=== PATIENT | female | born 1935 | race Caucasian/White ===

== ENCOUNTER → 2016-11-29 | Outpatient (CLI) | payer OTHER ==
[~2016-11-29] MED LIST: AMB5 PO; AMLO2.5T PO; ASPEC325 PO; BTMOPS5 OPB; HYDR-5688 PO; MELO7.5T6 PO; MRLP17X PO; RALO60TA30 PO; TYL325X PO; VALS160T58 PO; VTMD1000 PO; [UNRECOGNIZED DRUG - CODE] PO
[2016-11-29 14:25] LABS: ALKALINE PHOSPHATASE 79 U/L (45-117); ALT/SGPT 28 U/L (12-78); AST/SGOT 20 U/L (15-37); BLOOD UREA NITROGEN 15 mg/dl (7-18); BUN/CREATININE RATIO 19.9 (10-20); CALCIUM 8.6 mg/dl (8.5-10.1); CARBON DIOXIDE 32 mmol/L (21-32); CHLORIDE 96 mmol/L (98-107); CREATININE 0.74 mg/dl (0.60-1.20); GLUCOSE 116 mg/dl (70-99); HDL CHOLESTEROL 61 mg/dl; POTASSIUM 3.7 mmol/L (3.5-5.1); SODIUM 134 mmol/L (136-145)
[2016-11-29 14:36] LABS: CHOLESTEROL 174 mg/dl (0-200); CHOLESTEROL/HDL RATIO 2.9; LDL CHOLESTEROL CALCULATED 91 mg/dl; TRIGLYCERIDES 109 mg/dl (0-150); VERY LOW DENSITY LIPOPROT CALC 22 mg/dl
[2016-11-29 15:08] LABS: URINE APPEARANCE CLOUDY (CLEAR); URINE BILIRUBIN NEG (NEG); URINE COLOR YELLOW; URINE NITRITE NEG (NEG); URINE PH 6.5 (4.5-7.5); URINE SPECIFIC GRAVITY 1.017 (1.000-1.030); UROBILINOGEN NEG (NEG)
[2016-11-29 15:14] LABS: MANUAL MICROSCOPIC REQUIRED? YES; REVIEW REQ? NO
[2016-11-29 15:47] LABS: URINE WBC >30 /hpf (0-5)
[2016-11-29 15:48] LABS: URINE BACTERIA 3+ (NEG); URINE RBC 0-4 /hpf (0-4)
== END | disposition home or self-care (01) ==
LOC: C.LABBC 10:40
PROVIDERS: ATTEND Internal Medicine
DX: Z00.00 Encounter for general adult medical examination without abnormal findings (principal); R39.9 Unspecified symptoms and signs involving the genitourinary system; R73.03 Prediabetes; E78.5 Hyperlipidemia, unspecified; E03.9 Hypothyroidism, unspecified

== ENCOUNTER → 2016-12-19 | Outpatient (CLI) | payer OTHER ==
[2016-12-19 11:50] LABS: ALT/SGPT 24 U/L (12-78); AST/SGOT 20 U/L (15-37); BLOOD UREA NITROGEN 20 mg/dl (7-18); BUN/CREATININE RATIO 25.8 (10-20); CARBON DIOXIDE 28 mmol/L (21-32); CHLORIDE 98 mmol/L (98-107); CREATININE 0.76 mg/dl (0.60-1.20); GLUCOSE 94 mg/dl (70-99); SODIUM 136 mmol/L (136-145)
== END | disposition home or self-care (01) ==
LOC: C.LABBC 09:06
PROVIDERS: ATTEND Internal Medicine
DX: E03.9 Hypothyroidism, unspecified (principal); E78.5 Hyperlipidemia, unspecified; R73.03 Prediabetes

== ENCOUNTER → 2016-12-26 | Outpatient (CLI) | payer OTHER ==
[2016-12-26 13:43] LABS: URINE APPEARANCE CLEAR (CLEAR); URINE BILIRUBIN NEG (NEG); URINE COLOR YELLOW; URINE EPITHELIAL CELL AUTO >30 /lpf (0-5); URINE NITRITE NEG (NEG); URINE PH 6.5 (4.5-7.5); URINE SPECIFIC GRAVITY 1.012 (1.000-1.030); UROBILINOGEN NEG (NEG)
[2016-12-26 13:51] LABS: MANUAL MICROSCOPIC REQUIRED? NO; REVIEW REQ? NO
== END | disposition home or self-care (01) ==
LOC: C.LABBC 11:12
PROVIDERS: ATTEND Internal Medicine
DX: R39.9 Unspecified symptoms and signs involving the genitourinary system (principal)

== ENCOUNTER → 2017-03-07 | Outpatient (CLI) | payer OTHER ==
[~2017-03-07] MED LIST changes: +RALO60TA12 PO; -RALO60TA30 PO
[2017-03-07 13:49] LABS: BLOOD UREA NITROGEN 14 mg/dl (7-18); BUN/CREATININE RATIO 21.8 (10-20); CALCIUM 8.8 mg/dl (8.5-10.1); CARBON DIOXIDE 31 mmol/L (21-32); CHLORIDE 100 mmol/L (98-107); CREATININE 0.65 mg/dl (0.60-1.20); GLUCOSE 88 mg/dl (70-99); POTASSIUM 3.6 mmol/L (3.5-5.1); SODIUM 135 mmol/L (136-145)
== END | disposition home or self-care (01) ==
LOC: C.LABBC 09:19
PROVIDERS: ATTEND Internal Medicine
DX: E87.1 Hypo-osmolality and hyponatremia (principal)

== ENCOUNTER → 2017-03-27 | Outpatient (CLI) | payer OTHER ==
[2017-03-27 14:12] LABS: CALCIUM URINE < 5.0 mg/dl
[2017-03-27 14:13] LABS: URINE COLLECTION TIME 24 HOURS
== END | disposition home or self-care (01) ==
LOC: C.LABBC 09:42
PROVIDERS: ATTEND Internal Medicine Rheumatology
DX: M81.0 Age-related osteoporosis without current pathological fracture (principal); E55.9 Vitamin D deficiency, unspecified

== ENCOUNTER → 2017-06-16 | Outpatient (CLI) | payer OTHER ==
[2017-06-16 13:56] LABS: ALT/SGPT 24 U/L (12-78); AST/SGOT 23 U/L (15-37); BLOOD UREA NITROGEN 17 mg/dl (7-18); BUN/CREATININE RATIO 24.9 (10-20); CALCIUM 8.6 mg/dl (8.5-10.1); CARBON DIOXIDE 32 mmol/L (21-32); CHLORIDE 96 mmol/L (98-107); CHOLESTEROL 193 mg/dl (0-200); CREATININE 0.69 mg/dl (0.60-1.20); GLUCOSE 91 mg/dl (70-99); POTASSIUM 3.9 mmol/L (3.5-5.1); SODIUM 133 mmol/L (136-145)
[2017-06-16 14:07] LABS: ALKALINE PHOSPHATASE 78 U/L (45-117); CHOLESTEROL/HDL RATIO 3.1; HDL CHOLESTEROL 63 mg/dl; LDL CHOLESTEROL CALCULATED 105 mg/dl; TRIGLYCERIDES 127 mg/dl (0-150); VERY LOW DENSITY LIPOPROT CALC 25 mg/dl
[2017-06-16 14:23] LABS: ESTIMATED AVERAGE GLUCOSE 126 mg/dl; HA1C FLAG Normal (Normal)
== END | disposition home or self-care (01) ==
LOC: C.LABBC 09:42
PROVIDERS: ATTEND Internal Medicine
DX: M81.0 Age-related osteoporosis without current pathological fracture (principal); E87.1 Hypo-osmolality and hyponatremia; E78.5 Hyperlipidemia, unspecified; R73.03 Prediabetes; G47.00 Insomnia, unspecified

== ENCOUNTER → 2017-09-15 | Outpatient (CLI) | payer OTHER ==
[2017-09-15 15:20] LABS: GLUCOSE 99 mg/dl (70-99)
[2017-09-15 15:20] LABS: BLOOD UREA NITROGEN 17 mg/dl (7-18); BUN/CREATININE RATIO 24.6 (10-20); CALCIUM 9.3 mg/dl (8.5-10.1); CARBON DIOXIDE 33 mmol/L (21-32); CHLORIDE 85 mmol/L (98-107); CREATININE 0.68 mg/dl (0.60-1.20); EstGFR CKD-E AfrAm 94.4; EstGFR CKD-E NON AfrAm 81.5; POTASSIUM 3.9 mmol/L (3.5-5.1); SODIUM 123 mmol/L (136-145)
== END | disposition home or self-care (01) ==
LOC: C.LABBC 10:35
DX: E87.1 Hypo-osmolality and hyponatremia (principal)

== ENCOUNTER → 2017-09-18 | Outpatient (CLI) | payer OTHER ==
[~2017-09-18] MED LIST changes: -ASPEC325 PO; +ASPI81TA28 PO; -BTMOPS5 OPB; +DVN/160 PO; -HYDR-5688 PO; +HYDR12.56 PO; -MRLP17X PO; -RALO60TA12 PO; +TMPXEOPS OPB; -TYL325X PO; -VALS160T58 PO
[2017-09-18 18:15] LABS: BLOOD UREA NITROGEN 15 mg/dl (7-18); CALCIUM 8.9 mg/dl (8.5-10.1); CARBON DIOXIDE 29 mmol/L (21-32); CREATININE 0.53 mg/dl (0.60-1.20); GLUCOSE 78 mg/dl (70-99); POTASSIUM 3.9 mmol/L (3.5-5.1); SODIUM 130 mmol/L (136-145)
== END | disposition home or self-care (01) ==
LOC: C.LAB1850 17:01
PROVIDERS: ATTEND Internal Medicine
DX: E87.1 Hypo-osmolality and hyponatremia (principal)

== ENCOUNTER → 2017-09-25 | Outpatient (CLI) | payer OTHER ==
[2017-09-25 16:53] LABS: BLOOD UREA NITROGEN 18 mg/dl (7-18); CALCIUM 8.8 mg/dl (8.5-10.1); CARBON DIOXIDE 28 mmol/L (21-32); CREATININE 0.62 mg/dl (0.60-1.20); GLUCOSE 101 mg/dl (70-99); POTASSIUM 4.1 mmol/L (3.5-5.1); SODIUM 133 mmol/L (136-145)
== END | disposition home or self-care (01) ==
LOC: C.LABBC 13:29
PROVIDERS: ATTEND Internal Medicine
DX: E87.1 Hypo-osmolality and hyponatremia (principal)

== ENCOUNTER → 2017-10-09 | Outpatient (CLI) | payer OTHER ==
[2017-10-09 14:01] LABS: BLOOD UREA NITROGEN 13 mg/dl (7-18); CALCIUM 8.8 mg/dl (8.5-10.1); CARBON DIOXIDE 30 mmol/L (21-32); CREATININE 0.61 mg/dl (0.60-1.20); GLUCOSE 85 mg/dl (70-99); SODIUM 135 mmol/L (136-145)
== END | disposition home or self-care (01) ==
LOC: C.LABBC 11:57
PROVIDERS: ATTEND Internal Medicine
DX: E87.1 Hypo-osmolality and hyponatremia (principal)

== ENCOUNTER → 2017-11-16 | Outpatient (CLI) | payer OTHER | END | disposition home or self-care (01) | LOC: C.LABBC 15:20 | PROVIDERS: ATTEND Internal Medicine | DX: R39.9 Unspecified symptoms and signs involving the genitourinary system (principal) ==

== ENCOUNTER → 2017-12-19 | Outpatient (CLI) | payer OTHER ==
[2017-12-19 14:07] LABS: BLOOD UREA NITROGEN 17 mg/dl (7-18); CALCIUM 8.7 mg/dl (8.5-10.1); CARBON DIOXIDE 30 mmol/L (21-32); CREATININE 0.68 mg/dl (0.60-1.20); GLUCOSE 93 mg/dl (70-99); POTASSIUM 3.8 mmol/L (3.5-5.1); SODIUM 135 mmol/L (136-145)
[2017-12-19 14:18] LABS: CHOLESTEROL 182 mg/dl (0-200); LDL CHOLESTEROL CALCULATED 101 mg/dl
== END | disposition home or self-care (01) ==
LOC: C.LABBC 10:30
PROVIDERS: ATTEND Internal Medicine
DX: R73.03 Prediabetes (principal); E78.5 Hyperlipidemia, unspecified; E03.9 Hypothyroidism, unspecified

== ENCOUNTER → 2018-04-20 | Outpatient (CLI) | payer OTHER ==
[~2018-04-20] MED LIST changes: +CALC12502 PO
[2018-04-20 13:42] LABS: HEMATOCRIT 37.8 % (37-47); HEMOGLOBIN 12.3 g/dL (12.0-16.0); MEAN CELL VOLUME 88.5 fL (80-100); MEAN CORPUSCULAR HEMOGLOBIN 28.8 pg (25-34); MEAN CORPUSCULAR HGB CONC 32.5 g/dl (32-36); MEAN PLATELET VOLUME 11.3 fL (7.4-10.4); PLATELET COUNT 320 K/uL (130-400); RED CELL DISTRIBUTION WIDTH CV 14.3 % (11.5-14.5); RED CELL DISTRIBUTION WIDTH SD 46.7 fL (36.4-46.3); WHITE BLOOD COUNT 9.28 K/uL (4.8-10.8)
[2018-04-20 14:10] LABS: HEMOGLOBIN A1C 5.8 % (4.5-5.6)
[2018-04-20 14:34] LABS: ALBUMIN 3.4 gm/dl (3.4-5.0); ALKALINE PHOSPHATASE 77 U/L (45-117); ALT/SGPT 25 U/L (12-78); AST/SGOT 21 U/L (15-37); BLOOD UREA NITROGEN 14 mg/dl (7-18); CALCIUM 8.5 mg/dl (8.5-10.1); CARBON DIOXIDE 26 mmol/L (21-32); CREATININE 0.66 mg/dl (0.60-1.20); GLUCOSE 86 mg/dl (70-99); POTASSIUM 4.3 mmol/L (3.5-5.1); SODIUM 133 mmol/L (136-145)
== END | disposition home or self-care (01) ==
LOC: C.LABBC 10:37
PROVIDERS: ATTEND Internal Medicine
DX: E87.1 Hypo-osmolality and hyponatremia (principal); R73.03 Prediabetes; E03.9 Hypothyroidism, unspecified; R60.9 Edema, unspecified; E55.9 Vitamin D deficiency, unspecified

== ENCOUNTER 2018-04-24 13:29 | Emergency (ER) | payer OTHER ==
[~2018-04-24] VITALS: Ht 149.9 cm; Wt 58.4 kg
[~2018-04-24 13:29] MED LIST changes: -CALC12502 PO
[2018-04-24 13:31] VITALS: Ht 149.9 cm; Wt 58.4 kg
[2018-04-24] MEDS ORDERED: CALC12502 PO (13:49)
--- NOTE | 2018-04-24 14:02 | EMERGENCY ROOM VISIT NOTE ---
History Report prepared by Celi: Roseanna Cabral Under the Supervision of: Dr. Logan Andrade D.O. First contact with patient: 13:49 Chief Complaint: NEURO SYMPTOMS Stated Complaint: NUMBNESS OF LEFT ARM, CHEST PAIN Nursing Triage Summary: pt reports feeling numbness in bilat arms started 1 hour ago. has since gone away. pt having headache last night. no leg drifts no drifts in arms denies any problems with speech. smile equal History of Present Illness The patient is a 83 year old female who presents to the Emergency Room with complaints of left arm numbness. This included her entire left arm. She reports no numbness in her right arm. This started around 12:00 while she was sitting in a chair watching TV. Numbness lasted for about a minute. She denies any weakness. She notes she is completely able to move her arm without difficulty. She had no trouble talking. She has never had this before. She has no headache, chest pain, shortness of breath, blurry vision, nausea vomiting diarrhea. She denies any urinary frequency, or urgency. She notes she had full control of her arm. No slurred speech. Source of History: patient Onset: 1200 today Position: arm (left) Quality: numbness Timing: other (lasted about 1 minute) Associated Symptoms: No headache, No chest pain, No SOB, No nausea, No vomiting, No diarrhea, No urinary symptoms, No weakness Note: Negative blurry vision or slurred speech Review of Systems See HPI for pertinent positives & negatives. A total of 10 systems reviewed and were otherwise negative. Past Medical & Surgical Medical Problems: (1) Fibrosclerosis Of Breast (2) Hyperlipidemia Nec/Nos (3) Hypertension Nos Family History No pertinent family history Social History Smoking Status: Never Smoker Drug Use: none Marital Status: Occupation Status: retired Current/Historical Medications Scheduled Amlodipine (Norvasc), 2.5 MG PO DAILY Aspirin (Aspirin Ec), 81 MG PO DAILY Calcium Carbonate (Os-Rodger 500), 500 MG PO DAILY Cholecalciferol (Vitamin D3), 1,000 INTER.UNIT PO QAM Fluvastatin Sodium (Lescol Xl), 1 TAB PO DAILY Meloxicam (Mobic), 7.5 MG PO BID Timolol Maleate (Timolol Gfs 0.5% (Generic For Timoptic-Xe)), 1 DROP OPB QAM Valsartan (Diovan), 160 MG PO DAILY Zolpidem Tartrate (Zolpidem Tartrate), 2.5 MG PO HS Allergies Coded Allergies: No Known Allergies (Unverified , 04/24/18) Physical Exam Vital Signs Date Time Temp Pulse Resp B/P (MAP) Pulse Ox O2 Delivery O2 Flow Rate FiO2 04/24/18 17:40 36.4 75 22 173/75 95 04/24/18 17:05 75 22 173/75 95 Room Air 04/24/18 14:27 75 04/24/18 13:31 36.4 74 18 176/77 100 Room Air Physical Exam GENERAL: Sitting up in bed, alert, well appearing, well nourished, no distress, non-toxic EYE EXAM: normal conjunctiva. PERRL and EOM's intact. OROPHARYNX: no exudate, no erythema, lips, buccal mucosa, and tongue normal and mucous membranes are moist NECK: supple, no nuchal rigidity, no adenopathy, non-tender LUNGS: Clear to auscultation. Normal chest wall mechanics HEART: no murmurs, S1 normal and S2 normal ABDOMEN: abdomen soft, non-tender, normo-active bowel sounds, no masses, no rebound or guarding. BACK: Back is symmetrical on inspection and there is no deformity, no midline tenderness, no CVA tenderness. SKIN: no rashes and no bruising UPPER EXTREMITIES: upper extremities are grossly normal. LOWER EXTREMITIES: No pitting edema. NEURO EXAM: Normal sensorium, cranial nerves II-XII intact, normal speech, no weakness of arms, no weakness of legs. No drift. Finger to nose intact. Gross sensation intact. Medical Decision & Procedures ER Provider Diagnostic Interpretation: Radiology results as stated below per my review and the radiologist's interpretation: HEAD WITHOUT CONTRAST (CT) CT DOSE: 537.48 mGy.cm HISTORY: Mental status change l arm numbness TECHNIQUE: Multiaxial CT images of the head were performed without the use of intravenous contrast. A dose lowering technique was utilized adhering to the principles of ALARA. Comparison: None. Findings: The paranasal sinuses and mastoid air cells are clear. Age-related atrophy and chronic small vessel change. Mild ventricular prominence. No acute intracranial hemorrhage. Impression: Atrophy and age-related change. No acute process. The above report was generated using voice recognition software. It may contain grammatical, syntax or spelling errors. Electronically signed by: Juan M Seth M.D. 04/24/2018 3:31 PM CHEST ONE VIEW PORTABLE CLINICAL HISTORY: Chest pain. COMPARISON STUDY: Chest radiograph September 12, 2017. FINDINGS: Incidental note is made of elevation of both humeral heads which suggests chronic rotator cuff tears. A moderate sized hiatal hernia is noted. There is no pneumothorax or pleural effusion. There is no consolidation to suggest pneumonia. Prominent vascularity is normal. Cardiomediastinal silhouette is stable. Appearance of the chest is unchanged. IMPRESSION: No acute cardiopulmonary findings. No change in appearance of the chest. Electronically signed by: Abdoulaye Rosenthal M.D. 04/24/2018 2:31 PM CAROTID ARTERY ULTRASOUND CLINICAL HISTORY: Left arm paresthesias. COMPARISON STUDY: None. TECHNIQUE: Real-time, grayscale, and color Doppler sonography of the carotid and vertebral arteries was performed. Images were viewed in the transverse and longitudinal planes. FINDINGS: There is mild atherosclerotic plaque. Velocity measurements are listed below. COMMON CAROTID PEAK SYSTOLIC VELOCITY (CM/S): RIGHT 147 LEFT 109 ICA PEAK SYSTOLIC VELOCITY (CM/S): RIGHT 85 LEFT 74 Systolic ratios between the internal to common carotid arteries are normal. Antegrade flow is seen in the vertebral arteries. The external carotid arteries are patent. Blood pressure in the right arm measured 161/70. Blood pressure in the left arm measured 140/69. IMPRESSION: No evidence for a hemodynamically significant stenosis. Electronically signed by: Abdoulyae Rosenthal M.D. 04/24/2018 5:13 PM Laboratory Results 04/24/18 14:13 Red Blood Count 4.08, Mean Corpuscular Volume 88.0, Mean Corpuscular Hemoglobin 29.2, Mean Corpuscular Hemoglobin Concent 33.1, Mean Platelet Volume 10.8, Neutrophils (%) (Auto) 68.3, Lymphocytes (%) (Auto) 21.8, Monocytes (%) (Auto) 8.7, Eosinophils (%) (Auto) 0.7, Basophils (%) (Auto) 0.1, Neutrophils # (Auto) 6.65, Lymphocytes # (Auto) 2.12, Monocytes # (Auto) 0.85, Eosinophils # (Auto) 0.07, Basophils # (Auto) 0.01 04/24/18 14:13 Test 04/24/18 14:13 04/24/18 16:26 04/24/18 16:51 White Blood Count 9.74 K/uL (4.8-10.8) Red Blood Count 4.08 M/uL (4.2-5.4) Hemoglobin 11.9 g/dL (12.0-16.0) Hematocrit 35.9 % (37-47) Mean Corpuscular Volume 88.0 fL (80-100) Mean Corpuscular Hemoglobin 29.2 pg (25-34) Mean Corpuscular Hemoglobin Concent 33.1 g/dl (32-36) Platelet Count 286 K/uL (130-400) Mean Platelet Volume 10.8 fL (7.4-10.4) Neutrophils (%) (Auto) 68.3 % Lymphocytes (%) (Auto) 21.8 % Monocytes (%) (Auto) 8.7 % Eosinophils (%) (Auto) 0.7 % Basophils (%) (Auto) 0.1 % Neutrophils # (Auto) 6.65 K/uL (1.4-6.5) Lymphocytes # (Auto) 2.12 K/uL (1.2-3.4) Monocytes # (Auto) 0.85 K/uL (0.11-0.59) Eosinophils # (Auto) 0.07 K/uL (0-0.5) Basophils # (Auto) 0.01 K/uL (0-0.2) RDW Standard Deviation 44.5 fL (36.4-46.3) RDW Coefficient of Variation 13.8 % (11.5-14.5) Immature Granulocyte % (Auto) 0.4 % Immature Granulocyte # (Auto) 0.04 K/uL (0.00-0.02) Anion Gap 9.0 mmol/L (3-11) Est Creatinine Clear Calc Drug Dose 47.4 ml/min Estimated GFR () 92.9 Estimated GFR (Non- 80.1 BUN/Creatinine Ratio 21.4 (10-20) Calcium Level 8.4 mg/dl (8.5-10.1) Total Creatine Kinase 61 U/L (26-192) Creatine Kinase MB 1.2 ng/ml (0.5-3.6) Creatine Kinase MB Ratio 2.0 (0-3.0) Troponin I < 0.015 ng/ml (0-0.045) Urine Color YELLOW Urine Appearance CLEAR (CLEAR) Urine pH 7.5 (4.5-7.5) Urine Specific [place] 1.007 (1.000-1.030) Urine Protein NEG (NEG) Urine Glucose (UA) NEG (NEG) Urine Ketones NEG (NEG) Urine Occult Blood NEG (NEG) Urine Nitrite NEG (NEG) Urine Bilirubin NEG (NEG) Urine Urobilinogen NEG (NEG) Urine Leukocyte Esterase SMALL (NEG) Urine WBC (Auto) 1-5 /hpf (0-5) Urine RBC (Auto) 0-4 /hpf (0-4) Urine Hyaline Casts (Auto) 0 /lpf (0-5) Urine Epithelial Cells (Auto) 5-10 /lpf (0-5) Urine Bacteria (Auto) NEG (NEG) Laboratory results per my review. ECG Per My Interpretation Indication: other (neuro symptoms) Rate (beats per minute): 72 Rhythm: sinus rhythm Findings: left axis deviation, other (no PVCs) Comparison ECG Date: 09/10/17 Change: no significant change ED Course ED COURSE: Vital signs were reviewed and showed hypertensive The patients medical record was reviewed The above diagnostic studies were performed and reviewed. ED treatments and interventions as stated above. 1351: The patient was evaluated in room B11. A complete history and physical examination was performed. 1525: I checked on the patient at this time. She is feeling well. 1613: I reviewed the patient's case with Dr. Kurt Tay, [facility]. He recommends ta carotid ultrasound. If negative, she can follow up with her PCP. 1726: Upon reevaluation, the patient is feeling better. I discussed my findings with the patient and she understands and agrees with the treatment plan. Based on the patients age, coexisting illnesses, exam and lab findings the decision to treat as an outpatient was made. The patient remained stable while under my care. The patient appeared well at the time of discharge. Medical Decision Differential Diagnosis includes but is not limited to ischemic Stroke, hemorrhagic stroke, bells palsy, mass, neoplasm, migraine headache, seizure, subarachnoid hemorrhage, TIA, and transient global amnesia. Patient is an 83-year-old female who presents the ER for left arm numbness. It included her entire left arm. She had a minimal headache last night. She had no weakness. No other complaints. No chest pain or shortness of breath. EKG was unremarkable. Labs were obtained. CBC along with BMP shows a mild anemia. Troponins were negative 2. UA was negative. EKG was reviewed by product design engineer at bedside as family friend. CT head was obtained and was unremarkable. Chest x-ray was unremarkable along with carotid ultrasound. Carotid ultrasound was obtained after discussion with neurology. Dr. Tay recommended carotid ultrasound and if negative she can follow-up as an outpatient for possible TIA. Patient will continue 81 mg aspirin daily. Patient was discharged neurologically intact follow-up with PCP and neurology as an outpatient. Discussed with Pt concerning signs and symptoms to watch out for. Pt was instructed to follow up with their PCP and discussed with the patient their option to return to the ED at anytime for persistent or worsening symptoms. The appropriate anticipatory guidance and out-patient management, including indications for return to the emergency department, were explained at length to the patient and understood. Medication Reconcilliation Current Medication List: was personally reviewed by me Blood Pressure Screening Patient's blood pressure: Elevated blood pressure Blood pressure disposition: Referred to PCP Consults Time Called: 1611 Consulting Physician: Dr. Kurt Tay, [facility] Returned Call: 1613 I reviewed the patient's case with Dr. Kurt Tay, [facility]. He recommends ta carotid ultrasound. If negative, she can follow up with her PCP. Impression Primary Impression: Arm paresthesia, left Scribe Attestation The scribe's documentation has been prepared under my direction and personally reviewed by me in its entirety. I confirm that the note above accurately reflects all work, treatment, procedures, and medical decision making performed by me. Departure Information Dispostion Home / Self-Care Referrals Dav Perez M.D. (PCP) Forms HOME CARE DOCUMENTATION FORM, IMPORTANT VISIT INFORMATION, WORK / SCHOOL INSTRUCTIONS Patient Instructions [facility] Additional Instructions Please follow up with your primary care doctor with in the next 24 hours. Any worsening of your symptoms, please return to the ED immediately. This includes any fevers greater than 100.4, worsening pain, chest pain, shortness breath, persistent nausea, vomiting, unable to eat or drink, or any other concerning signs or symptoms from your standpoint. Please continue to take your aspirin 81 mg daily. Please make sure you follow-up with your PCP within the next 3 days. Please follow-up with neurology within the next 2 weeks.
[2018-04-24 14:30] LABS: BASO % 0.1 %; BASO ABS # 0.01 K/uL (0-0.2); EOS % 0.7 %; EOS ABS # 0.07 K/uL (0-0.5); HEMATOCRIT 35.9 % (37-47); HEMOGLOBIN 11.9 g/dL (12.0-16.0); IG# 0.04 K/uL (0.00-0.02); LYMPH % 21.8 %; LYMPH ABS # 2.12 K/uL (1.2-3.4); MEAN CORPUSCULAR HEMOGLOBIN 29.2 pg (25-34); MEAN CORPUSCULAR HGB CONC 33.1 g/dl (32-36); MEAN PLATELET VOLUME 10.8 fL (7.4-10.4); MONO % 8.7 %; MONO ABS # 0.85 K/uL (0.11-0.59); NEUT % 68.3 %; NEUT ABS # 6.65 K/uL (1.4-6.5); PLATELET COUNT 286 K/uL (130-400); RED CELL DISTRIBUTION WIDTH CV 13.8 % (11.5-14.5); RED CELL DISTRIBUTION WIDTH SD 44.5 fL (36.4-46.3); WHITE BLOOD COUNT 9.74 K/uL (4.8-10.8)
--- NOTE | 2018-04-24 14:32 | DIAGNOSTIC IMAGING REPORT ---
CHEST ONE VIEW PORTABLE CLINICAL HISTORY: Chest pain. COMPARISON STUDY: Chest radiograph September 12, 2017. FINDINGS: Incidental note is made of elevation of both humeral heads which suggests chronic rotator cuff tears. A moderate sized hiatal hernia is noted. There is no pneumothorax or pleural effusion. There is no consolidation to suggest pneumonia. Prominent vascularity is normal. Cardiomediastinal silhouette is stable. Appearance of the chest is unchanged. IMPRESSION: No acute cardiopulmonary findings. No change in appearance of the chest. Electronically signed by: Abdoulaye Rosenthal M.D. 04/24/2018 2:31 PM Dictated Date/Time: 04/24/2018 2:30 PM
[2018-04-24 14:49] LABS: BLOOD UREA NITROGEN 15 mg/dl (7-18); CALCIUM 8.4 mg/dl (8.5-10.1); CARBON DIOXIDE 26 mmol/L (21-32); CKMB 1.2 ng/ml (0.5-3.6); GLUCOSE 109 mg/dl (70-99); POTASSIUM 3.9 mmol/L (3.5-5.1); SODIUM 135 mmol/L (136-145)
--- NOTE | 2018-04-24 15:33 | DIAGNOSTIC IMAGING REPORT ---
HEAD WITHOUT CONTRAST (CT) CT DOSE: 537.48 mGy.cm HISTORY: Mental status change l arm numbness TECHNIQUE: Multiaxial CT images of the head were performed without the use of intravenous contrast. A dose lowering technique was utilized adhering to the principles of ALARA. Comparison: None. Findings: The paranasal sinuses and mastoid air cells are clear. Age-related atrophy and chronic small vessel change. Mild ventricular prominence. No acute intracranial hemorrhage. Impression: Atrophy and age-related change. No acute process. The above report was generated using voice recognition software. It may contain grammatical, syntax or spelling errors. Electronically signed by: Juan M Seth M.D. 04/24/2018 3:31 PM Dictated Date/Time: 04/24/2018 3:30 PM
--- NOTE | 2018-04-24 17:15 | DIAGNOSTIC IMAGING REPORT ---
CAROTID ARTERY ULTRASOUND CLINICAL HISTORY: Left arm paresthesias. COMPARISON STUDY: None. TECHNIQUE: Real-time, grayscale, and color Doppler sonography of the carotid and vertebral arteries was performed. Images were viewed in the transverse and longitudinal planes. FINDINGS: There is mild atherosclerotic plaque. Velocity measurements are listed below. COMMON CAROTID PEAK SYSTOLIC VELOCITY (CM/S): RIGHT 147 LEFT 109 ICA PEAK SYSTOLIC VELOCITY (CM/S): RIGHT 85 LEFT 74 Systolic ratios between the internal to common carotid arteries are normal. Antegrade flow is seen in the vertebral arteries. The external carotid arteries are patent. Blood pressure in the right arm measured 161/70. Blood pressure in the left arm measured 140/69. IMPRESSION: No evidence for a hemodynamically significant stenosis. Electronically signed by: Abdoulaye Rosenthal M.D. 04/24/2018 5:13 PM Dictated Date/Time: 04/24/2018 5:11 PM
[2018-04-24 17:40] VITALS: BP 173/75; PULSE 75; TEMP 36.4; O2SAT 95
== END 2018-04-24 17:42 | disposition home or self-care (01) ==
LOC: C.EDB 13:30
DX: R20.2 Paresthesia of skin (principal); I10 Essential (primary) hypertension; E78.5 Hyperlipidemia, unspecified; Z79.82 Long term (current) use of aspirin

== ENCOUNTER 2019-03-29 16:24 | Inpatient (IN) ==
[2019-03-29] MEDS ORDERED: SODIUM CHLORIDE 0.9% 1000ML 500 ML IV ONE (16:55)
--- NOTE | 2019-03-29 17:07 | Emergency Department Note ---
Entered by Elvira Paez acting as a scribe for Vijay Wilder DO History of Present Illness General Chief complaint: Urinary Symptoms Stated complaint: ILLNESS, BURNING WITH URINATION-IN [place] RECENTLY Time Seen by Provider: 03/29/19 16:34 Source: patient History of Present Illness Provider complaint: Urinary symptoms Onset (ago): day(s) 4 Location: head (headache ), abdomen (nausea and vomiting ) and genitals (urinary symptoms ) Pain Consistency: + constant Maximum Pain Intensity: 8 Quality: + constant Associated symptoms: + fever/chills (chills ), + headaches, + loss of appetite, + nausea/vomiting and + other (Positive: urinary symptoms, dysuria, cold sweats, improving cough and congestion. Negative: diarrhea, constipation, abdominal pa in); no shortness of breath The patient is an 84 year old female who presents to the ED with complaints of constant urinary symptoms that started 4 days ago. The patient reports she had a recent UTI about 4 weeks ago. She notes she was treated in [place] and was prescribed antibiotics. The patient states she was treated for 10 days and was completely better for 4 weeks until her current episode. She notes her main concern is dysuria. The patient states she has had decreased appetite for 4 days. She notes she has intermittent chills with cold sweats. The patient reports she has intermittent 8/10 headache and nausea for 4 days. She notes she had one episode of vomiting this morning. The patient states there was no blood or bile in the vomit. She reports she has improving cough and congestion. The patient states she has history of pre-diabetes, hypertension, and hyperlipidemia. The patient denies diarrhea, constipation, shortness of breath, abdominal pain, tobacco use, or alcohol use. Home Medications Home Medications Medication Instructions Recorded Confirmed Type amlodipine [Norvasc] 2.5 mg PO BID 03/29/19 03/29/19 History aspirin [Aspir-81] 81 mg PO DAILY 03/29/19 03/29/19 History calcium carbonate-vitamin D3 1 tab PO DAILY 03/29/19 03/29/19 History [Os-Rodger 500 + D3] cholecalciferol (vitamin D3) 1,000 unit PO DAILY 03/29/19 03/29/19 History [Vitamin D3] levothyroxine [Synthroid] 25 mcg PO DAILY 03/29/19 03/29/19 History meloxicam [Mobic] 7.5 mg PO BID PRN 03/29/19 03/29/19 History pravastatin 80 mg PO DAILY 03/29/19 03/29/19 History timolol maleate [Timoptic] 1 drp OPHTHALMIC (EYE) DAILY 03/29/19 03/29/19 History valsartan [Diovan] 160 mg PO DAILY 03/29/19 03/29/19 History zolpidem [Ambien] 2.5 - 5 mg PO HS PRN 03/29/19 03/29/19 History Allergies Allergy/AdvReac Type Severity Reaction Status Date / Time No Known Allergies Allergy Verified 03/29/19 17:41 Past Med/Surg History Medical History Vitamin D deficiency Trochanteric bursitis of left hip Pre-diabetes Osteoarthritis Hypertension Hyperlipidemia Fibrocystic breast disease Glaucoma Diverticulosis Osteoporosis Vomiting (Acute) Dehydration (Acute) Hyponatremia (Acute) Hypokalemia (Acute) Nausea (Acute) Family History Other Family history non-contributory Social History Feels Safe at Home: Yes Smoking Status: Never smoker Review of Systems See HPI for pertinent positives & negatives. and A total of 10 systems reviewed and were otherwise negative Physical Exam Vital Signs Vital Signs - 24 hr 03/29/19 16:28 03/29/19 16:53 Temperature 36.5 C Temperature Source Oral Sepsis Recent Fever Within 48 Hours No Sepsis Action Taken by Nursing No Action Required Pulse Rate 92 H Respiratory Rate 18 Respiratory Effort / Characteristics Non-Labored Respiratory Depth Normal Blood Pressure 160/74 H Blood Pressure Mean 102 Blood Pressure Position Sitting Pulse Oximetry 97 Oxygen Delivery Method Room Air Room Air CONSTITUTIONAL/VITAL SIGNS: Reviewed / noted above. GENERAL: Non-toxic in appearance. INTEGUMENTARY: Warm, dry, and [place]. HEAD: Normocephalic. EYES: without scleral icterus or trauma. ENT/OROPHARYNX: clear and moist. LYMPHADENOPATHY/NECK: Is supple without lymphadenopathy or meningismus. RESPIRATORY: Lungs clear and equal. CARDIOVASCULAR: Regular rate and rhythm. GI/ABDOMEN: Soft and nontender. No organomegaly or pulsatile mass. No rebound or guarding. Normal bowel sounds. EXTREMITIES: Warm and well perfused. BACK: No CVA tenderness. NEUROLOGICAL: Intact without focal deficits. PSYCHIATRIC: normal affect. MUSCULOSKELETAL: Normally developed with good muscle tone. Course 1637: The resident evaluated the patient. 1703: The patient was evaluated in room A11B. A complete history and physical exam was performed. 1805: Upon reevaluation, the patient is resting comfortably. I discussed laboratory and radiographic results with the patient. The patient verbalized agreement of the treatment plan. The patient will be evaluated for further management and care. 180: I discussed the patient's case with Dr. Jurado, [facility] Hospitalist. He will evalute the patient for further management. Administered Medications Discontinued Medications Sodium Chloride (Nss 1000ml) 500 mls @ 999 mls/hr IV .Q31M ONE Stop: 03/29/19 17:25 Last Infusion: 03/29/19 17:52 Dose: 0 mls/hr Documented by: [id number] Admin: 03/29/19 17:21 Dose: 999 mls/hr Documented by: [id number] Medical Decision Making Differential Diagnosis Differential diagnosis: Etiologies such as viral syndrome, otitis, pharyngitis, pneumonia, influenza, meningitis, urinary tract infection, septic arthritis, soft tissue infectious process, intra-abdominal process, sepsis, bacteremia, as well as others were entertained. Medical Records Attestation: I reviewed the patient's medical records. Laboratory Data Attestation: I reviewed the patient's lab results. Result diagrams: 03/29/19 17:09 Lab Results 03/29/19 03/29/19 Range/Units 17:09 17:09 Sodium 118 L* (136-145) mmol/L Potassium 2.8 L (3.5-5.1) mmol/L Chloride 81 L (98-107) mmol/L Carbon Dioxide 28 (21-32) mmol/L Anion Gap 9.0 (3-11) BUN 13 (7-18) mg/dl Creatinine 0.63 (0.6-1.2) mg/dl Est Cr Clr Drug Dosing 51.5 ml/min Est GFR ( Amer) 95.5 Est GFR (Non-Af Amer) 82.4 BUN/Creatinine Ratio 20.5 H (10-20) Glucose 121 H (70-99) mg/dl Calcium 8.6 (8.5-10.1) mg/dl Urine Color Yellow Urine Appearance Cloudy A (Clear) Urine pH 7.0 (4.5-7.5) Ur Specific [place] 1.016 (1.000-1.030) Urine Protein 1+ H (Negative) Urine Glucose (UA) Negative (Negative) Urine Ketones Negative (Negative) Urine Blood 2+ H (Negative) Urine Nitrite Negative (Negative) Urine Bilirubin Negative (Negative) Urine Urobilinogen Negative (Negative) Ur Leukocyte Esterase 3+ H (Negative) Urine WBC (Auto) >30 H (0-5) /hpf Urine RBC (Auto) 10-30 H (0-4) /hpf U Hyaline Cast (Auto) 0 (0-5) /lpf U Epithel Cells (Auto) 10-20 H (0-5) /lpf Urine Bacteria (Auto) 4+ H (Negative) Blood Pressure Blood Pressure Findings: Elevated blood pressure Blood Pressure Disposition: Referred to patients primary care provider MDM Narrative This is a 84-year-old female who presents to the ED with a chief complaint of urinary symptoms. The patient states that she has had decreased appetite, intermittent chills, dysuria, nausea, headache for about the past 4 days. She states that her symptoms are reminiscent of the UTI she had 4 weeks ago. She was treated with antibiotics and improved. The patient states that she had one episode of vomiting yesterday. Her initial vital signs revealed hypertension. She is afebrile. She is in no distress. Her exam did not reveal any significant abnormalities. She does feel like she might be dehydrated. The patient's urine appears to show evidence of infection. Her sodium was 118 and chloride was 81, potassium was 2.8. Glucose was normal. The patient was given IV Rocephin as well as oral potassium. She will be seen by the hospitalist for further evaluation and care. I did review her previous sodium and december of this year and her sodium was 135. Family reports previous issues with hyponatremia as well. Impression & Plan Hypokalemia, Hyponatremia, Acute UTI, Weak Discharge Plan Visit Data Chief Complaint: Urinary Symptoms Stated Complaint: ILLNESS, BURNING WITH URINATION-IN [place] RECENTLY ED Provider: Vijay Wilder ED Midlevel Provider: Jose Monroe Discharge Problem: Hypokalemia, Hyponatremia, Acute UTI, Weak Patient Disposition: Being Evaluated by Hospitalist Forms Stand Alone Forms: My [facility] Prescriptions Prescriptions: No Action amlodipine [Norvasc] 2.5 mg tablet 2.5 mg PO BID RF: 0 levothyroxine [Synthroid] 25 mcg tablet 25 mcg PO DAILY RF: 0 meloxicam [Mobic] 7.5 mg tablet 7.5 mg PO BID PRN (Reason: Pain) RF: 0 pravastatin 80 mg tablet 80 mg PO DAILY RF: 0 zolpidem [Ambien] 5 mg tablet 2.5 - 5 mg PO HS PRN (Reason: imsomnia) RF: 0 timolol maleate [Timoptic] 0.5 % drops 1 drp ophthalmic (eye) DAILY RF: 0 valsartan [Diovan] 160 mg tablet 160 mg PO DAILY RF: 0 aspirin [Aspir-81] 81 mg Tablet,Delayed Release (Dr/Ec) 81 mg PO DAILY RF: 0 cholecalciferol (vitamin D3) [Vitamin D3] 1,000 unit Capsule 1,000 unit PO DAILY RF: 0 calcium carbonate-vitamin D3 [Os-Rodger 500 + D3] 500 mg(1,250mg) -200 unit Tablet 1 tab PO DAILY RF: 0 Referrals Referrals: Pro,Dav Chavira MD [Primary Care Provider] - The scribe's documentation has been prepared under my direction and personally reviewed by me in its entirety. I confirm that the note above accurately reflects all work, treatment, procedures, and medical decision making performed by me.
[2019-03-29 17:37] LABS: Appearance Urine Cloudy (Clear); Bacteria Urine Automated 4+ (Negative); Bilirubin Urine Negative (Negative); Blood Urine 2+ (Negative); Cast Urine Automated 0 /lpf (0-5); Color Urine Yellow; Glucose Urine UA Negative (Negative); Ketones Urine Negative (Negative); Leukocyte Esterase Urine 3+ (Negative); Nitrite Urine Negative (Negative); Protein Urine 1+ (Negative); Specific Gravity Urine 1.016 (1.000-1.030); Urobilinogen Urine Negative (Negative); WBC Urine Automated >30 /hpf (0-5)
[2019-03-29 17:49] LABS: BUN Creatinine Ratio 20.5 (10-20); Calcium 8.6 mg/dl (8.5-10.1); Creatinine Clr Calc Pharmacy 51.5 ml/min; Est GFR (African American) 95.5; Est GFR (Non-African American) 82.4; Potassium 2.8 mmol/L (3.5-5.1)
[2019-03-29] MEDS ORDERED: POTASSIUM CHLORIDE 10 MEQ TABCR PO STA (18:03)
[2019-03-29] MEDS ORDERED: cefTRIAXone SODIUM 1,000 MG/50 ML BAG IV STA (18:11)
--- NOTE | 2019-03-29 18:28 | Emergency Department Note ---
ED Visit Note I contributed to the care of this patient under the supervision of . Resident Activity Tracking Resident Involvement: Resident Care Provided Care Provided: Adult ED
[2019-03-29 18:53] LABS: Eosinophils # (auto) 0.01 K/uL (0-0.5); Eosinophils % (auto) 0.1 %; Hematocrit (blood only) 37.1 % (37-47); Hemoglobin 13.4 g/dL (12.0-16.0); Immature Granulocytes # (auto) 0.02 K/uL (0.00-0.02); Immature Granulocytes % (auto) 0.2 %; Lymphocytes # (auto) 1.69 K/uL (1.2-3.4); Mean Corpuscular Hgb Conc 36.1 g/dL (32-36); Mean Corpuscular Volume 81.5 fL (80-100); Mean Platelet Volume 10.9 fL (7.4-10.4); Monocytes # (auto) 1.38 K/uL (0.11-0.59); Monocytes % (auto) 13.9 %; Neutrophils # (auto) 6.85 K/uL (1.4-6.5); Neutrophils % (auto) 68.8 %; Platelet Count 301 K/uL (130-400); RDW Coefficient of Variation 12.2 % (11.5-14.5); RDW Standard Deviation 35.9 fL (36.4-46.3); Red Blood Count 4.55 M/uL (4.2-5.4); White Blood Count 9.95 K/uL (4.8-10.8)
[2019-03-29 19:00] LABS: Phosphorus 2.3 mg/dl (2.5-4.9)
--- NOTE | 2019-03-29 19:13 | History & Physical Report ---
Date of Service March 29, 2019 Assessment & Plan (1) Hyponatremia: Patient history of hyponatremia and now has profound hyponatremia and she also has this history of drinking excessive water. We will check a urine sodium random urine sodium and serum osmolality fluid restriction to 1500 and we will give her some sodium chloride with 40 mg of potassium pending magnesium (2) Hyperlipidemia: Patient takes Pravachol this will be held at this time (3) Hypertension: Diovan and amlodipine will be continued for blood pressure control she is slightly hypertensive here in the ER and hydralazine and clonidine to be added as needed for blood pressure control (4) Hypokalemia: Patient's potassium is low this to be augmented by saline containing potassium. magnesium is pending we will augment this if needed (5) Nausea: Patient's nausea is unclear she has no abdominal pain or abnormal labs suggestive of liver disease she does have abnormal urinalysis and may be consistent with UTI she is given ceftriaxone and urine culture is pending History of Present Illness Only taking Diovan for blood pressure, Synthroid for thyroid, Norvasc Primary Care Provider: Dav Perez MD Patient has a history of illness associated hyponatremia. She just returned from [facility]. She developed some nausea. She is a persistent abnormal urinalysis. She is is also a voluntary drinker of significant amounts of water. Subsequently she presents with a profound hyponatremia and an abnormal urinalysis. The patient typically is in fairly good health Allergies Allergy/AdvReac Type Severity Reaction Status Date / Time No Known Allergies Allergy Verified 03/29/19 17:41 Home Medications Home Medications Medication Instructions Recorded Confirmed Type amlodipine [Norvasc] 2.5 mg PO BID 03/29/19 03/29/19 History aspirin [Aspir-81] 81 mg PO DAILY 03/29/19 03/29/19 History calcium carbonate-vitamin D3 1 tab PO DAILY 03/29/19 03/29/19 History [Os-Rodger 500 + D3] cholecalciferol (vitamin D3) 1,000 unit PO DAILY 03/29/19 03/29/19 History [Vitamin D3] levothyroxine [Synthroid] 25 mcg PO DAILY 03/29/19 03/29/19 History meloxicam [Mobic] 7.5 mg PO BID PRN 03/29/19 03/29/19 History pravastatin 80 mg PO DAILY 03/29/19 03/29/19 History timolol maleate [Timoptic] 1 drp OPHTHALMIC (EYE) DAILY 03/29/19 03/29/19 History valsartan [Diovan] 160 mg PO DAILY 03/29/19 03/29/19 History zolpidem [Ambien] 2.5 - 5 mg PO HS PRN 03/29/19 03/29/19 History Past Med/Surg History Family History Other Family history non-contributory Social History Preferred Language: [place]ian Communication Ability: Effective Environmental Sampler Required: No Beliefs That Will Affect Care: None Current Living Situation: Alone Other Information That Helps Us Care for You: No Feels Safe at Home: Yes Safety Concerns: Feels Safe At This Time Smoking Status: Never smoker Do You Dip or Chew Tobacco: No ; Second Hand Exposure: No ; Hx Alcohol Use: No Hx Substance Use: No Review of Systems Review of Systems: ROS: well nourished well developed. No double vision blurry vision No problems with speech or swallowing No palpitations, chest pain or pressure No Wheezing or breathing issues No abdominal pain he does have some persistent nausea vomiting tolerating water at home No burning urine complains of urine frequency No focal joint pain or muscle pain No skin rashes or oral lesions No unusual bruising or bleeding No focused back pain or numbness or loss of strength No changes in memory or confusion Physical Exam Physical Exam: The patient appeared well nourished and normally developed. Vital signs as documented. Head exam is unremarkable. normocephalic, atraumatic Neck is without jugular venous distension, thyromegaly, or lymphademopathy Lungs are clear to auscultation and percussion. Cardiac exam reveals Rhythm is regular. First and second heart sounds normal. Abdominal exam reveals normal bowel sounds, no masses, no organomegaly Extremities are nonedematous and both pedal pulses are present Neurologic exam is A&Ox3, no focal deficits, strength is equal bilateral Psychologically seems neither anxious or depressed Skin is warm Dry without bruises or lesions Results & Data Vital Signs (Past 12 Hours) Vital Signs Temp Pulse Pulse Resp BP BP Pulse Ox 03/29/19 18:44 91 H 20 194/91 H 97 03/29/19 16:28 36.5 C 92 H 18 160/74 H 97 PG Care Time/CCT Total # of Minutes Spent Total Time Spent with Patient: Total time spent is greater than 50% in coordination of care (as documented) at patient's floor/unit and/or counseling patient:
[2019-03-29] MEDS ORDERED: ONDANSETRON INJ 2 MG/ML 2 ML VIAL ONE (20:00)
[2019-03-29] MEDS ORDERED: HydrALAZINE HCL 20 MG/ML VIAL IV PRN (20:57)
[2019-03-29] MEDS ORDERED: cloNIDine HCl 0.1 MG TAB PO PRN (20:57)
[2019-03-29] MEDS ORDERED: ONDANSETRON INJ 2 MG/ML 2 ML VIAL IV PRN (20:57)
[2019-03-29] MEDS ORDERED: ACETAMINOPHEN 325 MG TAB PO PRN (20:57)
[2019-03-29] MEDS: POTASSIUM CHLORIDE 40 MEQ in SODIUM CHLORIDE 0.9% 1000ML 1,000 ML IV SCH (21:37)
[2019-03-29] MEDS: AMLODIPINE BESYLATE 5 MG TAB PO SCH (21:37)
[2019-03-29 22:19] LABS: Prothrombin Time 10.1 Seconds (9.0-12.0)
[2019-03-29] MEDS ORDERED: ZOLPIDEM TARTRATE 5 MG TAB PO ONE (23:30)
[2019-03-30] MEDS: LEVOTHYROXINE SODIUM 25 MCG TABLET PO SCH (06:38)
[2019-03-30 07:32] LABS: Calcium 7.9 mg/dl (8.5-10.1); Creatinine Clr Calc Pharmacy 72.3 ml/min; Est GFR (African American) 106.6
[2019-03-30 08:19] LABS: Potassium 3.9 mmol/L (3.5-5.1)
[2019-03-30] MEDS: ASPIRIN 81 MG ECTAB PO SCH (08:28)
[2019-03-30] MEDS: AMLODIPINE BESYLATE 5 MG TAB PO SCH ×2 (08:28→20:06)
[2019-03-30] MEDS: VALSARTAN 80 MG TAB PO SCH (08:28)
[2019-03-30] MEDS: TIMOLOL MALEATE 0.25% OP SOLN 5 ML BTL OP SCH (08:29)
[2019-03-30] MEDS: HEPARIN SOD 5,000 UNIT/0.5 ML VIAL SQ SCH ×3 (08:29→20:06)
[2019-03-30] MEDS: POTASSIUM CHLORIDE 40 MEQ in SODIUM CHLORIDE 0.9% 1000ML 1,000 ML IV SCH (09:28)
--- NOTE | 2019-03-30 15:44 | Hospitalist Progress Note ---
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 and should be fluid restricted she also admits to not getting a lot of salt in diet continue fluid restriction at 1500cc and continue NSS in fluids, liberalize salt in diet repeat BMP in the morning (2) Acute UTI: continue Rocephin afebrile, WBC normal urine culture growing GNR (3) Hyperlipidemia: resume Pravachol on discharge (4) Hypertension: Diovan and amlodipine will be continued for blood pressure control (5) Hypokalemia: K improved to 3.9 will continue with 40mEq in fluids for today repeat BMP in the morning (6) Nausea: Patient's nausea is unclear she has no abdominal pain or abnormal labs suggestive of liver disease resolved today, ate well at breakfast plan: repeat labs in the AM, try to d/c to home as patient is anxious to go home Subjective patient feeling better today, her daughter says that her color is much better she says that [place], she had a UTI while traveling, got some antibiotics but perhaps not enough urine culture growing gram negative bacteria no fever and WBC is normal Na up to 124 this morning the patient was definitely drinking too much free water according to daughter, not eating enough salt patient hopeful to go home tomorrow she says that she ate better this morning than the past few days Review of Systems Review of Systems: All systems reviewed & are unremarkable except as noted in HPI & below Constitutional: no fever, no chills, no sweats, no fatigue and no weakness Respiratory: no cough and no dyspnea Cardiovascular: no chest pain and no edema Gastrointestinal: no abdominal pain, no nausea, no vomiting, no constipation and no diarrhea/loose stools Physical Exam Constitutional: WD/WN, vitals as above Eyes: PERRL, conjunctivae normal, anicteric sclerae ENMT: external ear and nose normal, oropharynx normal Neck: trachea midline, no thyromegaly Respiratory: normal respiratory effort, lungs clear to auscultation Cardiovascular: RRR, no murmur, no edema Gastrointestinal (Abdomen): normal bowel sounds, soft, nontender, no hepatosplenomegaly Musculoskeletal: no cyanosis or clubbing, extremities motor strength 5/5 Skin: no rashes, warm and dry Neurologic: patellar DTR's 2+ bilat, sensation intact and PERRL, EOMI, accommodation nl, no face palsy, no dysarthria Psychiatric: A+Ox3, euthymic affect Lymphatic: no cervical or axillary lymphadenopathy Results & Data Vital Signs (Past 12 Hours) Vital Signs Temp Pulse Pulse Pulse Resp BP BP 03/30/19 14:50 37.1 C 78 18 166/71 H 03/30/19 11:53 78 03/30/19 11:18 37.2 C 75 20 147/89 H 03/30/19 07:47 36.7 C 87 20 176/65 H Pulse Ox 03/30/19 14:50 97 03/30/19 11:53 03/30/19 11:18 96 03/30/19 07:47 97 Laboratory Results Laboratory Results - last 24 hr 03/29/19 03/29/19 03/29/19 17:09 17:09 17:09 WBC 9.95 RBC 4.55 Hgb 13.4 Hct 37.1 MCV 81.5 MCH 29.5 MCHC 36.1 H RDW Std Deviation 35.9 L RDW Coeff of Felicity 12.2 Plt Count 301 MPV 10.9 H Immature Gran % (Auto) 0.2 Neut % (Auto) 68.8 Lymph % (Auto) 17.0 [place] % (Auto) 13.9 Eos % (Auto) 0.1 Baso % (Auto) 0.0 Immature Gran # (Auto) 0.02 Neut # (Auto) 6.85 H Lymph # (Auto) 1.69 [place] # (Auto) 1.38 H Eos # (Auto) 0.01 Baso # (Auto) 0.00 PT INR Sodium 118 L* Potassium 2.8 L Chloride 81 L Carbon Dioxide 28 Anion Gap 9.0 BUN 13 Creatinine 0.63 Est Cr Clr Drug Dosing 51.5 Est GFR ( Amer) 95.5 Est GFR (Non-Af Amer) 82.4 BUN/Creatinine Ratio 20.5 H Glucose 121 H Osmolality Calcium 8.6 Phosphorus 2.3 L Magnesium 2.0 Urine Color Yellow Urine Appearance Cloudy A Urine pH 7.0 Ur Specific [place] 1.016 Urine Protein 1+ H Urine Glucose (UA) Negative Urine Ketones Negative Urine Blood 2+ H Urine Nitrite Negative Urine Bilirubin Negative Urine Urobilinogen Negative Ur Leukocyte Esterase 3+ H Urine WBC (Auto) >30 H Urine RBC (Auto) 10-30 H U Hyaline Cast (Auto) 0 U Epithel Cells (Auto) 10-20 H Urine Bacteria (Auto) 4+ H Ur Random Sodium 03/29/19 03/29/19 03/29/19 20:22 21:31 21:51 WBC RBC Hgb Hct MCV MCH MCHC RDW Std Deviation RDW Coeff of Felicity Plt Count MPV Immature Gran % (Auto) Neut % (Auto) Lymph % (Auto) [place] % (Auto) Eos % (Auto) Baso % (Auto) Immature Gran # (Auto) Neut # (Auto) Lymph # (Auto) [place] # (Auto) Eos # (Auto) Baso # (Auto) PT 10.1 INR 1.0 Sodium Potassium Chloride Carbon Dioxide Anion Gap BUN Creatinine Est Cr Clr Drug Dosing Est GFR ( Amer) Est GFR (Non-Af Amer) BUN/Creatinine Ratio Glucose Osmolality 246 L Calcium Phosphorus Magnesium Urine Color Urine Appearance Urine pH Ur Specific [place] Urine Protein Urine Glucose (UA) Urine Ketones Urine Blood Urine Nitrite Urine Bilirubin Urine Urobilinogen Ur Leukocyte Esterase Urine WBC (Auto) Urine RBC (Auto) U Hyaline Cast (Auto) U Epithel Cells (Auto) Urine Bacteria (Auto) Ur Random Sodium 95 03/30/19 06:27 WBC RBC Hgb Hct MCV MCH MCHC RDW Std Deviation RDW Coeff of Felicity Plt Count MPV Immature Gran % (Auto) Neut % (Auto) Lymph % (Auto) [place] % (Auto) Eos % (Auto) Baso % (Auto) Immature Gran # (Auto) Neut # (Auto) Lymph # (Auto) [place] # (Auto) Eos # (Auto) Baso # (Auto) PT INR Sodium 124 L D Potassium 3.9 D Chloride 89 L Carbon Dioxide 27 Anion Gap 8.0 BUN 9 Creatinine 0.45 L Est Cr Clr Drug Dosing 72.3 Est GFR ( Amer) 106.6 Est GFR (Non-Af Amer) 92.0 BUN/Creatinine Ratio 20.0 Glucose 82 Osmolality Calcium 7.9 L Phosphorus Magnesium 2.0 Urine Color Urine Appearance Urine pH Ur Specific [place] Urine Protein Urine Glucose (UA) Urine Ketones Urine Blood Urine Nitrite Urine Bilirubin Urine Urobilinogen Ur Leukocyte Esterase Urine WBC (Auto) Urine RBC (Auto) U Hyaline Cast (Auto) U Epithel Cells (Auto) Urine Bacteria (Auto) Ur Random Sodium Medications Administered Current Inpatient Medications Acetaminophen (Tylenol) 650 mg PO Q4H PRN PRN Reason: Pain or Fever Stop: 04/28/19 20:56 Amlodipine Besylate (Norvasc) 2.5 mg PO BID [facility] Stop: 04/28/19 20:59 Last Admin: 03/30/19 08:28 Dose: 2.5 mg Documented by: Aspirin (Ecotrin Ectab) 81 mg PO DAILY [facility] Stop: 04/29/19 08:59 Last Admin: 03/30/19 08:28 Dose: 81 mg Documented by: Clonidine HCl (Catapres) 0.1 mg PO Q8 PRN PRN Reason: Blood Pressure - High Stop: 04/28/19 20:56 Heparin Sodium (Porcine) (Heparin Sodium (Porcine)) 5,000 units SQ Q12 [facility] Stop: 04/29/19 08:59 Last Admin: 03/30/19 08:32 Dose: Not Given Documented by: Hydralazine HCl (Hydralazine Hcl) 10 mg IV Q8 PRN PRN Reason: Blood Pressure - High Stop: 04/28/19 20:56 Last Admin: 03/29/19 21:38 Dose: 10 mg Documented by: Ceftriaxone Sodium 1,000 mg/ (Dextrose) 50 mls @ 100 mls/hr IV Q24H [facility]; Protocol Stop: 04/04/19 17:59 Potassium Chloride 40 meq/ (Sodium Chloride) 1,020 mls @ 80 mls/hr IV .[id number] [facility] Stop: 04/28/19 21:14 Last Admin: 03/30/19 09:28 Dose: 80 mls/hr Documented by: Levothyroxine Sodium (Synthroid) 25 mcg PO DAILYBB [facility] Stop: 04/29/19 06:29 Last Admin: 03/30/19 06:38 Dose: 25 mcg Documented by: Ondansetron HCl (Zofran) 4 mg IV Q6H PRN PRN Reason: Nausea Stop: 04/28/19 20:56 Timolol Maleate (Timoptic 0.25% Oph) 1 drops OP DAILY [facility] Stop: 04/29/19 08:59 Last Admin: 03/30/19 08:29 Dose: 1 drops Documented by: Valsartan (Diovan) 160 mg PO DAILY [facility] Stop: 04/29/19 08:59 Last Admin: 03/30/19 08:28 Dose: 160 mg Documented by: PG Care Time/CCT Total # of Minutes Spent Total Time Spent with Patient: Total time spent is greater than 50% in coordination of care (as documented) at patient's floor/unit and/or counseling patient:
[2019-03-30] MEDS ORDERED: ZOLPIDEM TARTRATE 5 MG TAB PO PRN (16:00)
[2019-03-30] MEDS: SODIUM CHLORIDE 0.9% 1000ML 1,000 ML IV SCH (16:08)
[2019-03-30] MEDS ORDERED: cefTRIAXone SODIUM 1,000 MG in DEXTROSE 5% 50 ML IV SCH (18:00)
[2019-03-31] MEDS: SODIUM CHLORIDE 0.9% 1000ML 1,000 ML IV SCH (03:41)
[2019-03-31 05:51] LABS: Hematocrit (blood only) 34.2 % (37-47); Hemoglobin 11.7 g/dL (12.0-16.0); Mean Corpuscular Hgb Conc 34.2 g/dL (32-36); Mean Corpuscular Volume 83.4 fL (80-100); Mean Platelet Volume 10.2 fL (7.4-10.4); Platelet Count 250 K/uL (130-400); RDW Coefficient of Variation 12.9 % (11.5-14.5); RDW Standard Deviation 39.2 fL (36.4-46.3); White Blood Count 8.07 K/uL (4.8-10.8)
[2019-03-31] MEDS: LEVOTHYROXINE SODIUM 25 MCG TABLET PO SCH (06:26)
[2019-03-31 06:30] LABS: BUN Creatinine Ratio 28.1 (10-20); Calcium 7.6 mg/dl (8.5-10.1); Creatinine Clr Calc Pharmacy 65.1 ml/min; Est GFR (Non-African American) 88.9; Potassium 3.6 mmol/L (3.5-5.1)
[2019-03-31] MEDS: HEPARIN SOD 5,000 UNIT/0.5 ML VIAL SQ SCH (08:15)
[2019-03-31] MEDS: AMLODIPINE BESYLATE 5 MG TAB PO SCH (08:16)
[2019-03-31] MEDS: ASPIRIN 81 MG ECTAB PO SCH (08:16)
[2019-03-31] MEDS: VALSARTAN 80 MG TAB PO SCH (08:16)
[2019-03-31] MEDS: TIMOLOL MALEATE 0.25% OP SOLN 5 ML BTL OP SCH (08:16)
--- NOTE | 2019-03-31 11:43 | Discharge Summary ---
Date of Service March 31, 2019 Admission HPI Per Admitting Provider Patient has a history of illness associated hyponatremia. She just returned from [facility]. She developed some nausea. She is a persistent abnormal urinalysis. She is is also a voluntary drinker of significant amounts of water. Subsequently she presents with a profound hyponatremia and an abnormal urinalysis. The patient typically is in fairly good health Principal Diagnosis Hyponatremia Discharge Exam Constitutional WD/WN, vitals as above Eyes PERRL, conjunctivae normal, anicteric sclerae ENMT external ear and nose normal, oropharynx normal Neck trachea midline, no thyromegaly Respiratory normal respiratory effort, lungs clear to auscultation Cardiovascular RRR, no murmur, no edema Gastrointestinal (Abdomen) normal bowel sounds, soft, nontender, no hepatosplenomegaly Musculoskeletal no cyanosis or clubbing, extremities motor strength 5/5 Skin no rashes, warm and dry Neurologic patellar DTR's 2+ bilat, sensation intact and PERRL, EOMI, accommodation nl, no face palsy, no dysarthria Psychiatric A+Ox3, euthymic affect Lymphatic no cervical or axillary lymphadenopathy Discharge Data Allergies Allergy/AdvReac Type Severity Reaction Status Date / Time No Known Allergies Allergy Verified 03/29/19 17:41 Consultations 03/29/19 18:15 ED Decision to Admit Stat Hospital Course (1) Hyponatremia: Na improved from 118 to 124 on 03/30 Na improved to 130 on 03/31, day of discharge serum osm low at 264 given story of drinking too much water, 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 Perez this week, repeat a BMP to check sodium level could consider salt tablets if she is unable to maintain a normal sodium intake (2) Acute UTI: continue Rocephin afebrile, WBC normal urine culture growing GNR, final organism and sensitivity still pending will d/c home on Keflex 500mg BID x 10 more days will call patient if the antibiotics need to be changed (3) Hyperlipidemia: resume Pravachol on discharge (4) Hypertension: Diovan and amlodipine will be continued for blood pressure control (5) Hypokalemia: K improved to 3.9 will continue with 40mEq in fluids for today repeat BMP in the morning (6) Nausea: Patient's nausea is unclear she has no abdominal pain or abnormal labs suggestive of liver disease resolved today, ate well at breakfast plan: repeat labs in the AM, try to d/c to home as patient is anxious to go home Total Time Total Time Spent Total Time Spent (In Minutes): 32 minutes Total Time Includes: Examination of the Patient, Discharge Planning, Medication Reconciliation and Other (communication with family) Discharge Plan Discharge Items Patient Disposition: Home - Self-Care Reason For Visit: HYPONATREMIA Discharge Diagnosis: Hyponatremia UTI Condition: Good Discharge Goals: Improve disease control and Improve function Activity: Resume your previous activity Non-emergency contact: Primary Care Provider Call non-emergency contact if: you have any medication questions, your symptoms worsen and you have a fever Follow-up/Referrals: Dav Perez MD [Primary Care Provider] - Diet: Regular Fluids: 1500ml (6 cups) Addtl Provider Instructions: Medications: - CEPHALEXIN: take 500mg twice a day for 10 more days, this is to treat UTI Hyponatremia improved to 130 from 118 you NEED to follow a fluid restriction of 1500mL (1.5 liters) a day, avoid drinking excessive free water increase salt intake, no restrictions on salt follow up with Dr. Perez next week, recommend checking BMP at that time for sodium level UTI culture growing gram negative rods responding well to Rocephin, will transition to cephalexin for 10 more days final organism and sensitivity still pending, will call you if the antibiotic needs to be changed FOLLOW UP - call Dr. Perez's office tomorrow to get appt this week Prescriptions: New cephalexin 500 mg capsule 500 mg PO Q12H 10 Days Qty: 20 RF: 0 Continued amlodipine [Norvasc] 2.5 mg tablet 2.5 mg PO BID RF: 0 levothyroxine [Synthroid] 25 mcg tablet 25 mcg PO DAILY RF: 0 meloxicam [Mobic] 7.5 mg tablet 7.5 mg PO BID PRN (Reason: Pain) RF: 0 pravastatin 80 mg tablet 80 mg PO DAILY RF: 0 zolpidem [Ambien] 5 mg tablet 2.5 - 5 mg PO HS PRN (Reason: imsomnia) RF: 0 timolol maleate [Timoptic] 0.5 % drops 1 drp ophthalmic (eye) DAILY RF: 0 valsartan [Diovan] 160 mg tablet 160 mg PO DAILY RF: 0 aspirin [Aspir-81] 81 mg Tablet,Delayed Release (Dr/Ec) 81 mg PO DAILY RF: 0 cholecalciferol (vitamin D3) [Vitamin D3] 1,000 unit Capsule 1,000 unit PO DAILY RF: 0 calcium carbonate-vitamin D3 [Os-Rodger 500 + D3] 500 mg(1,250mg) -200 unit Tablet 1 tab PO DAILY RF: 0 Stand-Alone Forms: [facility] Discharge Orders: Discharge Order (Routine); Ordered 03/31/19 Ordered By: Kenneth Brennan Admission Data Admit Date/Time: 03/29/19 19:03 Attending Provider: Kenneth Brennan Admit Provider: Mika Jurado Primary Care Provider: Dav Perez Other Providers: Mika Jurado Service: Telemetry Medical Other Interventions: Discharge Summary Assessment (RN) Last Done: 03/31/19 10:27
== END 2019-03-31 13:27 | disposition home or self-care (01) | DRG 644 ==
LOC: ED 16:24 → 2N 19:03 → SUATTDRO 19:03 → 2N 20:36

== ENCOUNTER 2021-03-12 07:48 | Observation (INO) ==
--- NOTE | 2021-01-15 15:20 | PAT Medication Instructions ---
Medication Instructions Date of Service January 15, 2021 Home Medications Medication Instructions Recorded zoledronic acid 5 mg/100 mL in 5 mg IV ONCE #100 ml 07/30/19 mannitol 5 %-water intravenous piggybck pravastatin 80 mg tablet 80 mg PO DAILY #90 tab 04/21/20 meloxicam 7.5 mg tablet 7.5 mg PO BID PRN #180 tab 07/28/20 oxybutynin chloride 5 mg tablet 5 mg PO DAILY #30 tab 08/11/20 amlodipine 2.5 mg tablet 2.5 mg PO BID #180 tab 09/17/20 levothyroxine 25 mcg tablet 25 mcg PO DAILY #90 tab 10/22/20 zolpidem 5 mg tablet 2.5 - 5 mg PO HS PRN #30 tab 11/25/20 valsartan 160 mg tablet 160 mg PO DAILY #90 tab 12/02/20 aspirin [Aspir-81] 81 mg PO QAM calcium carbonate-vitamin D3 [Os-Rodger 500 + D3] 1 tab PO DAILY cholecalciferol (vitamin D3) [Vitamin D3] 1,000 unit PO DAILY timolol maleate [Timoptic] 1 drp OPHTHALMIC (EYE) QAM zoledronic acid 5 mg/100 mL in mannitol 5 %-water intravenous piggybck 5 mg IV ONCE pravastatin 80 mg tablet 80 mg PO DAILY meloxicam 7.5 mg tablet 7.5 mg PO BID PRN oxybutynin chloride 5 mg tablet 5 mg PO DAILY amlodipine 2.5 mg tablet 2.5 mg PO BID levothyroxine 25 mcg tablet 25 mcg PO DAILY zolpidem 5 mg tablet 2.5 - 5 mg PO HS PRN valsartan 160 mg tablet 160 mg PO DAILY Continue as directed zoledronic acid 5 mg/100 mL in mannitol 5 %-water intravenous piggybck 5 mg IV ONCE ASK your surgeon for instructions meloxicam 7.5 mg tablet 7.5 mg PO BID PRN DO NOT take the morning of surgery calcium carbonate-vitamin D3 [Os-Ordger 500 + D3] 1 tab PO DAILY cholecalciferol (vitamin D3) [Vitamin D3] 1,000 unit PO DAILY oxybutynin chloride 5 mg tablet 5 mg PO DAILY valsartan 160 mg tablet 160 mg PO DAILY Take morning of surgery With a small sip of water, OTHERWISE NOTHING TO EAT OR DRINK AFTER MIDNIGHT: aspirin [Aspir-81] 81 mg PO QAM (unless otherwise instructed by your surgeon) timolol maleate [Timoptic] 1 drp OPHTHALMIC (EYE) QAM* pravastatin 80 mg tablet 80 mg PO DAILY amlodipine 2.5 mg tablet 2.5 mg PO BID levothyroxine 25 mcg tablet 25 mcg PO DAILY *Bring your eye drops with you to the hospital* Take evening before surgery amlodipine 2.5 mg tablet 2.5 mg PO BID zolpidem 5 mg tablet 2.5 - 5 mg PO HS PRN (if needed) Other Notes If you have any questions please call us at [phone] or [phone] or [phone] or [phone]
--- NOTE | 2021-01-18 13:54 | Anesthesiology Consultation ---
Date of Service January 18, 2021 Assessment & Plan (1) Encounter for pre-operative examination: - COVID screening: Per assessment on 01/15: Travel screen negative, no known COVID-19 positive contacts or current COVID-19 related symptoms. Patient fully vaccinated. Surgeon arranging preop COVID testing (scheduled 03/10; [facility]). Awaiting results. - PCP office visit (12/03/20): Reviewed 10/2020 ER visit (bronchitis/negative covid). HTN/hypothyroidism/HLD/prediabetes stable. Hx iron deficiency (under surveillance). "shoulder and defers surgery an right sided limited rom would need reverse shoulder replacment [sic].. left shoulder deformity.. she has had significant range of motion limitations" Previous bronchitis symptoms now resolved s/p zpack/prednisone per f/u with patient at [facility] 01/18/21. Chart Review Chart Review: Acceptable Risk for Surgery (pending evaluation AM DOS) and Patient seen in Pre Admission Testing Teaching & Discussion Pre-Anesthesia Teaching/Discussion Notes: Instructed NPO after midnight before surgery,except medications with 15 cc of water. Medication instructions prov ided according to the [facility] guidelines. History Surgery Operation Date: 03/12/21 08:35 Proposed Procedures p Right Reverse Total Shoulder Arthroplasty - Kurt Alarcon, Height/Weight Height: 4 ft 11 in Weight: 60 kg Allergies Allergy/AdvReac Type Severity Reaction Status Date / Time atorvastatin [From Lipitor] Allergy Mild Rash Verified 01/15/21 09:04 Medications Home Medications Medication Instructions Recorded Confirmed Last Taken aspirin [Aspir-81] 81 mg PO QAM 03/29/19 01/15/21 08/08/19 calcium carbonate-vitamin D3 1 tab PO DAILY 03/29/19 01/15/21 Unknown [Os-Rodger 500 + D3] cholecalciferol (vitamin D3) 1,000 unit PO DAILY 03/29/19 01/15/21 Unknown [Vitamin D3] timolol maleate [Timoptic] 1 drp OPHTHALMIC (EYE) QAM 03/29/19 01/15/21 Unknown zoledronic acid 5 mg/100 mL in 5 mg IV ONCE #100 ml 07/30/19 01/15/21 Unknown mannitol 5 %-water intravenous piggybck pravastatin 80 mg tablet 80 mg PO DAILY #90 tab 04/21/20 01/15/21 Unknown meloxicam 7.5 mg tablet 7.5 mg PO BID PRN #180 tab 07/28/20 01/15/21 Unknown oxybutynin chloride 5 mg tablet 5 mg PO DAILY #30 tab 08/11/20 01/15/21 Unknown amlodipine 2.5 mg tablet 2.5 mg PO BID #180 tab 09/17/20 01/15/21 Unknown levothyroxine 25 mcg tablet 25 mcg PO DAILY #90 tab 10/22/20 01/15/21 Unknown zolpidem 5 mg tablet 2.5 - 5 mg PO HS PRN #30 tab 11/25/20 01/15/21 Unknown valsartan 160 mg tablet 160 mg PO DAILY #90 tab 12/02/20 01/15/21 Unknown Past Medical History Medical History Arthritis Glaucoma Borderline History of diverticulosis Hyperlipidemia Hypertension Hypothyroidism Insomnia Osteoporosis Pre-diabetes Exercise / Class Metabolic Activity III < 4 Walking/Shop/Light housework Past Family History Family History Father Coronary heart disease Myocardial infarction Family history of diabetes mellitus Sister Breast cancer Other Family history non-contributory No family history of adverse response to anesthesia Denies family history of Ovarian cancer Prostate cancer Colorectal cancer Past Surgical History Surgical History History of appendectomy History of cataract surgery R/L History of colonoscopy History of tonsillectomy [place] teeth removed Past Anesthesia History No Hx of Anesthesia Complications and No Family Hx of Anesthesia Complications History of PONV No Hx of PONV and Hx of Motion Sickness (+ boats) Social History Smoking Status: Never smoker Do You Dip or Chew Tobacco: No Hx Alcohol Use: Yes alcohol intake frequency: holidays/special occasions only Hx Substance Use: No substance use type: does not use Review of Systems Patient denies chest pain, shortness of breath, fever, chills, cough, wheezing, palpitations. Physical Exam Vital Signs VITALS BP 148/55 P 80 TEMP SP02 98%RA RESP 18 PHYSICAL Full cervical extension range of motion. Full TMJ range of motion. TMD 3.5 finger breaths Mallampati Score 3 Dentition: lower partial Lungs: clear throughout to auscultation Cardiac: regular rate and rhythm, no murmurs noted Spine: normal Carotid arteries: negative bruit Extremities: no edema Testing Laboratory Results 01/18/21 14:19 01/18/21 14:19 PT 9.8 Seconds (9.0-12.0) 01/18/21 14:19 INR 1.0 (0.9-1.1) 01/18/21 14:19 APTT 23.7 Seconds (21.0-31.0) 01/18/21 14:19 Blood Type B Negative 01/18/21 14:19 Antibody Screen NEGATIVE 01/18/21 14:19 Electrocardiogram Date: 11/12/20 NSR at 67bpm. LAD. No significant change compared to 04/24/18 per shirt ironer review. Chest X-Ray Date: 11/12/20 FINDINGS: No focal lung consolidations to suggest pneumonia. No evidence for pulmonary edema. No pneumothorax. No pleural effusions. The heart remains mildly enlarged. There is a moderate hiatus hernia, unchanged. Advanced degenerative changes again noted within the shoulders. IMPRESSION: No significant change compared to the prior study. No acute process. Stress Test Date: 05/28/18 Type: DSE LVEF 60 to 64%. Stress EKG/echo response with no evidence of ischemia. Mild MR. Grade 1 diastolic dysfunction. Mild aortic valve sclerosis. 108% MPHR.
[2021-01-18 15:02] LABS: Eosinophils # (auto) 0.03 K/uL (0-0.5); Eosinophils % (auto) 0.3 %; Hematocrit (blood only) 34.8 % (37-47); Hemoglobin 11.5 g/dL (12.0-16.0); Immature Granulocytes # (auto) 0.02 K/uL (0.00-0.02); Immature Granulocytes % (auto) 0.2 %; Lymphocytes # (auto) 2.14 K/uL (1.2-3.4); Lymphocytes % (auto) 21.9 %; Mean Corpuscular Hemoglobin 29.4 pg (25-34); Mean Platelet Volume 10.3 fL (7.4-10.4); Monocytes # (auto) 0.93 K/uL (0.11-0.59); Monocytes % (auto) 9.5 %; Neutrophils # (auto) 6.64 K/uL (1.4-6.5); Neutrophils % (auto) 68.1 %; Platelet Count 380 K/uL (130-400); RDW Coefficient of Variation 13.4 % (11.5-14.5); RDW Standard Deviation 44.2 fL (36.4-46.3); Red Blood Count 3.91 M/uL (4.2-5.4); White Blood Count 9.76 K/uL (4.8-10.8)
[2021-01-18 15:14] LABS: Partial Thromboplastin Ratio 0.9; Partial Thromboplastin Time 23.7 Seconds (21.0-31.0); Prothrombin Time 9.8 Seconds (9.0-12.0)
[2021-01-18 15:18] LABS: BUN Creatinine Ratio 30.8 (10-20); Calcium 8.9 mg/dl (8.5-10.1); Creatinine Clr Calc Pharmacy 56.9 ml/min; Est GFR (Non-African American) 84.5 ml/min; Potassium 4.1 mmol/L (3.5-5.1)
--- NOTE | 2021-03-11 15:32 | History & Physical Report ---
Date of Service March 11, 2021 Assessment & Plan (1) Rotator cuff arthropathy of right shoulder: We will proceed with a right reverse shoulder replacement. Postoperatively she will be placed in a sling and kept overnight in the hospital for postoperative medical management. She plans to go to [facility] upon discharge. History of Present Illness Chief Complaint: Rotator cuff arthropathy of the right shoulder. Primary Care Provider: Dav Perez MD Angeles is a pleasant 85-year-old female who is been dealing with chronic worsening cuff arthropathy of the right shoulder. I am giving her serial injections for many years but the injections are no longer helping. Her shoulder hurts her all the time. X-rays show advanced cuff arthropathy of the right shoulder. After failing conservative treatment, she has elected proceed with a right reverse shoulder replacement.. Allergies Allergy/AdvReac Type Severity Reaction Status Date / Time atorvastatin [From Lipitor] Allergy Mild Rash Verified 01/15/21 09:04 Home Medications Medication Instructions Recorded Confirmed Type aspirin 81 mg tablet,delayed 81 mg PO QAM 03/29/19 01/15/21 History release (Aspir-) calcium carbonate 500 mg (1,250 1 tab PO DAILY 03/29/19 01/15/21 History mg)-vitamin D3 200 unit tablet (Os-Rodger 500 + D3) cholecalciferol (vitamin D3) 25 1,000 unit PO DAILY 03/29/19 01/15/21 History mcg (1,000 unit) capsule (Vitamin D3) timolol maleate 0.5 % eye drops 1 drp OPHTHALMIC (EYE) QAM 03/29/19 01/15/21 History (Timoptic) zoledronic acid 5 mg/100 mL in 5 mg IV ONCE #100 ml 07/30/19 01/15/21 Rx mannitol 5 %-water intravenous piggybck (Reclast) oxybutynin chloride 5 mg tablet 5 mg PO DAILY #30 tab 08/11/20 01/15/21 Rx amlodipine 2.5 mg tablet (Norvasc) 2.5 mg PO BID #180 tab 09/17/20 01/15/21 Rx levothyroxine 25 mcg tablet 25 mcg PO DAILY #90 tab 10/22/20 01/15/21 Rx (Synthroid) valsartan 160 mg tablet (Diovan) 160 mg PO DAILY #90 tab 12/02/20 01/15/21 Rx pravastatin 80 mg tablet 80 mg PO DAILY #90 tab 01/21/21 Rx meloxicam 7.5 mg tablet (Mobic) 7.5 mg PO BID PRN #180 tab 02/03/21 Rx zolpidem 5 mg tablet (Ambien) 2.5 - 5 mg PO HS PRN #30 tab 02/25/21 Rx Past Med/Surg History Medical History Arthritis Glaucoma Borderline History of diverticulosis Hyperlipidemia Hypertension Hypothyroidism Insomnia Osteoporosis Pre-diabetes Surgical History History of appendectomy History of cataract surgery R/L History of colonoscopy History of tonsillectomy [place] teeth removed Family History Father Coronary heart disease Myocardial infarction Family history of diabetes mellitus Sister Breast cancer Other Family history non-contributory No family history of adverse response to anesthesia Denies family history of Ovarian cancer Prostate cancer Colorectal cancer Social History Smoking Status: Never smoker Second Hand Exposure: Yes (IN THE PAST); Hx Alcohol Use: Yes Hx Substance Use: No Preferred Language: Kuwaiti Communication Ability: Effective Visual Impairment: No Limitations Hearing Ability: Normal Restaurant Host/Hostess Required: No Beliefs That Will Affect Care: None marital status: / Current Living Situation: Alone current occupational status: retired Feels Safe at Home: Yes Childhood Exposure to Second-Hand Smoke: Yes Dental Care, Regularly: Yes Physical Activity Frequency: 1-2 Times per Week Seatbelt Use: always Sunscreen Use: Yes Assistive Devices: Walker Review of Systems All systems reviewed & are unremarkable except as noted in HPI & below. Physical Exam On physical examination of the right shoulder, she has about 40 degrees of forward elevation 40 degrees of abduction. Passively I can get her little bit further but she has a lot of pain. She has some swelling in the right shoulder.. Constitutional WD/WN, vitals as above Eyes PERRL, conjunctivae normal, anicteric sclerae ENMT external ear and nose normal, oropharynx normal Neck trachea midline, no thyromegaly Respiratory normal respiratory effort Cardiovascular RRR, no murmur, no edema Gastrointestinal (Abdomen) normal bowel sounds, soft, nontender, no hepatosplenomegaly Psychiatric A+Ox3, euthymic affect Results & Data Results & Data Laboratory Results . Diagnostic Findings X-rays of the right shoulder do show severe cuff arthropathy with superior migration of the humeral head on the glenoid and erosion of the superior glenoid.. PG Care Time/CCT Total # of Minutes Spent Total Time Spent with Patient: Total time spent is greater than 50% in coordination of care (as documented) at patient's floor/unit and/or counseling patient: Coding Level of Care Code None Diagnoses Rotator cuff arthropathy of right shoulder M12.811
[~2021-03-12 07:48] MED LIST changes: +ACETAMINOPHEN 500 MG TAB PO SCH; -AMB5 PO; -AMLO2.5T PO; -ASPI81TA28 PO; +BUPIVACAINE 0.5 % 5 MG/1 ML PF 10ML VIAL ONE; -DVN/160 PO; +FAMOTIDINE 20 MG TAB PO SCH; +GABAPENTIN 300 MG CAP PO SCH; -HYDR12.56 PO; +LR 15ML/HR IV SCH; +LR 60ML/HR IV SCH; -MELO7.5T6 PO; +ROPIVACAINE 0.5% HCL/PF 150 MG, BUPIVACAINE 0.75% MPF 20 ML, EPINEPHrine 30MG/30ML (OR ... INSTIL SCH; -TMPXEOPS OPB; +TRANEXAMIC ACID 1,000 MG **IV Intra-op IV SCH; +TRANEXAMIC ACID 1,000 MG **IV Pre-op IV SCH; -VTMD1000 PO; -[UNRECOGNIZED DRUG - CODE] PO; +ceFAZolin 1000MG 1,000 MG/7.5 ML SYR IV SCH; +dexAMETHasone 4 MG TAB PO SCH
--- NOTE | 2021-03-12 10:40 | History & Physical Bridge Note ---
Date of Service March 12, 2021 History & Physical Bridge Note I have examined the patient, reviewed the History & Physical and in the interval since the performance of the History & Physical I have noted the following changes of clinical significance: no changes noted
[2021-03-12] MEDS ORDERED: MIDAZOLAM HCL 1 MG/ML 2ML VIAL ONE (11:05)
[2021-03-12] MEDS ORDERED: ORTHO JOINT ANESTHETIC ONE (11:05)
[2021-03-12] MEDS ORDERED: fentaNYL citrate 100 MCG/2 ML VIAL ONE (11:05)
[2021-03-12] MEDS ORDERED: ATROPINE SULFATE 0.1 MG/ML 10ML SYR IV PRN (11:51)
[2021-03-12] MEDS ORDERED: fentaNYL citrate 100 MCG/2 ML VIAL IV PRN (11:51)
[2021-03-12] MEDS ORDERED: ONDANSETRON INJ 2 MG/ML 2 ML VIAL IV PRN ×2 (11:51→15:10)
[2021-03-12] MEDS ORDERED: PHENYLEPHRINE 100MCG/ML 5ML SYR ONE (12:37)
[2021-03-12] MEDS ORDERED: ONDANSETRON INJ 2 MG/ML 2 ML VIAL ONE (12:37)
[2021-03-12] MEDS ORDERED: PROPOFOL IV EMULSION 10 MG/ML 20 ML VIAL IV ONE (12:37)
[2021-03-12] MEDS ORDERED: ePHEDrine sulfate 50 MG/ML AMP ONE (12:37)
--- NOTE | 2021-03-12 13:39 | Operative Report ---
PG Post Operative Report Pre & Post Diagnosis Operation Date: 03/12/21 10:20 Pre-Op Diagnosis: Severe cuff arthropathy of the right shoulder with tendinopathy long head of biceps tendon Post-Op Diagnosis: Severe cuff arthropathy of the right shoulder with tendinopathy of the long head of the biceps tendon I identified the patient and participated in the time-out.: Yes Procedure Operation Date: 03/12/21 10:20 Actual Procedures p Right Reverse Total Shoulder Arthroplasty, Uncemented(Right) with open biceps tenodesis as a distinct and separate procedure (modifier 59)- Kurt Alarcon DO Surgeon Kurt Alarcon DO Talent Acquisition Lead Kurt Rosas PAC Estimated Blood Loss 200 Findings Consistent with Post-Op Diagnosis Specimens Right humeral head Complications none Disposition Disposition: Recovery Room Indications Angeles is a pleasant 85-year-old female has been doing with chronic worsening cuff arthropathy of the right shoulder. After years of conservative treatment, she elected proceed with a right reverse shoulder arthroplasty. Description of Procedure A CPT code modifier 59: The long head of the biceps tendon was enlarged and inflamed consistent with tendinopathy. A tenodesis was opted. This was a separate and distinct portion of the procedure. For these reasons, a CPT code modifier 59 will be added to this case. Implants used: I used a Biomet Comprehensive reverse total shoulder arthroplasty system with a size 5 press fit micro humeral stem, a standard humeral tray and a +3 retentive humeral bearing, a 25 mm large augment baseplate 3 peripheral locking screws, and a size 36 mm eccentric glenosphere. Angeles arrived at [facility] for the above procedure. She was seen in the preoperative holding area and the operative extremity was identified and signed. She was given a preoperative antibiotic, TXA, and an interscalene nerve block. She was taken back to the operating room, laid on table in supine position, and put under general anesthesia. She was then put into the beachchair position. The shoulder was then prepped and draped in sterile fashion. A timeout was done and the patient and the operative extremity was properly identified. A deltopectoral approach was used. Dissection was taken down through the fascia and the deltoid was retracted laterally and the conjoined tendon was retracted medially. The anterior shoulder was exposed. The biceps groove was opened up and the biceps tendon was examined extensively. The biceps tendon demonstrated enlargement and inflammatory changes consistent with longstanding inflammation in the context of osteoarthritis and cuff arthropathy. The long head of the biceps tendon was then tenodesed to the upper border of the pectoralis major. This was a separate and distinct portion of the procedure. The subscapularis was then directly released off the lesser tuberosity with a peel technique. The inferior capsule was released and the humeral head was dislocated. A canal finding reamer was sent down the center of the humeral canal. Sequential reaming up to a size 7 reamer was done. Off that reamer, a proximal humeral resection guide was placed. The proximal humerus was resected at 135 of inclination and 25 of retroversion. Osteophytes were then removed and the glenoid was exposed. Time was spent doing a complete capsular and labral release. A Zim[employer]Onova Signature One guide was then attached onto the anterior rim of the glenoid. A 3.2 mm Steinmann pin was then placed in the reverse total shoulder arthroplasty hole. The glenoid baseplate was then reamed. The final size 25 mm large augment baseplate was then impacted in the place. There was significant medialization of the glenoid by the time I could get the large augment to sit. There was no bone stock for a central screw. There was no bone stock for a posterior inferior screw. The remaining 3 peripheral screws I was able to get a locking screw in. The stability of the baseplate was checked multiple times and seemed to be stable. A 36 mm eccentric glenosphere was then impacted into place. Surrounding soft tissues were then injected with 100 cc an orthopedic pain control cocktail. The proximal humerus was then exposed. Sequential broaching of the humerus up to a size 5 broach was done. Off that broach a standard offset +3 retentive humeral tray was trialed. The shoulder was then reduced, brought through a full range of motion, and felt to be stable. The shoulder was then dislocated and the broach was removed. The final size 5 micro press-fit humeral stem was then impacted into place. A standard humeral bearing was then snapped onto a +3 retentive humeral tray. The humeral tray was then impacted onto the humeral stem. The shoulder was once again reduced, brought through a full range of motion, and felt to be stable. The subscapularis was unrepairable. A dilute betadyne lavage was then done for 3 minutes. The joint was then irrigated with normal saline solution. Hemostasis was obtained. The interval was closed with 2-0 Vicryl suture. The skin was then closed with 2-0 Vicryl and tung. A Silverlon dressing was placed and the arm was rested in a regular arm sling. She was then extubated and transferred to a hospital bed. She taken to the postanesthesia care unit in stable condition. She tolerated the procedure well. Kurt Rosas PA-C, was present for the entire procedure. He was critical for patient positioning, prepping, draping, retraction exposure, wound closure and application of sterile dressing. I attest to the content of the Intraoperative Record and any orders documented therein. Any exceptions are noted below.
--- NOTE | 2021-03-12 14:39 | Anesthesiology Progress Note ---
Date of Service March 12, 2021 Anesthesia Post Procedure Vital Signs Vital Signs: Temp Pulse Pulse Resp BP Pulse Ox 03/12/21 14:31 88 19 156/84 H 94 03/12/21 14:20 88 19 150/79 H 95 03/12/21 14:10 91 H 18 155/85 H 95 03/12/21 14:00 36.0 C L 74 19 156/61 H 100 03/12/21 11:00 86 18 190/66 H 96 03/12/21 08:49 36.9 C 92 H 18 186/77 H 98 Transfer of Care Handoff Completed per policy Notes Mental Status: alert / awake / arousable Patient Amnestic to Procedure: Yes Nausea / Vomiting: adequately controlled Pain: adequately controlled Airway Patency, RR, SpO2: stable & adequate BP & HR: stable & adequate Hydration State: stable & adequate Anesthetic Complications: no major complications apparent
--- NOTE | 2021-03-12 14:52 | XRay Report ---
XR shoulder RT min 2V routine CLINICAL HISTORY: S/P TSA COMPARISON: Right shoulder radiographs January 12, 2021. CT of the right shoulder January 18, 2021. FINDINGS: Alignment of the reverse total right shoulder arthroplasty is anatomic. There is no peripr osthetic fracture or unexpected radiopaque foreign body. Skin tung are present. 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 Expected postoperative findings are present. IMPRESSION: Expected postoperative findings following reverse total right shoulder arthroplasty. ACT 112: Negative or not required by law. Electronically signed by: Abdoulaye Rosenthal M.D. 03/12/2021 2:51 PM
[2021-03-12] MEDS ORDERED: ZOLEDRONIC ACID 5 MG/100 ML VIAL IV SCH (15:10)
[2021-03-12] MEDS ORDERED: MAGNESIUM HYDROXIDE SUSP 30 ML UDC PO PRN (15:10)
[2021-03-12] MEDS ORDERED: METOCLOPRAMIDE HCL INJ 5 MG/ML 2 ML VIAL IV PRN (15:10)
[2021-03-12] MEDS ORDERED: bisacodyL 10 MG SUPP PR PRN (15:10)
[2021-03-12] MEDS ORDERED: NALOXONE HCL 0.4 MG/1 ML VIAL/CARP IV PRN (15:10)
[2021-03-12] MEDS ORDERED: SODIUM CHLORIDE 0.9% 1000ML 1,000 ML IV SCH (15:10)
[2021-03-12] MEDS ORDERED: oxyCODONE HCL IR 5 MG TAB (IMMEDIATE RELEASE) PO PRN (15:10)
[2021-03-12] MEDS ORDERED: HYDROmorphone INJ 0.5 MG/0.5 ML SYR IV PRN (15:10)
[2021-03-12] MEDS: KETOROLAC TROMETHAMINE 15 MG/ML VIAL IV SCH ×2 (15:47→21:42)
[2021-03-12] MEDS: ACETAMINOPHEN 500 MG TAB PO SCH ×2 (15:50→22:02)
[2021-03-12] MEDS: DOCUSATE SODIUM 100 MG CAP PO SCH (21:35)
[2021-03-12] MEDS: OXYBUTYNIN CHLORIDE 5 MG TAB PO SCH (21:39)
[2021-03-12] MEDS: ceFAZolin 2000MG 2,000 MG/15 ML SYR IV SCH (21:40)
[2021-03-12] MEDS: SENNA 8.6 MG TAB PO SCH (21:41)
[2021-03-12] MEDS: amLODIPine BESYLATE 5 MG TAB PO SCH (21:42)
[2021-03-12] MEDS: ZOLPIDEM TARTRATE 5 MG TAB PO PRN (22:03)
[2021-03-13] MEDS: KETOROLAC TROMETHAMINE 15 MG/ML VIAL IV SCH ×4 (04:46→21:47)
[2021-03-13] MEDS: ceFAZolin 2000MG 2,000 MG/15 ML SYR IV SCH (04:46)
[2021-03-13] MEDS: LEVOTHYROXINE SODIUM 25 MCG TABLET PO SCH (06:13)
[2021-03-13] MEDS: ACETAMINOPHEN 500 MG TAB PO SCH ×3 (06:13→21:47)
--- NOTE | 2021-03-13 07:46 | Orthopedic Progress Note ---
Date of Service March 13, 2021 Assessment & Plan (1) Status post reverse arthroplasty of right shoulder: Overall she is doing about as well as expected. She is not in too much pain in the right arm. She is wearing her sling as instructed. She will be seen by therapy today for ambulation and range of motion exercises. She can be discharged to [facility] later today. She will follow-up with orthopedics in 2 weeks. Argentina Reynoso was seen and examined at bedside this morning. Overall she doing very well. She denies any pain in the right shoulder. She is very happy and thankful with her results thus far. She was able to get some sleep last night. She has no complaints.. Review of Systems All systems reviewed & are unremarkable except as noted in HPI & below. Physical Exam On physical examination of the right shoulder, the dressing is clean and dry. She is wearing her sling as instructed. Her radial, median, and ulnar nerves are checked intact at her wrist. Her axillary nerve was not checked yet.. Results & Data Results & Data Laboratory Results . Diagnostic Findings Postoperative x-rays of the right shoulder appear as expected. It was a very compromised shoulder preoperatively. There was significant bony destruction preoperatively. I was able to place the glenoid at the best bone stock I could get. The thinning of the acromium is not new.. PG Care Time/CCT Total # of Minutes Spent Total Time Spent with Patient: Total time spent is greater than 50% in coordination of care (as documented) at patient's floor/unit and/or counseling patient: Coding Level of Care Code 89576 Post Operative Follow-Up Diagnoses Status post reverse arthroplasty of right shoulder Z96.611
[2021-03-13] MEDS: amLODIPine BESYLATE 5 MG TAB PO SCH ×2 (08:08→20:28)
[2021-03-13] MEDS: VALSARTAN 80 MG TAB PO SCH (08:09)
[2021-03-13] MEDS: MULTIVITAMIN TAB PO SCH (08:10)
[2021-03-13] MEDS: PRAVASTATIN SOD 40 MG TAB PO SCH (08:10)
[2021-03-13] MEDS: DOCUSATE SODIUM 100 MG CAP PO SCH ×2 (08:10→20:28)
[2021-03-13] MEDS: TIMOLOL MALEATE 0.25% OP SOLN 5 ML BTL OP SCH (08:11)
[2021-03-13] MEDS: ASPIRIN 81 MG ECTAB PO SCH (08:11)
[2021-03-13] MEDS: OXYBUTYNIN CHLORIDE 5 MG TAB PO SCH (20:36)
[2021-03-13] MEDS: SENNA 8.6 MG TAB PO SCH (20:37)
[2021-03-13] MEDS: ZOLPIDEM TARTRATE 5 MG TAB PO PRN (22:07)
[2021-03-14] MEDS: KETOROLAC TROMETHAMINE 15 MG/ML VIAL IV SCH ×2 (03:49→09:15)
[2021-03-14] MEDS: LEVOTHYROXINE SODIUM 25 MCG TABLET PO SCH (05:39)
[2021-03-14] MEDS: ACETAMINOPHEN 500 MG TAB PO SCH ×3 (05:39→22:08)
--- NOTE | 2021-03-14 06:48 | Orthopedic Progress Note ---
Date of Service March 14, 2021 Assessment & Plan (1) Status post reverse arthroplasty of right shoulder: Overall she is doing well. She denies any much pain in the right shoulder. She will be seen by physical therapy again today for ambulation and range of motion exercises. She can be discharged to rehab today if a bed becomes available. She can follow-up with orthopedics in 2 weeks. Argentina Reynoso was seen and examined at bedside this morning. Overall she is doing fairly well. She is not having any pain in the right shoulder. She is awaiting placement to a rehab facility at this point. She has no complaints.. Review of Systems All systems reviewed & are unremarkable except as noted in HPI & below. Physical Exam On physical examination the right shoulder, the dressing is clean and dry. Her radial, median, and ulnar nerves are checked intact at her wrist. She is wearing a sling as instructed.. Results & Data Results & Data Laboratory Results . Diagnostic Findings . PG Care Time/CCT Total # of Minutes Spent Total Time Spent with Patient: Total time spent is greater than 50% in coordination of care (as documented) at patient's floor/unit and/or counseling patient: Coding Level of Care Code 50350 Post Operative Follow-Up Diagnoses Status post reverse arthroplasty of right shoulder Z96.611
[2021-03-14] MEDS: VALSARTAN 80 MG TAB PO SCH (08:11)
[2021-03-14] MEDS: amLODIPine BESYLATE 5 MG TAB PO SCH ×2 (08:12→20:23)
[2021-03-14] MEDS: DOCUSATE SODIUM 100 MG CAP PO SCH ×2 (08:12→21:11)
[2021-03-14] MEDS: PRAVASTATIN SOD 40 MG TAB PO SCH (08:12)
[2021-03-14] MEDS: MULTIVITAMIN TAB PO SCH (08:12)
[2021-03-14] MEDS: ASPIRIN 81 MG ECTAB PO SCH (08:12)
[2021-03-14] MEDS: TIMOLOL MALEATE 0.25% OP SOLN 5 ML BTL OP SCH (08:13)
[2021-03-14] MEDS: SENNA 8.6 MG TAB PO SCH (21:12)
[2021-03-14] MEDS: OXYBUTYNIN CHLORIDE 5 MG TAB PO SCH (21:12)
[2021-03-14] MEDS: ZOLPIDEM TARTRATE 5 MG TAB PO PRN (22:07)
[2021-03-15] MEDS: ACETAMINOPHEN 500 MG TAB PO SCH (05:53)
[2021-03-15] MEDS: LEVOTHYROXINE SODIUM 25 MCG TABLET PO SCH (05:53)
[2021-03-15] MEDS: PRAVASTATIN SOD 40 MG TAB PO SCH (08:24)
[2021-03-15] MEDS: ASPIRIN 81 MG ECTAB PO SCH (08:24)
[2021-03-15] MEDS: amLODIPine BESYLATE 5 MG TAB PO SCH (08:24)
[2021-03-15] MEDS: MULTIVITAMIN TAB PO SCH (08:25)
[2021-03-15] MEDS: TIMOLOL MALEATE 0.25% OP SOLN 5 ML BTL OP SCH (08:25)
[2021-03-15] MEDS: VALSARTAN 80 MG TAB PO SCH (08:25)
[2021-03-15] MEDS: DOCUSATE SODIUM 100 MG CAP PO SCH (08:26)
--- NOTE | 2021-03-15 09:05 | Orthopedic Progress Note ---
Date of Service March 15, 2021 Assessment & Plan (1) Status post reverse arthroplasty of right shoulder: Overall she is doing very well. She is not having any pain in the right shoulder. She can be seen by physical therapy for ambulation and gentle range of motion exercises. She can be discharged to rehab later today. She will follow-up with orthopedics in 2 weeks. Argentina Reynoso was seen and examined at bedside this morning. Overall she is doing well. She denies any pain in the right shoulder. She is happy to go to rehab today. She has no complaints.. Review of Systems All systems reviewed & are unremarkable except as noted in HPI & below. Physical Exam On physical examination of the right shoulder, the dressing is clean and dry. She is neurovascularly intact. She is wearing her sling as instructed.. Results & Data Results & Data Laboratory Results . Diagnostic Findings . PG Care Time/CCT Total # of Minutes Spent Total Time Spent with Patient: Total time spent is greater than 50% in coordination of care (as documented) at patient's floor/unit and/or counseling patient: Coding Level of Care Code 97179 Post Operative Follow-Up Diagnoses Status post reverse arthroplasty of right shoulder Z96.611
--- NOTE | 2021-03-15 09:07 | Discharge Summary ---
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 I am giving her serial injections for many years but the injections are no longer helping. Her shoulder hurts her all the time. X-rays show advanced cuff arthropathy of the right shoulder. After failing conservative treatment, she has elected proceed with a right reverse shoulder replacement.. Admission Exam (Per Admitting) On physical examination of the right shoulder, she has about 40 degrees of forward elevation 40 degrees of abduction. Passively I can get her little bit further but she has a lot of pain. She has some swelling in the right shoulder.. Principal Diagnosis Same as "Discharge Diagnosis" noted below under Discharge Instructions. Discharge Exam On physical examination of the right shoulder, the dressing is clean and dry. She is neurovascularly intact. She is wearing her sling as instructed.. Discharge Data Procedures Performed Operation Date: 03/12/21 10:20 Actual Procedures p Right Reverse Total Shoulder Arthroplasty, Uncemented(Right) - Kurt Alarcon DO Ordered Studies 03/12/21 05:00 US - OR guided needle placemen Routine Hospital Course (1) Status post reverse arthroplasty of right shoulder: On March 12, 2021 Angeles arrived at [facility] and underwent a right reverse shoulder replacement without complication. She had a general anesthetic and a right interscalene nerve block. Postoperatively she was placed in a sling and transferred to the general orthopedic floors. Her hospital course was uneventful. On postop day #1 her vital signs were stable and her julia n was well controlled. She was able to participate well with physical therapy. [facility]. On postop day #2 she continued to do fairly well. There were no beds available at rehab. She continue to work with physical therapy and keep her pain under control. On postop day #3 she continued to do well. She was seen once again by physical therapy and then discharged to rehab. She will follow-up with orthopedics in 2 weeks. PG Care Time/CCT Total # of Minutes Spent Total Time Spent with Patient: Total time spent is greater than 50% in coordination of care (as documented) at patient's floor/unit and/or counseling patient: Discharge Plan Discharge Items Patient Disposition: Transfer Inpatient Rehab Fac Reason For Visit: Degenerative Joint Disease Right Shoulder Discharge Diagnosis: Status post right reverse shoulder replacement Activity: As commented below Non-emergency contact: Surgeon Call non-emergency contact if: your wound has increased redness and your wound has increased drainage Follow-up/Referrals: Dav Perez MD [Primary Care Provider] - Diet: Regular Addtl Attending Provider Instructions: Activity and Therapy Recommendations: * If you are using [facility] then therapy will be provided at your home until they feel you have accomplished all of your goals. * If you are using [facility] then Physical Therapy will be provided until they feel you are ready to start Outpatient Physical Therapy. * If you are not using home therapy then Outpatient Physical Therapy should start about 3-5 days from your day of surgery. Therapy will last about 8-12 weeks * Wear your sling for 6 weeks, unless otherwise instructed. You may remove your sling to shower and to dress, but otherwise, you should be in your sling at all times, including while sleeping * The shoulder replacement is very stable and you can use your hand while in the sling * You were shown a series of exercises in the hospital. Do these exercises daily including the exercises you were shown in physical therapy. Medications: * Narcotic You will likely be sent home from the hospital with a prescription for the narcotic pain medication that worked best throughout your stay. * Other medications may be prescribed for specific circumstances. If you have any questions, please call the office at . * Resume previous home medications unless otherwise instructed Dressing Care: Leave the Silverlon dressing in place for 7 days. After 7 days you may remove the dressing. If the incision is not draining then you may leave the tung open to air. If there is a little bit of drainage or if the tung are getting stuck on your clothing then cover the incision with a dry dressing. The tung will be removed at your 2 week follow-up appointment. Showering: You may shower with the Silverlon dressing in place. Do not let the shower spray hit the dressing directly. Pat the Silverlon dressing dry. If the dressing becomes wet underneath, then simply remove the dressing. Keep the incision dry until you are 7 days out from the day of surgery. After 7 days you may remove the Silverlon dressing and shower with the tung exposed. Let soapy water run over the tung and pat them dry. Do not scrub or soak the incision. Things To Watch For: * Drainage from the incision site that occurs more than one week after your surgery. * Increased redness at the incision site. * Fever above 102 degrees Fahrenheit. * Unusual chest pain or shortness of breath. * Call [facility] at with any of the above problems Follow-Up Visit: Follow-up with Dr. Alarcon's PA (Kurt Rosas) 2-3 weeks after your day of surgery. He will remove your tung and answer any questions. If you have any additional questions or concerns, Dr Alarcon is usually in the office at the same time and will be available An appointment was probably scheduled when you signed-up for surgery in the office. If you have any questions call More detailed instructions as well as Frequently Asked Questions were provided in a folder by our office when you signed-up for surgery. Please review these instructions when you get home. If you have any further questions or concerns, please feel free to call the office at [phone] Pending Studies at Discharge: No Stand-Alone Forms: [facility] Skilled Items Patient informed of condition?: Yes DNR: No Discharge Level of Care: Acute rehab Communicable Disease: No Discharge Prognosis: Improving Lines: None Urinary Catheter: No Medications and DC Order Prescriptions: New tramadol 50 mg tablet 50 mg PO Q6H PRN (Reason: pain) Qty: 30 RF: 0 Continued oxybutynin chloride 5 mg tablet 5 mg PO DAILY Qty: 30 RF: 11 amlodipine [Norvasc] 2.5 mg tablet 2.5 mg PO BID Qty: 180 RF: 3 levothyroxine [Synthroid] 25 mcg tablet 25 mcg PO DAILY Qty: 90 RF: 3 valsartan [Diovan] 160 mg tablet 160 mg PO DAILY Qty: 90 RF: 3 pravastatin 80 mg tablet 80 mg PO DAILY Qty: 90 RF: 3 meloxicam [Mobic] 7.5 mg tablet 7.5 mg PO BID PRN (Reason: Pain) Qty: 180 RF: 1 zolpidem [Ambien] 5 mg tablet 2.5 - 5 mg PO HS PRN (Reason: imsomnia) Qty: 30 RF: 0 zoledronic [id number]-[id number] [Reclast] 5 mg/100 mL piggyback 5 mg IV ONCE Qty: 100 RF: 0 timolol maleate [Timoptic] 0.5 % drops 1 drp ophthalmic (eye) QAM RF: 0 aspirin [Aspir-81] 81 mg Tablet,Delayed Release (Dr/Ec) 81 mg PO QAM RF: 0 cholecalciferol (vitamin D3) [Vitamin D3] 1,000 unit Capsule 1,000 unit PO DAILY RF: 0 calcium carbonate-vitamin D3 [Os-Rodger 500 + D3] 500 mg(1,250mg) -200 unit Tablet 1 tab PO DAILY RF: 0 Discharge Orders: Discharge Order (Routine); Ordered 03/13/21 Ordered By: Kurt Alarcon Admission Data Admit Date/Time: 03/12/21 13:57 Attending Provider: Kurt Alarcon Admit Provider: Kurt Alarcon Primary Care Provider: Dav Perez Other Providers: [facility]
== END 2021-03-15 13:36 ==
LOC: ASU 07:48 → INTOOBSV 13:57 → 3E 13:57

== ENCOUNTER 2022-12-25 16:30 | Inpatient (IN) ==
[2022-12-25] MEDS ORDERED: MoRPHine SULFATE 4 MG/ML 1 ML CARP\\VIAL IV STA ×2 (16:35→20:16)
[2022-12-25] MEDS ORDERED: ONDANSETRON INJ 2 MG/ML 2 ML VIAL IV STA (16:35)
[2022-12-25] MEDS ORDERED: SODIUM CHLORIDE 0.9% 500 ML IV STA (16:35)
--- NOTE | 2022-12-25 16:42 | Emergency Department Note ---
Impression & Plan Closed hip fracture ADMIT ED Provider Note HPI: The patient is an 87-year-old female who presents the emergency department with a chief complaint of right hip pain. Patient states she fell in her kitchen today onto her right hip. She lives at the [facility] and was able to hit the emergency button for staff to come and assist her. She arrives alert, states she did hit the back of her head but she did not lose consciousness. She states she is not on any blood thinners. On arrival here to the ED the patient has neuro vascular function intact distally in the bilateral lower extremities/feet, she has limited range of motion of the right hip secondary to pain. ROS: - Per HPI *Outpatient medications and allergy history reviewed. *Pertinent external medical records reviewed. PE: General: Alert HEENT: Normocephalic, trachea midline Eyes: Extraocular eye movement is intact, no scleral erythema Pulmonary: Clear to auscultation bilaterally, no wheezing Cardio: Regular rate and rhythm GI: Abdomen is soft to palpation : No suprapubic tenderness MSK: Right lower extremity slightly everted and shortened in comparison to the left, limited range of motion of the right hip secondary to pain, there is a palpable dorsalis pedis pulse in the bilateral lower extremities Skin: No evidence of rash Neuro: Alert, no focal deficits Psychiatric: Cooperative ekg monitor tech: (As interpreted by myself): - An order was placed for continuous cardiac monitoring - Patient was noted to be in sinus rhythm with a rate of 90 EKG: (As interpreted by myself): Rate: 80 Rhythm: Normal sinus rhythm Intervals: Within normal limits ST changes: No ST elevation Time: 1649 Interventions provided in ED: -IV morphine, IV Zofran, IV fluid bolus Differential Diagnosis: Intracranial injury, intracranial bleed to include subdural hematoma, epidural hematoma, skull fracture, hip fracture, hip dislocation, amongst other potential pathologies. Medical Decision Making: The patient is a very pleasant 87-year-old female who presents the emergency department in hemodynamically stable condition, alert and oriented x3, presents with right hip pain after a fall today in her kitchen. IV was established and lab work obtained, patient was given IV morphine and IV Zofran for her symptoms. CT imaging of the head was obtained as the patient stated that she did hit the back of her head, this does not show any evidence of intracranial injury. X-ray imaging of the pelvis shows right-sided comminuted and displaced intertrochanteric fracture. Lab work shows slight leukocytosis which I suspect is reactive, hemoglobin is 10.9, platelet count is within normal limits. CMP shows mild hyponatremia which patient has had previously, she was given IV fluids in the ED. I discussed all of the above findings with the patient and her family that is now at the bedside. They request consultation with [facility] as the patient has previously seen that group for other issues. Case was therefore discussed with the on-call orthopedic surgeon for [facility], Dr. Thomason, he is in agreement for consultation. Case was then discussed with the on-call admitting hospitalist service, Dr. Monroe, and the patient was placed for admission in stable condition for further management. Consultants: -Orthopedic surgery, Dr. Thomason -Hospitalist service, Dr. Monroe Disposition discussion held by myself with: Patient and Family at bedside Diagnosis: 1. Right-sided hip fracture, acute, closed 2. Closed head injury 3. Mechanical fall 4. Hyponatremia, chronic Disposition: Admission Juan M Castorena DO Emergency Medicine Past Med/Surg History Medical History Arthritis Glaucoma Borderline History of diverticulosis Hyperlipidemia Hypertension Hypothyroidism Insomnia Osteoporosis Pre-diabetes Surgical History History of appendectomy History of cataract surgery R/L History of colonoscopy History of tonsillectomy [place] teeth removed Family History Father Coronary heart disease Myocardial infarction Family history of diabetes mellitus Sister Breast cancer Other Family history non-contributory No family history of adverse response to anesthesia Denies family history of Ovarian cancer Prostate cancer Colorectal cancer Social History Smoking Status: Never smoker Second Hand Exposure: Yes (IN THE PAST); Do You Dip or Chew Tobacco: No; Hx Alcohol Use: Yes Hx Substance Use: No Preferred Language: [place] Communication Ability: Effective Communication Ability Comment: ALSO SPEAKS KAZAKH Visual Impairment: No Limitations Hearing Ability: Normal Dental Instrument Maker Required: No Beliefs That Will Affect Care: None marital status: / Current Living Situation: Alone current occupational status: retired Feels Safe at Home: Yes Childhood Exposure to Second-Hand Smoke: Yes Dental Care, Regularly: Yes Physical Activity Frequency: 1-2 Times per Week Seatbelt Use: always Sunscreen Use: Yes Assistive Devices: None Allergies Allergies Allergy/AdvReac Type Severity Reaction Status Date / Time atorvastatin [From Lipitor] Allergy Mild Rash Verified 12/25/22 19:07 Home Meds Home Medications Medication Instructions Recorded Confirmed calcium carbonate 500 mg-vitamin 1 tab PO DAILY 03/29/19 12/25/22 D3 5 mcg (200 unit) tablet (Os-Rodger 500 + D3) cholecalciferol (vitamin D3) 25 1,000 unit PO DAILY 03/29/19 12/25/22 mcg (1,000 unit) capsule (Vitamin D3) timolol maleate 0.5 % eye drops 1 drp ophthalmic (eye) QAM 03/29/19 12/25/22 (Timoptic) multivitamin (Daily Multi-Vitamin 1 tab PO DAILY 07/08/22 12/25/22 tablet) amlodipine 2.5 mg tablet 5 mg PO QAM 12/23/22 12/25/22 amlodipine 2.5 mg tablet 2.5 mg PO QPM 12/25/22 12/25/22 aspirin 81 mg tablet,delayed 81 mg PO QPM 12/25/22 12/25/22 release meloxicam 7.5 mg tablet 7.5 mg PO QPM 12/25/22 12/25/22 pravastatin 80 mg tablet 80 mg PO QPM 12/25/22 12/25/22 zolpidem 5 mg tablet (Ambien) 2.5 mg PO HS 12/25/22 12/25/22 Previous Rx's Medication Instructions Recorded levothyroxine 25 mcg tablet 25 mcg PO DAILY #90 tabs 03/23/22 (Synthroid) valsartan 160 mg tablet (Diovan) 160 mg PO DAILY #90 tabs 03/23/22 amoxicillin 500 mg tablet 2,000 mg PO ONCE PRN prophylaxis 06/16/22 #4 tabs Results & Data (ED) Vital Signs Vital Signs - 24 hr 12/25/22 16:36 12/25/22 16:36 12/25/22 16:55 Temperature 36.9 C 36.9 C Temperature Source Oral Oral Pulse Rate 83 Pulse Rate [Apical] 83 Pulse Rhythm [Apical] Regular Pulse Strength Normal Respiratory Rate 18 18 Respiratory Effort / Characteristics Non-Labored Spontaneous Non-Labored Spontaneous Respiratory Depth Normal Normal Respiratory Pattern Regular Regular Blood Pressure 187/94 H Blood Pressure [Right Arm] 187/94 H Blood Pressure Mean 125 Blood Pressure Mean [Right Arm] 125 Blood Pressure Position Lying Blood Pressure Position [Right Arm] Lying Pulse Oximetry 98 98 98 Oxygen Delivery Method Room Air Room Air Room Air Sepsis Recent Fever Within 48 Hours No Sepsis New/Unexplained Change in Mental Status No Sepsis Action Taken by Nursing No Action Required 12/25/22 16:42 12/25/22 18:50 Temperature Temperature Source Pulse Rate 82 Pulse Rate [Apical] 89 Pulse Rhythm [Apical] Regular Pulse Strength Respiratory Rate 18 Respiratory Effort / Characteristics Non-Labored Spontaneous Respiratory Depth Normal Respiratory Pattern Regular Blood Pressure Blood Pressure [Right Arm] 170/69 H Blood Pressure Mean Blood Pressure Mean [Right Arm] 102 Blood Pressure Position Blood Pressure Position [Right Arm] Lying Pulse Oximetry 94 Oxygen Delivery Method Room Air Sepsis Recent Fever Within 48 Hours Sepsis New/Unexplained Change in Mental Status Sepsis Action Taken by Nursing Laboratory Data 12/25/22 16:46 12/25/22 16:46 Lab Results 12/25/22 12/25/22 12/25/22 Range/Units 16:46 16:46 16:46 WBC 11.65 H (4.8-10.8) K/ul RBC 3.68 L (4.20-5.40) M/uL Hgb 10.9 L (12.0-16.0) g/dl Hct 32.7 L (37.0-47.0) % MCV 88.9 (80.0-100.0) fL MCH 29.6 (25.0-34.0) pg MCHC 33.3 (32.0-36.0) g/dL RDW Std Deviation 43.8 (36.4-46.3) fL RDW Coeff of Felicity 13.4 (11.5-14.5) % Plt Count 296 (130-400) K/uL MPV 9.7 (9.4-12.4) fL Immature Gran % (Auto) 0.6 % Neut % (Auto) 71.9 % Lymph % (Auto) 15.9 % [place] % (Auto) 11.2 % Eos % (Auto) 0.3 % Baso % (Auto) 0.1 % Neut # (Auto) 8.38 H (1.40-6.50) K/uL Lymph # (Auto) 1.85 (1.2-3.4) K/uL [place] # (Auto) 1.31 H (0.11-0.59) K/uL Eos # (Auto) 0.03 (0-0.50) K/uL Baso # (Auto) 0.01 (0-0.2) K/uL Immature Gran # (Auto) 0.07 (0.01-0.20) K/uL PT 10.1 (9.0-12.0) Seconds INR 0.9 (0.9-1.1) Sodium 129 L (136-145) mmol/L Potassium 4.5 (3.5-5.1) mmol/L Chloride 95 L (98-107) mmol/L Carbon Dioxide 28 (21-32) mmol/L Anion Gap 6 (3-11) BUN 29 H (6-23) mg/dl Creatinine 0.67 (0.6-1.2) mg/dl Est Cr Clr Drug Dosing 47.4 ml/min Est GFR ( Amer) 91.6 ml/min Est GFR (Non-Af Amer) 79.0 ml/min BUN/Creatinine Ratio 43.3 H (10-20) Glucose 122 H (70-99(Fasting)) mg/dl Calcium 8.8 (8.6-10.3) mg/dl Total Bilirubin 0.3 (0.2-1.0) mg/dl AST 23 (13-39) U/L ALT 22 (7-52) U/L Alkaline Phosphatase 72 (34-104) U/L Total Protein 6.3 (6.0-8.3) gm/dl Albumin 3.9 (3.4-5.0) gm/dl Globulin 2.4 L (2.5-4.0) gm/dl Albumin/Globulin Ratio 1.6 (0.9-2) Urine Color Urine Appearance (Clear) Urine pH (4.5-7.5) Ur Specific [place] (1.000-1.030) Urine Protein (Negative) Urine Glucose (UA) (Negative) Urine Ketones (Negative) Urine Blood (Negative) Urine Nitrite (Negative) Urine Bilirubin (Negative) Urine Urobilinogen (Negative) Ur Leukocyte Esterase (Negative) Urine WBC (Auto) (0-5) /hpf Urine RBC (Auto) (0-4) /hpf U Hyaline Cast (Auto) (0-5) /lpf U Epithel Cells (Auto) (0-5) /lpf Urine Bacteria (Auto) (Negative) SARS-CoV-2, RNA, NAAT (NEGATIVE) 12/25/22 12/25/22 Range/Units 16:46 16:58 WBC (4.8-10.8) K/ul RBC (4.20-5.40) M/uL Hgb (12.0-16.0) g/dl Hct (37.0-47.0) % MCV (80.0-100.0) fL MCH (25.0-34.0) pg MCHC (32.0-36.0) g/dL RDW Std Deviation (36.4-46.3) fL RDW Coeff of Felicity (11.5-14.5) % Plt Count (130-400) K/uL MPV (9.4-12.4) fL Immature Gran % (Auto) % Neut % (Auto) % Lymph % (Auto) % [place] % (Auto) % Eos % (Auto) % Baso % (Auto) % Neut # (Auto) (1.40-6.50) K/uL Lymph # (Auto) (1.2-3.4) K/uL [place] # (Auto) (0.11-0.59) K/uL Eos # (Auto) (0-0.50) K/uL Baso # (Auto) (0-0.2) K/uL Immature Gran # (Auto) (0.01-0.20) K/uL PT (9.0-12.0) Seconds INR (0.9-1.1) Sodium (136-145) mmol/L Potassium (3.5-5.1) mmol/L Chloride (98-107) mmol/L Carbon Dioxide (21-32) mmol/L Anion Gap (3-11) BUN (6-23) mg/dl Creatinine (0.6-1.2) mg/dl Est Cr Clr Drug Dosing ml/min Est GFR ( Amer) ml/min Est GFR (Non-Af Amer) ml/min BUN/Creatinine Ratio (10-20) Glucose (70-99(Fasting)) mg/dl Calcium (8.6-10.3) mg/dl Total Bilirubin (0.2-1.0) mg/dl AST (13-39) U/L ALT (7-52) U/L Alkaline Phosphatase (34-104) U/L Total Protein (6.0-8.3) gm/dl Albumin (3.4-5.0) gm/dl Globulin (2.5-4.0) gm/dl Albumin/Globulin Ratio (0.9-2) Urine Color Yellow Urine Appearance Clear (Clear) Urine pH 5.5 (4.5-7.5) Ur Specific [place] 1.022 (1.000-1.030) Urine Protein Trace H (Negative) Urine Glucose (UA) Negative (Negative) Urine Ketones Trace H (Negative) Urine Blood Negative (Negative) Urine Nitrite Negative (Negative) Urine Bilirubin Negative (Negative) Urine Urobilinogen Negative (Negative) Ur Leukocyte Esterase Negative (Negative) Urine WBC (Auto) 1-5 (0-5) /hpf Urine RBC (Auto) 0-4 (0-4) /hpf U Hyaline Cast (Auto) 0 (0-5) /lpf U Epithel Cells (Auto) 5-10 H (0-5) /lpf Urine Bacteria (Auto) Negative (Negative) SARS-CoV-2, RNA, NAAT NEGATIVE (NEGATIVE) Administered Medications Discontinued Medications Sodium Chloride (Nss) 500 mls @ 999 mls/hr IV .Q31M STA Stop: 12/25/22 17:05 Last Infusion: 12/25/22 18:10 Dose: 0 mls/hr Documented By: Admin: 12/25/22 17:05 Dose: 999 mls/hr Documented By: COLETTE Morphine Sulfate (Morphine Sulfate 4 Mg/Ml 1 Ml Carp\\Vial) 4 mg IV NOW STA Stop: 12/25/22 16:36 Last Admin: 12/25/22 17:03 Dose: 4 mg Documented By: COLETTE Ondansetron HCl (Ondansetron Inj 2 Mg/Ml 2 Ml Vial) 4 mg IV NOW STA Stop: 12/25/22 16:36 Last Admin: 12/25/22 17:04 Dose: 4 mg Documented By: COLETTE Imaging Data Radiologist's Impression: Chest X-Ray 12/25/22 00:00 XR chest 1V not portable HISTORY: Right hip fracture. Preop. COMPARISON: Chest 11/12/2020. FINDINGS: No pneumothorax. No pleural effusions. The cardiac silhouette remains mildly enlarged. There is a moderate to large hiatus hernia again noted. Stable calcified granuloma within the left lung base and a calcified left hilar lymph node. Levoscoliosis of the lumbar spine. There is a right shoulder prosthesis. Advanced degenerative changes again noted within the left shoulder. IMPRESSION: No significant change compared to the prior study. No acute process. ACT 112: Negative or not required by law. Electronically signed by: Jairo Pack M.D. 12/25/2022 6:[address] 12/25/22 16:[address] DOSE: 884.08 mGy.cm HISTORY: Fall TECHNIQUE: Multiaxial CT images of the head were performed without the use of intravenous contrast. Automated exposure control was utilized for this study. A dose lowering technique was utilized adhering to the principles of ALARA. Comparison: Head CT 08/09/2019. Findings: The paranasal sinuses and mastoid air cells are clear. The calvarium and skull base are intact. There is no mass, hematoma, midline shift, acute infarct. White matter hypodensity is nonspecific but suggestive of microvascular ischemic change. The ventricles and sulci demonstrate moderate age-related involutional changes. Old nasal bone fractures are again noted. Impression: No acute intracranial abnormality. ACT 112: Negative or not required by law. Electronically signed by: Jairo Pack M.D. 12/25/2022 5:45 PM Hip/Pelvis X-Ray 12/25/22 16:39 XR hip JEYSON 2v w pelvis CLINICAL HISTORY: R hip pain COMPARISON STUDY: None. FINDINGS: There is a comminuted and displaced intertrochanteric fracture involving the proximal right femur. No dislocation. There is an old nonunited fracture at the greater trochanter of the left femur. No acute fracture or dislocation within the pelvis or left hip. IMPRESSION: Acute comminuted and displaced right femoral intertrochanteric fracture. ACT 112: Negative or not required by law. Electronically signed by: Jairo Pack M.D. 12/25/2022 6:41 PM Discharge Plan Visit Data Chief Complaint: Hip Pain Stated Complaint: FALL, HIP PAIN ED Provider: Juan M Castorena Discharge Problem: Closed hip fracture Forms Stand Alone Forms: [facility] Pres[facility] Prescriptions: No Action valsartan [Diovan] 160 mg tablet 160 mg PO DAILY Qty: 90 3RF Patient Comments: DAILY AT 1200 levothyroxine [Synthroid] 25 mcg tablet 25 mcg PO DAILY Qty: 90 3RF Patient Comments: QAM amoxicillin 500 mg tablet 2,000 mg PO ONCE PRN (Reason: prophylaxis) Qty: 4 2RF Rx Instructions: ONE HOUR PRIOR TO DENTAL PROCEDURE multivitamin [Daily Multi-Vitamin] Tablet 1 tab PO DAILY amlodipine 2.5 mg tablet 5 mg PO QAM Rx Instructions: take 2 tablets in am and 1 tablet in pm. timolol maleate [Timoptic] 0.5 % drops 1 drp ophthalmic (eye) QAM cholecalciferol (vitamin D3) [Vitamin D3] 1,000 unit Capsule 1,000 unit PO DAILY Patient Comments: AFTERNOON calcium carbonate-vitamin D3 [Os-Rodger 500 + D3] 500 mg(1,250mg) -200 unit Tablet 1 tab PO DAILY Patient Comments: AFTERNOON amlodipine 2.5 mg tablet 2.5 mg PO QPM aspirin [Aspir-Low] 81 mg Tablet,Delayed Release (Dr/Ec) 81 mg PO QPM meloxicam 7.5 mg tablet 7.5 mg PO QPM Patient Comments: PT STATES "TAKES ALMOST EVERYDAY" pravastatin 80 mg tablet 80 mg PO QPM Patient Comments: QPM zolpidem [Ambien] 5 mg tablet 2.5 mg PO HS Referrals Referrals: Pro,Dav Chavira MD [Primary Care Provider] - Closed hip fracture Qualifiers: Encounter type: initial encounter Laterality: right Qualified Code(s): S72.001A - Fracture of unspecified part of neck of right femur, initial encounter for closed fracture
[2022-12-25 17:04] LABS: Basophils # (auto) 0.01 K/uL (0-0.2); Basophils % (auto) 0.1 %; Eosinophils # (auto) 0.03 K/uL (0-0.50); Eosinophils % (auto) 0.3 %; Hematocrit (blood only) 32.7 % (37.0-47.0); Hemoglobin 10.9 g/dl (12.0-16.0); Immature Granulocytes # (auto) 0.07 K/uL (0.01-0.20); Immature Granulocytes % (auto) 0.6 %; Lymphocytes # (auto) 1.85 K/uL (1.2-3.4); Lymphocytes % (auto) 15.9 %; Mean Corpuscular Hemoglobin 29.6 pg (25.0-34.0); Mean Corpuscular Hgb Conc 33.3 g/dL (32.0-36.0); Mean Corpuscular Volume 88.9 fL (80.0-100.0); Mean Platelet Volume 9.7 fL (9.4-12.4); Monocytes # (auto) 1.31 K/uL (0.11-0.59); Monocytes % (auto) 11.2 %; Neutrophils # (auto) 8.38 K/uL (1.40-6.50); Neutrophils % (auto) 71.9 %; Platelet Count 296 K/uL (130-400); RDW Coefficient of Variation 13.4 % (11.5-14.5); RDW Standard Deviation 43.8 fL (36.4-46.3); Red Blood Count 3.68 M/uL (4.20-5.40); White Blood Count 11.65 K/ul (4.8-10.8)
[2022-12-25 17:06] LABS: Appearance Urine Clear (Clear); Bacteria Urine Automated Negative (Negative); Bilirubin Urine Negative (Negative); Blood Urine Negative (Negative); Cast Urine Automated 0 /lpf (0-5); Color Urine Yellow; Glucose Urine UA Negative (Negative); Ketones Urine Trace (Negative); Leukocyte Esterase Urine Negative (Negative); Nitrite Urine Negative (Negative); Protein Urine Trace (Negative); RBC Urine Automated 0-4 /hpf (0-4); Specific Gravity Urine 1.022 (1.000-1.030); Urobilinogen Urine Negative (Negative); pH Urine 5.5 (4.5-7.5)
[2022-12-25 17:21] LABS: Albumin Globulin Ratio 1.6 (0.9-2); Albumin Level 3.9 gm/dl (3.4-5.0); BUN Creatinine Ratio 43.3 (10-20); Bilirubin,Total 0.3 mg/dl (0.2-1.0); Calcium 8.8 mg/dl (8.6-10.3); Creatinine Clr Calc Pharmacy 47.4 ml/min; Est GFR (African American) 91.6 ml/min; Globulin 2.4 gm/dl (2.5-4.0); Potassium 4.5 mmol/L (3.5-5.1); Total Protein 6.3 gm/dl (6.0-8.3)
[2022-12-25 17:35] LABS: INR 0.9 (0.9-1.1); Prothrombin Time 10.1 Seconds (9.0-12.0)
--- NOTE | 2022-12-25 17:47 | CT Scan Report ---
HEAD CT NONCONTRAST CT DOSE: 884.08 mGy.cm HISTORY: Fall TECHNIQUE: Multiaxial CT images of the head were performed without the use of intravenous contrast. A utomated exposure control was utilized for this study. A dose lowering technique was utilized adheri ng to the principles of ALARA. Comparison: Head CT 08/09/2019. Findings: The paranasal sinuses and mastoid air cells are clear. The calvarium and skull base are int act. There is no mass, hematoma, midline shift, acute infarct. White matter hypodensity is nonspecifi c but suggestive of microvascular ischemic change. The ventricles and sulci demonstrate moderate age- related involutional changes. Old nasal bone fractures are again noted. Impression: No acute intracranial abnormality. ACT 112: Negative or not required by law. Electronically signed by: Jairo Pack M.D. 12/25/2022 5:45 PM
--- NOTE | 2022-12-25 18:40 | History & Physical Report ---
Date of Service December 25, 2022 Assessment & Plan (1) Fracture, intertrochanteric, right femur: Plan: 87-year-old female who was without her walker walking in slippers in the kitchen when she had a fall due to slipping without lightheadedness/dizziness/BP/presyncope/chest pain/chest pressure that contributed to her fall who fell to her right hip with immediate pain and inability to bear weight. Found to have a right intertrochanteric hip fracture for which orthopedics has been consulted Right intertrochanteric hip fracture - Slipped while walking with slippers without walker .No syncope/presyncope. EKG nsr, no acute ischemic changes or arrythmia appreciated. Orthopedics consulted N.p.o, IV FM Michael placed Tylenol continued first-line, breakthrough hydromorphone for pain control RCRI 0 points, class I risk, no modifiable risk factors. CThead with no acute findings. Neck range of motion is full, no neck tenderness on palpation Hypertension Continue amlodipine, recently changed to 5 mg a.m., 2.5 mg p.m. Valsartan temporarily held pending anesthesia for hip replacement Hypothyroidism Continue Synthroid TSH pending Hyperlipidemia Continue pravastatin 80 mg daily Anxiety Zolpidem 2.5 mg p.o. nightly continued With recent exacerbation as patient's brother was ill which causes increased stress. Patient has been prescribed BuSpar but is not taking this currently DVT prophylaxis: Heparin subcu pending surgical intervention, hold dose prior to surgery. Postop DVT prophylaxis per operative team Diet: N.p.o. pending surgical evaluation. If surgery not anticipated until tomorrow morning may have clears until midnight Disposition: Medical/surgical. No history of heart disease/arrhythmia contributing to fall CODE STATUS: DNR/DNI (2) Hyponatremia: (3) Hyperlipidemia: (4) Hypertension: (5) Hypothyroidism: History of Present Illness Primary Care Provider: Dav Perez MD Angeles Reynoso is an 87-year-old female with a past medical history of hypertension, anxiety, insomnia, hypothyroidism, hyperlipidemia who was walking in her kitchen when she slipped and fell with immediate pain in her right hip. She was found to have a right intertrochanteric hip fracture. Orthopedics is consulted for operative intervention, we are consulted for admission and management of comorbidities. Normally walks with a walker and shuffles OK. But when she doesn't have her walker cannot catch her balance. Was shuffling with slippers on in the kitchen and slipped and fell. No syncope/presyncope. DId hit her head, no headache. No lightheaded/dizziness that led to her fall. Daughter thinks she shuffles and hits her slippers on the corners and causes her to fall. No weakness, but balance overall is poor. Denies stroke, focal weakness, focal sensory change. Normally does well with a walker, but did not have it at time of her fall and does not always use within the apartment. No lightheadedness, dizziness, chest pain, chest pressure, syncope or presyncope which contributed to her fall. Takes aspirin, no blood thinners. Took amlodipine this morning Having pain in her right hip, 'tolerable not too bad maybe 6/10' in her hip but much worse with any movement. Could not bear weight after falling. No numbness/tingliing. Hx L greater trochanter fxr last thankgiving, no surgery at that time and healed with conservative medical managment. No heart problems, just HTN No kidney problems No diabetes Preop creatinine normal, 0.67. No street of insulin treatment No history of heart failure, TIA, cerebrovascular disease, or ischemic heart disease Medical History: Reviewed Medications: Reviewed. Did take medications this morning Surgical History: Reviewed Family history: Reviewed Allergies: Reviewed Social History: No tobacco, no etoh use. Code Status: DNR/DNI Allergies Allergy/AdvReac Type Severity Reaction Status Date / Time atorvastatin [From Lipitor] Allergy Mild Rash Verified 12/23/22 13:29 Home Medications Medication Instructions Recorded Confirmed Type aspirin 81 mg tablet,delayed 81 mg PO QA 03/29/19 12/23/22 History release (Aspir-) calcium carbonate 500 mg-vitamin 1 tab PO DAILY 03/29/19 12/23/22 History D3 5 mcg (200 unit) tablet (Os-Rodger 500 + D3) cholecalciferol (vitamin D3) 25 1,000 unit PO DAILY 03/29/19 12/23/22 History mcg (1,000 unit) capsule (Vitamin D3) timolol maleate 0.5 % eye drops 1 drp ophthalmic (eye) QA 03/29/19 12/23/22 History (Timoptic) levothyroxine 25 mcg tablet 25 mcg PO DAILY #90 tabs 03/23/22 12/23/22 Rx (Synthroid) pravastatin 80 mg tablet 80 mg PO DAILY #90 tabs 03/23/22 12/23/22 Rx valsartan 160 mg tablet (Diovan) 160 mg PO DAILY #90 tabs 03/23/22 12/23/22 Rx amoxicillin 500 mg tablet 2,000 mg PO ONCE PRN prophylaxis 06/16/22 12/23/22 Rx #4 tabs multivitamin (Daily Multi-Vitamin 1 tab PO DAILY 07/08/22 12/23/22 History tablet) meloxicam 7.5 mg tablet 7.5 mg PO BID PRN Pain #180 tabs 08/18/22 12/23/22 Rx amoxicillin 500 mg tablet 2,000 mg PO ONCE #4 tabs 10/28/22 12/23/22 Rx amlodipine 2.5 mg tablet See Rx Instructions PO BID 12/23/22 12/23/22 History zolpidem 5 mg tablet (Ambien) 2.5 - 5 mg PO HS PRN imsomnia #30 12/23/22 12/23/22 Rx tabs Past Med/Surg History Medical History Arthritis Glaucoma Borderline History of diverticulosis Hyperlipidemia Hypertension Hypothyroidism Insomnia Osteoporosis Pre-diabetes Surgical History History of appendectomy History of cataract surgery R/L History of colonoscopy History of tonsillectomy [place] teeth removed Family History Father Coronary heart disease Myocardial infarction Family history of diabetes mellitus Sister Breast cancer Other Family history non-contributory No family history of adverse response to anesthesia Denies family history of Ovarian cancer Prostate cancer Colorectal cancer Social History Smoking Status: Never smoker Second Hand Exposure: Yes (IN THE PAST); Do You Dip or Chew Tobacco: No; Hx Alcohol Use: Yes Hx Substance Use: No Preferred Language: Macedonian Communication Ability: Effective Communication Ability Comment: ALSO SPEAKS THAI Visual Impairment: No Limitations Hearing Ability: Normal Scale Tester Required: No Beliefs That Will Affect Care: None marital status: / Current Living Situation: Alone current occupational status: retired Feels Safe at Home: Yes Childhood Exposure to Second-Hand Smoke: Yes Dental Care, Regularly: Yes Physical Activity Frequency: 1-2 Times per Week Seatbelt Use: always Sunscreen Use: Yes Assistive Devices: None Review of Systems Review of Systems: All systems reviewed & are unremarkable except as noted in HPI & below Physical Exam Physical Exam: General: A&Ox3. NAD. Cooperative. HEENT: Atraumatic, normocephalic. Patient/hearing grossly intact. Pupils equal and reactive to light Pulm: CTAB A&P. -wheezes, -rales, -rhonchi. Symmetrical chest rise. No increased work of breathing. No respiratory distress. Cardiac: RRR, -mrg. Radial pulses intact and symmetrical. Abdominal: Nontender, nondistended, soft. BS present. Extremities: Right lateral hip with small contusion. Right lateral and anterior hip is tender to palpation. Right lower extremity is externally rotated and shortened. PT pulse intact bilaterally. Ankle dorsiflexion/plantarflexion 5/5 bilaterally. Sensation of soft touch is intact in hands and feet bilaterally without asymmetry. Results & Data Results & Data Vital Signs (Past 12 Hours) Vital Signs Temp Pulse Pulse Resp BP BP Pulse Ox 12/25/22 16:42 82 12/25/22 16:55 98 12/25/22 16:36 36.9 C 83 18 187/94 H 98 12/25/22 16:36 36.9 C 83 18 187/94 H 98 O2 Del Method 12/25/22 16:42 12/25/22 16:55 Room Air 12/25/22 16:36 Room Air 12/25/22 16:36 Room Air PG Care Time/CCT Total # of Minutes Spent Total Time Spent with Patient: Total time spent is greater than 50% in coordination of care (as documented) at patient's floor/unit and/or counseling patient: Coding Level of Care Code 89341 INT INP/OBS CARE 2/MIN Diagnoses Fracture, intertrochanteric, right femur S72.141A Hyponatremia E87.1 Hyperlipidemia E78.5 Hypertension I10 Hypothyroidism E03.9
--- NOTE | 2022-12-25 18:43 | XRay Report ---
XR hip JEYSON 2v w pelvis CLINICAL HISTORY: R hip pain COMPARISON STUDY: None. FINDINGS: There is a comminuted and displaced intertrochanteric fracture involving the proximal right femur. No dislocation. There is an old nonunited fracture at the greater trochanter of the left femu r. No acute fracture or dislocation within the pelvis or left hip. IMPRESSION: Acute comminuted and displaced right femoral intertrochanteric fracture. ACT 112: Negative or not required by law. Electronically signed by: Jairo Pack M.D. 12/25/2022 6:41 PM
--- NOTE | 2022-12-25 18:44 | XRay Report ---
XR chest 1V not portable HISTORY: Right hip fracture. Preop. COMPARISON: Chest 11/12/2020. FINDINGS: No pneumothorax. No pleural effusions. The cardiac silhouette remains mildly enlarged. Ther e is a moderate to large hiatus hernia again noted. Stable calcified granuloma within the left lung b ase and a calcified left hilar lymph node. Levoscoliosis of the lumbar spine. There is a right should er prosthesis. Advanced degenerative changes again noted within the left shoulder. IMPRESSION: No significant change compared to the prior study. No acute process. ACT 112: Negative or not required by law. Electronically signed by: Jairo Pack M.D. 12/25/2022 6:43 PM
[2022-12-25] MEDS ORDERED: HYDROmorphone INJ 0.5 MG/0.5 ML SYR IV PRN (20:25)
[2022-12-25] MEDS ORDERED: bisacodyL 10 MG SUPP PR PRN (20:25)
[2022-12-25] MEDS ORDERED: NALOXONE HCL 0.4 MG/1 ML VIAL/CARP IV PRN (20:25)
[2022-12-25] MEDS ORDERED: MAGNESIUM HYDROXIDE SUSP 30 ML UDC PO PRN (20:25)
[2022-12-25] MEDS: LACTATED RINGER'S 1,000 ML IV SCH (21:00)
[2022-12-25] MEDS: DOCUSATE SODIUM/SENNA 50/8.6MG TAB PO SCH (22:57)
[2022-12-25] MEDS: HYDROmorphone INJ 0.5 MG/0.5 ML SYR IV PRN (23:01)
[2022-12-25] MEDS: amLODIPine BESYLATE 5 MG TAB PO SCH (23:04)
[2022-12-25] MEDS ORDERED: ZOLPIDEM TARTRATE 5 MG TAB PO PRN (23:39)
[2022-12-26] MEDS: LACTATED RINGER'S 1,000 ML IV SCH (06:23)
[2022-12-26] MEDS: HYDROmorphone INJ 0.5 MG/0.5 ML SYR IV PRN (06:29)
[2022-12-26 07:07] LABS: BUN Creatinine Ratio 39.1 (10-20); Calcium 7.5 mg/dl (8.6-10.3); Creatinine Clr Calc Pharmacy 67.7 ml/min; Est GFR (African American) 103.7 ml/min; Est GFR (Non-African American) 89.4 ml/min; Potassium 4.1 mmol/L (3.5-5.1)
[2022-12-26 07:09] LABS: Hematocrit (blood only) 22.8 % (37.0-47.0); Hemoglobin 7.7 g/dl (12.0-16.0); Mean Corpuscular Hemoglobin 30.1 pg (25.0-34.0); Mean Corpuscular Hgb Conc 33.8 g/dL (32.0-36.0); Mean Corpuscular Volume 89.1 fL (80.0-100.0); Mean Platelet Volume 9.9 fL (9.4-12.4); Platelet Count 201 K/uL (130-400); RDW Coefficient of Variation 13.5 % (11.5-14.5); RDW Standard Deviation 44.6 fL (36.4-46.3); Red Blood Count 2.56 M/uL (4.20-5.40); White Blood Count 11.46 K/ul (4.8-10.8)
[2022-12-26 07:14] LABS: Basophils # (auto) 0.01 K/uL (0-0.2); Basophils % (auto) 0.1 %; Immature Granulocytes # (auto) 0.05 K/uL (0.01-0.20); Immature Granulocytes % (auto) 0.4 %; Lymphocytes # (auto) 1.14 K/uL (1.2-3.4); Lymphocytes % (auto) 9.9 %; Monocytes # (auto) 0.98 K/uL (0.11-0.59); Monocytes % (auto) 8.6 %; Neutrophils # (auto) 9.28 K/uL (1.40-6.50); RBC Morphology Unremarkable
--- NOTE | 2022-12-26 07:54 | Hospitalist Progress Note ---
Date of Service December 26, 2022 Assessment & Plan (1) Fracture, intertrochanteric, right femur: Plan: PT is a 87 yo female who presented to the hospital after a mechanical fall. She denied lightheadedness/dizziness/presyncope/chest pain or pressure contributing to her fall. She fell on her right hip with immediate pain and inability to bear weight. Right intertrochanteric hip fracture found on imaging for which orthopedics has been consulted. Right intertrochanteric hip fracture - s/p fall, appearing mechanical in nature; EKG showed NSR, no acute ischemic changes or arrhythmia noted - CT head neg - continue pain control with tylenol and hydromorphone PRN - Orthopedics consulted; plan for surgical intervention this afternoon Anemia - in the setting of right hip fracture - Hgb upon admission 10.9, dropped to 7.7 this AM - repeat Hgb pending, blood consent signed- may need transfusion if continues to drop - most likely multifactorial in the setting of IVF and bleeding into hip fracture area Hyponatremia - 129 upon admission; appears acute on chronic, as pt tends to be 134-135 during most recent blood work - most likely in the setting of poor PO intake; expect improvement after resuming diet after surgery - will continue to monitor Hypertension - Continue amlodipine 5 mg AM, 2.5 mg PM - hold valsartan pending anesthesia for hip replacement Hypothyroidism - continue synthroid 25 mcg daily Hyperlipidemia - continue pravastatin 80 mg daily Anxiety - zolpidem 2.5 mg p.o. nightly continued - recent exacerbation as patient's brother was ill which caused increased stress - pt has been prescribed buspirone but is not taking this Fluids, electrolytes: LR at 100 mL/hr while NPO pending surgery this afternoon Diet: NPO DVT ppx: heparin pending surgical intervention, DVT ppx post surg per ortho Consults: ortho Dispo: med/surg Code status: DNR/DNI (2) Hypertension: (3) Hyperlipidemia: (4) Anxiety: (5) Hyponatremia: (6) Hypothyroidism: (7) Osteoporosis: (8) Anemia: Admission and Anticipated Discharge Date Admission Date: December 25, 2022 Supervising Physician Co-Signing Physician Notes Resident Physician Supervision Note: I independently interviewed and examined the patient and verified the spring history and physical, reviewed labs and image studies and agree with resident findings and care plan. Subjective No acute events overnight. Pt is groggy this AM in the setting of recent pain medications. She states it is hard to keep her eyes open. She endorses a headache that has been present since last night in addition to obvious right leg/hip pain. Pt requiring 2 L of O2- no home oxygen requirement. Denies SOB, chest pain, and abdominal pain. Review of Systems Review of Systems: As per HPI Physical Exam Physical Exam: Constitutional: well appearing, no acute distress, groggy/hard to wake HEENT: normocephalic, no conjunctival injection CV: RRR, no murmur, no LE edema, peripheral pulses 2+ Respiratory: CTA bilaterally. No rhonchi, wheezes, or crackles. No increased work of breathing MSK: mild right hip bruising with pain upon palpation Skin: warm, dry, no rashes Neuro: alert and oriented although falls asleep between questions Psych: mood and affect congruent Results & Data Results & Data Vital Signs (Past 12 Hours) Vital Signs Temp Pulse Resp BP Pulse Ox O2 Del Method 12/25/22 20:25 36.8 C 89 20 171/69 H 94 Room Air Resident Activity Tracking Resident Involvement: Resident Care Provided Care Provided: Adult Hospital Medicine
[2022-12-26] MEDS ORDERED: PRAVASTATIN SOD 40 MG TAB PO SCH ×2 (09:00→21:00)
[2022-12-26] MEDS: amLODIPine BESYLATE 5 MG TAB PO SCH ×2 (09:08→20:22)
[2022-12-26] MEDS: TIMOLOL MALEATE 0.5% OP SOLN 5 ML BTL OP SCH (09:08)
[2022-12-26] MEDS: LEVOTHYROXINE SODIUM 25 MCG TABLET PO SCH (09:08)
[2022-12-26] MEDS: ACETAMINOPHEN 325 MG TAB PO PRN ×2 (09:12→22:11)
[2022-12-26 10:56] LABS: Hematocrit (blood only) 23.7 % (37.0-47.0)
--- NOTE | 2022-12-26 13:52 | Orthopedic Consultation ---
Date of Service December 26, 2022 Assessment & Plan (1) Fracture, intertrochanteric, right femur: We discussed diagnosis and treatment options at bedside. I recommended intramedullary nail fixation of the right hip. She like to proceed. She understands the risk, benefits, alternatives procedure elected to proceed. Questions were answered. Time was spent scribing the procedure and post expectations. She is currently NPO. We will proceed with fixation of her right hip this afternoon. History of Present Illness Reason for Consultation: Right intertrochanteric hip fracture. Requesting Physician: . Attending Physician: Shantal Castañeda MD Angeles is a pleasant 87-year-old female who ambulates normally with a walker. She lives at the [facility] at [facility]. She was ambulating yesterday when she slipped and fell. She had severe right hip pain. She came to the emergency room where radiographs demonstrated an intertrochanteric right hip fracture. She was admitted to the hospitalist service. Orthopedics was consulted to evaluate and treat.. Allergies Allergy/AdvReac Type Severity Reaction Status Date / Time atorvastatin [From Lipitor] Allergy Mild Rash Verified 12/25/22 19:07 Home Medications Medication Instructions Recorded Confirmed Type calcium carbonate 500 mg-vitamin 1 tab PO DAILY 03/29/19 12/25/22 History D3 5 mcg (200 unit) tablet (Os-Rodger 500 + D3) cholecalciferol (vitamin D3) 25 1,000 unit PO DAILY 03/29/19 12/25/22 History mcg (1,000 unit) capsule (Vitamin D3) timolol maleate 0.5 % eye drops 1 drp ophthalmic (eye) QAM 03/29/19 12/25/22 History (Timoptic) levothyroxine 25 mcg tablet 25 mcg PO DAILY #90 tabs 03/23/22 12/25/22 Rx (Synthroid) valsartan 160 mg tablet (Diovan) 160 mg PO DAILY #90 tabs 03/23/22 12/25/22 Rx amoxicillin 500 mg tablet 2,000 mg PO ONCE PRN prophylaxis 06/16/22 12/25/22 Rx #4 tabs multivitamin (Daily Multi-Vitamin 1 tab PO DAILY 07/08/22 12/25/22 History tablet) amlodipine 2.5 mg tablet 5 mg PO QAM 12/23/22 12/25/22 History amlodipine 2.5 mg tablet 2.5 mg PO QPM 12/25/22 12/25/22 History aspirin 81 mg tablet,delayed 81 mg PO QPM 12/25/22 12/25/22 History release meloxicam 7.5 mg tablet 7.5 mg PO QPM 12/25/22 12/25/22 History pravastatin 80 mg tablet 80 mg PO QPM 12/25/22 12/25/22 History zolpidem 5 mg tablet (Ambien) 2.5 mg PO HS 12/25/22 12/25/22 History Past Med/Surg History Medical History Arthritis Glaucoma Borderline History of diverticulosis Hyperlipidemia Hypertension Hypothyroidism Insomnia Osteoporosis Pre-diabetes Surgical History History of appendectomy History of cataract surgery R/L History of colonoscopy History of tonsillectomy [place] teeth removed Family History Father Coronary heart disease Myocardial infarction Family history of diabetes mellitus Sister Breast cancer Other Family history non-contributory No family history of adverse response to anesthesia Denies family history of Ovarian cancer Prostate cancer Colorectal cancer Social History Smoking Status: Never smoker Second Hand Exposure: No; Do You Dip or Chew Tobacco: No; Tobacco Cessation Education Requested by Patient: No Hx Alcohol Use: No Hx Substance Use: No Preferred Language: Tunisian Communication Ability: Effective Communication Ability Comment: ALSO SPEAKS [place]SI[place] Visual Impairment: No Limitations Hearing Ability: Normal Pasting Machine Operator Required: No Beliefs That Will Affect Care: None marital status: / Current Living Situation: Alone current occupational status: retired Other Information That Helps Us Care for You: No Feels Safe at Home: Yes Safety Concerns: Feels Safe At This Time Childhood Exposure to Second-Hand Smoke: Yes Dental Care, Regularly: Yes Physical Activity Frequency: 1-2 Times per Week Seatbelt Use: always Sunscreen Use: Yes Assistive Devices: Walker Review of Systems All systems reviewed & are unremarkable except as noted in HPI & below. Physical Exam On physical examination the right hip, is shortened and actually rotated. She has pain with logroll of her right hip. There are no abrasions, lesions, or lacerations of her skin.. Constitutional WD/WN, vitals as above Eyes PERRL, conjunctivae normal, anicteric sclerae ENMT external ear and nose normal, oropharynx normal Neck trachea midline, no thyromegaly Respiratory normal respiratory effort, lungs clear to auscultation Cardiovascular RRR, no murmur, no edema Gastrointestinal (Abdomen) normal bowel sounds, soft, nontender, no hepatosplenomegaly Skin no rashes, warm and dry Psychiatric A+Ox3, euthymic affect Results & Data Results & Data Laboratory Results . Diagnostic Findings X-rays of the right hip show a displaced right intertrochanteric hip fracture.. PG Care Time/CCT Total # of Minutes Spent Total Time Spent with Patient: Total time spent is greater than 50% in coordination of care (as documented) at patient's floor/unit and/or counseling patient: Coding Level of Care Code 86457 IN/OBS CONSULT LVL 4,60M (57 - DECISION FOR SURGERY) Diagnoses Fracture, intertrochanteric, right femur S72.141A
[2022-12-26] MEDS ORDERED: ceFAZolin 2,000 MG/15 ML IV PUSH IV ONE (13:58)
[2022-12-26] MEDS ORDERED: ceFAZolin 2000MG 2,000 MG/15 ML SYR IV ONE (14:00)
[2022-12-26] MEDS ORDERED: BUPIVACAINE 0.5 % 5 MG/1 ML PF 10ML VIAL ONE (14:30)
--- NOTE | 2022-12-26 14:46 | Anesthesiology Consultation ---
Date of Service December 26, 2022 Assessment & Plan Chart Review Chart Review: Acceptable Risk for Surgery and Patient NOT seen in Pre Admission Testing Consults Requested none ASA ASA2 Proposed Anesthesia Anesthesia Type: MAC Spinal Risk / Benefits Reviewed With: PT / POA / Parent / Guardian, Accepts Plan and Informed Consent Obtained History Surgery Operation Date: 12/26/22 09:40 Proposed Procedures p Right Troch Nail - Kurt Alarcon, Height/Weight Height: 4 ft 11 in Weight: 59.6 kg Allergies Allergy/AdvReac Type Severity Reaction Status Date / Time atorvastatin [From Lipitor] Allergy Mild Rash Verified 12/25/22 19:07 Medications Home Medications Medication Instructions Recorded Confirmed Last Taken calcium carbonate 500 mg-vitamin 1 tab PO DAILY 03/29/19 12/25/22 03/10/21 08:00 D3 5 mcg (200 unit) tablet (Os-Rodger 500 + D3) cholecalciferol (vitamin D3) 25 1,000 unit PO DAILY 03/29/19 12/25/22 03/10/21 08:00 mcg (1,000 unit) capsule (Vitamin D3) timolol maleate 0.5 % eye drops 1 drp ophthalmic (eye) QAM 03/29/19 12/25/22 03/12/21 07:00 (Timoptic) levothyroxine 25 mcg tablet 25 mcg PO DAILY #90 tabs 03/23/22 12/25/22 Unknown (Synthroid) valsartan 160 mg tablet (Diovan) 160 mg PO DAILY #90 tabs 03/23/22 12/25/22 12/25/22 09:00 amoxicillin 500 mg tablet 2,000 mg PO ONCE PRN prophylaxis 06/16/22 12/25/22 Unknown #4 tabs multivitamin (Daily Multi-Vitamin 1 tab PO DAILY 07/08/22 12/25/22 Unknown tablet) amlodipine 2.5 mg tablet 5 mg PO QAM 12/23/22 12/25/22 12/25/22 09:00 amlodipine 2.5 mg tablet 2.5 mg PO QPM 12/25/22 12/25/22 Unknown aspirin 81 mg tablet,delayed 81 mg PO QPM 12/25/22 12/25/22 Unknown release meloxicam 7.5 mg tablet 7.5 mg PO QPM 12/25/22 12/25/22 Unknown pravastatin 80 mg tablet 80 mg PO QPM 12/25/22 12/25/22 Unknown zolpidem 5 mg tablet (Ambien) 2.5 mg PO HS 12/25/22 12/25/22 Unknown Active Medications Generic Name Dose Route Start Last Admin Trade Name Freq PRN Reason Stop Dose Admin Acetaminophen 650 mg 12/25/22 20:25 12/26/22 09:12 Acetaminophen 325 Mg Tab PO 01/24/23 20:24 650 mg Q6H PRN Administration Pain & Pre PT Amlodipine Besylate 2.5 mg 12/25/22 21:00 12/25/22 23:04 Amlodipine Besylate 5 Mg Tab PO 01/24/23 20:59 2.5 mg QPM GRABIEL Administration Amlodipine Besylate 5 mg 12/26/22 09:00 12/26/22 09:08 Amlodipine Besylate 5 Mg Tab PO 01/25/23 08:59 5 mg QAM GRABIEL Administration Hydromorphone HCl 0.5 mg 12/25/22 20:25 12/26/22 06:29 Hydromorphone Inj 0.5 Mg/0.5 Ml Syr IV 01/08/23 20:24 0.5 mg Q3H PRN Administration Pain (6,7,8,9,10) Lactated Ringer's 1,000 mls @ 100 mls/hr 12/25/22 20:25 12/26/22 06:23 Lr IV 12/26/22 16:24 100 mls/hr .Q10H GRABIEL Administration Levothyroxine Sodium 25 mcg 12/26/22 09:00 12/26/22 09:08 Levothyroxine Sodium 25 Mcg Tablet PO 01/25/23 08:59 25 mcg DAILY GRABIEL Administration Pravastatin Sodium 80 mg 12/26/22 09:00 12/26/22 09:08 Pravastatin Sod 40 Mg Tab PO 01/25/23 08:59 80 mg DAILY GRABIEL Administration Senna/Docusate Sodium 2 tab 12/25/22 21:00 12/25/22 22:57 Docusate Sodium/Senna 50/8.6mg Tab PO 01/24/23 20:59 Not Given HS GRABIEL Timolol Maleate 1 drops 12/26/22 09:00 12/26/22 09:08 Timolol Maleate 0.5% Op Soln 5 Ml Btl OP 01/25/23 08:59 1 drops QAM GRABIEL Administration Zolpidem Tartrate 2.5 mg 12/25/22 23:39 12/26/22 00:12 Zolpidem Tartrate 5 Mg Tab PO 01/24/23 23:38 2.5 mg HS PRN Administration Sleep NPO Date Last Intake of Fluids: 12/26/22 Time Last Intake of Fluids: 08:00 Last Intake of Fluids Comment: sip with meds Date Last Intake of Solids: 12/25/22 Time Last Intake of Solids: 12:00 Past Medical History Medical History Arthritis Glaucoma Borderline History of diverticulosis Hyperlipidemia Hypertension Hypothyroidism Insomnia Osteoporosis Pre-diabetes Exercise / Class Metabolic Activity II 4-5 Yardwork/Stairs/Walk up hill Past Family History Family History Father Coronary heart disease Myocardial infarction Family history of diabetes mellitus Sister Breast cancer Other Family history non-contributory No family history of adverse response to anesthesia Denies family history of Ovarian cancer Prostate cancer Colorectal cancer Past Surgical History Surgical History History of appendectomy History of cataract surgery R/L History of colonoscopy History of tonsillectomy [place] teeth removed Past Anesthesia History No Hx of Anesthesia Complications and No Family Hx of Anesthesia Complications History of PONV No Hx of PONV and No Hx of Motion Sickness Social History Smoking Status: Never smoker Do You Dip or Chew Tobacco: No Hx Alcohol Use: No alcohol intake frequency: holidays/special occasions only Hx Substance Use: No substance use type: does not use Physical Exam Vital Signs Last Vital Signs Temp 37 C 12/26/22 13:38 Pulse 96 H 12/26/22 13:38 Resp 20 12/26/22 13:38 BP 164/80 H 12/26/22 13:38 Pulse Ox 97 12/26/22 13:38 O2 Del Method Nasal Cannula 12/26/22 13:38 O2 Flow Rate 2 12/26/22 13:38 ENMT Mouth: no dentition abnormality Thyromental Distance: > or= 3.5 Finger Breadths Mallampati Class: II Neck normal visual inspection Respiratory normal respiratory effort Auscultation: lungs clear to auscultation bilaterally Cardiovascular Rate/Rhythm: regular rate and regular rhythm Psychiatric Orientation: alert Testing Laboratory Results 12/26/22 10:44 12/26/22 06:17 PT 10.1 Seconds (9.0-12.0) 12/25/22 16:46 INR 0.9 (0.9-1.1) 12/25/22 16:46 Urine Color Yellow 12/25/22 16:46 Urine Appearance Clear (Clear) 12/25/22 16:46 Urine pH 5.5 (4.5-7.5) 12/25/22 16:46 Ur Specific [place] 1.022 (1.000-1.030) 12/25/22 16:46 Urine Protein Trace (Negative) H 12/25/22 16:46 Urine Glucose (UA) Negative (Negative) 12/25/22 16:46 Urine Ketones Trace (Negative) H 12/25/22 16:46 Urine Nitrite Negative (Negative) 12/25/22 16:46 Ur Leukocyte Esterase Negative (Negative) 12/25/22 16:46 Urine WBC (Auto) 1-5 /hpf (0-5) 12/25/22 16:46 Urine RBC (Auto) 0-4 /hpf (0-4) 12/25/22 16:46 U Hyaline Cast (Auto) 0 /lpf (0-5) 12/25/22 16:46 U Epithel Cells (Auto) 5-10 /lpf (0-5) H 12/25/22 16:46 Urine Bacteria (Auto) Negative (Negative) 12/25/22 16:46 Blood Type B Negative 12/25/22 20:56 Antibody Screen NEGATIVE 12/25/22 20:56
[2022-12-26] MEDS ORDERED: BUPIVACAINE/EPINEPHRINE 0.25% 1:200,000 30 ML VIAL ONE (14:50)
[2022-12-26] MEDS ORDERED: ePHEDrine sulfate 50 MG/ML AMP IV PRN (14:56)
[2022-12-26] MEDS ORDERED: ATROPINE SULFATE 0.1 MG/ML 10ML SYR IV PRN (14:56)
[2022-12-26] MEDS ORDERED: ONDANSETRON INJ 2 MG/ML 2 ML VIAL IV PRN (14:56)
[2022-12-26] MEDS ORDERED: LIDOCAINE 2% MPF LOCAL 5 ML VIAL ONE (15:03)
[2022-12-26] MEDS ORDERED: PROPOFOL IV EMULSION 10 MG/ML 20 ML VIAL IV ONE ×3 (15:03→16:41)
[2022-12-26] MEDS ORDERED: fentaNYL citrate PF 100 MCG/2 ML VIAL ONE (15:03)
[2022-12-26] MEDS ORDERED: ONDANSETRON INJ 2 MG/ML 2 ML VIAL ONE (15:11)
[2022-12-26] MEDS ORDERED: PHENYLEPHRINE 100MCG/ML 5ML SYR ONE (16:02)
[2022-12-26] MEDS: fentaNYL citrate PF 100 MCG/2 ML VIAL IV PRN ×4 (17:04→17:19)
--- NOTE | 2022-12-26 17:17 | Operative Report ---
PG Post Operative Report Pre & Post Diagnosis Operation Date: 12/26/22 09:40 Pre-Op Diagnosis: Fracture, intertrochanteric, right femur Post-Op Diagnosis: Fracture, intertrochanteric, right femur I identified the patient and participated in the time-out.: Yes Procedure Operation Date: 12/26/22 09:40 Actual Procedures p Intramedullary nail fixation of right hip(Right) - Kurt Alarcon DO Surgeon Kurt Alarcon DO Bookkeeping Manager Kurt Rosas PA-C Estimated Blood Loss 100 Findings Consistent with Post-Op Diagnosis Specimens None Description of Procedure On December 26, 2022 Angeles arrived at [facility] operating room for the above procedure. She was seen in the preoperative holding area and the operative extremity was identified and signed. She was given a preoperative antibiotic. She was taken back to the operating room and given a spinal anesthetic. She was then put into the fracture table. The right hip was then brought to traction. Fluoroscopy was used to ensure adequate reduction of the hip. The right hip was then prepped and draped in sterile fashion. A timeout was done. The patient and the operative extremity was properly identified. A longitudinal incision was made just over the greater trochanter. Dissection was taken down through the fascia. The greater trochanter was exposed. A guidepin was then placed in the tip of the greater trochanter and advanced down the length of the femoral canal. Appropriate placement of this guidepin was checked on orthogonal fluoroscopic images. A 17 mm opening reamer was then used to open the femoral canal. Sequential reaming up to a size 12.5 reamer was done. A size 11 mm Synthes short TFN nail was then impacted into place. Appropriate placement was checked on fluoroscopy. An outrigger was then placed and a small incision was made over the lateral femur for the helical blade and the locking screw. Dissection was taken down through the fascia. A cannula was inserted for the helical blade to the lateral aspect of the femoral cortex. A guidepin was placed into the center center position of the femoral head. The helical blade measured to be 95 mm. The lateral cortex was drilled and the helical blade was drilled. The final helical blade was then impacted into place. Compression was used to reduce the fracture. A distal locking screw was not necessary. Final fluoroscopic images showed near anatomic alignment of the hip fracture. The wounds were then irrigated. The fascia was closed with #1 Vicryl. The deep tissue was closed with 2-0 Vicryl. The skin was closed with 3-0 Vicryl and tung. She was then placed in a soft dressing. She was then transferred to a hospital bed and taken to the postanesthesia care unit in stable condition. She tolerated the procedure well. Kurt Rosas PA-C, was present for the entire procedure. He was critical for patient positioning, prepping, draping, retraction exposure, wound closure and application of sterile dressing. I attest to the content of the Intraoperative Record and any orders documented therein. Any exceptions are noted below.
[2022-12-26] MEDS ORDERED: HYDROmorphone INJ 1 MG/ML SYRINGE ONE (17:23)
[2022-12-26] MEDS: HYDROmorphone INJ 1 MG/ML SYRINGE IV PRN ×4 (17:24→17:43)
--- NOTE | 2022-12-26 17:33 | Fluoroscopy Report ---
FL hip RT 2-3V CLINICAL HISTORY: RT TROCH NAILacute fracture of the right hip COMPARISON STUDY: Radiographs 12/25/2022 FLUOROSCOPY TIME: 92.3 seconds FLUOROSCOPY IMAGES: 2 EXPOSURE DOSE: 18.11 mGy Air Kerma FINDINGS: Status post placement of an intertrochanteric nail medullary mile fixating the proximal righ t femoral fracture demonstrates improved alignment. Expected postoperative soft tissue swelling the d eep tissue air. No dislocation. IMPRESSION: Fluoroscopic assistance as above. ACT 112: Negative or not required by law. Electronically signed by: Rodolfo Solis M.D. 12/26/2022 5:32 PM
--- NOTE | 2022-12-26 17:49 | Anesthesiology Progress Note ---
Date of Service December 26, 2022 Anesthesia Post Procedure Vital Signs Vital Signs: Temp Pulse Pulse Resp BP BP Pulse Ox 12/26/22 17:45 79 12 142/51 H 94 12/26/22 17:35 84 14 161/73 H 95 12/26/22 17:25 79 12 170/55 H 95 12/26/22 17:15 82 12 170/63 H 97 12/26/22 17:05 80 18 155/60 H 97 12/26/22 16:57 36.8 C 80 16 146/94 H 97 12/26/22 13:38 37 C 96 H 20 164/80 H 97 12/26/22 10:10 12/26/22 09:49 37.2 C 92 H 18 135/66 95 12/26/22 07:53 36.7 C 96 H 16 113/65 91 12/25/22 20:25 36.8 C 89 20 171/69 H 94 12/25/22 18:50 89 18 170/69 H 94 O2 Del Method O2 Flow Rate 12/26/22 17:45 Nasal Cannula 3 12/26/22 17:35 Nasal Cannula 3 12/26/22 17:25 Nasal Cannula 3 12/26/22 17:15 Oxymask 5 12/26/22 17:05 Oxymask 9 12/26/22 16:57 Oxymask 9 12/26/22 13:38 Nasal Cannula 2 12/26/22 10:10 Nasal Cannula 3 12/26/22 09:49 Nasal Cannula 3 12/26/22 07:53 Nasal Cannula 3 12/25/22 20:25 Room Air 12/25/22 18:50 Room Air Pain Intensity Right Hip: Pain Intensity: 7 Transfer of Care Handoff Completed per policy Notes Mental Status: alert / awake / arousable Patient Amnestic to Procedure: Yes Nausea / Vomiting: adequately controlled Pain: adequately controlled Airway Patency, RR, SpO2: stable & adequate BP & HR: stable & adequate Hydration State: stable & adequate Anesthetic Complications: no major complications apparent and Pt Satisfied with anesthetic care
[2022-12-26] MEDS: DOCUSATE SODIUM/SENNA 50/8.6MG TAB PO SCH (20:21)
[2022-12-26] MEDS: HEPARIN SOD 5,000 UNIT/0.5 ML VIAL SQ SCH (20:44)
[2022-12-26] MEDS ORDERED: amLODIPine BESYLATE 5 MG TAB PO SCH (21:00)
[2022-12-26] MEDS ORDERED: ASPIRIN 81 MG ECTAB PO SCH (21:00)
[2022-12-26] MEDS: ceFAZolin 2000MG 2,000 MG/15 ML SYR IV SCH (22:11)
[2022-12-26] MEDS: ZOLPIDEM TARTRATE 5 MG TAB PO SCH (22:11)
[2022-12-27] MEDS: ceFAZolin 2000MG 2,000 MG/15 ML SYR IV SCH (06:14)
[2022-12-27 06:47] LABS: Hematocrit (blood only) 18.9 % (37.0-47.0); Hemoglobin 6.4 g/dl (12.0-16.0); Mean Corpuscular Hemoglobin 29.9 pg (25.0-34.0); Mean Corpuscular Hgb Conc 33.9 g/dL (32.0-36.0); Mean Corpuscular Volume 88.3 fL (80.0-100.0); Mean Platelet Volume 10.4 fL (9.4-12.4); Platelet Count 176 K/uL (130-400); RDW Coefficient of Variation 13.4 % (11.5-14.5); RDW Standard Deviation 43.7 fL (36.4-46.3); Red Blood Count 2.14 M/uL (4.20-5.40); White Blood Count 13.08 K/ul (4.8-10.8)
--- NOTE | 2022-12-27 06:52 | Orthopedic Progress Note ---
Date of Service December 27, 2022 Assessment & Plan (1) Closed hip fracture: Overall she seems to be doing fairly well. She does not seem to have much pain right now. She will be seen by physical therapy today for ambulation and range of motion exercises. She will be on Eliquis 2.5 mg twice a day for 6 weeks for DVT prophylaxis. We will see how she does with therapy. She will likely return to the atrium at the [facility] upon discharge. Full orthopedic discharge instructions were placed in the discharge summary. [place] Reynoso was seen and examined at bedside this morning. Overall she is doing okay. She does not seem to be having much pain in the right hip. She was able to get some sleep last night. She has no new complaints.. Review of Systems All systems reviewed & are unremarkable except as noted in HPI & below. Physical Exam On physical examination of the right hip, the dressing is clean and dry. Her leg is out full extension. She has active dorsiflexion plantarflexion of her right ankle.. Results & Data Results & Data Laboratory Results . Diagnostic Findings . PG Care Time/CCT Total # of Minutes Spent Total Time Spent with Patient: Total time spent is greater than 50% in coordination of care (as documented) at patient's floor/unit and/or counseling patient: Coding Level of Care Code 31096 Post Operative Follow-Up Diagnoses Closed hip fracture S72.001A Encounter type: initial encounter Laterality: right (1) Closed hip fracture Encounter type: initial encounter Laterality: right Qualified Code(s): S72.001A - Fracture of unspecified part of neck of right femur, initial encounter for closed fracture
[2022-12-27] MEDS ORDERED: SODIUM CHLORIDE 0.9% 250 ML IV PRN (06:53)
[2022-12-27 06:58] LABS: Anion Gap 5 (3-11); BUN Creatinine Ratio 33.9 (10-20); Blood Urea Nitrogen 20 mg/dl (6-23); Calcium 7.5 mg/dl (8.6-10.3); Carbon Dioxide 27 mmol/L (21-32); Chloride 97 mmol/L (98-107); Creatinine Clr Calc Pharmacy 52.8 ml/min; Est GFR (African American) 95.5 ml/min; Est GFR (Non-African American) 82.4 ml/min; Glucose 101 mg/dl (70-99(Fasting)); Potassium 4.2 mmol/L (3.5-5.1); Sodium 129 mmol/L (136-145)
--- NOTE | 2022-12-27 07:40 | Hospitalist Progress Note ---
Date of Service December 27, 2022 Assessment & Plan (1) Fracture, intertrochanteric, right femur: Plan: PT is a 87 yo female who presented to the hospital after a mechanical fall. She denied lightheadedness/dizziness/presyncope/chest pain or pressure contributing to her fall. She fell on her right hip with immediate pain and inability to bear weight. Right intertrochanteric hip fracture found on imaging. Right intertrochanteric hip fracture - s/p fall, appearing mechanical in nature; EKG showed NSR, no acute ischemic changes or arrhythmia noted - CT head neg - continue pain control with tylenol and hydromorphone PRN - intramedullary fixation completed 12/26; proceed with PT and recovery Acute blood loss anemia - in the setting of right hip fracture and subsequent sx - Hgb upon admission 10.9, dropped to 7.7 prior to surgery, 6.4 AM after surgery; pt asymptomatic - blood consent signed; transfused 2 units w/ 20 mg lasix - iron studies pending to evaluate for possible chronic iron deficiency component Hyponatremia - 129 upon admission; appears acute on chronic, as pt tends to be 134-135 during most recent blood work - most likely in the setting of poor PO intake; expect improvement after resuming diet after surgery - will continue to monitor Hypertension - Continue amlodipine 5 mg AM, 2.5 mg PM - valsartan on hold. resume on discharge if BP rises. Anxiety - zolpidem 2.5 mg PO nightly continued - recent exacerbation as patient's brother was ill which caused increased stress - pt has been prescribed buspirone but is not taking this Hypothyroidism - continue synthroid 25 mcg daily Hyperlipidemia - continue pravastatin 80 mg daily Diet: regular DVT ppx: heparin today, will start eliquis 2.5 mg BID x6 weeks per ortho Consults: ortho Dispo: med/surg, dispo pending PT evaluation Code status: DNR/DNI (2) Hypertension: (3) Hyperlipidemia: (4) Anxiety: (5) Hyponatremia: (6) Hypothyroidism: (7) Osteoporosis: (8) Anemia: Admission and Anticipated Discharge Date Admission Date: December 25, 2022 Supervising Physician Co-Signing Physician Notes Resident Physician Supervision Note: I independently interviewed and examined the patient and verified the spring history and physical, reviewed labs and image studies and agree with resident findings and care plan. Subjective Pt seen at bedside this AM. She states her surgery went well; she does not have much, if any, pain in her right hip. She denies chest pain, dizziness/lightheadedness, or SOB. She was eating breakfast when I left. Review of Systems Review of Systems: As per HPI Physical Exam Physical Exam: Constitutional: well appearing, no acute distress HEENT: normocephalic, no conjunctival injection CV: RRR, no murmur Respiratory: CTA bilaterally. No rhonchi, wheezes, or crackles. No increased work of breathing MSK: no gross deformities noted Skin: warm, dry, no rashes Neuro: alert, oriented, no FND noted Psych: mood and affect congruent Results & Data Results & Data Vital Signs (Past 12 Hours) Vital Signs Temp Pulse Resp BP Pulse Ox O2 Del Method O2 Flow Rate 12/27/22 06:17 37.3 C 99 H 15 142/73 H 94 Nasal Cannula 2 12/27/22 01:41 37.1 C 80 15 113/61 94 Nasal Cannula 3 12/26/22 21:22 36.6 C 94 H 18 124/65 97 Nasal Cannula 12/26/22 20:20 36.9 C 83 16 121/67 96 Nasal Cannula 3 Resident Activity Tracking Resident Involvement: Resident Care Provided Care Provided: Adult Hospital Medicine
--- NOTE | 2022-12-27 08:04 | XRay Report ---
XR hip RT min 2V CLINICAL HISTORY: Post-Operative implant position COMPARISON STUDY: Right hip 12/25/2022. FINDINGS: Status post internal fixation of a right femoral intertrochanteric fracture with a proximal femoral intramedullary mile and interlocking femoral neck pin. The hardware appears intact. There is improved anatomic alignment. Skin tung are in place. IMPRESSION: Status post internal fixation of a right hip fracture. No evidence for hardware complica tion. ACT 112: Negative or not required by law. Electronically signed by: Jairo Pack M.D. 12/27/2022 7:13 AM
[2022-12-27] MEDS: TIMOLOL MALEATE 0.5% OP SOLN 5 ML BTL OP SCH (08:31)
[2022-12-27] MEDS: CHOLECALCIFEROL 1,000 UNITS 25 MCG TAB PO SCH (08:31)
[2022-12-27] MEDS: amLODIPine BESYLATE 5 MG TAB PO SCH ×2 (08:31→20:04)
[2022-12-27] MEDS: LEVOTHYROXINE SODIUM 25 MCG TABLET PO SCH (08:31)
[2022-12-27] MEDS: CALCIUM 600MG + VIT D 400 IU TAB PO SCH (08:31)
[2022-12-27] MEDS: HEPARIN SOD 5,000 UNIT/0.5 ML VIAL SQ SCH ×2 (08:32→20:05)
[2022-12-27] MEDS: ACETAMINOPHEN 325 MG TAB PO PRN ×3 (08:38→21:44)
[2022-12-27] MEDS ORDERED: APIXABAN 2.5 MG TAB PO SCH (09:00)
[2022-12-27] MEDS ORDERED: FUROSEMIDE INJ 20 MG/2 ML VIAL IV ONE (09:33)
--- NOTE | 2022-12-27 10:40 | Electrocardiogram Report ---
Test Reason : Blood Pressure : / mmHG Vent. Rate : 080 BPM Atrial Rate : 080 BPM P-R Int : 134 ms QRS Dur : 088 ms QT Int : 356 ms P-R-T Axes : 073 -34 034 degrees QTc Int : 410 ms Poor data quality, interpretation may be adversely affected Normal sinus rhythm Left axis deviation Possible Anterior infarct , age undetermined Abnormal ECG When compared with ECG of 12-NOV-2020 13:08, No significant change was found Confirmed by Arvin Blankenship ([id number]) on 12/27/2022 10:40:48 AM Referred By: REFERRED SELF Confirmed By:Arvin Blankenship
[2022-12-27 11:19] LABS: Iron < 10 mcg/dl (35-150); Unsaturated Iron Binding Cap 247 mcg/dl (155-355)
[2022-12-27 11:37] LABS: Ferritin 36.1 ng/ml (8-388)
[2022-12-27 16:30] LABS: Hematocrit (blood only) 31.3 % (37.0-47.0)
[2022-12-27] MEDS: DOCUSATE SODIUM/SENNA 50/8.6MG TAB PO SCH (20:04)
[2022-12-27] MEDS: PRAVASTATIN SOD 40 MG TAB PO SCH (20:04)
[2022-12-27] MEDS: ZOLPIDEM TARTRATE 5 MG TAB PO SCH (21:45)
[2022-12-28] MEDS: ACETAMINOPHEN 325 MG TAB PO PRN ×2 (06:08→21:08)
[2022-12-28 06:50] LABS: Hematocrit (blood only) 27.9 % (37.0-47.0); Hemoglobin 9.8 g/dl (12.0-16.0); Mean Corpuscular Hemoglobin 30.4 pg (25.0-34.0); Mean Corpuscular Hgb Conc 35.1 g/dL (32.0-36.0); Mean Corpuscular Volume 86.6 fL (80.0-100.0); Mean Platelet Volume 10.4 fL (9.4-12.4); Platelet Count 145 K/uL (130-400); RDW Coefficient of Variation 12.8 % (11.5-14.5); RDW Standard Deviation 40.6 fL (36.4-46.3); Red Blood Count 3.22 M/uL (4.20-5.40)
[2022-12-28 07:15] LABS: BUN Creatinine Ratio 36.5 (10-20); Calcium 7.5 mg/dl (8.6-10.3); Creatinine Clr Calc Pharmacy 59.9 ml/min; Est GFR (African American) 99.6 ml/min; Est GFR (Non-African American) 85.9 ml/min; Potassium 3.9 mmol/L (3.5-5.1)
--- NOTE | 2022-12-28 07:39 | Hospitalist Progress Note ---
Date of Service December 28, 2022 Assessment & Plan (1) Fracture, intertrochanteric, right femur: Plan: PT is a 87 yo female who presented to the hospital after a mechanical fall. She denied lightheadedness/dizziness/presyncope/chest pain or pressure contributing to her fall. She fell on her right hip with immediate pain and inability to bear weight. Right intertrochanteric hip fracture found on imaging. Right intertrochanteric hip fracture - s/p fall, appearing mechanical in nature; EKG showed NSR, no acute ischemic changes or arrhythmia noted - CT head neg - intramedullary fixation completed 12/26; proceed with PT while hospitalized an d SNF upon d/c - continue pain control with tylenol PRN Acute blood loss anemia - in the setting of right hip fracture and subsequent sx - Hgb upon admission 10.9, dropped to 6.4 AM after surgery; pt remained asymptomatic; blood consent signed; transfused 2 units w/ 20 mg lasix (12/27) - post transfusion Hgb 11, this AM 9.8; will continue to monitor - iron studies showed low iron, low-normal ferritin, and normal TIBC; most likely chronic iron deficiency anemia- begin daily iron supplementation Hyponatremia - 129 upon admission; appears acute on chronic, as pt tends to be 134-135 during most recent blood work - Na this AM 126; most likely related to lasix dose with blood transfusion yesterday - will continue to monitor Hypertension - continue amlodipine 5 mg AM, 2.5 mg PM - resume valsartan Anxiety - continue zolpidem 2.5 mg PO nightly - recent exacerbation as patient's brother was ill which caused increased stress - pt has been prescribed buspirone but is not taking this Hypothyroidism - continue synthroid 25 mcg daily Hyperlipidemia - continue pravastatin 80 mg daily Diet: regular DVT ppx: eliquis 2.5 mg BID x6 weeks per ortho Consults: ortho Dispo: med/surg, PT recommending SNF upon d/c Code status: DNR/DNI (2) Hypertension: (3) Hyperlipidemia: (4) Anxiety: (5) Hyponatremia: (6) Hypothyroidism: (7) Osteoporosis: (8) Anemia: Admission and Anticipated Discharge Date Admission Date: December 25, 2022 Supervising Physician Co-Signing Physician Notes Resident Physician Supervision Note: I independently interviewed and examined the patient and verified the spring history and physical, reviewed labs and image studies and agree with resident findings and care plan. Subjective Pt seen at bedside. She is feeling nauseous this morning, but still able to eat her breakfast. She states PT did not go well yesterday. She would prefer to switch her pain regimen to tylenol only as the dilaudid makes her feel off. She denies chest pain, SOB, and leg pains. Review of Systems Review of Systems: As per HPI Physical Exam Physical Exam: Constitutional: well appearing, no acute distress HEENT: normocephalic, no conjunctival injection CV: RRR, no murmur, no LE edema Respiratory: CTA bilaterally. No rhonchi, wheezes, or crackles. No increased work of breathing MSK: no gross deformities noted Skin: warm, dry, no rashes Neuro: alert, oriented, no FND noted Psych: mood and affect congruent Results & Data Results & Data Vital Signs (Past 12 Hours) Vital Signs Temp Pulse Resp BP Pulse Ox O2 Del Method 12/28/22 06:11 37.2 C 98 H 17 174/73 H 94 Room Air Resident Activity Tracking Resident Involvement: Resident Care Provided Care Provided: Adult Hospital Medicine
[2022-12-28] MEDS: HYDROmorphone INJ 0.5 MG/0.5 ML SYR IV PRN (07:46)
[2022-12-28] MEDS ORDERED: ONDANSETRON 4 MG OD TAB PO ONE (08:37)
[2022-12-28] MEDS ORDERED: ONDANSETRON INJ 2 MG/ML 2 ML VIAL IV ONE (09:45)
[2022-12-28] MEDS: HEPARIN SOD 5,000 UNIT/0.5 ML VIAL SQ SCH (09:53)
[2022-12-28] MEDS: TIMOLOL MALEATE 0.5% OP SOLN 5 ML BTL OP SCH (10:23)
[2022-12-28] MEDS: CHOLECALCIFEROL 1,000 UNITS 25 MCG TAB PO SCH (10:24)
[2022-12-28] MEDS: CALCIUM 600MG + VIT D 400 IU TAB PO SCH (10:24)
[2022-12-28] MEDS: LEVOTHYROXINE SODIUM 25 MCG TABLET PO SCH (10:24)
[2022-12-28] MEDS: amLODIPine BESYLATE 5 MG TAB PO SCH ×2 (10:25→21:04)
[2022-12-28] MEDS: VALSARTAN 80 MG TAB PO SCH (14:00)
--- NOTE | 2022-12-28 16:21 | Orthopedic Progress Note ---
Date of Service December 28, 2022 Assessment & Plan (1) Fracture, intertrochanteric, right femur: She is doing about as well as expected. She is not having any major medical issues. She still having a lot of pain in the right hip. She is having trouble getting up with physical therapy. We will see how therapy does with her today. She will probably need to return to the atrium at the [facility] before discharge. Full orthopedic discharge instructions were placed in the discharge summary. She will follow-up with orthopedics in 2 weeks. Argentina Reynoso was seen and examined at bedside this morning overall she is doing okay. She was unable to get up yesterday with physical therapy. She has a lot of pain in her hip. She has no other medical complaints.. Review of Systems All systems reviewed & are unremarkable except as noted in HPI & below. Physical Exam On physical examination of the right hip, the dressing is clean and dry. Her leg is out full extension. She has active dorsiflexion plantarflexion of her right ankle.. Results & Data Results & Data Laboratory Results . Diagnostic Findings . PG Care Time/CCT Total # of Minutes Spent Total Time Spent with Patient: Total time spent is greater than 50% in coordination of care (as documented) at patient's floor/unit and/or counseling patient: Coding Level of Care Code 99042 Post Operative Follow-Up Diagnoses Fracture, intertrochanteric, right femur S72.141A
[2022-12-28] MEDS: ZOLPIDEM TARTRATE 5 MG TAB PO SCH (21:04)
[2022-12-28] MEDS: DOCUSATE SODIUM/SENNA 50/8.6MG TAB PO SCH (21:05)
[2022-12-28] MEDS: PRAVASTATIN SOD 40 MG TAB PO SCH (21:05)
[2022-12-28] MEDS: APIXABAN 2.5 MG TAB PO SCH (21:05)
[2022-12-29 07:12] LABS: Hematocrit (blood only) 27.8 % (37.0-47.0); Hemoglobin 9.8 g/dl (12.0-16.0); Mean Corpuscular Hemoglobin 30.5 pg (25.0-34.0); Mean Corpuscular Hgb Conc 35.3 g/dL (32.0-36.0); Mean Corpuscular Volume 86.6 fL (80.0-100.0); Mean Platelet Volume 10.4 fL (9.4-12.4); Platelet Count 172 K/uL (130-400); RDW Coefficient of Variation 12.4 % (11.5-14.5); RDW Standard Deviation 39.1 fL (36.4-46.3); Red Blood Count 3.21 M/uL (4.20-5.40); White Blood Count 8.61 K/ul (4.8-10.8)
[2022-12-29 07:26] LABS: BUN Creatinine Ratio 34.9 (10-20); Calcium 7.5 mg/dl (8.6-10.3); Creatinine Clr Calc Pharmacy 72.4 ml/min; Est GFR (Non-African American) 91.5 ml/min
--- NOTE | 2022-12-29 07:38 | Hospitalist Progress Note ---
Date of Service December 29, 2022 Assessment & Plan (1) Fracture, intertrochanteric, right femur: Plan: PT is a 87 yo female who presented to the hospital after a mechanical fall. She denied lightheadedness/dizziness/presyncope/chest pain or pressure contributing to her fall. She fell on her right hip with immediate pain and inability to bear weight. Right intertrochanteric hip fracture found on imaging. 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 likely chronic iron deficiency anemia- continue daily iron supplementation Hypertension - continue amlodipine 5 mg AM, 2.5 mg PM and valsartan 160 mg daily Anxiety - continue zolpidem 2.5 mg PO nightly - recent exacerbation as patient's brother was ill which caused increased stress - pt has been prescribed buspirone but is not taking this Hypothyroidism - continue synthroid 25 mcg daily Hyperlipidemia - continue pravastatin 80 mg daily Diet: regular DVT ppx: eliquis 2.5 mg BID x6 weeks per ortho Consults: ortho Dispo: med/surg, PT recommending SNF upon d/c Code status: DNR/DNI (2) Hypertension: (3) Hyperlipidemia: (4) Anxiety: (5) Hyponatremia: (6) Hypothyroidism: (7) Osteoporosis: (8) Anemia: Admission and Anticipated Discharge Date Admission Date: December 25, 2022 Supervising Physician Co-Signing Physician Notes Resident Physician Supervision Note: I independently interviewed and examined the patient and verified the spring history and physical, reviewed labs and image studies and agree with resident findings and care plan. Subjective Pt seen at bedside this AM. Much more awake than yesterday. She denies any new symptoms. No chest pain, SOB, or leg pains. Review of Systems Review of Systems: As per HPI Physical Exam Physical Exam: Constitutional: well appearing, no acute distress HEENT: normocephalic, no conjunctival injection CV: RRR, no murmur, no LE edema Respiratory: CTA bilaterally. No rhonchi, wheezes, or crackles. No increased work of breathing MSK: no gross deformities noted Skin: warm, dry, no rashes Neuro: alert, oriented, no FND noted Psych: mood and affect congruent Results & Data Results & Data Vital Signs (Past 12 Hours) Vital Signs Temp Pulse Resp BP Pulse Ox O2 Del Method 12/28/22 21:02 37.4 C 91 H 18 159/81 H 95 Room Air Resident Activity Tracking Resident Involvement: Resident Care Provided Care Provided: Adult Hospital Medicine
[2022-12-29] MEDS: LEVOTHYROXINE SODIUM 25 MCG TABLET PO SCH (08:40)
[2022-12-29] MEDS: APIXABAN 2.5 MG TAB PO SCH ×2 (08:40→20:36)
[2022-12-29] MEDS: amLODIPine BESYLATE 5 MG TAB PO SCH ×2 (08:40→20:35)
[2022-12-29] MEDS: VALSARTAN 80 MG TAB PO SCH (08:41)
[2022-12-29] MEDS: CALCIUM 600MG + VIT D 400 IU TAB PO SCH (08:41)
[2022-12-29] MEDS: FERROUS SULFATE 325 MG TAB PO SCH (08:41)
[2022-12-29] MEDS: CHOLECALCIFEROL 1,000 UNITS 25 MCG TAB PO SCH (08:41)
[2022-12-29] MEDS: TIMOLOL MALEATE 0.5% OP SOLN 5 ML BTL OP SCH (08:42)
[2022-12-29] MEDS: ACETAMINOPHEN 325 MG TAB PO PRN ×2 (08:46→20:40)
[2022-12-29] MEDS ORDERED: TOLVAPTAN 15 MG TABLET PO SCH (10:00)
[2022-12-29] MEDS: DOCUSATE SODIUM/SENNA 50/8.6MG TAB PO SCH (20:36)
[2022-12-29] MEDS: PRAVASTATIN SOD 40 MG TAB PO SCH (20:37)
[2022-12-29] MEDS: ZOLPIDEM TARTRATE 5 MG TAB PO SCH (20:37)
[2022-12-30 06:24] LABS: Hematocrit (blood only) 29.9 % (37.0-47.0); Hemoglobin 10.3 g/dl (12.0-16.0); Mean Corpuscular Hemoglobin 30.4 pg (25.0-34.0); Mean Corpuscular Hgb Conc 34.4 g/dL (32.0-36.0); Mean Corpuscular Volume 88.2 fL (80.0-100.0); Mean Platelet Volume 9.6 fL (9.4-12.4); Platelet Count 232 K/uL (130-400); RDW Coefficient of Variation 12.9 % (11.5-14.5); RDW Standard Deviation 41.5 fL (36.4-46.3); Red Blood Count 3.39 M/uL (4.20-5.40); White Blood Count 8.49 K/ul (4.8-10.8)
[2022-12-30 06:54] LABS: BUN Creatinine Ratio 31.5 (10-20); Calcium 8.3 mg/dl (8.6-10.3); Creatinine Clr Calc Pharmacy 57.7 ml/min; Est GFR (African American) 98.3 ml/min; Est GFR (Non-African American) 84.8 ml/min; Potassium 3.9 mmol/L (3.5-5.1)
[2022-12-30] MEDS: ACETAMINOPHEN 325 MG TAB PO PRN ×2 (07:49→14:24)
[2022-12-30] MEDS: TIMOLOL MALEATE 0.5% OP SOLN 5 ML BTL OP SCH (09:06)
[2022-12-30] MEDS: LEVOTHYROXINE SODIUM 25 MCG TABLET PO SCH (09:07)
[2022-12-30] MEDS: APIXABAN 2.5 MG TAB PO SCH (09:07)
[2022-12-30] MEDS: FERROUS SULFATE 325 MG TAB PO SCH (09:07)
[2022-12-30] MEDS: amLODIPine BESYLATE 5 MG TAB PO SCH (09:08)
[2022-12-30] MEDS: CHOLECALCIFEROL 1,000 UNITS 25 MCG TAB PO SCH (09:08)
[2022-12-30] MEDS: CALCIUM 600MG + VIT D 400 IU TAB PO SCH (09:09)
[2022-12-30] MEDS: VALSARTAN 80 MG TAB PO SCH (09:09)
[2022-12-30] MEDS ORDERED: POLYETHYLENE (MIRALAX) 17 GM PACK PO SCH (09:30)
--- NOTE | 2022-12-30 13:43 | Discharge Summary ---
Date of Service December 30, 2022 Admission HPI Per Admitting Provider Angeles Reynoso is an 87-year-old female with a past medical history of hypertension, anxiety, insomnia, hypothyroidism, hyperlipidemia who was walking in her kitchen when she slipped and fell with immediate pain in her right hip. She was found to have a right intertrochanteric hip fracture. Orthopedics is consulted for operative intervention, we are consulted for admission and management of comorbidities. Normally walks with a walker and shuffles OK. But when she doesn't have her walker cannot catch her balance. Was shuffling with slippers on in the kitchen and slipped and fell. No syncope/presyncope. DId hit her head, no headache. No lightheaded/dizziness that led to her fall. Daughter thinks she shuffles and hits her slippers on the corners and causes her to fall. No weakness, but balance overall is poor. Denies stroke, focal weakness, focal sensory change. Normally does well with a walker, but did not have it at time of her fall and does not always use within the apartment. No lightheadedness, dizziness, chest pain, chest pressure, syncope or presyncope which contributed to her fall. Takes aspirin, no blood thinners. Took amlodipine this morning Having pain in her right hip, 'tolerable not too bad maybe 6/10' in her hip but much worse with any movement. Could not bear weight after falling. No numbness/tingliing. Hx L greater trochanter fxr last thankgiving, no surgery at that time and healed with conservative medical managment. No heart problems, just HTN No kidney problems No diabetes Preop creatinine normal, 0.67. No street of insulin treatment No history of heart failure, TIA, cerebrovascular disease, or ischemic heart disease Medical History: Reviewed Medications: Reviewed. Did take medications this morning Surgical History: Reviewed Family history: Reviewed Allergies: Reviewed Social History: No tobacco, no etoh use. Code Status: DNR/DNI Admission Exam Per Admitting Provider General: A&Ox3. NAD. Cooperative. HEENT: Atraumatic, normocephalic. Patient/hearing grossly intact. Pupils equal and reactive to light Pulm: CTAB A&P. -wheezes, -rales, -rhonchi. Symmetrical chest rise. No increased work of breathing. No respiratory distress. Cardiac: RRR, -mrg. Radial pulses intact and symmetrical. Abdominal: Nontender, nondistended, soft. BS present. Extremities: Right lateral hip with small contusion. Right lateral and anterior hip is tender to palpation. Right lower extremity is externally rotated and shortened. PT pulse intact bilaterally. Ankle dorsiflexion/plantarflexion 5/5 bilaterally. Sensation of soft touch is intact in hands and feet bilaterally without asymmetry. Principal Diagnosis right intertrochanteric hip fracture s/p fixation Discharge Exam Constitutional: well appearing, no acute distress HEENT: normocephalic, no conjunctival injection CV: regular rhythm, no murmur, no LE edema Respiratory: Clear to auscultation bilaterally. No rhonchi, wheezes, or crackles. No increased work of breathing MSK: no gross deformities noted Skin: warm, dry, no rashes Neuro: alert, oriented, no FND noted Discharge Data Allergies Allergy/AdvReac Type Severity Reaction Status Date / Time atorvastatin [From Lipitor] Allergy Mild Rash Verified 12/25/22 19:07 Procedures Performed Operation Date: 12/26/22 09:40 Actual Procedures p Intramedullary nail fixation of right hip(Right) - Kurt Alarcon DO Ordered Studies 12/25/22 16:39 CT head/brain wo con Stat Impression: No acute intracranial abnormality. 12/25 Hip and Pelvis Xray MPRESSION: Acute comminuted and displaced right femoral intertrochanteric fracture. 12/26/22 14:30 FL hip RT 2-3V Routine MPRESSION: Status post internal fixation of a right hip fracture. No evidence for hardware complication. Hospital Course (1) Fracture, intertrochanteric, right femur: PT is a 87 yo female who presented to the hospital after a mechanical fall. She denied lightheadedness/dizziness/presyncope/chest pain or pressure contributing to her fall. She fell on her right hip with immediate pain and inability to bear weight. Right intertrochanteric hip fracture found on imaging. 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 likely chronic iron deficiency anemia- continue daily iron supplementation Hypertension - continue amlodipine 5 mg AM, 2.5 mg PM and valsartan 160 mg daily Anxiety - continue zolpidem 2.5 mg PO nightly - recent exacerbation as patient's brother was ill which caused increased stress - pt has been prescribed buspirone but is not taking this Hypothyroidism - continue synthroid 25 mcg daily Hyperlipidemia - continue pravastatin 80 mg daily Diet: regular DVT ppx: eliquis 2.5 mg BID x6 weeks per ortho (first day 12/29) Consults: ortho Dispo: d/c to SNF Code status: DNR/DNI (2) Hypertension: (3) Hyperlipidemia: (4) Anxiety: (5) Hyponatremia: (6) Hypothyroidism: (7) Osteoporosis: (8) Anemia: Total Time Total Time Spent Total Time Spent (In Minutes): as per attending attestation Discharge Plan Discharge Items Patient Disposition: Transfer Jail Fac Reason For Visit: R INTERTROCH Discharge Diagnosis: right intertrochanteric hip fracture s/p intramedullary fixation Activity: Per Instructions section Non-emergency contact: Primary Care Provider Call non-emergency contact if: you have any medication questions and your symptoms worsen Follow-up/Referrals: Dav Perez MD [Primary Care Provider] - Diet: Regular Addtl Attending Provider Instructions: You were admitted to the hospital for right hip fracture after a fall. This was fixed with surgery. Please refer to the orthopedics discharge instructions for restrictions and advice. Narcotic medications were originally given but these made your stomach upset so you opted to control the pain with Tylenol. A discharge summary will be sent to your primary care physician to ensure continuity of care. Please bring this discharge summary with you to your next office appointment so that your provider can review it at that time. Medications: Your medication list has been reviewed and reconciled upon discharge to ensure accuracy and continuity of care. An updated list of all your medications is included with your hospital discharge paperwork. Please review this list closely and make note of any changes to your medications. - You will need to take Eliquis 2.5 mg twice per day for 6 weeks (first day 12/29). This is to prevent blood clots after your surgery. - You may continue Tylenol as needed for pain control. Follow up appointments: - Make a follow up appointment with your PCP within the next week. It is very important that you follow up with them shortly after discharge from the hospital. - Keep all of your follow up appointments as already scheduled. If you cannot make an appointment, notify your provider. CONTACT YOUR PRIMARY CARE PROVIDER if you experience any of the following: - Difficulty following your treatment plan - Difficulty taking any of your medications CALL 911 OR GO TO THE EMERGENCY DEPARTMENT if you experience any of the following: - Sudden, severe abdominal pain or nausea/vomiting - Severe chest pain or chest pain that radiates to your jaw or arm - Sudden, severe shortness of breath or difficulty breathing Addtl Felled Seam Operator Provider Instructions: ORTHOPEDIC INSTRUCTIONS Hip Fracture Activity and Therapy Recommendations: 1. You were shown a series of exercises in the hospital. Do these exercises three times each day if you are able. 2. Get up and walk several times each day if you are capable. Make sure you have assistance is needed. For the first four weeks, try not to stand or walk for more than one hour at a time. If you do stand or walk for more than one hour, you will not hurt anything, but your leg will likely swell. 3. As you feel comfortable, you may change from the walker or crutches to a cane and then to independent walking if you are able. Please be safe. Medications: 1. Narcotic You will likely be sent from the hospital with the narcotic pain medication that worked best throughout your stay. 2. Eliquis -take Eliquis 2.5 mg twice a day for 6 weeks. 3. Other medications may be given for specific circumstances. If you have any questions, please call the office at [phone]. 4. Resume previous home medications unless otherwise instructed TEDs/Elastic Stockings: The white elastic stockings help limit swelling and prevent blood clots from forming in your legs. The more you wear them, the more they work. Wear them for six weeks. Dressing Care: Alan can be open to air as long as the incisions are not draining. If the incisions are draining or if the alan are getting caught on your clothes then please cover the alan with dry gauze. Change the dressings as necessary to keep the incision as dry as possible Showering: You may shower 5 days from the day of surgery as long as the incisions are not draining. Do not soak the incision. Let soapy water run over the alan and pat them dry. Things To Watch For: 1. Drainage from the incision site that occurs more than one week after your surgery. 2. Increased redness at the incision site. 3. Fever above 102 degrees Fahrenheit. 4. Unusual chest pain or shortness of breath. 5. Call [facility] at with any of the above problems Follow-Up Visit: Follow-up with Dr. Alarcon's PA (Kurt Rosas) 2-3 weeks after your day of erik bianca. He will remove your alan and answer any questions. If you have any additional questions or concerns, Dr Alarcon is usually in the office at the same time and will be available Please call the office to make an appointment for a time that works for you. Pending Studies at Discharge: No Stand-Alone Forms: My [facility] Skilled Items Patient informed of condition?: Yes DNR: Yes Discharge Level of Care: Skilled Communicable Disease: No Discharge Prognosis: Stable Lines: None Urinary Catheter: No Medications and DC Order Prescriptions: New ferrous sulfate 325 mg (65 mg iron) Tablet,Delayed Release (Dr/Ec) 325 mg PO QAM Qty: 30 0RF Eliquis 2.5 mg Tablet 2.5 mg PO BID 42 Days Qty: 84 0RF Continued valsartan [Diovan] 160 mg tablet 160 mg PO DAILY Qty: 90 3RF Patient Comments: DAILY AT 1200 levothyroxine [Synthroid] 25 mcg tablet 25 mcg PO DAILY Qty: 90 3RF Patient Comments: QAM amoxicillin 500 mg tablet 2,000 mg PO ONCE PRN (Reason: prophylaxis) Qty: 4 2RF Rx Instructions: ONE HOUR PRIOR TO DENTAL PROCEDURE multivitamin [Daily Multi-Vitamin] Tablet 1 tab PO DAILY amlodipine 2.5 mg tablet 5 mg PO QAM Rx Instructions: take 2 tablets in am and 1 tablet in pm. timolol maleate [Timoptic] 0.5 % drops 1 drp ophthalmic (eye) QAM cholecalciferol (vitamin D3) [Vitamin D3] 1,000 unit Capsule 1,000 unit PO DAILY Patient Comments: AFTERNOON calcium carbonate-vitamin D3 [Os-Rodger 500 + D3] 500 mg(1,250mg) -200 unit Tablet 1 tab PO DAILY Patient Comments: AFTERNOON amlodipine 2.5 mg tablet 2.5 mg PO QPM aspirin 81 mg Tablet,Delayed Release (Dr/Ec) 81 mg PO QPM meloxicam 7.5 mg tablet 7.5 mg PO QPM Patient Comments: PT STATES "TAKES ALMOST EVERYDAY" pravastatin 80 mg tablet 80 mg PO QPM Patient Comments: QPM zolpidem [Ambien] 5 mg tablet 2.5 mg PO HS Discharge Orders: Discharge Order (Routine); Ordered 12/30/22 Ordered By: Marcella Stephenson/Other Patient Handouts: Hip Fx Surg Dc, Femur Fx ORIF Admission Data Admit Date/Time: 12/25/22 18:58 Attending Provider: Shantal Castañeda Admit Provider: Jose Monroe Primary Care Provider: Dav Perez Other Providers: Jose Monroe Other Interventions: Discharge Summary Assessment (RN) Last Done: 12/30/22 13:17 Supervising Physician Co-Signing Physician Notes Resident Physician Supervision Note: I independently interviewed and examined the patient and verified the spring history and physical, reviewed labs and image studies and agree with resident findings and care plan. Resident Activity Tracking Resident Involvement: Resident Care Provided Care Provided: Adult Hospital Medicine
== END 2022-12-30 14:35 | DRG 481 ==
LOC: ED 16:30 → 3E 18:58 → SUATTDRO 18:58 → 3E 21:32

== ENCOUNTER 2023-01-18 05:27 | Inpatient (IN) ==
[2023-01-18] MEDS ORDERED: ACETAMINOPHEN 500 MG TAB PO STA (05:39)
[2023-01-18 06:15] LABS: Basophils # (auto) 0.02 K/uL (0-0.2); Basophils % (auto) 0.1 %; Eosinophils # (auto) 0.23 K/uL (0-0.50); Eosinophils % (auto) 1.6 %; Hematocrit (blood only) 32.2 % (37.0-47.0); Hemoglobin 10.8 g/dl (12.0-16.0); Immature Granulocytes # (auto) 0.15 K/uL (0.01-0.20); Immature Granulocytes % (auto) 1.1 %; Lymphocytes # (auto) 0.52 K/uL (1.2-3.4); Lymphocytes % (auto) 3.7 %; Mean Corpuscular Hemoglobin 30.3 pg (25.0-34.0); Mean Corpuscular Hgb Conc 33.5 g/dL (32.0-36.0); Mean Corpuscular Volume 90.4 fL (80.0-100.0); Mean Platelet Volume 9.5 fL (9.4-12.4); Monocytes # (auto) 0.75 K/uL (0.11-0.59); Monocytes % (auto) 5.4 %; Neutrophils # (auto) 12.34 K/uL (1.40-6.50); Neutrophils % (auto) 88.1 %; Platelet Count 411 K/uL (130-400); RDW Coefficient of Variation 13.9 % (11.5-14.5); RDW Standard Deviation 46.4 fL (36.4-46.3); Red Blood Count 3.56 M/uL (4.20-5.40); White Blood Count 14.01 K/ul (4.8-10.8)
[2023-01-18 06:25] LABS: Alanine Aminotransferase 28 U/L (7-52); Albumin Globulin Ratio 1.5 (0.9-2); Albumin Level 3.6 gm/dl (3.4-5.0); Alkaline Phosphatase 110 U/L (34-104); Anion Gap 9 (3-11); Aspartate Aminotransferase 33 U/L (13-39); BUN Creatinine Ratio 29.2 (10-20); Bilirubin,Total 0.6 mg/dl (0.2-1.0); Blood Urea Nitrogen 14 mg/dl (6-23); Calcium 8.9 mg/dl (8.6-10.3); Carbon Dioxide 27 mmol/L (21-32); Chloride 91 mmol/L (98-107); Est GFR (African American) 102.2 ml/min; Est GFR (Non-African American) 88.2 ml/min; Globulin 2.4 gm/dl (2.5-4.0); Glucose 99 mg/dl (70-99(Fasting)); Potassium 3.5 mmol/L (3.5-5.1); Sodium 127 mmol/L (136-145)
[2023-01-18 06:43] LABS: Prothrombin Time 10.7 Seconds (9.0-12.0)
[2023-01-18] MEDS ORDERED: SODIUM CHLORIDE 0.9% 500 ML IV ONE (06:43)
[2023-01-18] MEDS ORDERED: cefTRIAXone SODIUM 2,000 MG/70 ML BAG IV STA (06:43)
--- NOTE | 2023-01-18 06:47 | Emergency Department Note ---
Impression & Plan SIRS (systemic inflammatory response syndrome), Vomiting ED Provider Note NAME: MARE OTOOLE AGE: 87 SEX: F : 1935 ARRIVES VIA: Ambulance INFORMANT: Patient ED PROVIDER(S): Logan Andrade DO CHIEF COMPLAINT: abdominal pain and vomiting HPI: Patient is an 87-year-old female who presents to the ER for fever, nausea, vomiting which started yesterday. She notes that on December 26 she fell and had a right hip. Since then she has been doing well. She denies any headache or change in vision. No chest pain or shortness of breath. Admits to some nausea. No focal belly pain. No dysuria, urgency, or frequency but did have urinary symptoms about a week ago. Still currently on antibiotics. Last day is tomorrow. PAST MEDICAL HISTORY:See Below PAST SURGICAL HISTORY:See Below FAMILY HISTORY:See Below SOCIAL HISTORY:See Below HOME MEDICATIONS:See Below ALLERGIES:See Below VITALS:See Below PHYSICAL EXAMINATION: GENERAL: Sitting up in bed, alert, well appearing, well nourished, no distress, non-toxic EYE EXAM: normal conjunctiva. OROPHARYNX: no exudate, no erythema, lips, buccal mucosa, and tongue normal and mucous membranes are moist NECK: supple, no nuchal rigidity, no adenopathy, non-tender LUNGS: Clear to auscultation. Normal chest wall mechanics HEART: no murmurs, S1 normal and S2 normal ABDOMEN: abdomen soft, non-tender, normo-active bowel sounds, no masses, no rebound or guarding. UPPER EXTREMITIES: upper extremities are grossly normal. LOWER EXTREMITIES: Minimal tenderness over the right hip. Incision is clean dry and intact. NEURO EXAM: Normal sensorium, cranial nerves II-XII grossly intact, normal speech, no gross weakness of arms, no gross weakness of legs. No drift. Finger to nose intact. Gross sensation intact. MEDICAL DECISION MAKING: Patient is a 87-year-old female status post right femur fracture with repair on December 26 presents the ER for the above-stated complaint. IV was established blood work was obtained. External records were reviewed. Patient was found to be febrile and tachycardic. She is currently on apixaban 2.5 mg twice daily. Labs show leukocytosis of 14,000. Mild anemia 10.8. INR unremarkable. BMP with a hyponatremia 127. Lactate was normal. No transaminitis. Bilirubin normal. LFTs and troponin was negative. Lipase and Pro-Rodger was normal. Bio fire was normal. Patient was given IV fluids and IV Rocephin. She was updated bedside. Discussed with hospitalist for further evaluation management treatment. UA was clean. Patient was covered with IV antibiotics. She was given IV fluids. She is updated bedside. Discussed with Dr. Mckinnon for further evaluation management treatment. Triage Nursing notes reviewed. Limited review of prior medical records performed Vital Signs: reviewed and remarkable for no significant abnormalities Differential diagnosis: Differential diagnosis includes etiologies such as sepsis, UTI, pneumonia, m etabolic, electrolyte abnormalities, cardiac sources, intracerebral event, toxicologic, neurological, as well as others were entertained. ER treatment provided: See below Diagnostics interpreted by me include EKG and cardiac monitoring as listed below: -Cardiac Monitoring: An order was placed for continuous cardiac monitoring. The monitor shows a rate of 90 with sinus rhythm. -ECG: Sinus tachycardia rate of 109 Left axis No PVCs QTc 433 -Laboratory studies:Interpreted by me as stated above in MDM and shown below. Imaging studies: Xrays: As interpreted by me: Portable AP upright 1 view of the chest shows no focal infiltrate CTs show: CT of the abdomen pelvis showed no acute pathology Consultation(s): As described in MDM Procedures:none Critical Care: None Past Med/Surg History Medical History Arthritis Glaucoma Borderline History of diverticulosis Hyperlipidemia Hypertension Hypothyroidism Insomnia Osteoporosis Pre-diabetes Surgical History History of appendectomy History of cataract surgery R/L History of colonoscopy History of tonsillectomy [place] teeth removed Family History Father Coronary heart disease Myocardial infarction Family history of diabetes mellitus Sister Breast cancer Other Family history non-contributory No family history of adverse response to anesthesia Denies family history of Ovarian cancer Prostate cancer Colorectal cancer Social History Smoking Status: Never smoker Second Hand Exposure: No; Do You Dip or Chew Tobacco: No; Hx Alcohol Use: No Hx Substance Use: No Preferred Language: [place] Communication Ability: Effective Communication Ability Comment: ALSO SPEAKS TRINIDADIAN Visual Impairment: No Limitations Hearing Ability: Normal Watch Manufacturing Supervisor Required: No Beliefs That Will Affect Care: None marital status: / Current Living Situation: Alone current occupational status: retired Feels Safe at Home: Yes Childhood Exposure to Second-Hand Smoke: Yes Dental Care, Regularly: Yes Physical Activity Frequency: 1-2 Times per Week Seatbelt Use: always Sunscreen Use: Yes Assistive Devices: Walker Allergies Allergies Allergy/AdvReac Type Severity Reaction Status Date / Time atorvastatin [From Lipitor] Allergy Mild Rash Verified 12/25/22 19:07 Home Meds Home Medications Medication Instructions Recorded Confirmed timolol maleate 0.5 % eye drops 1 drp OPB QAM 03/29/19 01/18/23 (Timoptic) multivitamin (Daily Multi-Vitamin 1 tab PO DAILY 07/08/22 01/18/23 tablet) amlodipine 2.5 mg tablet 2.5 mg PO DAILY 12/25/22 01/18/23 aspirin 81 mg tablet,delayed 81 mg PO QAM 12/25/22 01/18/23 release meloxicam 7.5 mg tablet 7.5 mg PO QPM 12/25/22 01/18/23 pravastatin 80 mg tablet 80 mg PO QPM 12/25/22 01/18/23 zolpidem 5 mg tablet (Ambien) 2.5 mg PO HS 12/25/22 01/18/23 acetaminophen 500 mg tablet 500 mg PO QID 01/18/23 01/18/23 (Tylenol Extra Strength) calcium carbonate 500 mg calcium 500 mg PO DAILY 01/18/23 01/18/23 (1,250 mg) chewable tablet psyllium 1 packet PO QAM 01/18/23 01/18/23 Previous Rx's Medication Instructions Recorded levothyroxine 25 mcg tablet 25 mcg PO DAILY #90 tabs 03/23/22 (Synthroid) valsartan 160 mg tablet (Diovan) 160 mg PO DAILY #90 tabs 03/23/22 apixaban 2.5 mg tablet (Eliquis) 2.5 mg PO BID 6 weeks #84 tabs 12/30/22 ferrous sulfate 325 mg (65 mg 325 mg PO QAM #30 tabs 12/30/22 iron) tablet,delayed release Results & Data (ED) Vital Signs Vital Signs - 24 hr 01/18/23 05:35 01/18/23 05:35 01/18/23 05:36 Temperature 39 C H Temperature Source Oral Oral Pulse Rate 109 H 112 H Pulse Rate from SpO2 Sensor Respiratory Rate 25 H Respiratory Effort / Characteristics Non-Labored Respiratory Depth Normal Normal Blood Pressure 181/69 H Blood Pressure Mean 106 Pulse Oximetry 91 Oxygen Delivery Method Room Air Room Air Oxygen Flow Rate Sepsis Recent Fever Within 48 Hours Yes Sepsis New/Unexplained Change in Mental Status No Sepsis Action Taken by Nursing Previously Notified 01/18/23 05:36 01/18/23 06:00 01/18/23 06:30 Temperature Temperature Source Pulse Rate 110 H 107 H 88 Pulse Rate from SpO2 Sensor 110 H 107 H 87 Respiratory Rate 23 23 19 Respiratory Effort / Characteristics Respiratory Depth Blood Pressure 177/80 H 126/48 L Blood Pressure Mean 112 74 Pulse Oximetry 93 100 98 Oxygen Delivery Method Nasal Cannula Oxygen Flow Rate 2 Sepsis Recent Fever Within 48 Hours Sepsis New/Unexplained Change in Mental Status Sepsis Action Taken by Nursing 01/18/23 09:58 Temperature Temperature Source Pulse Rate 99 H Pulse Rate from SpO2 Sensor Respiratory Rate Respiratory Effort / Characteristics Respiratory Depth Blood Pressure Blood Pressure Mean Pulse Oximetry Oxygen Delivery Method Oxygen Flow Rate Sepsis Recent Fever Within 48 Hours Sepsis New/Unexplained Change in Mental Status Sepsis Action Taken by Nursing Laboratory Data 01/18/23 05:42 01/18/23 05:42 Lab Results 01/18/23 01/18/23 01/18/23 Range/Units 05:42 05:42 05:42 WBC 14.01 H (4.8-10.8) K/ul RBC 3.56 L (4.20-5.40) M/uL Hgb 10.8 L (12.0-16.0) g/dl Hct 32.2 L (37.0-47.0) % MCV 90.4 (80.0-100.0) fL MCH 30.3 (25.0-34.0) pg MCHC 33.5 (32.0-36.0) g/dL RDW Std Deviation 46.4 H (36.4-46.3) fL RDW Coeff of Felicity 13.9 (11.5-14.5) % Plt Count 411 H (130-400) K/uL MPV 9.5 (9.4-12.4) fL Immature Gran % (Auto) 1.1 % Neut % (Auto) 88.1 % Lymph % (Auto) 3.7 % Rich % (Auto) 5.4 % Eos % (Auto) 1.6 % Baso % (Auto) 0.1 % Neut # (Auto) 12.34 H (1.40-6.50) K/uL Lymph # (Auto) 0.52 L (1.2-3.4) K/uL Rich # (Auto) 0.75 H (0.11-0.59) K/uL Eos # (Auto) 0.23 (0-0.50) K/uL Baso # (Auto) 0.02 (0-0.2) K/uL Immature Gran # (Auto) 0.15 (0.01-0.20) K/uL PT 10.7 (9.0-12.0) Seconds INR 1.0 (0.9-1.1) Sodium 127 L (136-145) mmol/L Potassium 3.5 (3.5-5.1) mmol/L Chloride 91 L (98-107) mmol/L Carbon Dioxide 27 (21-32) mmol/L Anion Gap 9 (3-11) BUN 14 (6-23) mg/dl Creatinine 0.48 L (0.6-1.2) mg/dl Est Cr Clr Drug Dosing Not Reportable Est GFR ( Amer) 102.2 ml/min Est GFR (Non-Af Amer) 88.2 ml/min BUN/Creatinine Ratio 29.2 H (10-20) Glucose 99 (70-99(Fasting)) mg/dl Lactate (0.4-2.0) mmol/L Calcium 8.9 (8.6-10.3) mg/dl Total Bilirubin 0.6 (0.2-1.0) mg/dl AST 33 (13-39) U/L ALT 28 (7-52) U/L Alkaline Phosphatase 110 H (34-104) U/L Troponin I High Sens (0-14) pg/ml Total Protein 6.0 (6.0-8.3) gm/dl Albumin 3.6 (3.4-5.0) gm/dl Globulin 2.4 L (2.5-4.0) gm/dl Albumin/Globulin Ratio 1.5 (0.9-2) Lipase (11-82) U/L Procalcitonin (0-0.5) ng/ml Urine Color Urine Appearance (Clear) Urine pH (4.5-7.5) Ur Specific [place] (1.000-1.030) Urine Protein (Negative) Urine Glucose (UA) (Negative) Urine Ketones (Negative) Urine Blood (Negative) Urine Nitrite (Negative) Urine Bilirubin (Negative) Urine Urobilinogen (Negative) Ur Leukocyte Esterase (Negative) Adenovirus (PCR) (NotDetected) B. pertussis DNA (PCR) (NotDetected) B.parapertussis DNA PCR (NotDetected) C. pneumoniae DNA (PCR) (NotDetected) Coronavirus OC43 (PCR) (NotDetected) Coronavirus HKU1 (PCR) (NotDetected) Coronavirus 229E (PCR) (NotDetected) SARS-CoV-2 (PCR) (NotDetected) Coronavirus NL63 (PCR) (NotDetected) Human Metapneumovir PCR (NotDetected) Influenza Type A (PCR) (NotDetected) Influenza Type B (PCR) (NotDetected) M. pneumoniae (PCR) (NotDetected) Parainfluenza 1 (PCR) (NotDetected) Parainfluenza 2 (PCR) (NotDetected) Parainfluenza 3 (PCR) (NotDetected) Parainfluenza 4 (PCR) (NotDetected) RSV (PCR) (NotDetected) Entero/Rhino (PCR) (NotDetected) 01/18/23 01/18/23 01/18/23 Range/Units 05:50 05:50 07:07 WBC (4.8-10.8) K/ul RBC (4.20-5.40) M/uL Hgb (12.0-16.0) g/dl Hct (37.0-47.0) % MCV (80.0-100.0) fL MCH (25.0-34.0) pg MCHC (32.0-36.0) g/dL RDW Std Deviation (36.4-46.3) fL RDW Coeff of Felicity (11.5-14.5) % Plt Count (130-400) K/uL MPV (9.4-12.4) fL Immature Gran % (Auto) % Neut % (Auto) % Lymph % (Auto) % Rich % (Auto) % Eos % (Auto) % Baso % (Auto) % Neut # (Auto) (1.40-6.50) K/uL Lymph # (Auto) (1.2-3.4) K/uL Rich # (Auto) (0.11-0.59) K/uL Eos # (Auto) (0-0.50) K/uL Baso # (Auto) (0-0.2) K/uL Immature Gran # (Auto) (0.01-0.20) K/uL PT (9.0-12.0) Seconds INR (0.9-1.1) Sodium (136-145) mmol/L Potassium (3.5-5.1) mmol/L Chloride (98-107) mmol/L Carbon Dioxide (21-32) mmol/L Anion Gap (3-11) BUN (6-23) mg/dl Creatinine (0.6-1.2) mg/dl Est Cr Clr Drug Dosing Est GFR ( Amer) ml/min Est GFR (Non-Af Amer) ml/min BUN/Creatinine Ratio (10-20) Glucose (70-99(Fasting)) mg/dl Lactate 1.0 (0.4-2.0) mmol/L Calcium (8.6-10.3) mg/dl Total Bilirubin (0.2-1.0) mg/dl AST (13-39) U/L ALT (7-52) U/L Alkaline Phosphatase (34-104) U/L Troponin I High Sens 12.2 (0-14) pg/ml Total Protein (6.0-8.3) gm/dl Albumin (3.4-5.0) gm/dl Globulin (2.5-4.0) gm/dl Albumin/Globulin Ratio (0.9-2) Lipase 52 (11-82) U/L Procalcitonin (0-0.5) ng/ml Urine Color Urine Appearance (Clear) Urine pH (4.5-7.5) Ur Specific [place] (1.000-1.030) Urine Protein (Negative) Urine Glucose (UA) (Negative) Urine Ketones (Negative) Urine Blood (Negative) Urine Nitrite (Negative) Urine Bilirubin (Negative) Urine Urobilinogen (Negative) Ur Leukocyte Esterase (Negative) Adenovirus (PCR) Not Detected (NotDetected) B. pertussis DNA (PCR) Not Detected (NotDetected) B.parapertussis DNA PCR Not Detected (NotDetected) C. pneumoniae DNA (PCR) Not Detected (NotDetected) Coronavirus OC43 (PCR) Not Detected (NotDetected) Coronavirus HKU1 (PCR) Not Detected (NotDetected) Coronavirus 229E (PCR) Not Detected (NotDetected) SARS-CoV-2 (PCR) Not Detected (NotDetected) Coronavirus NL63 (PCR) Not Detected (NotDetected) Human Metapneumovir PCR Not Detected (NotDetected) Influenza Type A (PCR) Not Detected (NotDetected) Influenza Type B (PCR) Not Detected (NotDetected) M. pneumoniae (PCR) Not Detected (NotDetected) Parainfluenza 1 (PCR) Not Detected (NotDetected) Parainfluenza 2 (PCR) Not Detected (NotDetected) Parainfluenza 3 (PCR) Not Detected (NotDetected) Parainfluenza 4 (PCR) Not Detected (NotDetected) RSV (PCR) Not Detected (NotDetected) Entero/Rhino (PCR) Not Detected (NotDetected) 01/18/23 01/18/23 Range/Units 07:10 10:47 WBC (4.8-10.8) K/ul RBC (4.20-5.40) M/uL Hgb (12.0-16.0) g/dl Hct (37.0-47.0) % MCV (80.0-100.0) fL MCH (25.0-34.0) pg MCHC (32.0-36.0) g/dL RDW Std Deviation (36.4-46.3) fL RDW Coeff of Felicity (11.5-14.5) % Plt Count (130-400) K/uL MPV (9.4-12.4) fL Immature Gran % (Auto) % Neut % (Auto) % Lymph % (Auto) % Rich % (Auto) % Eos % (Auto) % Baso % (Auto) % Neut # (Auto) (1.40-6.50) K/uL Lymph # (Auto) (1.2-3.4) K/uL Rich # (Auto) (0.11-0.59) K/uL Eos # (Auto) (0-0.50) K/uL Baso # (Auto) (0-0.2) K/uL Immature Gran # (Auto) (0.01-0.20) K/uL PT (9.0-12.0) Seconds INR (0.9-1.1) Sodium (136-145) mmol/L Potassium (3.5-5.1) mmol/L Chloride (98-107) mmol/L Carbon Dioxide (21-32) mmol/L Anion Gap (3-11) BUN (6-23) mg/dl Creatinine (0.6-1.2) mg/dl Est Cr Clr Drug Dosing Est GFR ( Amer) ml/min Est GFR (Non-Af Amer) ml/min BUN/Creatinine Ratio (10-20) Glucose (70-99(Fasting)) mg/dl Lactate (0.4-2.0) mmol/L Calcium (8.6-10.3) mg/dl Total Bilirubin (0.2-1.0) mg/dl AST (13-39) U/L ALT (7-52) U/L Alkaline Phosphatase (34-104) U/L Troponin I High Sens (0-14) pg/ml Total Protein (6.0-8.3) gm/dl Albumin (3.4-5.0) gm/dl Globulin (2.5-4.0) gm/dl Albumin/Globulin Ratio (0.9-2) Lipase (11-82) U/L Procalcitonin 0.49 (0-0.5) ng/ml Urine Color Yellow Urine Appearance Clear (Clear) Urine pH 7.0 (4.5-7.5) Ur Specific [place] 1.016 (1.000-1.030) Urine Protein Negative (Negative) Urine Glucose (UA) Negative (Negative) Urine Ketones Negative (Negative) Urine Blood Negative (Negative) Urine Nitrite Negative (Negative) Urine Bilirubin Negative (Negative) Urine Urobilinogen Negative (Negative) Ur Leukocyte Esterase Negative (Negative) Adenovirus (PCR) (NotDetected) B. pertussis DNA (PCR) (NotDetected) B.parapertussis DNA PCR (NotDetected) C. pneumoniae DNA (PCR) (NotDetected) Coronavirus OC43 (PCR) (NotDetected) Coronavirus HKU1 (PCR) (NotDetected) Coronavirus 229E (PCR) (NotDetected) SARS-CoV-2 (PCR) (NotDetected) Coronavirus NL63 (PCR) (NotDetected) Human Metapneumovir PCR (NotDetected) Influenza Type A (PCR) (NotDetected) Influenza Type B (PCR) (NotDetected) M. pneumoniae (PCR) (NotDetected) Parainfluenza 1 (PCR) (NotDetected) Parainfluenza 2 (PCR) (NotDetected) Parainfluenza 3 (PCR) (NotDetected) Parainfluenza 4 (PCR) (NotDetected) RSV (PCR) (NotDetected) Entero/Rhino (PCR) (NotDetected) Administered Medications Discontinued Medications Acetaminophen (Acetaminophen 500 Mg Tab) 1,000 mg PO ONE STA Stop: 01/18/23 05:40 Last Admin: 01/18/23 05:44 Dose: 1,000 mg Documented By: FANTASMA Sodium Chloride (Nss) 500 mls @ 999 mls/hr IV .Q31M ONE Stop: 01/18/23 07:13 Last Infusion: 01/18/23 08:43 Dose: 0 mls/hr Documented By: Admin: 01/18/23 08:12 Dose: 999 mls/hr Documented By: CHRISTINE Ceftriaxone Sodium (Rocephin) 2,000 mg in 70 mls @ 140 mls/hr IV NOW STA Stop: 01/18/23 07:12 Last Infusion: 01/18/23 08:43 Dose: 0 mls/hr Documented By: Admin: 01/18/23 08:13 Dose: 140 mls/hr Documented By: CHRISTINE Ioversol (Optiray 320 500ml) 94 ml IV ONCE ONE Stop: 01/18/23 07:51 Last Admin: 01/18/23 07:50 Dose: 94 ml Documented By: SHAWNA Imaging Data Radiologist's Impression: Chest X-Ray 01/18/23 05:39 XR chest 1V portable HISTORY: Fever COMPARISON: Chest 12/25/2022. FINDINGS: No pneumothorax. No pleural effusions. The cardiac silhouette remains enlarged. There is a large hiatus hernia, unchanged. No new focal lung consolidations to suggest a pneumonia. No evidence for pulmonary edema. Slightly rotated study. Right shoulder prosthesis again noted. Advanced degenerative changes within the left shoulder. S-shaped scoliosis of the thoracolumbar spine. IMPRESSION: No significant change compared to the prior study. No acute process. ACT 112: Negative or not required by law. Electronically signed by: Jairo Pack M.D. 01/18/2023 7:16 AM Abdomen/Pelvis CT 01/18/23 06:[address] WITH IV CONTRAST CT DOSE: 911.99 mGy.cm HISTORY: Generalized abdominal pain. Fever. TECHNIQUE: Multiaxial CT images of the abdomen and pelvis were performed following the use of intravenous contrast. A dose lowering technique was utilized adhering to the principles of ALARA. COMPARISON STUDY: None. FINDINGS: There are few subcentimeter indeterminate pulmonary nodules seen within the lung bases with the largest in the left lower lobe on image 20 measuring 4 mm. Trace bilateral pleural effusions. A few bibasilar linear densities consistent with subsegmental atelectasis. No pneumoperitoneum. No pneumatosis. Recent internal fixation of a proximal right femoral fracture with an intramedullary mile and interlocking femoral neck pin. Mild edema within the right hip without a loculated fluid collection to suggest an abscess or hematoma. There is an old nonunited fracture within the left greater trochanter. Scoliosis and severe degenerative disc disease within the thoracolumbar spine. Mild anterior wedging at T12 is likely chronic. There is a large hiatus hernia containing the majority of the stomach. The liver, gallbladder, pancreas, spleen, and adrenal glands are unremarkable. A 7 mm hypodense lesion within the left kidney favors a cyst. Otherwise, the kidneys enhance normally. No hydronephrosis. The main portal vein is patent. Calcified plaque within the normal caliber abdominal aorta. No retroperitoneal or pelvic lymphadenopathy. No pelvic free fluid. Normal bladder. Focal thickening within the endometrium measuring up to 12 mm. The ovaries are unremarkable. Colonic diverticulosis. No evidence for acute diverticulitis. No bowel wall thickening or obstruction. IMPRESSION: 1. No bowel wall thickening or obstruction. 2. Colonic diverticulosis. No evidence for acute diverticulitis. 3. Normal bladder. 4. Focal thickening of the endometrium measuring 12 mm. This is considered to be pathologic in a postmenopausal female. Follow-up nonemergent gynecologic consultation can be performed for further evaluation. 5. A few subcentimeter indeterminate pulmonary nodules measuring up to 4 mm. 6. Trace bilateral pleural effusions. 7. Large hiatus hernia. 8. Status post recent internal fixation of a proximal right femoral fracture. ACT 112: Negative or not required by law. Electronically signed by: Jairo Pack M.D. 01/18/2023 8:12 AM Discharge Plan Visit Data Chief Complaint: Fever Stated Complaint: Nausea ED Provider: Logan Andrade Discharge Problem: SIRS (systemic inflammatory response syndrome), Vomiting Forms Stand Alone Forms: [employer] Prescriptions Prescriptions: No Action valsartan [Diovan] 160 mg tablet 160 mg PO DAILY Qty: 90 3RF Patient Comments: DAILY AT 1200 levothyroxine [Synthroid] 25 mcg tablet 25 mcg PO DAILY Qty: 90 3RF Patient Comments: QAM multivitamin [Daily Multi-Vitamin] Tablet 1 tab PO DAILY timolol maleate [Timoptic] 0.5 % drops 1 drp OPB QAM amlodipine 2.5 mg tablet 2.5 mg PO DAILY aspirin 81 mg Tablet,Delayed Release (Dr/Ec) 81 mg PO QAM meloxicam 7.5 mg tablet 7.5 mg PO QPM Patient Comments: PT STATES "TAKES ALMOST EVERYDAY" pravastatin 80 mg tablet 80 mg PO QPM Patient Comments: QPM zolpidem [Ambien] 5 mg tablet 2.5 mg PO HS ferrous sulfate 325 mg (65 mg iron) Tablet,Delayed Release (Dr/Ec) 325 mg PO QAM Qty: 30 0RF Eliquis 2.5 mg Tablet 2.5 mg PO BID 42 Days Qty: 84 0RF Metamucil Packet 1 packet PO QAM Rx Instructions: mix into at least 8 oz of water or juice before administering acetaminophen [Tylenol Extra Strength] 500 mg Tablet 500 mg PO QID calcium carbonate 500 mg calcium (1,250 mg) Tablet,Chewable 500 mg PO DAILY Referrals Referrals: Pro,Dav Chavira MD [Primary Care Provider] -
[2023-01-18 06:56] LABS: Adenovirus PCR Not Detected (NotDetected); Bordetella parapertussis PCR Not Detected (NotDetected); Bordetella pertussis PCR Not Detected (NotDetected); Chlamydia pneumoniae PCR Not Detected (NotDetected); Coronavirus 229E PCR Not Detected (NotDetected); Coronavirus CoV-2 (COVID19)PCR Not Detected (NotDetected); Coronavirus HKU1 PCR Not Detected (NotDetected); Coronavirus NL63 PCR Not Detected (NotDetected); Coronavirus OC43PCR Not Detected (NotDetected); Human Metapneumovirus PCR Not Detected (NotDetected); Influenza A PCR Not Detected (NotDetected); Influenza B PCR Not Detected (NotDetected); Mycoplasma pneumoniae PCR Not Detected (NotDetected); Parainfluenza Virus 1 PCR Not Detected (NotDetected); Parainfluenza Virus 2 PCR Not Detected (NotDetected); Parainfluenza Virus 3 PCR Not Detected (NotDetected); Parainfluenza Virus 4 PCR Not Detected (NotDetected); Respiratory Syncytial VirusPCR Not Detected (NotDetected); Rhinovirus/Enterovirus PCR Not Detected (NotDetected)
--- NOTE | 2023-01-18 07:17 | XRay Report ---
XR chest 1V portable HISTORY: Fever COMPARISON: Chest 12/25/2022. FINDINGS: No pneumothorax. No pleural effusions. The cardiac silhouette remains enlarged. There is a large hiatus hernia, unchanged. No new focal lung consolidations to suggest a pneumonia. No evidence for pulmonary edema. Slightly rotated study. Right shoulder prosthesis again noted. Advanced degenera tive changes within the left shoulder. S-shaped scoliosis of the thoracolumbar spine. IMPRESSION: No significant change compared to the prior study. No acute process. ACT 112: Negative or not required by law. Electronically signed by: Jairo Pack M.D. 01/18/2023 7:16 AM
[2023-01-18 07:47] LABS: Troponin I High Sensitivity 12.2 pg/ml (0-14)
[2023-01-18] MEDS ORDERED: OPTIRAY 320 500ml IV ONE (07:50)
--- NOTE | 2023-01-18 08:15 | CT Scan Report ---
ABDOMEN AND PELVIS CT WITH IV CONTRAST CT DOSE: 911.99 mGy.cm HISTORY: Generalized abdominal pain. Fever. TECHNIQUE: Multiaxial CT images of the abdomen and pelvis were performed following the use of intrave nous contrast. A dose lowering technique was utilized adhering to the principles of ALARA. COMPARISON STUDY: None. FINDINGS: There are few subcentimeter indeterminate pulmonary nodules seen within the lung bases with the largest in the left lower lobe on image 20 measuring 4 mm. Trace bilateral pleural effusions. A few bibasilar linear densities consistent with subsegmental atelectasis. No pneumoperitoneum. No pneu matosis. Recent internal fixation of a proximal right femoral fracture with an intramedullary mile and interlocking femoral neck pin. Mild edema within the right hip without a loculated fluid collection to suggest an abscess or hematoma. There is an old nonunited fracture within the left greater trochan ter. Scoliosis and severe degenerative disc disease within the thoracolumbar spine. Mild anterior wed ging at T12 is likely chronic. There is a large hiatus hernia containing the majority of the stomach. The liver, gallbladder, pancreas, spleen, and adrenal glands are unremarkable. A 7 mm hypodense lesi on within the left kidney favors a cyst. Otherwise, the kidneys enhance normally. No hydronephrosis. The main portal vein is patent. Calcified plaque within the normal caliber abdominal aorta. No retrop eritoneal or pelvic lymphadenopathy. No pelvic free fluid. Normal bladder. Focal thickening within th e endometrium measuring up to 12 mm. The ovaries are unremarkable. Colonic diverticulosis. No evidenc e for acute diverticulitis. No bowel wall thickening or obstruction. IMPRESSION: 1. No bowel wall thickening or obstruction. 2. Colonic diverticulosis. No evidence for acute diverticulitis. 3. Normal bladder. 4. Focal thickening of the endometrium measuring 12 mm. This is considered to be pathologic in a post menopausal female. Follow-up nonemergent gynecologic consultation can be performed for further evalua tion. 5. A few subcentimeter indeterminate pulmonary nodules measuring up to 4 mm. 6. Trace bilateral pleural effusions. 7. Large hiatus hernia. 8. Status post recent internal fixation of a proximal right femoral fracture. ACT 112: Negative or not required by law. Electronically signed by: Jairo Pack M.D. 01/18/2023 8:12 AM
--- NOTE | 2023-01-18 09:56 | History & Physical Report ---
Date of Service January 18, 2023 Assessment & Plan (1) Fever: Plan: 87 year old female who presented with fever and nausea x 2 days and one episode of vomiting with recent hip fracture and recent UTI who was on outpatient macrobid. Patient was treated with 2gm Ceftriaxone in the ER Will continue the IV Ceftriaxone for now to treat possible UTI and/or cellulitis Await urine culture Continue to monitor RLE (patient has no calf pain and is on Eliquis 2.5 BID and ASA 81mg daily) (2) UTI (urinary tract infection): Plan: See above (3) Hypertension: Plan: chronic and stable (4) Hyperlipidemia: Plan: chronic and stable continue pravastatin (5) Hypothyroidism: Plan: chronic and stable continue levothyroxine (6) Hyponatremia: Plan: Will hold the valsartan Repeat labs in the AM continue the [id number] in AM and 2.5 mg in PM History of Present Illness Chief Complaint: fever and nausea with vomiting Primary Care Provider: Dav Perez MD Angeles Peterson is a 87 year old female with a past medical history of HTN, Hyperlipidemia, hypothyroidism, osteoporosis and recent right hip fracture (12/26/22) who presented to the ER today with complaints of fever, nausea and vomiting x 1 this AM. Patient's and daughter are at bedside and help provide some of the history. Patient also recently had a UTI and was treated x 2 different occasions with macrobid. The first treatment was 12/30/22 for 3 days and then a week or so later was rechecked at the [facility] where she was residing for rehab from the hip fracture and was again treated with macrobid BID. Her last day of this treatment would have been tomorrow. she states her urine sxs have all resolved but yesterday she was not feeling well and had a low grade fever of 100 and also was nauseated. Early this AM her fever increased to 102 and she had one episode of nonbloody, nonbilious emesis. She denies any abdominal pain, chest pain, congestion, cough, SOB or dyspnea. She denies any skin lesions or rashes. Patient denies any diarrhea. She was at Dr Alarcon's office yesterday and had her tung removed from her right lateral hip. She denies any hip pain or any rednes or discharge from th surgical site. She denies any ill contacts. In the ER she was found to have a temp of 39 degrees C, elevated WBC 14,000, mild hyponatremia, lipase, troponin, procalcitonin, LFTs, CXR all normal. CTAP with diverticuli, focal thickening of endometrium to 12mm (will need nonemergent gyne consult follow up) trace pleural effusions, large H/H and changes from her recent internal fixation of right femoral fracture. The Urine culture from 12/26 was pansensitive. Allergies Allergy/AdvReac Type Severity Reaction Status Date / Time atorvastatin [From Lipitor] Allergy Mild Rash Verified 12/25/22 19:07 Home Medications Medication Instructions Recorded Confirmed Type timolol maleate 0.5 % eye drops 1 drp OPB QAM 03/29/19 01/18/23 History (Timoptic) levothyroxine 25 mcg tablet 25 mcg PO DAILY #90 tabs 03/23/22 01/18/23 Rx (Synthroid) valsartan 160 mg tablet (Diovan) 160 mg PO DAILY #90 tabs 03/23/22 01/18/23 Rx multivitamin (Daily Multi-Vitamin 1 tab PO DAILY 07/08/22 01/18/23 History tablet) amlodipine 2.5 mg tablet 2.5 mg PO DAILY 12/25/22 01/18/23 History aspirin 81 mg tablet,delayed 81 mg PO QAM 12/25/22 01/18/23 History release pravastatin 80 mg tablet 80 mg PO QPM 12/25/22 01/18/23 History acetaminophen 500 mg tablet 500 mg PO QID 01/18/23 01/18/23 History (Tylenol Extra Strength) calcium carbonate 500 mg calcium 500 mg PO DAILY 01/18/23 01/18/23 History (1,250 mg) chewable tablet apixaban 2.5 mg tablet (Eliquis) 2.5 mg PO BID 16 days #84 tabs 01/22/23 01/18/23 Rx diclofenac sodium 1 % topical gel 4 g EXT QID PRN RIGHT shoulder 01/22/23 Rx (Voltaren Arthritis Pain) pain #1 tube ondansetron 4 mg disintegrating 4 mg PO Q6H PRN nausea, 01/22/23 Rx tablet regurgitation or emesis #10 tabs pantoprazole 40 mg tablet,delayed 40 mg PO QAM #30 tabs 01/22/23 Rx release polyethylene glycol 3350 17 17 g PO DAILY #510 grams 01/22/23 Rx gram/dose oral powder (Miralax) sennosides 8.6 mg tablet (Senokot) 17.2 mg PO DAILY #30 tabs 01/22/23 Rx sodium chloride 1,000 mg soluble 1,000 mg PO DAILY #7 tabs 01/22/23 Rx tablet zolpidem 5 mg tablet (Ambien) 2.5 mg PO HS #10 tabs 01/22/23 Rx Past Med/Surg History Medical History Arthritis Glaucoma Borderline History of diverticulosis Hyperlipidemia Hypertension Hypothyroidism Insomnia Osteoporosis Pre-diabetes Surgical History History of appendectomy History of cataract surgery R/L History of colonoscopy History of tonsillectomy [place] teeth removed Family History Father Coronary heart disease Myocardial infarction Family history of diabetes mellitus Sister Breast cancer Other Family history non-contributory No family history of adverse response to anesthesia Denies family history of Ovarian cancer Prostate cancer Colorectal cancer Social History Smoking Status: Never smoker Second Hand Exposure: No; Do You Dip or Chew Tobacco: No; Hx Alcohol Use: No Hx Substance Use: No Preferred Language: Armenian Communication Ability: Effective Communication Ability Comment: ALSO SPEAKS [place] Visual Impairment: No Limitations Hearing Ability: Normal Tin Recovery Worker Required: No Beliefs That Will Affect Care: None marital status: / Current Living Situation: Personal Care Facility current occupational status: retired Feels Safe at Home: Yes Childhood Exposure to Second-Hand Smoke: Yes Dental Care, Regularly: Yes Physical Activity Frequency: 1-2 Times per Week Seatbelt Use: always Sunscreen Use: Yes Assistive Devices: Walker Review of Systems Constitutional: + fever, + chills, + fatigue and + anorexia Ear, Nose, Mouth, Throat: no ear pain, no nasal congestion, no post nasal drip and no nasal obstruction Respiratory: no cough, no chest congestion, no dyspnea and no hemoptysis Cardiovascular: + edema; no chest pain, no dyspnea, no orthopnea and no calf pain Gastrointestinal: + nausea and + vomiting; no abdominal pain, no early satiety, no coffee ground emesis, no hematemesis and no diarrhea/loose stools Genitourinary: no urinary frequency, no urinary hesitancy, no urinary urgency, no urinary incontinence, no nocturia and no flank pain Integumentary: no rash, no lesions and no new lesions Endocrine: no polydipsia, no polyphagia and no polyuria Physical Exam Constitutional: +febrile, appears well hydrated and in NAD Neck: trachea midline, no thyromegaly Respiratory: normal respiratory effort, lungs clear to auscultation Cardiovascular: Rate/Rhythm: regular rate, regular rhythm and + tachycardic Heart Sounds: normal S1 and normal S2; no murmur Extremities: normal capillary refill and + edema; no calf tenderness Left lower leg with +1 pitting edema, right lower leg with +2 pitting edema and mild erythema and warmth to lower leg No calf tenderness and negative homans Gastrointestinal (Abdomen): normal bowel sounds, soft, nontender, no hepatosplenomegaly Skin: right lateral hip nontender, surgical site healing, no discharge, warmth, redness. Area is clean and dry Psychiatric: A+Ox3, euthymic affect Results & Data Results & Data Vital Signs (Past 12 Hours) Vital Signs Temp Pulse Resp BP Pulse Ox O2 Del Method O2 Flow Rate 01/18/23 06:30 88 19 126/48 L 98 Nasal Cannula 2 01/18/23 06:00 107 H 23 177/80 H 100 01/18/23 05:36 110 H 23 93 01/18/23 05:36 112 H 01/18/23 05:35 Room Air 01/18/23 05:35 39 C H 109 H 25 H 181/69 H 91 Room Air Laboratory Results Abnormal lab results 01/18/23 01/18/23 Range/Units 05:42 05:42 WBC 14.01 H (4.8-10.8) K/ul RBC 3.56 L (4.20-5.40) M/uL Hgb 10.8 L (12.0-16.0) g/dl Hct 32.2 L (37.0-47.0) % RDW Std Deviation 46.4 H (36.4-46.3) fL Plt Count 411 H (130-400) K/uL Neut # (Auto) 12.34 H (1.40-6.50) K/uL Lymph # (Auto) 0.52 L (1.2-3.4) K/uL [place] # (Auto) 0.75 H (0.11-0.59) K/uL Sodium 127 L (136-145) mmol/L Chloride 91 L (98-107) mmol/L Creatinine 0.48 L (0.6-1.2) mg/dl BUN/Creatinine Ratio 29.2 H (10-20) Alkaline Phosphatase 110 H (34-104) U/L Globulin 2.4 L (2.5-4.0) gm/dl Diagnostic Findings Chest X-Ray 01/18/23 05:39 XR chest 1V portable HISTORY: Fever COMPARISON: Chest 12/25/2022. FINDINGS: No pneumothorax. No pleural effusions. The cardiac silhouette remains enlarged. There is a large hiatus hernia, unchanged. No new focal lung consolidations to suggest a pneumonia. No evidence for pulmonary edema. Slightly rotated study. Right shoulder prosthesis again noted. Advanced degenerative changes within the left shoulder. S-shaped scoliosis of the thoracolumbar spine. IMPRESSION: No significant change compared to the prior study. No acute process. ACT 112: Negative or not required by law. Electronically signed by: Jairo Pack M.D. 01/18/2023 7:16 AM Abdomen/Pelvis CT 01/18/23 06:[address] WITH IV CONTRAST CT DOSE: 911.99 mGy.cm HISTORY: Generalized abdominal pain. Fever. TECHNIQUE: Multiaxial CT images of the abdomen and pelvis were performed following the use of intravenous contrast. A dose lowering technique was utilized adhering to the principles of ALARA. COMPARISON STUDY: None. FINDINGS: There are few subcentimeter indeterminate pulmonary nodules seen within the lung bases with the largest in the left lower lobe on image 20 measuring 4 mm. Trace bilateral pleural effusions. A few bibasilar linear densities consistent with subsegmental atelectasis. No pneumoperitoneum. No pneumatosis. Recent internal fixation of a proximal right femoral fracture with an intramedullary mile and interlocking femoral neck pin. Mild edema within the right hip without a loculated fluid collection to suggest an abscess or hematoma. There is an old nonunited fracture within the left greater trochanter. Scoliosis and severe degenerative disc disease within the thoracolumbar spine. Mild anterior wedging at T12 is likely chronic. There is a large hiatus hernia containing the majority of the stomach. The liver, gallbladder, pancreas, spleen, and adrenal glands are unremarkable. A 7 mm hypodense lesion within the left kidney favors a cyst. Otherwise, the kidneys enhance normally. No hydronephrosis. The main portal vein is patent. Calcified plaque within the normal caliber abdominal aorta. No retroperitoneal or pelvic lymphadenopathy. No pelvic free fluid. Normal bladder. Focal thickening within the endometrium measuring up to 12 mm. The ovaries are unremarkable. Colonic diverticulosis. No evidence for acute diverticulitis. No bowel wall thickening or obstruction. IMPRESSION: 1. No bowel wall thickening or obstruction. 2. Colonic diverticulosis. No evidence for acute diverticulitis. 3. Normal bladder. 4. Focal thickening of the endometrium measuring 12 mm. This is considered to be pathologic in a postmenopausal female. Follow-up nonemergent gynecologic consultation can be performed for further evaluation. 5. A few subcentimeter indeterminate pulmonary nodules measuring up to 4 mm. 6. Trace bilateral pleural effusions. 7. Large hiatus hernia. 8. Status post recent internal fixation of a proximal right femoral fracture. ACT 112: Negative or not required by law. Electronically signed by: Jairo Pack M.D. 01/18/2023 8:12 AM Supervising Physician Co-Signing Physician Notes Attending Attestation and Admit Note - Pt seen/examined, chart reviewed, care plan d/w KYREE Isidro. I agree with the spring components of her admission documentation. 87yo female with recent R hip Fx s/p ORIF on 12/26/[address] Alarcon. She was hospitalized from 12/25 to 12/30 for the hip fracture and discharged to the [facility] at [facility]. She was treated with 2 courses of macrobid for UTI while rehabbing at the [facility]. Last dose was 01/17. Presents today with fever, nausea and emesis in the absence of any URI symptoms, lower respiratory tract symptoms, or diarrhea. She reports she has poor appetite. RLE has been edematous since her operation. PMH/PSH/allergies/meds/sochx/famhx - reviewed VSS, Tm 39 C gen - looks tired and sick but nontoxic, awake, alert, oriented mouth - MM dry neck - no JVD heart - RRR, s1s2, no murmur lungs - CTA b/l abd - soft NT ND BS+ musculo - right thigh edematous with bruising - mainly medial aspect of thigh; R hip ORIF incisions clean/dry/healed right lateral hip; edema extends down the RLE to the foot skin - bruising R medial thigh as noted above; petechiae on b/l shins, worse on right; slight hyperpigmentation of R king but no overt cellulitis ext - pulses 2+ b/l labs reviewed u/a wnl CT a/p and cxr reviewed Resp [employer] negative blood cx's dispatched A/P: 1. SIRS - etiology uncertain - drug reaction given fever, petechial rash on shins, feeling poorly, etc? viral process? early cellulitis RLE (king) ? other? Reasonable to continue rocephin while awaiting blood cultures. 2. R hip fracture s/p ORIF 12/26/22 - cont Eliquis BID for DVT proph. Incisions clean and without infection. PT/OT while here. 3. hyponatremia - Na 127 - looks volume contracted, provide isotonic fluids and re-eval with BMP in am. Check urine Na and urine osm. 4. vomiting - 2nd to #1 - but exact cause not certain. Await cultures, etc. 5. recent UTI - u/a clean, no signs of ongoing infection. 6. anemia - consider IV Iron while here. CBC am. 7. abnormal uterus on CT - outpatient f/u with retail sales merchandiser development, if desired by patient and/or her family. Other plans per Ms Isidro's documentation. Elijah Mckinnon MD PG Care Time/CCT Total # of Minutes Spent Total Time Spent with Patient: Total time spent is greater than 50% in coordination of care (as documented) at patient's floor/unit and/or counseling patient: Coding Level of Care Code 14958 INT INP/OBS CARE 2/55MIN Diagnoses Fever R50.9 UTI (urinary tract infection) N39.0 Hypertension I10 Hyperlipidemia E78.5 Hypothyroidism E03.9 Hyponatremia E87.1
[2023-01-18 11:04] LABS: Appearance Urine Clear (Clear); Bilirubin Urine Negative (Negative); Blood Urine Negative (Negative); Color Urine Yellow; Glucose Urine UA Negative (Negative); Ketones Urine Negative (Negative); Leukocyte Esterase Urine Negative (Negative); Nitrite Urine Negative (Negative); Protein Urine Negative (Negative); Specific Gravity Urine 1.016 (1.000-1.030); Urobilinogen Urine Negative (Negative)
--- NOTE | 2023-01-18 11:10 | Electrocardiogram Report ---
Test Reason : Blood Pressure : / mmHG Vent. Rate : 109 BPM Atrial Rate : 109 BPM P-R Int : 138 ms QRS Dur : 086 ms QT Int : 322 ms P-R-T Axes : 070 -29 060 degrees QTc Int : 433 ms Sinus tachycardia Possible Left atrial enlargement Minimal voltage criteria for LVH, may be normal variant Septal infarct (cited on or before 25-DEC-2022) Abnormal ECG When compared with ECG of 25-DEC-2022 16:49, Questionable change in initial forces of Septal leads Confirmed by Dav Goff ([id number]) on 01/18/2023 11:09:42 AM Referred By: Confirmed By:Dav Goff
[2023-01-18] MEDS: ACETAMINOPHEN 325 MG TAB PO PRN (17:37)
[2023-01-18] MEDS ORDERED: SODIUM CHLORIDE 0.9% 1000ML 1,000 ML IV SCH (20:00)
[2023-01-18] MEDS: APIXABAN 2.5 MG TAB PO SCH (20:37)
[2023-01-18] MEDS: ZOLPIDEM TARTRATE 5 MG TAB PO SCH (20:37)
[2023-01-18] MEDS: amLODIPine BESYLATE 5 MG TAB PO SCH (20:38)
[2023-01-18] MEDS: PRAVASTATIN SOD 40 MG TAB PO SCH (20:38)
[2023-01-18] MEDS: ASPIRIN 81 MG ECTAB PO SCH (20:38)
[2023-01-19] MEDS: LEVOTHYROXINE SODIUM 25 MCG TABLET PO SCH (05:49)
[2023-01-19 07:23] LABS: Basophils # (auto) 0.01 K/uL (0-0.2); Basophils % (auto) 0.1 %; Eosinophils # (auto) 0.33 K/uL (0-0.50); Eosinophils % (auto) 4.4 %; Hemoglobin 9.9 g/dl (12.0-16.0); Immature Granulocytes # (auto) 0.04 K/uL (0.01-0.20); Immature Granulocytes % (auto) 0.5 %; Lymphocytes % (auto) 22.7 %; Mean Corpuscular Hemoglobin 29.9 pg (25.0-34.0); Mean Corpuscular Volume 90.6 fL (80.0-100.0); Mean Platelet Volume 9.3 fL (9.4-12.4); Monocytes # (auto) 1.09 K/uL (0.11-0.59); Monocytes % (auto) 14.6 %; Neutrophils # (auto) 4.31 K/uL (1.40-6.50); Neutrophils % (auto) 57.7 %; Platelet Count 339 K/uL (130-400); RDW Coefficient of Variation 14.2 % (11.5-14.5); RDW Standard Deviation 47.4 fL (36.4-46.3); Red Blood Count 3.31 M/uL (4.20-5.40); White Blood Count 7.48 K/ul (4.8-10.8)
--- NOTE | 2023-01-19 07:37 | Ultrasound Report ---
US venous doppler LE RT CLINICAL HISTORY: R hip ORIF; severe edema; eval new DVT TECHNIQUE: Right lower extremity real-time compression venous ultrasound with Color Doppler imaging. Utilizing real-time ultrasonic imaging multiple real time high-resolution ultrasonic images with comp ression and noncompression maneuvers of the deep venous system in addition to color doppler imaging w ere performed from the common femoral vein through the proximal calf veins. COMPARISON: None available at the time of this dictation. FINDINGS/IMPRESSION: Currently there is normal compressibility of the deep venous system from the common femoral vein thro ugh the proximal calf veins. No superficial venous thrombosis is identified. ACT 112: Negative or not required by law. Electronically signed by: Kenneth Camacho M.D. 01/19/2023 7:36 AM
[2023-01-19 07:43] LABS: BUN Creatinine Ratio 28.3 (10-20); Calcium 8.1 mg/dl (8.6-10.3); Est GFR (African American) 98.9 ml/min; Est GFR (Non-African American) 85.4 ml/min; Magnesium 1.8 mg/dl (1.7-2.4); Potassium 3.4 mmol/L (3.5-5.1)
[2023-01-19] MEDS ORDERED: cefTRIAXone SODIUM 2,000 MG in DEXTROSE 5% 50 ML IV SCH (08:30)
[2023-01-19] MEDS: TIMOLOL MALEATE 0.5% OP SOLN 5 ML BTL OP SCH (08:50)
[2023-01-19] MEDS: APIXABAN 2.5 MG TAB PO SCH ×2 (08:50→19:38)
[2023-01-19] MEDS ORDERED: amLODIPine BESYLATE 5 MG TAB PO SCH (09:00)
[2023-01-19] MEDS ORDERED: POTASSIUM CHLORIDE CRTAB 20 MEQ TABCR PO STA (09:06)
[2023-01-19] MEDS: SODIUM CHLORIDE 1 GM TABLET PO SCH (11:15)
--- NOTE | 2023-01-19 18:31 | Hospitalist Progress Note ---
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 other? 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 has NOT been outside in over a month due to prior hospital stay and rehab stay thus tick-borne infection highly unlikely platelets wnl leukocytoclastic vasculitis rxn to prior abx ?? other? re-eval tomorrow (9) Iron deficiency anemia: Plan: ferritin was 36 early December 2022 had blood loss during #7 requiring PRBCs will give venofer IV x 1 tomorrow Plan DVT proph - eliquis 2.5mg BID updated pt's daughter extensively by phone this evening back to [facility] tomorrow if well?? Admission and Anticipated Discharge Date Admission Date: January 18, 2023 Subjective "I feel so much better today" eating very well no N/V/D no abd pain no cough no dyspnea no chest pain no headache no myalgias no dysuria energy is better wants to discharge Review of Systems Review of Systems: gen - no fevers or chills cv - no orthopnea pulm - no cough or wheeze abd - no further vomiting - no dysuria musculo - right hip pain stable Physical Exam Physical Exam: gen - looks well, NAD, nontoxic, pleasant mouth - MMM neck - no JVD heart - RRR, s1 s2 lungs - CTA b/l abd - soft NT ND BS+ ext - right leg from thigh to ankle 2+ edema, left leg trace edema; pulses 2+ b/l skin - incisions lateral hip clean, well-healed, no erythema; extensive medial thigh bruising which appears old; petechial lesions on b/l shins worse on right king, nonblanchable; no generalized rash any other location psych - a/o x 3 Results & Data Results & Data Vital Signs (Past 12 Hours) Vital Signs Temp Pulse Resp BP Pulse Ox O2 Del Method 01/19/23 16:34 36.7 C 75 18 168/75 H 96 Room Air 01/19/23 07:30 36.8 C 86 16 150/71 H 96 Room Air Laboratory Results Laboratory Results - last 48 hr 01/18/23 01/18/23 01/18/23 10:47 10:47 10:47 WBC RBC Hgb Hct MCV MCH MCHC RDW Std Deviation RDW Coeff of Felicity Plt Count MPV Immature Gran % (Auto) Neut % (Auto) Lymph % (Auto) [place] % (Auto) Eos % (Auto) Baso % (Auto) Neut # (Auto) Lymph # (Auto) [place] # (Auto) Eos # (Auto) Baso # (Auto) Immature Gran # (Auto) Sodium Potassium Chloride Carbon Dioxide Anion Gap BUN Creatinine Est Cr Clr Drug Dosing Est GFR ( Amer) Est GFR (Non-Af Amer) BUN/Creatinine Ratio Glucose Osmolality Calcium Magnesium C-Reactive Protein Vitamin B12 Folate Urine Color Yellow Urine Appearance Clear Urine pH 7.0 Ur Specific [employer] 1.016 Urine Protein Negative Urine Glucose (UA) Negative Urine Ketones Negative Urine Blood Negative Urine Nitrite Negative Urine Bilirubin Negative Urine Urobilinogen Negative Ur Leukocyte Esterase Negative Urine Osmolality 168 L Ur Random Sodium 34 01/19/23 01/19/23 06:56 06:56 WBC 7.48 RBC 3.31 L Hgb 9.9 L Hct 30.0 L MCV 90.6 MCH 29.9 MCHC 33.0 RDW Std Deviation 47.4 H RDW Coeff of Felicity 14.2 Plt Count 339 MPV 9.3 L Immature Gran % (Auto) 0.5 Neut % (Auto) 57.7 Lymph % (Auto) 22.7 [place] % (Auto) 14.6 Eos % (Auto) 4.4 Baso % (Auto) 0.1 Neut # (Auto) 4.31 Lymph # (Auto) 1.70 [place] # (Auto) 1.09 H Eos # (Auto) 0.33 Baso # (Auto) 0.01 Immature Gran # (Auto) 0.04 Sodium 128 L Potassium 3.4 L Chloride 95 L Carbon Dioxide 27 Anion Gap 6 BUN 15 Creatinine 0.53 L Est Cr Clr Drug Dosing 58.0 Est GFR ( Amer) 98.9 Est GFR (Non-Af Amer) 85.4 BUN/Creatinine Ratio 28.3 H Glucose 83 Osmolality Calcium 8.1 L Magnesium 1.8 C-Reactive Protein Vitamin B12 Folate Urine Color Urine Appearance Urine pH Ur Specific [employer] Urine Protein Urine Glucose (UA) Urine Ketones Urine Blood Urine Nitrite Urine Bilirubin Urine Urobilinogen Ur Leukocyte Esterase Urine Osmolality Ur Random Sodium Diagnostic Findings blood cx's neg to date PG Care Time/CCT Total # of Minutes Spent Total Time Spent with Patient: Total time spent is greater than 50% in coordination of care (as documented) at patient's floor/unit and/or counseling patient: Coding Level of Care Code 24071 SUB INP/OBS CARE 3/50MIN Diagnoses SIRS (systemic inflammatory response syndrome) R65.10 UTI (urinary tract infection) N39.0 Hypertension I10 Hyperlipidemia E78.5 Hypothyroidism E03.9 Hyponatremia E87.1 Status post-operative repair of closed fracture of right hip Z98.890; Z87.81 Rash R21 Iron deficiency anemia D50.9
[2023-01-19] MEDS: ASPIRIN 81 MG ECTAB PO SCH (19:38)
[2023-01-19] MEDS: PRAVASTATIN SOD 40 MG TAB PO SCH (19:38)
[2023-01-19] MEDS: amLODIPine BESYLATE 5 MG TAB PO SCH (19:38)
[2023-01-19] MEDS: ZOLPIDEM TARTRATE 5 MG TAB PO SCH (21:01)
[2023-01-20] MEDS: LEVOTHYROXINE SODIUM 25 MCG TABLET PO SCH (06:02)
[2023-01-20 07:35] LABS: Hematocrit (blood only) 30.4 % (37.0-47.0); Hemoglobin 10.1 g/dl (12.0-16.0); Mean Corpuscular Hgb Conc 33.2 g/dL (32.0-36.0); Mean Corpuscular Volume 90.2 fL (80.0-100.0); Mean Platelet Volume 9.8 fL (9.4-12.4); Platelet Count 360 K/uL (130-400); RDW Coefficient of Variation 13.8 % (11.5-14.5); RDW Standard Deviation 46.2 fL (36.4-46.3); Red Blood Count 3.37 M/uL (4.20-5.40); White Blood Count 7.94 K/ul (4.8-10.8)
[2023-01-20 07:57] LABS: BUN Creatinine Ratio 32.7 (10-20); C Reactive Protein 5.1 mg/dl (0-0.5); Calcium 8.5 mg/dl (8.6-10.3); Creatinine Clr Calc Pharmacy 62.7 ml/min; Est GFR (African American) 101.5 ml/min; Est GFR (Non-African American) 87.6 ml/min; Potassium 3.9 mmol/L (3.5-5.1)
[2023-01-20] MEDS: SODIUM CHLORIDE 1 GM TABLET PO SCH (09:30)
[2023-01-20] MEDS: APIXABAN 2.5 MG TAB PO SCH ×2 (09:31→20:42)
[2023-01-20] MEDS: TIMOLOL MALEATE 0.5% OP SOLN 5 ML BTL OP SCH (09:34)
[2023-01-20] MEDS ORDERED: IRON SUCROSE 200 MG in 0.9 % SODIUM CHLORIDE 100 ML IV ONE (11:00)
--- NOTE | 2023-01-20 14:06 | XRay Report ---
XR chest 2V PA/lateral CLINICAL HISTORY: cough, recent fever; eval pneumonia TECHNIQUE: 2 views of the chest were obtained. 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 Degenerative changes are seen in the left shoulder and s pine. Cardiomegaly is noted. The aortic arch is calcified. The lungs are clear. No evidence of pleura l effusion or pneumothorax. IMPRESSION: No acute abnormalities and in particular no radiographic evidence of pneumonia. ACT 112: Negative or not required by law. Electronically signed by: Kenneth Camacho M.D. 01/20/2023 2:05 PM
--- NOTE | 2023-01-20 19:39 | Hospitalist Progress Note ---
Date of Service January 20, 2023 Assessment & Plan (1) SIRS (systemic inflammatory response syndrome): Plan: etiology uncertain but SIRS resolved u/a wnl at admission had recent UTI treated with 10+ days of macrobid at 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 other? 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 has NOT been outside in over a month due to prior hospital stay and rehab stay thus tick-borne infection highly unlikely platelets wnl leukocytoclastic vasculitis rxn to prior abx ?? other? appearance of shins similar to yesterday there is no cellulitis of either king just follow for now (9) Iron deficiency anemia: Plan: ferritin was 36 early December 2022 had blood loss during #7 requiring PRBCs will give venofer IV today and repeat such again tomorrow cbc am (10) Cough: Plan: several weeks in duration per her recollection cxr - 2 view - obtained today and was wnl o2 sats high 90s lung exam wnl no dyspnea or MYERS URI? post-nasal drip? other? Plan DVT proph - eliquis 2.5mg BID updated pt's daughter extensively by phone yesterday pm, and then called her again today back to [facility] tomorrow if auth obtained from insurance? Admission and Anticipated Discharge Date Admission Date: January 18, 2023 Subjective feels very good anxious to leave the hospital eating robustly NO headache, URI symptoms, dyspnea, nausea, vomiting, abd pain, diarrhea, dysuria, foul-smelling urine, myalgias Mild cough for a few weeks but not terribly bothersome denies any new complaints Review of Systems Review of Systems: gen - no fevers or chills cv - no chest pain pulm - no sputum Physical Exam Physical Exam: gen - looks well, NAD, nontoxic, pleasant, sitting in chair mouth - MMM neck - no JVD heart - RRR, s1 s2, no murmur lungs - CTA b/l abd - soft NT ND BS+ ext - right leg from thigh to ankle 2+ edema, left leg trace edema; pulses 2+ b/l skin - incisions lateral right hip clean, well-healed, no erythema; extensive medial thigh bruising which appears old; petechial lesions on b/l shins worse on right king, nonblanchable - about the same as yesterday; no generalized rash any other location psych - a/o x 3 Results & Data Results & Data Vital Signs (Past 12 Hours) Vital Signs Temp Pulse Resp BP Pulse Ox O2 Del Method 01/20/23 15:09 36.6 C 75 16 146/71 H 96 Room Air 01/20/23 07:50 36.4 C L 78 16 148/68 H 95 Room Air Laboratory Results Laboratory Results - last 24 hr 01/20/23 01/20/23 01/20/23 06:19 06:19 06:19 WBC 7.94 RBC 3.37 L Hgb 10.1 L Hct 30.4 L MCV 90.2 MCH 30.0 MCHC 33.2 RDW Std Deviation 46.2 RDW Coeff of Felicity 13.8 Plt Count 360 MPV 9.8 Sodium 130 L Potassium 3.9 Chloride 96 L Carbon Dioxide 28 Anion Gap 6 BUN 16 Creatinine 0.49 L Est Cr Clr Drug Dosing 62.7 Est GFR ( Amer) 101.5 Est GFR (Non-Af Amer) 87.6 BUN/Creatinine Ratio 32.7 H Glucose 86 Osmolality 271 L Calcium 8.5 L C-Reactive Protein 5.10 H Vitamin B12 Folate 01/20/23 01/20/23 06:19 06:19 WBC RBC Hgb Hct MCV MCH MCHC RDW Std Deviation RDW Coeff of Felicity Plt Count MPV Sodium Potassium Chloride Carbon Dioxide Anion Gap BUN Creatinine Est Cr Clr Drug Dosing Est GFR ( Amer) Est GFR (Non-Af Amer) BUN/Creatinine Ratio Glucose Osmolality Calcium C-Reactive Protein Vitamin B12 424 Folate > 22.30 Diagnostic Findings blood cx's negative x 2 sets Chest X-Ray 01/20/23 13:14 XR chest 2V PA/lateral CLINICAL HISTORY: cough, recent fever; eval pneumonia TECHNIQUE: 2 views of the chest were obtained. 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 Degenerative changes are seen in the left shoulder and spine. Cardiomegaly is noted. The aortic arch is calcified. The lungs are clear. No evidence of pleural effusion or pneumothorax. IMPRESSION: No acute abnormalities and in particular no radiographic evidence of pneumonia. ACT 112: Negative or not required by law. Electronically signed by: Kenneth Camacho M.D. 01/20/2023 2:05 PM PG Care Time/CCT Total # of Minutes Spent Total Time Spent with Patient: Total time spent is greater than 50% in coordination of care (as documented) at patient's floor/unit and/or counseling patient: Coding Level of Care Code 96795 SUB INP/OBS CARE 2/35MIN Diagnoses SIRS (systemic inflammatory response syndrome) R65.10 UTI (urinary tract infection) N39.0 Hypertension I10 Hyperlipidemia E78.5 Hypothyroidism E03.9 Hyponatremia E87.1 Status post-operative repair of closed fracture of right hip Z98.890; Z87.81 Rash R21 Iron deficiency anemia D50.9 Cough R05.9
[2023-01-20] MEDS: amLODIPine BESYLATE 5 MG TAB PO SCH (20:41)
[2023-01-20] MEDS: ZOLPIDEM TARTRATE 5 MG TAB PO SCH (20:42)
[2023-01-20] MEDS: ASPIRIN 81 MG ECTAB PO SCH (20:42)
[2023-01-20] MEDS: PRAVASTATIN SOD 40 MG TAB PO SCH (20:42)
[2023-01-21] MEDS: LEVOTHYROXINE SODIUM 25 MCG TABLET PO SCH (05:57)
[2023-01-21 06:40] LABS: Basophils # (auto) 0.02 K/uL (0-0.2); Basophils % (auto) 0.2 %; Eosinophils # (auto) 0.23 K/uL (0-0.50); Eosinophils % (auto) 2.8 %; Hematocrit (blood only) 29.7 % (37.0-47.0); Hemoglobin 9.8 g/dl (12.0-16.0); Immature Granulocytes # (auto) 0.04 K/uL (0.01-0.20); Immature Granulocytes % (auto) 0.5 %; Lymphocytes # (auto) 2.57 K/uL (1.2-3.4); Lymphocytes % (auto) 30.8 %; Mean Corpuscular Hemoglobin 29.9 pg (25.0-34.0); Mean Corpuscular Volume 90.5 fL (80.0-100.0); Mean Platelet Volume 9.5 fL (9.4-12.4); Monocytes # (auto) 1.28 K/uL (0.11-0.59); Monocytes % (auto) 15.3 %; Neutrophils # (auto) 4.21 K/uL (1.40-6.50); Neutrophils % (auto) 50.4 %; Platelet Count 339 K/uL (130-400); Red Blood Count 3.28 M/uL (4.20-5.40); White Blood Count 8.35 K/ul (4.8-10.8)
[2023-01-21 07:16] LABS: BUN Creatinine Ratio 40.8 (10-20); Calcium 8.6 mg/dl (8.6-10.3); Creatinine Clr Calc Pharmacy 62.7 ml/min; Est GFR (African American) 101.5 ml/min; Est GFR (Non-African American) 87.6 ml/min; Potassium 3.8 mmol/L (3.5-5.1)
[2023-01-21] MEDS: APIXABAN 2.5 MG TAB PO SCH ×2 (08:35→20:23)
[2023-01-21] MEDS: SODIUM CHLORIDE 1 GM TABLET PO SCH (08:35)
[2023-01-21] MEDS: TIMOLOL MALEATE 0.5% OP SOLN 5 ML BTL OP SCH (08:35)
[2023-01-21] MEDS: ACETAMINOPHEN 325 MG TAB PO PRN ×2 (08:37→21:32)
[2023-01-21] MEDS ORDERED: IRON SUCROSE 200 MG in 0.9 % SODIUM CHLORIDE 100 ML IV ONE (08:45)
[2023-01-21] MEDS ORDERED: FAMOTIDINE 20 MG in SYRINGE 3 ML IV ONE (09:02)
[2023-01-21] MEDS ORDERED: ONDANSETRON INJ 2 MG/ML 2 ML VIAL IV PRN (09:02)
[2023-01-21] MEDS: VALSARTAN 80 MG TAB PO SCH (09:43)
[2023-01-21] MEDS: PANTOprazole 40 MG TAB PO SCH (09:43)
--- NOTE | 2023-01-21 16:46 | Hospitalist Progress Note ---
Date of Service January 21, 2023 Assessment & Plan (1) Hiatal hernia: Plan: patient has a large hiatal hernia on imaging. she has frequent GERD symptoms at home along with use of TUMS and H2 blockers. occasional regurgitation at home. I believe she had an episode of regurgitation this am. Gave IV pepcid x 1. Then follow such with protonix 40mg daily. More frequent, small meals recommended. (2) SIRS (systemic inflammatory response syndrome): Plan: etiology uncertain but SIRS resolved u/a wnl at admission had recent UTI treated with 10+ days of macrobid at [facility] with last dose 01/17/23 BioFire resp panel neg blood cx's neg to date no DVT RLE CT a/p without any source of fever/infection ??minimal amount of RLE cellulitis on the king at time of presentation but this finding was completely gone within 24 hours cellulitis typically would not have resolved in <24 hours making the diagnosis unlikely thus, true etiology uncertain with petechial rash + fever + generalized unwellness - 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 other? 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 has NOT been outside in over a month due to prior hospital stay and rehab stay thus tick-borne infection highly unlikely platelets wnl leukocytoclastic vasculitis rxn to prior abx ?? other? appearance of shins improved today there is no cellulitis of either king (10) Iron deficiency anemia: Plan: ferritin was 36 early December 2022 had blood loss during #7 requiring PRBCs s/p venofer yesterday give another dose today H/H stable today (11) Cough: Plan: several weeks in duration per her recollection cxr - 2 view - wnl o2 sats high 90s lung exam wnl no dyspnea or MYERS URI? post-nasal drip? due to chronic GERD? treat for GERD Plan DVT proph - eliquis 2.5mg BID updated pt's daughter extensively by phone yesterday pm back to [facility] tomorrow on 01/22 Admission and Anticipated Discharge Date Admission Date: January 18, 2023 Subjective patient states she was eating breakfast this am was in the chair eating from her bedside table while eating cereal she suddenly had regurgitation of about 100cc of food/liquid prior to this episode she had no nausea she reports that she takes frequent tums at home, often following her evening meal she often feels very full after eating she occasionally takes pepcid also on occasion she will have regurgitation at home otherwise feels good no dyspnea or significant cough today no abd pain no diarrhea no new infectious symptoms Review of Systems Review of Systems: gen - no fevers or chills; good appetite; she feels well cv - no chest pain pulm - no dyspnea musculo - mild right shoulder pain; mild right hip pain GI - see HPI Physical Exam Physical Exam: gen - looks well, NAD, sitting in chair comfortably mouth - MMM neck - no JVD heart - RRR, s1 s2, no murmur lungs - CTA b/l abd - soft NT ND BS+ ext - right leg from thigh to ankle 2+ edema - unchanged, left leg trace edema; pulses 2+ b/l skin - extensive medial thigh bruising - slowly improving; petechial lesions on b/l shins R>L improved today; no generalized rash any other location psych - a/o x 3 Results & Data Results & Data Vital Signs (Past 12 Hours) Vital Signs Temp Pulse Resp BP Pulse Ox O2 Del Method 01/21/23 14:50 36.6 C 77 16 127/72 95 Room Air 05/27/23 09:30 36.6 C 71 16 147/72 H 98 Room Air 01/21/23 08:00 36.5 C 80 20 163/74 H 98 Room Air Laboratory Results Laboratory Results - last 24 hr 01/21/23 01/21/23 06:16 06:16 WBC 8.35 RBC 3.28 L Hgb 9.8 L Hct 29.7 L MCV 90.5 MCH 29.9 MCHC 33.0 RDW Std Deviation 46.0 RDW Coeff of Felicity 14.0 Plt Count 339 MPV 9.5 Immature Gran % (Auto) 0.5 Neut % (Auto) 50.4 Lymph % (Auto) 30.8 [place] % (Auto) 15.3 Eos % (Auto) 2.8 Baso % (Auto) 0.2 Neut # (Auto) 4.21 Lymph # (Auto) 2.57 [place] # (Auto) 1.28 H Eos # (Auto) 0.23 Baso # (Auto) 0.02 Immature Gran # (Auto) 0.04 Sodium 131 L Potassium 3.8 Chloride 98 Carbon Dioxide 28 Anion Gap 5 BUN 20 Creatinine 0.49 L Est Cr Clr Drug Dosing 62.7 Est GFR ( Amer) 101.5 Est GFR (Non-Af Amer) 87.6 BUN/Creatinine Ratio 40.8 H Glucose 95 Calcium 8.6 PG Care Time/CCT Total # of Minutes Spent Total Time Spent with Patient: Total time spent is greater than 50% in coordination of care (as documented) at patient's floor/unit and/or counseling patient: Coding Level of Care Code 39540 SUB INP/OBS CARE 2/35MIN Diagnoses Hiatal hernia K44.9 SIRS (systemic inflammatory response syndrome) R65.10 UTI (urinary tract infection) N39.0 Hypertension I10 Hyperlipidemia E78.5 Hypothyroidism E03.9 Hyponatremia E87.1 Status post-operative repair of closed fracture of right hip Z98.890; Z87.81 Rash R21 Iron deficiency anemia D50.9 Cough R05.9
[2023-01-21] MEDS: DICLOFENAC SOD 1% GEL 100 GM TUBE EXT SCH ×2 (17:22→20:23)
[2023-01-21] MEDS: amLODIPine BESYLATE 5 MG TAB PO SCH (20:22)
[2023-01-21] MEDS: ASPIRIN 81 MG ECTAB PO SCH (20:23)
[2023-01-21] MEDS: PRAVASTATIN SOD 40 MG TAB PO SCH (20:23)
[2023-01-21] MEDS: ZOLPIDEM TARTRATE 5 MG TAB PO SCH (21:33)
[2023-01-22] MEDS: LEVOTHYROXINE SODIUM 25 MCG TABLET PO SCH (06:15)
[2023-01-22 07:39] LABS: BUN Creatinine Ratio 39.4 (10-20); Creatinine Clr Calc Pharmacy 46.6 ml/min; Est GFR (African American) 92.1 ml/min; Est GFR (Non-African American) 79.4 ml/min
[2023-01-22] MEDS: APIXABAN 2.5 MG TAB PO SCH (08:23)
[2023-01-22] MEDS: SODIUM CHLORIDE 1 GM TABLET PO SCH (08:23)
[2023-01-22] MEDS: DICLOFENAC SOD 1% GEL 100 GM TUBE EXT SCH (08:23)
[2023-01-22] MEDS: PANTOprazole 40 MG TAB PO SCH (08:23)
[2023-01-22] MEDS: TIMOLOL MALEATE 0.5% OP SOLN 5 ML BTL OP SCH (08:23)
[2023-01-22] MEDS: VALSARTAN 80 MG TAB PO SCH (08:23)
[2023-01-22] MEDS: ACETAMINOPHEN 325 MG TAB PO PRN (08:25)
[2023-01-22] MEDS ORDERED: IRON SUCROSE 200 MG in 0.9 % SODIUM CHLORIDE 100 ML IV ONE (09:45)
--- NOTE | 2023-01-22 10:45 | XRay Report ---
XR abdomen min 2V CLINICAL HISTORY: regurgitation; eval ileus, impaction, etc TECHNIQUE: 2 views of the abdomen were obtained. Comparison: None available at the time of this dictation. FINDINGS: Lung bases are unremarkable. Degenerative changes are seen in the visualized skeleton. Right femoral medullary nail is seen. A paucity of bowel gas limits evaluation, however no amanda small bowel dilati on is seen. A moderate amount of stool is noted within the large bowel. IMPRESSION: Moderate stool burden is seen without evidence of fecal impaction. ACT 112: Negative or not required by law. Electronically signed by: Kenneth Camacho M.D. 01/22/2023 10:43 AM
[2023-01-22] MEDS ORDERED: bisacodyL 10 MG SUPP PR STA (10:54)
--- NOTE | 2023-01-22 12:06 | Discharge Summary ---
Date of Service January 22, 2023 Admission HPI Per Admitting Provider Angeles Peterson is a 87 year old female with a past medical history of HTN, Hyperlipidemia, hypothyroidism, osteoporosis and recent right hip fracture (12/26/22) who presented to the ER today with complaints of fever, nausea and vomiting x 1 this AM. Patient's and daughter are at bedside and help provide some of the history. Patient also recently had a UTI and was treated x 2 different occasions with macrobid. The first treatment was 12/30/22 for 3 days and then a week or so later was rechecked at the [facility] where she was residing for rehab from the hip fracture and was again treated with macrobid BID. Her last day of this treatment would have been tomorrow. she states her urine sxs have all resolved but yesterday she was not feeling well and had a low grade fever of 100 and also was nauseated. Early this AM her fever increased to 102 and she had one episode of nonbloody, nonbilious emesis. She denies any abdominal pain, chest pain, congestion, cough, SOB or dyspnea. She denies any skin lesions or rashes. Patient denies any diarrhea. She was at Dr Alarcon's office yesterday and had her tung removed from her right lateral hip. She denies any hip pain or any rednes or discharge from th surgical site. She denies any ill contacts. In the ER she was found to have a temp of 39 degrees C, elevated WBC 14,000, mild hyponatremia, lipase, troponin, procalcitonin, LFTs, CXR all normal. CTAP with diverticuli, focal thickening of endometrium to 12mm (will need nonemergent gyne consult follow up) trace pleural effusions, large H/H and changes from her recent internal fixation of right femoral fracture. The Urine culture from 12/26 was pansensitive. Discharge Exam gen - looks well, NAD, sitting in chair comfortably mouth - MMM neck - no JVD heart - RRR, s1 s2, no murmur lungs - CTA b/l abd - soft NT ND BS+ ext - right leg from thigh to ankle 2+ edema - unchanged, left leg trace edema; pulses 2+ b/l skin - extensive medial thigh bruising - slowly improving; petechial lesions on b/l shins R>L improved today; no generalized rash any other location psych - a/o x 3 Discharge Data Allergies Allergy/AdvReac Type Severity Reaction Status Date / Time atorvastatin [From Lipitor] Allergy Mild Rash Verified 12/25/22 19:07 Consultations 01/18/23 09:15 ED Decision to Admit Stat Ordered Studies 01/18/23 06:43 CT Abd and Pelvis [CT abd pelvis IV con only] Stat 01/18/23 19:58 US venous doppler LE RT Routine Hospital Course (1) Hiatal hernia: patient has a large hiatal hernia on imaging. she has frequent GERD symptoms at home along with use of TUMS and H2 blockers. occasional regurgitation at home. I believe she had an episode of regurgitation this am. Gave IV pepcid x 1. Then follow such with protonix 40mg daily. More frequent, small meals recommended. (2) SIRS (systemic inflammatory response syndrome): etiology uncertain but SIRS resolved u/a wnl at admission had recent UTI treated with 10+ days of macrobid at [facility] with last dose 01/17/23 BioFire resp panel neg blood cx's neg to date no DVT RLE CT a/p without any source of fever/infection ??minimal amount of RLE cellulitis on the king at time of presentation but this finding was completely gone within 24 hours cellulitis typically would not have resolved in <24 hours making the diagnosis unlikely thus, true etiology uncertain with petechial rash + fever + generalized unwellness - 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 other? 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 has NOT been outside in over a month due to prior hospital stay and rehab stay thus tick-borne infection highly unlikely platelets wnl leukocytoclastic vasculitis rxn to prior abx ?? other? appearance of shins improved today there is no cellulitis of either king (10) Iron deficiency anemia: ferritin was 36 early December 2022 had blood loss during #7 requiring PRBCs s/p venofer yesterday give another dose today H/H stable today (11) Cough: several weeks in duration per her recollection cxr - 2 view - wnl o2 sats high 90s lung exam wnl no dyspnea or MYERS URI? post-nasal drip? due to chronic GERD? treat for GERD Plan DVT proph - eliquis 2.5mg BID updated pt's daughter extensively by phone yesterday pm back to [facility] tomorrow on 01/22 Discharge Plan Discharge Items Patient Disposition: Transfer [facility] Reason For Visit: FEVER Discharge Diagnosis: 1. fever / SIRS - resolved; etiology uncertain - 2nd to drug reaction? nonspecific viral process? 2. large hiatal hernia with regurgitation; GI follow-up needed 3. constipation 4. recent right hip fracture s/p ORIF 5. edema of right leg - doppler negative for DVT 6. iron deficiency anemia s/p 3 infusions of IV iron; discharge hemoglobin 9.8 7. hyponatremia - chronic; discharge Na level 135 8. hypertension Activity: Resume your previous activity Non-emergency contact: Primary Care Provider, Specialist and Pilot Call non-emergency contact if: you have any medication questions, your symptoms worsen, your pain is not controlled, your pain is worsening, your pain is unusual for you and you have a fever Follow-up/Referrals: Anoop Buckley DO [Physician] - (first available -- dx: large hiatal hernia ) Dav Perez MD [Primary Care Provider] - (see Dr Perez OR the medical billing manager of the [facility] THIS WEEK) Kurt Alarcon DO [Physician] - (follow-up as scheduled with Dr Alarcon for right hip fracture and s/p repair ) Diet: Heart Healthy Diet Comment: Consume 4-[address] of 3 large meals. Addtl Attending Provider Instructions: Ms Peterson was hospitalized due to concern for an infectious process. She had presented with fever and vomiting and simply feeling unwell. Extensive work-up including CT abd/pelvis, multiple chest x-rays, blood cultures, urinalysis, full respiratory viral panel, doppler of right leg, etc were all normal or negative. She improved within 24 hours of presentation with supportive care only. The cause of the transient fever was uncertain. She had a petechial like rash on both shins at presentation (now fading) and perhaps she had had an unual drug reaction to recent macrobid usage. During her stay she had 3 infusions of IV iron for iron deficiency. She received salt tablets for low sodium levels. Sodium level is now improved at 135. She had 2 episodes of sudden regurgitation of clear stomach contents. No nausea. No abdominal pain. She is tolerating her meals. She has a very LARGE hiatal hernia. I am suspicious that multiple gastric irritating medications (aspirin, meloxicam, etc) in the setting of her hiatal hernia is the culprit in the regurgitation. Recently instituted sodium chloride tablets may have contributed as well. She also has severe constipation on abdominal x-rays. Recommendations - 1. referral to [facility] for the large hiatal hernia and regurgitation episodes. 2. UPRIGHT at 90 degrees for ALL meals. During sleep please elevate the head of the bed to AT LEAST 30 degrees. 3. she should consume small, more frequent meals rather than 3 traditional large meals. Advise 4-5 small meals each day. This may minimize symptoms from her hiatal hernia. 4. do not lay down until at least 1 hour following meals. 5. senokot + miralax for bowel maintenance. 6. NaCL tablet 1gm should NOT be given on empty stomach. Please administer in the middle of a meal. 7. repeat CBC + BMP in 3 days for stability. Results to medical billing manager. 8. may use compression stockings of both legs to help with lower extremity edema. 9. HOLD aspirin at this time. STOP meloxicam. Aspirin can be resumed once the Eliquis 2.5mg BID course has completed (in about 16 days). 10. see medical billing manager of SNF -OR- her [facility] PCP THIS WEEK. 11. pantoprazole 40mg once daily each morning for reflux/regurgitation/hiatal hernia. Pending Studies at Discharge: No Stand-Alone Forms: [facility] Skilled Items Patient informed of condition?: Yes DNR: Yes Discharge Level of Care: Skilled Communicable Disease: No Discharge Prognosis: Stable Lines: None Urinary Catheter: No Medications and DC Order Prescriptions: New pantoprazole 40 mg Tablet,Delayed Release (Dr/Ec) 40 mg PO QAM Qty: 30 5RF Rx Instructions: for reflux and large hiatal hernia sodium chloride 1,000 mg Tablet,Soluble 1,000 mg PO DAILY Qty: 7 0RF Rx Instructions: take with food - NOT on empty stomach. diclofenac sodium [Voltaren Arthritis Pain] 1 % Gel 4 g EXT QID PRN (Reason: RIGHT shoulder pain) Qty: 1 0RF sennosides [Senokot] 8.6 mg tablet 17.2 mg PO DAILY Qty: 30 0RF polyethylene glycol 3350 [Miralax] 17 gram/dose powder 17 g PO DAILY Qty: 510 0RF ondansetron 4 mg tablet,disintegrating 4 mg PO Q6H PRN (Reason: nausea, regurgitation or emesis) Qty: 10 0RF Continued valsartan [Diovan] 160 mg tablet 160 mg PO DAILY Qty: 90 3RF Patient Comments: DAILY AT 1200 levothyroxine [Synthroid] 25 mcg tablet 25 mcg PO DAILY Qty: 90 3RF Patient Comments: QAM multivitamin [Daily Multi-Vitamin] Tablet 1 tab PO DAILY timolol maleate [Timoptic] 0.5 % drops 1 drp OPB QAM amlodipine 2.5 mg tablet 2.5 mg PO DAILY pravastatin 80 mg tablet 80 mg PO QPM Patient Comments: QPM acetaminophen [Tylenol Extra Strength] 500 mg Tablet 500 mg PO QID calcium carbonate 500 mg calcium (1,250 mg) Tablet,Chewable 500 mg PO DAILY zolpidem [Ambien] 5 mg tablet 2.5 mg PO HS Qty: 10 0RF Eliquis 2.5 mg Tablet 2.5 mg PO BID 16 Days Qty: 84 0RF Held aspirin 81 mg Tablet,Delayed Release (Dr/Ec) 81 mg PO QAM Hold Instructions: may resume when Eliquis DVT prophylaxis course has comple tammi. Discontinued meloxicam 7.5 mg tablet 7.5 mg PO QPM Patient Comments: PT STATES "TAKES ALMOST EVERYDAY" ferrous sulfate 325 mg (65 mg iron) Tablet,Delayed Release (Dr/Ec) 325 mg PO QAM Qty: 30 0RF Metamucil Packet 1 packet PO QAM Rx Instructions: mix into at least 8 oz of water or juice before administering Discharge Orders: Discharge Order (Routine); Ordered 01/22/23 Ordered By: Elijah Stephenson/Other Patient Handouts: What Is a Hiatal Hernia? Admission Data Admit Date/Time: 01/18/23 10:53 Attending Provider: Elijah Mckinnon Admit Provider: Elijah Mckinnon Primary Care Provider: Dav Perez Other Providers: Elijah Mckinnon ; [facility] Other Interventions: Discharge Summary Assessment (RN) Last Done: 01/22/23 11:54 Coding Diagnoses Hiatal hernia K44.9 SIRS (systemic inflammatory response syndrome) R65.10 UTI (urinary tract infection) N39.0 Hypertension I10 Hyperlipidemia E78.5 Hypothyroidism E03.9 Hyponatremia E87.1 Status post-operative repair of closed fracture of right hip Z98.890; Z87.81 Rash R21 Iron deficiency anemia D50.9 Cough R05.9
== END 2023-01-22 12:49 | DRG 392 ==
LOC: ED 05:27 → 3N 10:53

== ENCOUNTER 2023-03-28 19:14 | Inpatient (IN) ==
--- NOTE | 2023-03-28 20:38 | Emergency Department Note ---
Impression & Plan Femur fracture, right, Pain in right shoulder ED Provider Note HISTORY OF PRESENT ILLNESS: Patient is an 88-year-old female presenting with right shoulder pain and right hip pain. Patient had a right hip fracture 8 weeks ago and had surgery at that time. She states that she was walking today when she felt a snap in her right hip and had to lower herself to the ground. She states she is been unable to get up and bear weight on the right hip ever since. Denies hitting her head or loss of consciousness. She reports she fell 2 weeks ago onto her buttocks. She has been having chronic right shoulder pain for the last few weeks. Denies any numbness or tingling down her arm or down her leg ROS: as above PHYSICAL EXAM: Constitutional: Patient appears in no acute distress. HENT: Head: Normocephalic and atraumatic. Eyes: EOMI, PERRL Mouth/Throat: Mucous membranes moist. Neck: Trachea midline. Neck supple. Cardiovascular: RRR, No murmurs, rubs or gallops. Intact distal pulses. Pulmonary/Chest: No respiratory distress. Breath sounds clear and equal bilaterally. No wheezes or rales. No chest wall tenderness to palpation. Abdominal: Abdomen soft, no tenderness, rebound or guarding. Musculoskeletal: No edema, tenderness or deformity noted. Skin: Warm and dry. No rash, erythema, pallor or cyanosis Neurological: Alert and keenly responsive. CN II-XII grossly intact MDM: - Vitals signs showed hypertension. - History obtained via patient. Patient presents with right shoulder pain and right hip pain. Patient reports that she was walking into her kitchen when she felt a sudden snap in her right leg and had to lower herself to the ground. She was unable to get up and bear weight on the hip ever since. Denies striking her head or loss of consciousness. She reports she fell 2 weeks ago onto her buttocks. She has been having chronic right shoulder pain for the last few weeks. Denies any numbness or tingling down her arm or down her leg - Chronic conditions affecting care: SIRS; hyponatremia; HTN; HLD; hypothyroidism - Differential diagnoses include, but are not limited to: hip dislocation; periprosthetic femur fracture; mid-shaft femur fracture; shoulder fracture; shoulder dislocation - Order placed for continuous cardiac monitoring. At this time, monitor showed rate of 93 bpm with normal sinus rhythm, per my interpretation. - External medical records reviewed. Operative report from 12/26/2022 reviewed. Patient had intramedullary nail fixation of the right hip performed on 12/26/2022. EMS run sheet reviewed from today. Given 30 mcg IV fentanyl in route to ER. - Xray of right hip and right femur showed mid-shaft femur fracture distal to hardware, per my interpretation. - EKG reviewed by myself showed normal sinus rhythm. Rate 96 bpm. QTc 414. No acute ischemic changes. - Laboratory workup interpreted by myself showed leukocytosis (WBC 11.55); hyponatremia (Na 126); normal troponin - UA negative for infection, but noted to have ketonuria. - Discussed results with orthopedist conche loader and unloader, Dr. Thomason. Recommended admission to hospitalist service with plan for OR tomorrow. - Discussed case with renal social worker and need for admission. - Patient given 1L NS and 4 mg IV morphine in ER. - Hospitalist, Dr. Turpin, consulted for admission - Patient admitted to [facility] Hospitalist service for further evaluation and management. ASSESSMENT AND PLAN: Diagnosis: hyponatremia; mid-shaft femur fracture; right shoulder pain Plan: admit Past Med/Surg History Medical History Anemia Arthritis Cough Glaucoma Hiatal hernia History of diverticulosis Hyperlipidemia Hypertension Hyponatremia Hypothyroidism Hypothyroidism Insomnia Iron deficiency anemia Osteoporosis Pre-diabetes Rash SIRS (systemic inflammatory response syndrome) Surgical History History of appendectomy History of cataract surgery History of colonoscopy History of tonsillectomy Status post-operative repair of closed fracture of right hip [place] teeth removed Family History Father Coronary heart disease Myocardial infarction Family history of diabetes mellitus Sister Breast cancer Other Family history non-contributory No family history of adverse response to anesthesia Denies family history of Ovarian cancer Prostate cancer Colorectal cancer Social History Smoking Status: Never smoker Second Hand Exposure: No; Do You Dip or Chew Tobacco: No; Hx Alcohol Use: No Hx Substance Use: No Preferred Language: Khmer Communication Ability: Effective Communication Ability Comment: ALSO SPEAKS [place] Visual Impairment: No Limitations Hearing Ability: Normal Garment Finisher Required: No Beliefs That Will Affect Care: None marital status: / Current Living Situation: Personal Care Facility current occupational status: retired Feels Safe at Home: Yes Childhood Exposure to Second-Hand Smoke: Yes Dental Care, Regularly: Yes Physical Activity Frequency: 1-2 Times per Week Seatbelt Use: always Sunscreen Use: Yes Assistive Devices: Walker Allergies Allergies Allergy/AdvReac Type Severity Reaction Status Date / Time atorvastatin [From Lipitor] Allergy Mild Rash Verified 03/22/23 14:31 Home Meds Home Medications Medication Instructions Recorded Confirmed timolol maleate 0.5 % eye drops 1 drp OPB QAM 03/29/19 03/28/23 (Timoptic) multivitamin (Daily Multi-Vitamin 1 tab PO DAILY 07/08/22 03/28/23 tablet) amlodipine 2.5 mg tablet 2.5 mg PO DAILY 12/25/22 03/28/23 aspirin 81 mg tablet,delayed 81 mg PO QAM 12/25/22 03/28/23 release pravastatin 80 mg tablet 80 mg PO QPM 12/25/22 03/28/23 acetaminophen 500 mg tablet 500 mg PO QID PRN Pain 01/18/23 03/22/23 (Tylenol Extra Strength) calcium carbonate 500 mg calcium 500 mg PO DAILY 01/18/23 03/28/23 (1,250 mg) chewable tablet Previous Rx's Medication Instructions Recorded levothyroxine 25 mcg tablet 25 mcg PO DAILY #90 tabs 03/23/22 (Synthroid) valsartan 160 mg tablet (Diovan) 160 mg PO DAILY #90 tabs 03/23/22 diclofenac sodium 1 % topical gel 4 g EXT QID PRN RIGHT shoulder 01/22/23 (Voltaren Arthritis Pain) pain #1 tube ondansetron 4 mg disintegrating 4 mg PO Q6H PRN nausea, 01/22/23 tablet regurgitation or emesis #10 tabs pantoprazole 40 mg tablet,delayed 40 mg PO QAM #30 tabs 01/22/23 release zolpidem 5 mg tablet (Ambien) 2.5 mg PO HS #10 tabs 01/22/23 duloxetine 30 mg capsule,delayed 30 mg PO DAILY #30 caps 03/28/23 release Results & Data (ED) Vital Signs Vital Signs - 24 hr 08/01/23 19:33 03/28/23 21:28 Temperature 36.6 C Temperature Source Oral Pulse Rate 99 H Pulse Rate [Apical] 90 Respiratory Rate 21 20 Respiratory Depth Normal Blood Pressure 169/115 H Blood Pressure [Right Arm] 188/83 H Blood Pressure Mean 133 Blood Pressure Mean [Right Arm] 118 Pulse Oximetry 95 95 Oxygen Delivery Method Room Air Sepsis Recent Fever Within 48 Hours No Sepsis New/Unexplained Change in Mental Status No Sepsis Action Taken by Nursing No Action Required Laboratory Data 03/28/23 19:25 03/28/23 19:25 Lab Results 03/28/23 03/28/23 03/28/23 Range/Units 19:25 19:25 21:00 WBC 11.55 H (4.8-10.8) K/ul RBC 3.85 L (4.20-5.40) M/uL Hgb 11.3 L (12.0-16.0) g/dl Hct 34.1 L (37.0-47.0) % MCV 88.6 (80.0-100.0) fL MCH 29.4 (25.0-34.0) pg MCHC 33.1 (32.0-36.0) g/dL RDW Std Deviation 42.6 (36.4-46.3) fL RDW Coeff of Felicity 13.2 (11.5-14.5) % Plt Count 350 (130-400) K/uL MPV 10.8 (9.4-12.4) fL Immature Gran % (Auto) 0.3 % Neut % (Auto) 59.6 % Lymph % (Auto) 27.3 % [place] % (Auto) 11.5 % Eos % (Auto) 1.2 % Baso % (Auto) 0.1 % Neut # (Auto) 6.88 H (1.40-6.50) K/uL Lymph # (Auto) 3.15 (1.2-3.4) K/uL [place] # (Auto) 1.33 H (0.11-0.59) K/uL Eos # (Auto) 0.14 (0-0.50) K/uL Baso # (Auto) 0.01 (0-0.2) K/uL Immature Gran # (Auto) 0.04 (0.01-0.20) K/uL Sodium 126 L (136-145) mmol/L Potassium 4.6 (3.5-5.1) mmol/L Chloride 92 L (98-107) mmol/L Carbon Dioxide 27 (21-32) mmol/L Anion Gap 7 (3-11) BUN 20 (6-23) mg/dl Creatinine 0.61 (0.6-1.2) mg/dl Est Cr Clr Drug Dosing 52.0 ml/min Est GFR ( Amer) 93.8 ml/min Est GFR (Non-Af Amer) 80.9 ml/min BUN/Creatinine Ratio 32.8 H (10-20) Glucose 107 H (70-99(Fasting)) mg/dl Calcium 9.4 (8.6-10.3) mg/dl Total Bilirubin 0.3 (0.2-1.0) mg/dl AST 23 (13-39) U/L ALT 13 (7-52) U/L Alkaline Phosphatase 98 (34-104) U/L Troponin I High Sens 7.5 (0-14) pg/ml Total Protein 7.3 (6.0-8.3) gm/dl Albumin 4.2 (3.4-5.0) gm/dl Globulin 3.1 (2.5-4.0) gm/dl Albumin/Globulin Ratio 1.4 (0.9-2) Urine Color Yellow Urine Appearance Clear (Clear) Urine pH 7.5 (4.5-7.5) Ur Specific [place] 1.012 (1.000-1.030) Urine Protein Negative (Negative) Urine Glucose (UA) Negative (Negative) Urine Ketones Trace H (Negative) Urine Blood Negative (Negative) Urine Nitrite Negative (Negative) Urine Bilirubin Negative (Negative) Urine Urobilinogen Negative (Negative) Ur Leukocyte Esterase Negative (Negative) Administered Medications Sodium Chloride (Nss 1000ml) 1,000 mls @ 999 mls/hr IV .Q1H1M ONE Stop: 03/28/23 23:16 Last Admin: 03/28/23 22:38 Dose: 999 mls/hr Documented By: NRB Discontinued Medications Morphine Sulfate (Morphine Sulfate 4 Mg/Ml 1 Ml Carp\Vial) 4 mg IV NOW STA Stop: 03/28/23 20:41 Last Admin: 03/28/23 20:43 Dose: 4 mg Documented By: NRB Discharge Plan Visit Data Chief Complaint: Fall Stated Complaint: FALL ED Provider: Mimi Garcia Discharge Problem: Femur fracture, right, Pain in right shoulder Forms Stand Alone Forms: [facility] [employer] Prescriptions Prescriptions: No Action valsartan [Diovan] 160 mg tablet 160 mg PO DAILY Qty: 90 3RF Patient Comments: DAILY AT 1200 levothyroxine [Synthroid] 25 mcg tablet 25 mcg PO DAILY Qty: 90 3RF Patient Comments: QAM duloxetine 30 mg capsule,delayed release(DR/EC) 30 mg PO DAILY Qty: 30 3RF multivitamin [Daily Multi-Vitamin] Tablet 1 tab PO DAILY timolol maleate [Timoptic] 0.5 % drops 1 drp OPB QAM amlodipine 2.5 mg tablet 2.5 mg PO DAILY aspirin 81 mg Tablet,Delayed Release (Dr/Ec) 81 mg PO QAM Hold Instructions: may resume when Eliquis DVT prophylaxis course has completed. pravastatin 80 mg tablet 80 mg PO QPM Patient Comments: QPM acetaminophen [Tylenol Extra Strength] 500 mg Tablet 500 mg PO QID PRN (Reason: Pain) calcium carbonate 500 mg calcium (1,250 mg) Tablet,Chewable 500 mg PO DAILY pantoprazole 40 mg Tablet,Delayed Release (Dr/Ec) 40 mg PO QAM Qty: 30 5RF Rx Instructions: for reflux and large hiatal hernia diclofenac sodium [Voltaren Arthritis Pain] 1 % Gel 4 g EXT QID PRN (Reason: RIGHT shoulder pain) Qty: 1 0RF zolpidem [Ambien] 5 mg tablet 2.5 mg PO HS Qty: 10 0RF ondansetron 4 mg tablet,disintegrating 4 mg PO Q6H PRN (Reason: nausea, regurgitation or emesis) Qty: 10 0RF Referrals Referrals: Pro,Dav Chavira MD [Primary Care Provider] -
[2023-03-28] MEDS ORDERED: MoRPHine SULFATE 4 MG/ML 1 ML CARP\\VIAL IV STA (20:40)
[2023-03-28 21:03] LABS: Basophils # (auto) 0.01 K/uL (0-0.2); Basophils % (auto) 0.1 %; Eosinophils # (auto) 0.14 K/uL (0-0.50); Eosinophils % (auto) 1.2 %; Hematocrit (blood only) 34.1 % (37.0-47.0); Hemoglobin 11.3 g/dl (12.0-16.0); Immature Granulocytes # (auto) 0.04 K/uL (0.01-0.20); Immature Granulocytes % (auto) 0.3 %; Lymphocytes # (auto) 3.15 K/uL (1.2-3.4); Lymphocytes % (auto) 27.3 %; Mean Corpuscular Hemoglobin 29.4 pg (25.0-34.0); Mean Corpuscular Hgb Conc 33.1 g/dL (32.0-36.0); Mean Corpuscular Volume 88.6 fL (80.0-100.0); Mean Platelet Volume 10.8 fL (9.4-12.4); Monocytes # (auto) 1.33 K/uL (0.11-0.59); Monocytes % (auto) 11.5 %; Neutrophils # (auto) 6.88 K/uL (1.40-6.50); Neutrophils % (auto) 59.6 %; Platelet Count 350 K/uL (130-400); RDW Coefficient of Variation 13.2 % (11.5-14.5); RDW Standard Deviation 42.6 fL (36.4-46.3); Red Blood Count 3.85 M/uL (4.20-5.40); White Blood Count 11.55 K/ul (4.8-10.8)
[2023-03-28 21:15] LABS: Albumin Globulin Ratio 1.4 (0.9-2); Albumin Level 4.2 gm/dl (3.4-5.0); BUN Creatinine Ratio 32.8 (10-20); Bilirubin,Total 0.3 mg/dl (0.2-1.0); Calcium 9.4 mg/dl (8.6-10.3); Est GFR (African American) 93.8 ml/min; Est GFR (Non-African American) 80.9 ml/min; Globulin 3.1 gm/dl (2.5-4.0); Potassium 4.6 mmol/L (3.5-5.1); Total Protein 7.3 gm/dl (6.0-8.3)
[2023-03-28 21:21] LABS: Troponin I High Sensitivity 7.5 pg/ml (0-14)
[2023-03-28 21:23] LABS: Appearance Urine Clear (Clear); Bilirubin Urine Negative (Negative); Blood Urine Negative (Negative); Color Urine Yellow; Glucose Urine UA Negative (Negative); Ketones Urine Trace (Negative); Leukocyte Esterase Urine Negative (Negative); Nitrite Urine Negative (Negative); Protein Urine Negative (Negative); Specific Gravity Urine 1.012 (1.000-1.030); Urobilinogen Urine Negative (Negative); pH Urine 7.5 (4.5-7.5)
[2023-03-28] MEDS ORDERED: SODIUM CHLORIDE 0.9% 1000ML 1,000 ML IV ONE (22:16)
--- NOTE | 2023-03-28 23:16 | History & Physical Report ---
Date of Service March 28, 2023 Assessment & Plan (1) Femur fracture, right: (2) Fracture, intertrochanteric, right femur: (3) Anxiety: (4) Hyponatremia: (5) Hyperlipidemia: (6) Hypertension: (7) Hypothyroidism: Plan Status post intramedullary nail fixation of right hip on 12/26/2022/new right femoral shaft fracture at the edge of nail- NPO Acetaminophen 1000 mg IV every 6 hours as needed for mild pain or fever Morphine sulfate 4 mg IV every 3 hours as needed for moderate pain Dilaudid 0.5 mg IV every 3 hours as needed for severe pain Hypertension- Hold amlodipine, aspirin and valsartan Hydralazine 10 mg IV every 4 hours as needed for systolic blood pressure greater than 160 GERD- Change pantoprazole from 40 mg daily p.o. to IV Glaucoma- Continue timolol maleate History of Present Illness Chief Complaint: The patient reports that she was walking today her reaching into a cabinet, and heard a snap from her right leg, felt severe pain, and then was able to lower herself to the ground. Primary Care Provider: Dav Perez MD The patient is an 88-year-old female with a past medical history including osteoporosis, prediabetes, lumbar degenerative disc disease, status post right TSA, left rotator cuff tear arthropathy, anxiety, GERD, insomnia and hypothyroidism. The patient had a right intertrochanteric femur fracture on 12/25/2022, and underwent an intramedullary nail fixation of right hip on 12/26/[address] Alarcon. Patient reports that she had been doing well at physical therapy, but has little discomfort after therapy yesterday. She woke up today, was walking, and felt and heard a snap in her right leg, developed severe pain instantaneously, and then lowered herself to the ground. Since that incident, she has not been able to bear weight on her right hip, and is brought to the ED for further assessment. She has also been reporting some chronic pain in her right shoulder for the last few weeks, but did not have injury that she is aware of today. Allergies Allergy/AdvReac Type Severity Reaction Status Date / Time atorvastatin [From Lipitor] Allergy Mild Rash Verified 03/22/23 14:31 Home Medications Medication Instructions Recorded Confirmed Type timolol maleate 0.5 % eye drops 1 drp OPB QAM 03/29/19 03/28/23 History (Timoptic) levothyroxine 25 mcg tablet 25 mcg PO DAILY #90 tabs 03/23/22 03/28/23 Rx (Synthroid) valsartan 160 mg tablet (Diovan) 160 mg PO DAILY #90 tabs 03/23/22 03/28/23 Rx multivitamin (Daily Multi-Vitamin 1 tab PO DAILY 07/08/22 03/28/23 History tablet) amlodipine 2.5 mg tablet 2.5 mg PO DAILY 12/25/22 03/28/23 History aspirin 81 mg tablet,delayed 81 mg PO QAM 12/25/22 03/28/23 History release pravastatin 80 mg tablet 80 mg PO QPM 12/25/22 03/28/23 History acetaminophen 500 mg tablet 500 mg PO QID PRN Pain 01/18/23 03/22/23 History (Tylenol Extra Strength) calcium carbonate 500 mg calcium 500 mg PO DAILY 01/18/23 03/28/23 History (1,250 mg) chewable tablet diclofenac sodium 1 % topical gel 4 g EXT QID PRN RIGHT shoulder 01/22/23 03/28/23 Rx (Voltaren Arthritis Pain) pain #1 tube ondansetron 4 mg disintegrating 4 mg PO Q6H PRN nausea, 01/22/23 03/28/23 Rx tablet regurgitation or emesis #10 tabs pantoprazole 40 mg tablet,delayed 40 mg PO QAM #30 tabs 01/22/23 03/28/23 Rx release zolpidem 5 mg tablet (Ambien) 2.5 mg PO HS #10 tabs 01/22/23 03/28/23 Rx duloxetine 30 mg capsule,delayed 30 mg PO DAILY #30 caps 03/28/23 03/28/23 Rx release Past Med/Surg History Medical History (Updated 03/29/23 @ 03:38 by Cornelius Turpin MD) Anemia Arthritis Cough Glaucoma Borderline Hiatal hernia History of diverticulosis Hyperlipidemia Hypertension Hyponatremia Hypothyroidism Hypothyroidism Insomnia Iron deficiency anemia Osteoporosis Pre-diabetes Rash SIRS (systemic inflammatory response syndrome) Surgical History History of appendectomy History of cataract surgery R/L History of colonoscopy History of tonsillectomy Status post-operative repair of closed fracture of right hip [place] teeth removed Family History Father Coronary heart disease Myocardial infarction Family history of diabetes mellitus Sister Breast cancer Other Family history non-contributory No family history of adverse response to anesthesia Denies family history of Ovarian cancer Prostate cancer Colorectal cancer Social History Smoking Status: Never smoker Second Hand Exposure: No; Do You Dip or Chew Tobacco: No; Tobacco Cessation Education Requested by Patient: No Hx Alcohol Use: No Hx Substance Use: No Preferred Language: Slovenian Communication Ability: Effective Communication Ability Comment: ALSO SPEAKS [place] Visual Impairment: No Limitations Hearing Ability: Normal Accounts Payable Technician Required: No Beliefs That Will Affect Care: None marital status: / Current Living Situation: Alone current occupational status: retired Other Information That Helps Us Care for You: No Feels Safe at Home: Yes Safety Concerns: Feels Safe At This Time Childhood Exposure to Second-Hand Smoke: Yes Dental Care, Regularly: Yes Physical Activity Frequency: 1-2 Times per Week Seatbelt Use: always Sunscreen Use: Yes Assistive Devices: Walker Review of Systems Review of Systems: The patient denies chest pain, palpitations, shortness of breath, dyspnea on exertion, cough, lower extremity swelling, sore throat, fevers, chills, sweats, weight change, fatigue, nausea, vomiting, diarrhea , constipation, abdominal pain, pelvic pain, blood in urine or stool, dysuria, urinary frequency or urgency, lightheadedness, dizziness, headache, memory loss, loss of consciousness, rash, abnormal bruising or bleeding, focal or generalized weakness, numbness or tingling in left arm or leg, generalized arthralgias or myalgias, back or neck pain, or night sweats. The review of systems is otherwise negative other than for that already noted above, and at least 10 systems have been reviewed. Results & Data Results & Data Vital Signs (Past 12 Hours) Vital Signs Temp Pulse Pulse Resp BP BP Pulse Ox 03/28/23 20:57 96 H 03/28/23 21:28 90 20 188/83 H 95 03/28/23 19:33 36.6 C 99 H 21 169/115 H 95 O2 Del Method 03/28/23 20:57 03/28/23 21:28 03/28/23 19:33 Room Air Laboratory Results Home Medications Medication Instructions Recorded Confirmed timolol maleate 0.5 % eye drops 1 drp OPB QAM 03/29/19 03/28/23 (Timoptic) multivitamin (Daily Multi-Vitamin 1 tab PO DAILY 07/08/22 03/28/23 tablet) amlodipine 2.5 mg tablet 2.5 mg PO DAILY 12/25/22 03/28/23 aspirin 81 mg tablet,delayed 81 mg PO QAM 12/25/22 03/28/23 release pravastatin 80 mg tablet 80 mg PO QPM 12/25/22 03/28/23 acetaminophen 500 mg tablet 500 mg PO QID PRN Pain 01/18/23 03/22/23 (Tylenol Extra Strength) calcium carbonate 500 mg calcium 500 mg PO DAILY 01/18/23 03/28/23 (1,250 mg) chewable tablet Previous Rx's Medication Instructions Recorded levothyroxine 25 mcg tablet 25 mcg PO DAILY #90 tabs 03/23/22 (Synthroid) valsartan 160 mg tablet (Diovan) 160 mg PO DAILY #90 tabs 03/23/22 diclofenac sodium 1 % topical gel 4 g EXT QID PRN RIGHT shoulder 01/22/23 (Voltaren Arthritis Pain) pain #1 tube ondansetron 4 mg disintegrating 4 mg PO Q6H PRN nausea, 01/22/23 tablet regurgitation or emesis #10 tabs pantoprazole 40 mg tablet,delayed 40 mg PO QAM #30 tabs 01/22/23 release zolpidem 5 mg tablet (Ambien) 2.5 mg PO HS #10 tabs 01/22/23 duloxetine 30 mg capsule,delayed 30 mg PO DAILY #30 caps 03/28/23 release Laboratory Results WBC 11.55 K/ul (4.8-10.8) H 03/28/23 19:25 RBC 3.85 M/uL (4.20-5.40) L 03/28/23 19:25 Hgb 11.3 g/dl (12.0-16.0) L 03/28/23 19:25 Hct 34.1 % (37.0-47.0) L 03/28/23 19:25 MCV 88.6 fL (80.0-100.0) 03/28/23 19: MCH 29.4 pg (25.0-34.0) 03/28/23 19: MCHC 33.1 g/dL (32.0-36.0) 03/28/23: RDW Std Deviation 42.6 fL (36.4-46.3) 03/28/23: RDW Coeff of Felicity 13.2 % (11.5-14.5) 03/28/23: Plt Count 350 K/uL (130-400) 03/28/23 19: MPV 10.8 fL (9.4-12.4) 03/28/23: Immature Gran % (Auto) 0.3 % 03/28/23: Neut % (Auto) 59.6 % 03/28/23 19: Lymph % (Auto) 27.3 % 03/28/23:25 [place] % (Auto) 11.5 % 03/28/23:25 Eos % (Auto) 1.2 % 03/28/23 19:25 Baso % (Auto) 0.1 % 03/28/23:25 Neut # (Auto) 6.88 K/uL (1.40-6.50) H 03/28/23 19:25 Lymph # (Auto) 3.15 K/uL (1.2-3.4) 03/28/23 19:25 [place] # (Auto) 1.33 K/uL (0.11-0.59) H 03/28/23 19:25 Eos # (Auto) 0.14 K/uL (0-0.50) 03/28/23 19:25 Baso # (Auto) 0.01 K/uL (0-0.2) 03/28/23 19: Immature Gran # (Auto) 0.04 K/uL (0.01-0.20) 03/28/23 19:25 Sodium 126 mmol/L (136-145) L 03/28/23 19:25 Potassium 4.6 mmol/L (3.5-5.1) 03/28/23 19:25 Chloride 92 mmol/L (98-107) L 03/28/23 19:25 Carbon Dioxide 27 mmol/L (21-32) 03/28/23 19:25 Anion Gap 7 (3-11) 03/28/23 19:25 BUN 20 mg/dl (6-23) 03/28/23 19:25 Creatinine 0.61 mg/dl (0.6-1.2) 03/28/23 19:25 Est Cr Clr Drug Dosing 52.0 ml/min 03/28/23 19:25 Est GFR ( Amer) 93.8 ml/min 03/28/23 19:25 Est GFR (Non-Af Amer) 80.9 ml/min 03/28/23 19:25 BUN/Creatinine Ratio 32.8 (10-20) H 03/28/23 19:25 Glucose 107 mg/dl (70-99(Fasting)) H 03/28/23 19:25 Osmolality 274 mOsm/kg (280-300) L 03/28/23 19:25 Calcium 9.4 mg/dl (8.6-10.3) 03/28/23 19:25 Total Bilirubin 0.3 mg/dl (0.2-1.0) 03/28/23 19:25 AST 23 U/L (13-39) 03/28/23 19:25 ALT 13 U/L (7-52) 03/28/23 19:25 Alkaline Phosphatase 98 U/L (34-104) 03/28/23 19:25 Troponin I High Sens 7.5 pg/ml (0-14) 03/28/23 19:25 Total Protein 7.3 gm/dl (6.0-8.3) 03/28/23 19:25 Albumin 4.2 gm/dl (3.4-5.0) 03/28/23 19:25 Globulin 3.1 gm/dl (2.5-4.0) 03/28/23 19:25 Albumin/Globulin Ratio 1.4 (0.9-2) 03/28/23 19:25 Urine Color Yellow 03/28/23 21:00 Urine Appearance Clear (Clear) 03/28/23 21:00 Urine pH 7.5 (4.5-7.5) 03/28/23 21:00 Ur Specific [place] 1.012 (1.000-1.030) 03/28/23 21:00 Urine Protein Negative (Negative) 03/28/23 21:00 Urine Glucose (UA) Negative (Negative) 03/28/23 21:00 Urine Ketones Trace (Negative) H 03/28/23 21:00 Urine Blood Negative (Negative) 03/28/23 21:00 Urine Nitrite Negative (Negative) 03/28/23 21:00 Urine Bilirubin Negative (Negative) 03/28/23 21:00 Urine Urobilinogen Negative (Negative) 03/28/23 21:00 Ur Leukocyte Esterase Negative (Negative) 03/28/23 21:00 Urine Osmolality 400 mOsm/kg (500-800) L 03/28/23 21:00 Code Status & VTE Plan Code Status Full code VTE Prophylaxis Plan VTE Prophylaxis will be ordered: Yes PG Care Time/CCT Total # of Minutes Spent Total Time Spent with Patient: Total time spent is greater than 50% in coordination of care (as documented) at patient's floor/unit and/or counseling patient: Coding Level of Care Code 21477 INT INP/OBS CARE 3/75MIN Diagnoses Femur fracture, right S72.91XA Fracture, intertrochanteric, right femur S72.141A Anxiety F41.9 Hyponatremia E87.1 Hyperlipidemia E78.5 Hypertension I10 Hypothyroidism E03.9
[2023-03-29] MEDS ORDERED: hydrALAZINE HCL 20 MG/ML VIAL IV PRN (00:54)
[2023-03-29] MEDS ORDERED: HYDROmorphone INJ 0.5 MG/0.5 ML SYR IV PRN (00:54)
[2023-03-29] MEDS ORDERED: MoRPHine SULFATE 4 MG/ML 1 ML CARP\\VIAL IV PRN (00:54)
[2023-03-29] MEDS: NSS + 20MEQ KCL 20 MEQ/1,000 ML BAG IV SCH ×2 (01:41→17:38)
[2023-03-29] MEDS: ACETAMINOPHEN 1,000 MG/100 ML VIAL IV PRN ×2 (06:20→23:21)
--- NOTE | 2023-03-29 06:51 | XRay Report ---
XR femur RT 2V routine, XR pelvis 1-2V routine HISTORY: 88 years-old Female right leg pain acute pain of the right thigh COMPARISON: 02/14/2023 TECHNIQUE: AP view of the pelvis with 2 views of the right femur FINDINGS: PELVIS: Unchanged corticated ossification superior to the left femoral neck. Moderate osteoarthritis of the b ilateral hips. RIGHT FEMUR: Intertrochanteric nail with medullary mile of the right femur. Subacute greater and lesser trochanteri c fracture fragments demonstrate unchanged alignment. There is an acute comminuted periprosthetic fra cture involving the proximal femoral diaphysis adjacent to the distal portion of the hardware. There is mild apex lateral angulation with lateral displacement of 8 mm. Moderate soft tissue swelling. Demineralized appearance of the bones with chondrocalcinosis of the knee. Osteoarthritis of the knee also noted. IMPRESSION: 1. Acute comminuted, angulated and displaced periprosthetic fracture of the proximal right femoral di aphysis. 2. Unchanged alignment of the subacute right proximal femoral fracture with ORIF hardware. ACT 112: Negative or not required by law. The above report was generated using voice recognition software. It may contain grammatical, syntax o r spelling errors. Electronically signed by: Rodolfo Solis M.D. 03/29/2023 6:48 AM
--- NOTE | 2023-03-29 07:01 | XRay Report ---
SINGLE VIEW CHEST CLINICAL HISTORY: Preoperative examination. Right femoral fracture. FINDINGS: An AP, portable, supine chest radiograph is compared to study dated 01/20/2023. The cardiome diastinal silhouette is top normal for projection noting atherosclerotic calcification of the thoraci c aorta. Chronic interstitial thickening is similar to previous. There is bibasilar scarring/atelecta sis. No airspace consolidation or large pleural effusion is identified. No pneumothorax is seen. The bony thorax is grossly intact. A right shoulder arthroplasty is in place. Advanced arthritic change i s seen in the left shoulder. Advanced spondylotic change and scoliosis is noted in the spine. IMPRESSION: No acute cardiopulmonary abnormality. ACT 112: Negative or not required by law. Electronically signed by: Gonzalo Sidhu M.D. 03/29/2023 6:59 AM
--- NOTE | 2023-03-29 07:09 | XRay Report ---
RIGHT SHOULDER 3 VIEWS CLINICAL HISTORY: Fall. Right shoulder pain. FINDINGS: 3 views the right shoulder are compared to study dated 03/12/2021. The skeletal structures a re osteopenic. A right shoulder arthroplasty is in near anatomic alignment. Periprosthetic lucency is suggested in the proximal humerus. There is no radiographic evidence of acute fracture or dislocatio n. Bony overgrowth is seen along the acromion. The overlying soft tissues are normal as imaged. The v isualized right lung parenchyma appears clear. IMPRESSION: 1. No acute fracture is identified. 2. A right shoulder arthroplasty is in near anatomic alignment. Periprosthetic lucency of the proxima l humerus is nonspecific and suggests loosening. Orthopedic follow-up is recommended. Electronically signed by: Gonzalo Sidhu M.D. 03/29/2023 7:07 AM
--- NOTE | 2023-03-29 07:31 | Orthopedic Consultation ---
Date of Service March 29, 2023 Assessment & Plan (1) Femur fracture, right: She has been admitted to the hospitalist service. Her sodium was low yesterday. She is npo for now. We will plan on hardware removal and long IM nailing of the right femur today. Procedure was explained including risks, benefits, and a lternatives to surgery. Consent obtained. She wants to proceed with surgery as planned. This will be with Dr. Thomason. History of Present Illness Reason for Consultation: . Requesting Physician: . Attending Physician: Cornelius Turpin MD .88 year old patient approximately 3 months s/p IM nail for a right hip fracture with Dr. Alarcon. She apparently fell about 2 weeks ago and was concerned she injured this hip. However, she wasn't really having pain until yesterday. She says had some thigh pain, was walking to her table and about to sit down, when she felt a snap and immediate pain in the right thigh. She was brought to [facility] ER where xrays show a displaced midshaft femur fracture. She was admitted to the Hospitalist service. Allergies Allergy/AdvReac Type Severity Reaction Status Date / Time atorvastatin [From Lipitor] Allergy Mild Rash Verified 03/22/23 14:31 Home Medications Medication Instructions Recorded Confirmed Type timolol maleate 0.5 % eye drops 1 drp OPB QAM 03/29/19 03/28/23 History (Timoptic) levothyroxine 25 mcg tablet 25 mcg PO DAILY #90 tabs 03/23/22 03/28/23 Rx (Synthroid) valsartan 160 mg tablet (Diovan) 160 mg PO DAILY #90 tabs 03/23/22 03/28/23 Rx multivitamin (Daily Multi-Vitamin 1 tab PO DAILY 07/08/22 03/28/23 History tablet) amlodipine 2.5 mg tablet 2.5 mg PO DAILY 12/25/22 03/28/23 History aspirin 81 mg tablet,delayed 81 mg PO QAM 12/25/22 03/28/23 History release pravastatin 80 mg tablet 80 mg PO QPM 12/25/22 03/28/23 History acetaminophen 500 mg tablet 500 mg PO QID PRN Pain 01/18/23 03/22/23 History (Tylenol Extra Strength) calcium carbonate 500 mg calcium 500 mg PO DAILY 01/18/23 03/28/23 History (1,250 mg) chewable tablet diclofenac sodium 1 % topical gel 4 g EXT QID PRN RIGHT shoulder 01/22/23 03/28/23 Rx (Voltaren Arthritis Pain) pain #1 tube ondansetron 4 mg disintegrating 4 mg PO Q6H PRN nausea, 01/22/23 03/28/23 Rx tablet regurgitation or emesis #10 tabs pantoprazole 40 mg tablet,delayed 40 mg PO QAM #30 tabs 01/22/23 03/28/23 Rx release zolpidem 5 mg tablet (Ambien) 2.5 mg PO HS #10 tabs 01/22/23 03/28/23 Rx duloxetine 30 mg capsule,delayed 30 mg PO DAILY #30 caps 03/28/23 03/28/23 Rx release Past Med/Surg History Medical History (Updated 03/30/23 @ 05:55 by Elijah Mckinnon MD) Anemia Arthritis Cough Glaucoma Borderline Hiatal hernia History of diverticulosis Hyperlipidemia Hypertension Hyponatremia Hypothyroidism Hypothyroidism Insomnia Iron deficiency anemia Osteoporosis Pre-diabetes Rash SIRS (systemic inflammatory response syndrome) Surgical History History of appendectomy History of cataract surgery R/L History of colonoscopy History of tonsillectomy Status post-operative repair of closed fracture of right hip [place] teeth removed Family History Father Coronary heart disease Myocardial infarction Family history of diabetes mellitus Sister Breast cancer Other Family history non-contributory No family history of adverse response to anesthesia Denies family history of Ovarian cancer Prostate cancer Colorectal cancer Social History Smoking Status: Never smoker Second Hand Exposure: No; Do You Dip or Chew Tobacco: No; Tobacco Cessation Education Requested by Patient: No Hx Alcohol Use: No Hx Substance Use: No Preferred Language: [place]ian Communication Ability: Effective Communication Ability Comment: ALSO SPEAKS PORTUGUESE Visual Impairment: No Limitations Hearing Ability: Normal Agricultural Appraiser Required: No Beliefs That Will Affect Care: None marital status: / Current Living Situation: Alone current occupational status: retired Other Information That Helps Us Care for You: No Feels Safe at Home: Yes Safety Concerns: Feels Safe At This Time Childhood Exposure to Second-Hand Smoke: Yes Dental Care, Regularly: Yes Physical Activity Frequency: 1-2 Times per Week Seatbelt Use: always Sunscreen Use: Yes Assistive Devices: Walker Review of Systems All systems reviewed & are unremarkable except as noted in HPI & below. Physical Exam . alert and oriented. NAD Right leg: Well healed scars from previous hip surgery. Thigh mildly tender to palpation. Able to dorsiflex and plantarflex. NVI. Results & Data Results & Data Laboratory Results . Diagnostic Findings . xrays show a midshaft fracture of the right femur at the tip of the IM nail PG Care Time/CCT Total # of Minutes Spent Total Time Spent with Patient: Total time spent is greater than 50% in coordination of care (as documented) at patient's floor/unit and/or counseling patient: Coding Level of Care Code 41907 IN/OBS CONSULT LVL 4,60M Diagnoses Femur fracture, right S72.91XA
[2023-03-29] MEDS: TIMOLOL MALEATE 0.5% OP SOLN 5 ML BTL OPB SCH (08:30)
[2023-03-29 08:39] LABS: Basophils # (auto) 0.01 K/uL (0-0.2); Basophils % (auto) 0.1 %; Eosinophils # (auto) 0.07 K/uL (0-0.50); Eosinophils % (auto) 0.7 %; Hematocrit (blood only) 27.7 % (37.0-47.0); Hemoglobin 9.4 g/dl (12.0-16.0); Immature Granulocytes # (auto) 0.04 K/uL (0.01-0.20); Immature Granulocytes % (auto) 0.4 %; Lymphocytes # (auto) 1.65 K/uL (1.2-3.4); Lymphocytes % (auto) 15.7 %; Mean Corpuscular Hemoglobin 29.1 pg (25.0-34.0); Mean Corpuscular Hgb Conc 33.9 g/dL (32.0-36.0); Mean Corpuscular Volume 85.8 fL (80.0-100.0); Monocytes # (auto) 1.19 K/uL (0.11-0.59); Monocytes % (auto) 11.4 %; Neutrophils # (auto) 7.52 K/uL (1.40-6.50); Neutrophils % (auto) 71.7 %; Platelet Count 270 K/uL (130-400); RDW Standard Deviation 40.7 fL (36.4-46.3); Red Blood Count 3.23 M/uL (4.20-5.40); White Blood Count 10.48 K/ul (4.8-10.8)
[2023-03-29 08:49] LABS: Albumin Globulin Ratio 1.4 (0.9-2); Albumin Level 3.3 gm/dl (3.4-5.0); Bilirubin,Total 0.4 mg/dl (0.2-1.0); Calcium 8.3 mg/dl (8.6-10.3); Creatinine Clr Calc Pharmacy 76.2 ml/min; Est GFR (African American) 107.8 ml/min; Globulin 2.3 gm/dl (2.5-4.0); Magnesium 1.7 mg/dl (1.7-2.4); Potassium 4.1 mmol/L (3.5-5.1); Total Protein 5.6 gm/dl (6.0-8.3)
[2023-03-29] MEDS: PANTOprazole 40 MG in SYRINGE 0 ML IV SCH (11:07)
[2023-03-29] MEDS ORDERED: HYDROCODONE/ACETAMOPHEN 5/325MG TAB PO STA (11:28)
--- NOTE | 2023-03-29 11:37 | History & Physical Bridge Note ---
Date of Service March 29, 2023 History & Physical Bridge Note I have examined the patient, reviewed the History & Physical and in the interval since the performance of the History & Physical I have noted the following changes of clinical significance: no changes noted
--- NOTE | 2023-03-29 12:02 | Anesthesiology Consultation ---
Date of Service March 29, 2023 Assessment & Plan Chart Review Chart Review: entry level java developer initiated History Surgery Operation Date: 03/29/23 09:10 Proposed Procedures p Removal Hardware Right Hip - Salomon Thomason MD s Long Troch Nail - Salomon Thomason MD Height/Weight Height: 4 ft 11 in Weight: 59.4 kg Allergies Allergy/AdvReac Type Severity Reaction Status Date / Time atorvastatin [From Lipitor] Allergy Mild Rash Verified 03/22/23 14:31 Medications Home Medications Medication Instructions Recorded Confirmed Last Taken timolol maleate 0.5 % eye drops 1 drp OPB QAM 03/29/19 03/28/23 03/12/21 07:00 (Timoptic) levothyroxine 25 mcg tablet 25 mcg PO DAILY #90 tabs 03/23/22 03/28/23 Unknown (Synthroid) valsartan 160 mg tablet (Diovan) 160 mg PO DAILY #90 tabs 03/23/22 03/28/23 12/25/22 09:00 multivitamin (Daily Multi-Vitamin 1 tab PO DAILY 07/08/22 03/28/23 Unknown tablet) amlodipine 2.5 mg tablet 2.5 mg PO DAILY 12/25/22 03/28/23 Unknown aspirin 81 mg tablet,delayed 81 mg PO QAM 12/25/22 03/28/23 Unknown release pravastatin 80 mg tablet 80 mg PO QPM 12/25/22 03/28/23 Unknown acetaminophen 500 mg tablet 500 mg PO QID PRN Pain 01/18/23 03/22/23 Unknown (Tylenol Extra Strength) calcium carbonate 500 mg calcium 500 mg PO DAILY 01/18/23 03/28/23 Unknown (1,250 mg) chewable tablet diclofenac sodium 1 % topical gel 4 g EXT QID PRN RIGHT shoulder 01/22/23 03/28/23 Unknown (Voltaren Arthritis Pain) pain #1 tube ondansetron 4 mg disintegrating 4 mg PO Q6H PRN nausea, 01/22/23 03/28/23 Unknown tablet regurgitation or emesis #10 tabs pantoprazole 40 mg tablet,delayed 40 mg PO QAM #30 tabs 01/22/23 03/28/23 Unknown release zolpidem 5 mg tablet (Ambien) 2.5 mg PO HS #10 tabs 01/22/23 03/28/23 Unknown duloxetine 30 mg capsule,delayed 30 mg PO DAILY #30 caps 03/28/23 03/28/23 Unknown release Active Medications Generic Name Dose Route Start Last Admin Trade Name Tammy PRN Reason Stop Dose Admin Potassium Chloride/Sodium Chloride 20 meq in 1,000 mls @ 80 mls/hr 03/29/23 01:00 03/29/23 01:41 Normal Saline W/20 Meq Kcl IV 04/28/23 00:59 80 mls/hr .[id number] GRABIEL Administration Protocol Acetaminophen 1,000 mg in 100 mls @ 400 mls/hr 03/29/23 03:40 03/29/23 06:42 Ofirmev IV 04/01/23 03:39 Infused Q8H PRN Infusion Pain or Fever Pantoprazole Sodium 40 mg/ 10 mls @ 5 mls/min 03/29/23 11:00 03/29/23 11:07 Syringe IV 04/28/23 10:59 5 mls/min DAILY@1100 GRABIEL Administration Morphine Sulfate 4 mg 03/29/23 00:54 03/29/23 01:19 Morphine Sulfate 4 Mg/Ml 1 Ml Carp\Vial IV 04/12/23 00:53 4 mg Q3H PRN Administration Moderate Pain (Scale 4, 5, 6) Timolol Maleate 1 drops 03/29/23 09:00 03/29/23 08:30 Timolol Maleate 0.5% Op Soln 5 Ml Btl OPB 04/28/23 08:59 1 drops QAM GRABIEL Administration NPO Date Last Intake of Fluids: 03/29/23 Time Last Intake of Fluids: 11:30 Last Intake of Fluids Comment: sip with med Date Last Intake of Solids: 03/28/23 Past Medical History Medical History Anemia Arthritis Cough Glaucoma Borderline Hiatal hernia History of diverticulosis Hyperlipidemia Hypertension Hyponatremia Hypothyroidism Hypothyroidism Insomnia Iron deficiency anemia Osteoporosis Pre-diabetes Rash SIRS (systemic inflammatory response syndrome) Past Family History Family History Father Coronary heart disease Myocardial infarction Family history of diabetes mellitus Sister Breast cancer Other Family history non-contributory No family history of adverse response to anesthesia Denies family history of Ovarian cancer Prostate cancer Colorectal cancer Past Surgical History Surgical History History of appendectomy History of cataract surgery R/L History of colonoscopy History of tonsillectomy Status post-operative repair of closed fracture of right hip [place] teeth removed Social History Smoking Status: Never smoker Do You Dip or Chew Tobacco: No Hx Alcohol Use: No alcohol intake frequency: holidays/special occasions only Hx Substance Use: No substance use type: does not use Physical Exam Vital Signs Last Vital Signs Temp 97.7 F 03/29/23 05:37 Pulse 80 03/29/23 08:34 Resp 18 03/29/23 05:37 BP 155/67 H 03/29/23 08:34 Pulse Ox 93 03/29/23 05:37 O2 Del Method Room Air 03/29/23 05:37 Testing Laboratory Results 03/29/23 08:12 03/29/23 08:12 Urine Color Yellow 03/28/23 21:00 Urine Appearance Clear (Clear) 03/28/23 21:00 Urine pH 7.5 (4.5-7.5) 03/28/23 21:00 Ur Specific [place] 1.012 (1.000-1.030) 03/28/23 21:00 Urine Protein Negative (Negative) 03/28/23 21:00 Urine Glucose (UA) Negative (Negative) 03/28/23 21:00 Urine Ketones Trace (Negative) H 03/28/23 21:00 Urine Nitrite Negative (Negative) 03/28/23 21:00 Ur Leukocyte Esterase Negative (Negative) 03/28/23 21:00 Blood Type B Negative 03/29/23 08:12 Antibody Screen NEGATIVE 03/29/23 08:12 Electrocardiogram Date: 03/28/23 Normal sinus rhythm, rate 96 bpm Left axis deviation Minimal voltage criteria for LVH, may be normal variant ( [place] product ) Possible Anterior infarct (cited on or before 25-DEC-2022) Abnormal ECG When compared with ECG of 18-JAN-2023 05:45, No significant change was found Chest X-Ray Date: 03/28/23 Findings: + NAD
[2023-03-29] MEDS ORDERED: PROPOFOL IV EMULSION 10 MG/ML 20 ML VIAL IV ONE (12:03)
[2023-03-29] MEDS ORDERED: fentaNYL citrate PF 100 MCG/2 ML VIAL ONE (12:03)
[2023-03-29] MEDS ORDERED: fentaNYL citrate PF 100 MCG/2 ML VIAL IV PRN (12:53)
[2023-03-29] MEDS ORDERED: ATROPINE SULFATE 0.1 MG/ML 10ML SYR IV PRN (12:53)
[2023-03-29] MEDS ORDERED: ePHEDrine sulfate 50 MG/ML AMP IV PRN (12:53)
[2023-03-29] MEDS ORDERED: ONDANSETRON INJ 2 MG/ML 2 ML VIAL IV PRN (12:53)
[2023-03-29] MEDS ORDERED: BUPIVACAINE 0.5 % 5 MG/1 ML PF 10ML VIAL ONE (12:54)
[2023-03-29] MEDS ORDERED: ceFAZolin 2000MG 2,000 MG/15 ML SYR IV ONE (13:09)
[2023-03-29] MEDS ORDERED: BUPIVACAINE/EPINEPHRINE 0.5% MPF 1:200,000 30 ML VIAL ONE (13:11)
[2023-03-29] MEDS ORDERED: ceFAZolin 2,000 MG/15 ML IV PUSH IV ONE (13:12)
[2023-03-29] MEDS ORDERED: ONDANSETRON INJ 2 MG/ML 2 ML VIAL ONE (13:37)
[2023-03-29] MEDS ORDERED: PHENYLEPHRINE 100MCG/ML 5ML SYR ONE (13:37)
[2023-03-29] MEDS ORDERED: ePHEDrine sulfate 50 MG/ML SYR ONE (14:48)
--- NOTE | 2023-03-29 15:37 | Operative Report ---
PG Post Operative Report Pre & Post Diagnosis Operation Date: 03/29/23 09:10 Preop diagnosis: Right periprosthetic femur fracture at the tip of a short intertrochanteric nail. Postop diagnosis: Right periprosthetic femur fracture at the tip of a short intertrochanteric nail. I identified the patient and participated in the time-out.: Yes Procedure Operation Date: 03/29/23 09:10 #1 right proximal femur hardware removal. 2. Long trochanteric nailing of right periprosthetic femur fracture Surgeon Salomon Thomason MD Clinical Documentation Consultant Tejinder Damon PA-C Estimated Blood Loss 100 Findings Consistent with Post-Op Diagnosis Specimens None Anesthesia Type Spinal MAC Complications none Disposition Accompanied Patient To Recovery: No Indications Patient is an 88-year-old female with multiple medical comorbidities sustained a intertrochanteric femur fracture about 3 months ago. She underwent standard IM nailing. She was doing pretty well recovering reasonably well until yesterday when she cut a step and twisted. She had cute onset of pain and could not ambulate. She was brought to emergency room where x-rays revealed a fracture just at the tip of the implant. Patient was admitted by the medicine service. She is medically optimized indicated for surgical management. Description of Procedure Operative implants consist of: 1. Synthes right 10 mm x 340 mm long trochanteric nail. 2. 80 mm helical blade. 3. 5.01 distal interlocking screws x2. The patient was taken the operating, identified, placed on the operating table supine position but all contractors were appropriately padded. A spinal anesthetic and been implemented holding area. The patient was then placed on the fracture table. The right leg was placed in boot traction left leg was placed in a well-leg thakkar. I applied some longitudinal traction to the femur and then internally rotated foot so the kneecap pointed to the ceiling. X-rays brought in. We able to get adequate radiographs. The right hip was then and leg were then scrubbed with Hibiclens, prepped with ChloraPrep and draped in usual sterile fashion. Attention was first drawn toward hardware removal. An incision was made at the tip of the trochanter using a previous incision. Sharp dissection was carried through subcutaneous tissue down to the gluteal fascia to the gluteal fascia incised longitudinally. I then very carefully localized the proximal tip of the nail. There was some bone around it that I had removed. I then placed a screwdriver in the nail and elevated the setscrew. I then placed the extracting device on the end of this. We then went to removing the helical blade. A lateral incision was made using a previous incision directly down to the IT band. The IT band was incised in the vastus lateralis was retracted anteriorly. I then threaded the extraction device onto the helical blade. I was able to remove that without difficulty. I then placed a guidewire down the central aspect of the nail. We had to manipulate the proximal segment in order to get the guidewire across the fracture site. We were able to use this under fluoroscopic guidance. I then measured for nail length of 340 mm nail was selected. I did to remove the proximal nail at this point. We then overreamed the guidewire up to a 11 and half millimeters where we got decent chatter. I then placed a right 340 mm x 10 mm long trochanteric nail over the guidewire and removed the guidewire. The lateral aiming arm was advanced to the lateral aspect of femur and a helical blade was placed in routine fashion. The proximal setscrew was tightened. Some final x-rays were obtained. Attention drawn distal interlocking. Using the perfect [place] technique of the distal interlocking screws were placed 1 in the dynamic, 1 in the static hole. Once this was complete all wounds were irrigated extensively. I injected locally with a 30 cc of half percent Marcaine with epinephrine. The gluteal fascia and the IT band were closed with #1 Vicryl suture running fashion for the subcutaneous tissues the proximal incisions were closed with #1 Vicryl suture followed by 2-0 Dexon suture in a buried interrupted fashion. The skin incisions were closed with skin tung. Leg was then cleaned and dried a sterile dressing was Xeroform, 4 x 4's, ABD pad, foam tape was applied. The patient then transferred to the recovery room in stable condition. Patient tolerated procedure well and there were no complications. Tejinder Damon, my physician surgeon assistant, was present for the entire procedure. His assistance was required for proper patient positioning, prepping and draping, surgical exposure, retraction, removal of hardware, placement of new hardware, closure of the incision sites and placement of sterile bandage. I attest to the content of the Intraoperative Record and any orders documented therein. Any exceptions are noted below.
--- NOTE | 2023-03-29 16:10 | Fluoroscopy Report ---
FL hip RT 2-3V CLINICAL HISTORY: RT TROCH NAILacute fracture of the right femur COMPARISON STUDY: Radiographs 03/28/2023 FLUOROSCOPY TIME: 178.4 seconds FLUOROSCOPY IMAGES: 6 EXPOSURE DOSE: 24.48 mGy FINDINGS: Intertrochanteric nail with placement of an elongated medullary mile. Unchanged proximal fem oral fracture fragments. Status post reduction of the acute periprosthetic femoral fracture with mini mal persistent displacement. There are 2 distal femoral cannulated screws. No unexpected opaque forei gn bodies. IMPRESSION: Fluoroscopic assistance as above. ACT 112: Negative or not required by law. Electronically signed by: Rodolfo Solis M.D. 03/29/2023 4:08 PM
--- NOTE | 2023-03-29 17:33 | Anesthesiology Progress Note ---
Date of Service March 29, 2023 Anesthesia Post Procedure Vital Signs Vital Signs: Temp Pulse Pulse Pulse Resp BP BP 03/29/23 17:15 36.3 C L 87 15 176/65 H 03/29/23 17:05 80 14 156/65 H 03/29/23 16:55 81 15 159/71 H 03/29/23 16:45 78 20 148/79 H 03/29/23 16:20 68 16 135/68 03/29/23 16:30 77 19 148/64 H 03/29/23 16:10 36.0 C L 69 18 137/62 03/29/23 16:00 68 15 135/77 03/29/23 15:50 66 17 131/63 03/29/23 15:40 68 16 128/53 L 03/29/23 15:33 36.3 C L 95 H 16 132/60 03/29/23 12:32 36.6 C 81 20 03/29/23 08:34 80 03/29/23 05:37 36.5 C 95 H 18 03/29/23 00:58 03/29/23 00:58 03/29/23 01:28 85 18 03/29/23 00:58 36.4 C L 92 H 18 03/28/23 23:49 92 H 18 03/28/23 20:57 96 H 03/28/23 21:28 90 20 03/28/23 19:33 36.6 C 99 H 21 169/115 H BP Pulse Ox O2 Del Method O2 Flow Rate 03/29/23 17:15 95 Room Air 03/29/23 17:05 94 Room Air 03/29/23 16:55 93 Room Air 03/29/23 16:45 95 Room Air 03/29/23 16:20 95 Room Air 03/29/23 16:30 95 Room Air 03/29/23 16:10 95 Room Air 03/29/23 16:00 95 Room Air 03/29/23 15:50 97 Room Air 03/29/23 15:40 95 Room Air 03/29/23 15:33 97 Oxymask 5 03/29/23 12:32 169/122 H 94 Room Air 03/29/23 08:34 155/67 H 03/29/23 05:37 160/72 H 93 Room Air 03/29/23 00:58 Room Air 03/29/23 00:58 Room Air 03/29/23 01:28 135/70 94 Room Air 03/29/23 00:58 180/68 H 93 Room Air 03/28/23 23:49 188/80 H 95 Room Air 03/28/23 20:57 03/28/23 21:28 188/83 H 95 03/28/23 19:33 95 Room Air Pain Intensity Right Hip: Pain Intensity: 6 Transfer of Care Handoff Completed per policy Notes Mental Status: alert / awake / arousable and participated in evaluation Patient Amnestic to Procedure: Yes Nausea / Vomiting: adequately controlled Pain: adequately controlled Airway Patency, RR, SpO2: stable & adequate BP & HR: stable & adequate Hydration State: stable & adequate Anesthetic Complications: no major complications apparent and Pt Satisfied with anesthetic care
[2023-03-29] MEDS ORDERED: HYDROCODONE/ACETAMOPHEN 5/325MG TAB PO PRN (18:16)
[2023-03-29] MEDS ORDERED: ALBUTEROL 0.083% NEBU SOLN 3 ML VIAL NEB STA (19:47)
--- NOTE | 2023-03-29 19:48 | Hospitalist Progress Note ---
Date of Service March 29, 2023 Assessment & Plan (1) Periprosthetic fracture of shaft of femur: Plan: right original ORIF of right hip fracture was 12/26/[address] Alarcon s/p removal of old hardware today by Dr Thomason with placement of longer hardware cont PO/IV pain meds fluids PT, OT asa BID for DVT proph check 25-OH vit D level am appreciate [facility] assistance (2) Hyponatremia: Plan: acute on chronic she looks mildly volume contracted at this time cont isotonic fluids repeat BMP am did require salt tab supplementation during a prior hospital stay Urine Osm and Urine Na noted from today (3) Wheezing: Plan: post-op 2nd to aspiration? pulm edema? other? urgent cxr ordered albuterol neb x 1 now re-eval after cxr returns o2 sats are low-normal in room air at this time she also surprisingly does not have symptoms despite the extensive wheezing (4) Hiatal hernia: Plan: large, as seen on CT a/p in 2022 this puts her at risk of aspiration, reflux, ulcers, etc cont PPI did patient aspirate during her surgery today leading to the extensive wheezing heard this evening?? - uncertain (5) Hypothyroidism: Plan: TSH 06/2022 wnl cont synthroid (6) Hypertension: Plan: BPs labile while here likely 2nd to pain from fracture losartan is on hold hugo-operatively also was taking low-dose amlodipine at home 2.5mg can likely resume 1 or both meds tomorrow recheck renal function am (7) Hyperlipidemia: Plan: statin placed on hold can resume at discharge (8) Pre-diabetes: Plan: a1c has been as high as 6% in the past last reading was 5.6% in late 2021 repeat level am (9) Vitamin D deficiency: Plan: 25-OH vit D level in 2021 was quite robust (>70) repeat level ordered for the am (10) DVT prophylaxis: Plan: asa 81mg BID x 6 weeks (11) Anemia: Plan: in December 2022 post-op from right hip fracture ORIF she required PRBCs her ferritin levels then were low in the 30s c/w Fe def presenting Hb was 11.3 yesterday, falling to the 9's today c/w acute blood loss anemia from her right femur fracture repeat CBC in am may need PRBCs and/or IV Fe while here Admission and Anticipated Discharge Date Admission Date: March 28, 2023 Subjective saw patient post-op from her right femur surgery she was resting flat in bed without distress reported expected right hip/right thigh pain - did not want IV pain meds; accepted norco however denied cough denied dyspnea denied orthopnea she was wearing a right arm sling - she states she came up from the OR with it on? she asked for it to be removed as it was uncomfortable denied chest pain, nausea, emesis Review of Systems Review of Systems: cv - no chest pain/orthopnea pulm - no cough, does not realize she is wheezing GI - no vomiting - harrell in place musculo - denies significant pain in R shoulder or R arm Physical Exam Physical Exam: gen - awake, alert, oriented, pleasant, NAD mouth - MM slightly dry heart - RRR, s1 s2, no murmur lungs - diffuse rhonchi/wheezing, no rales, no increased work of breathing abd - soft NT ND BS+ ext - right thigh dressings intact, pulses feet 2+ b/l; edema of b/l feet <1+ psych - awake/alert/oriented x 3 musculo - right thigh dressings intact, ice pack in place lateral right thigh, right arm in sling Results & Data Results & Data Vital Signs (Past 12 Hours) Vital Signs Temp Pulse Pulse Resp BP BP Pulse Ox 03/29/23 19:28 36.4 C L 91 H 18 146/75 H 94 03/29/23 18:41 94 H 03/29/23 18:33 36.4 C L 98 H 16 138/70 93 03/29/23 18:01 37.1 C 102 H 17 158/74 H 94 03/29/23 17:33 36.4 C L 93 H 18 155/71 H 94 03/29/23 17:15 36.3 C L 87 15 176/65 H 95 03/29/23 17:05 80 14 156/65 H 94 03/29/23 16:55 81 15 159/71 H 93 03/29/23 16:45 78 20 148/79 H 95 03/29/23 16:20 68 16 135/68 95 03/29/23 16:30 77 19 148/64 H 95 03/29/23 16:10 36.0 C L 69 18 137/62 95 03/29/23 16:00 68 15 135/77 95 03/29/23 15:50 66 17 131/63 97 03/29/23 15:40 68 16 128/53 L 95 03/29/23 15:33 36.3 C L 95 H 16 132/60 97 03/29/23 12:32 36.6 C 81 20 169/122 H 94 03/29/23 08:34 80 155/67 H O2 Del Method O2 Flow Rate 03/29/23 19:28 Room Air 03/29/23 18:41 03/29/23 18:33 Room Air 03/29/23 18:01 Room Air 03/29/23 17:33 Room Air 03/29/23 17:15 Room Air 03/29/23 17:05 Room Air 03/29/23 16:55 Room Air 03/29/23 16:45 Room Air 03/29/23 16:20 Room Air 03/29/23 16:30 Room Air 03/29/23 16:10 Room Air 03/29/23 16:00 Room Air 03/29/23 15:50 Room Air 03/29/23 15:40 Room Air 03/29/23 15:33 Oxymask 5 03/29/23 12:32 Room Air 03/29/23 08:34 Laboratory Results Laboratory Results - last 24 hr 03/29/23 03/29/23 03/29/23 08:12 08:12 08:12 WBC 10.48 RBC 3.23 L Hgb 9.4 L Hct 27.7 L MCV 85.8 MCH 29.1 MCHC 33.9 RDW Std Deviation 40.7 RDW Coeff of Felicity 13.0 Plt Count 270 MPV 10.0 Immature Gran % (Auto) 0.4 Neut % (Auto) 71.7 Lymph % (Auto) 15.7 [place] % (Auto) 11.4 Eos % (Auto) 0.7 Baso % (Auto) 0.1 Neut # (Auto) 7.52 H Lymph # (Auto) 1.65 [place] # (Auto) 1.19 H Eos # (Auto) 0.07 Baso # (Auto) 0.01 Immature Gran # (Auto) 0.04 Sodium 127 L Potassium 4.1 Chloride 97 L Carbon Dioxide 27 Anion Gap 3 BUN 12 Creatinine 0.40 L Est Cr Clr Drug Dosing 76.2 Est GFR ( Amer) 107.8 Est GFR (Non-Af Amer) 93.0 BUN/Creatinine Ratio 30.0 H Glucose 102 H Calcium 8.3 L Magnesium 1.7 Total Bilirubin 0.4 AST 16 ALT 10 Alkaline Phosphatase 70 Total Protein 5.6 L D Albumin 3.3 L Globulin 2.3 L Albumin/Globulin Ratio 1.4 Urine Osmolality Ur Random Sodium Blood Type B Negative Antibody Screen NEGATIVE 03/29/23 03/29/23 11:06 11:06 WBC RBC Hgb Hct MCV MCH MCHC RDW Std Deviation RDW Coeff of Felicity Plt Count MPV Immature Gran % (Auto) Neut % (Auto) Lymph % (Auto) [place] % (Auto) Eos % (Auto) Baso % (Auto) Neut # (Auto) Lymph # (Auto) [place] # (Auto) Eos # (Auto) Baso # (Auto) Immature Gran # (Auto) Sodium Potassium Chloride Carbon Dioxide Anion Gap BUN Creatinine Est Cr Clr Drug Dosing Est GFR ( Amer) Est GFR (Non-Af Amer) BUN/Creatinine Ratio Glucose Calcium Magnesium Total Bilirubin AST ALT Alkaline Phosphatase Total Protein Albumin Globulin Albumin/Globulin Ratio Urine Osmolality 269 L Ur Random Sodium 81 Blood Type Antibody Screen PG Care Time/CCT Total # of Minutes Spent Total Time Spent with Patient: Total time spent is greater than 50% in coordination of care (as documented) at patient's floor/unit and/or counseling patient: Coding Level of Care Code 96660 SUB INP/OBS CARE 3/50MIN Diagnoses Periprosthetic fracture of shaft of femur M97.8XXA; Z96.649 Hyponatremia E87.1 Wheezing R06.2 Hiatal hernia K44.9 Hypothyroidism E03.9 Hypertension I10 Hyperlipidemia E78.5 Pre-diabetes R73.03 Vitamin D deficiency E55.9 DVT prophylaxis Z29.9 Anemia D64.9
[2023-03-29] MEDS ORDERED: ALBUTEROL 0.083% NEBU SOLN 3 ML VIAL ONE (19:53)
[2023-03-29] MEDS: ASPIRIN 81 MG ECTAB PO SCH (21:04)
[2023-03-29] MEDS: ceFAZolin 1000MG 1,000 MG/7.5 ML SYR IV SCH (21:04)
[2023-03-30] MEDS: NSS + 20MEQ KCL 20 MEQ/1,000 ML BAG IV SCH (03:39)
[2023-03-30] MEDS: ceFAZolin 1000MG 1,000 MG/7.5 ML SYR IV SCH (05:12)
--- NOTE | 2023-03-30 07:39 | XRay Report ---
XR chest 1V portable CLINICAL HISTORY: b/l wheezing; aspiration? edema? COMPARISON STUDY: Chest radiograph March 28, 2023. 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 Severe left shoulder osteoarthritis. The re is no pneumothorax or pleural effusion. Cardiomegaly is unchanged. There is no evidence for pulmon luke edema. No consolidation is identified to suggest pneumonia. A hiatal hernia is again noted. IMPRESSION: No acute cardiopulmonary findings. No change in appearance of the chest. ACT 112: Negative or not required by law. Electronically signed by: Abdoulaye Rosenthal M.D. 03/30/2023 7:38 AM
[2023-03-30] MEDS: IPRATROPIUM BROMIDE HFA INHALER INH SCH ×4 (07:41→19:23)
[2023-03-30] MEDS: ALBUTEROL HFA 8 GM INHALER INH SCH ×4 (07:41→19:23)
--- NOTE | 2023-03-30 07:43 | Orthopedic Progress Note ---
Date of Service March 30, 2023 Assessment & Plan (1) Periprosthetic fracture of shaft of femur: 88-year-old female postop day 1 from a right hardware removal and repeat IM nailing of periprosthetic femur fracture. As she is doing quite well this morning. Pains improved. 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 Plan: 1. DVT prophylaxis including thigh-high teds SCDs and aspirin twice a day for 6 weeks. 2. PT OT. She can fully weight-bear as tolerated in the right leg. 3. Pain control seems to be doing okay with current pain regimen. 4. Failed shoulder arthroplasty. Treatment is symptomatic at this point. We have a sling if she wants to wear it. Only definitive treatment would be a shoulder resection which as she does not want to look into at this time. She can use her arm as tolerated. 5. Disposition she will likely need a rehab stay. She is orthopedically okay for discharge anytime medically stable. I need to see her back 2 to 3 weeks out from surgery date. Any orthopedic questions can be directly [phone] Subjective . 88-year-old female postop day 1 from a right hip hardware removal and long trochanteric nailing. She is doing much better this morning. Says her leg pain is much improved. No other real complaints. She is got some shoulder pain but that seems to be also a bit better. No chest pain or shortness of breath. Review of Systems All systems reviewed & are unremarkable except as noted in HPI & below. Physical Exam . Physical examination of the right hip and leg reveals a dressing that is clean dry and intact. Leg is well aligned. She can dorsiflex and plantarflex her foot appropriately. She is neurologically intact. Examination of the right shoulder reveals some slight bruising. Some mild swelling. She does seem to have pain with any type of motion. She is neurologically intact. Results & Data Results & Data Laboratory Results . Laboratory results are pending Diagnostic Findings . PG Care Time/CCT Total # of Minutes Spent Total Time Spent with Patient: Total time spent is greater than 50% in coordination of care (as documented) at patient's floor/unit and/or counseling patient: Coding Level of Care Code 68630 Post Operative Follow-Up Diagnoses Periprosthetic fracture of shaft of femur M97.8XXA; Z96.649
[2023-03-30] MEDS: ASPIRIN 81 MG ECTAB PO SCH ×2 (08:16→21:31)
[2023-03-30] MEDS: TIMOLOL MALEATE 0.5% OP SOLN 5 ML BTL OPB SCH (08:16)
[2023-03-30 08:29] LABS: Basophils # (auto) 0.01 K/uL (0-0.2); Basophils % (auto) 0.1 %; Eosinophils # (auto) 0.02 K/uL (0-0.50); Eosinophils % (auto) 0.2 %; Hematocrit (blood only) 26.1 % (37.0-47.0); Hemoglobin 8.6 g/dl (12.0-16.0); Immature Granulocytes # (auto) 0.06 K/uL (0.01-0.20); Immature Granulocytes % (auto) 0.5 %; Lymphocytes # (auto) 1.28 K/uL (1.2-3.4); Lymphocytes % (auto) 9.9 %; Mean Corpuscular Hemoglobin 29.6 pg (25.0-34.0); Mean Corpuscular Volume 89.7 fL (80.0-100.0); Mean Platelet Volume 10.3 fL (9.4-12.4); Monocytes # (auto) 1.51 K/uL (0.11-0.59); Monocytes % (auto) 11.7 %; Neutrophils # (auto) 10.06 K/uL (1.40-6.50); Neutrophils % (auto) 77.6 %; Platelet Count 278 K/uL (130-400); RDW Coefficient of Variation 13.2 % (11.5-14.5); RDW Standard Deviation 43.8 fL (36.4-46.3); Red Blood Count 2.91 M/uL (4.20-5.40); White Blood Count 12.94 K/ul (4.8-10.8)
[2023-03-30] MEDS ORDERED: IPRATROPIUM BROMIDE/ALBUTEROL respimat INH INH SCH (09:00)
[2023-03-30 09:33] LABS: Estimated Average Glucose 111 mg/dl; Hemoglobin A1C 5.5 % (4.5-5.6)
[2023-03-30] MEDS: ACETAMINOPHEN 325 MG TAB PO SCH ×3 (09:33→21:31)
[2023-03-30 10:45] LABS: BUN Creatinine Ratio 21.1 (10-20); Calcium 8.4 mg/dl (8.6-10.3); Creatinine Clr Calc Pharmacy 53.5 ml/min; Est GFR (African American) 95.9 ml/min; Est GFR (Non-African American) 82.8 ml/min; Potassium 4.6 mmol/L (3.5-5.1)
[2023-03-30] MEDS: PANTOprazole 40 MG in SYRINGE 0 ML IV SCH (11:40)
--- NOTE | 2023-03-30 13:45 | Hospitalist Progress Note ---
Date of Service March 30, 2023 Assessment & Plan (1) Periprosthetic fracture of shaft of femur: Plan: right original ORIF of right hip fracture was 12/26/[address] Alarcon POD #1 - s/p removal of old hardware by Dr Thomason with placement of longer hardware stop IVF PT, OT asa BID for DVT proph 25-OH vit D level - 37 appreciate [facility] assistance (2) Hyponatremia: Plan: acute on chronic improved this am - now 129 stop IVF repeat BMP am did require salt tab supplementation during a prior hospital stay as well as tolvaptan & fluid restriction (3) Wheezing: Plan: resolved occurred post-op cxr interpreted as normal suspect she had either aspiration leading to bronchospasm no evidence of pulmonary edema cont combivent cont incentive spirometry (4) Hiatal hernia: Plan: large, as seen on CT a/p in 2022 this puts her at risk of aspiration, reflux, ulcers, etc cont PPI was wheezing post-op a sign of aspiration? regardless her wheezing is resolved and O2 sats are stable (5) Hypothyroidism: Plan: TSH 06/2022 wnl cont synthroid (6) Hypertension: Plan: BPs stable likely can resume amlodipine tomorrow (7) Hyperlipidemia: Plan: statin on hold can resume at discharge (8) Pre-diabetes: Plan: a1c has been as high as 6% in the past last reading was 5.6% in late 2021 repeat level 5.5% resolved (9) Vitamin D deficiency: Plan: 25-OH vit D level in 2021 was quite robust (>70) repeat level 37 (10) DVT prophylaxis: Plan: asa 81mg BID x 6 weeks (11) Anemia: Plan: acute blood loss anemia mild-mod repeat cbc in am Plan updated pt's daughter by phone this evening Admission and Anticipated Discharge Date Admission Date: March 28, 2023 Subjective overall doing ok today having some right hip pain worked with PT/OT - had significant right hip pain with such no dyspnea no cough no wheezing no MYERS eating well no new complaints Review of Systems Review of Systems: cv - no chest pain, no orthopnea GI - no abd pain, nausea or vomiting Physical Exam Physical Exam: gen - awake, alert, pleasant, NAD mouth - MMM today heart - RRR, s1 s2, no murmur lungs - CTA b/l, no rales, no wheezing; no increased work of breathing abd - soft NT ND BS+ ext - right thigh dressings intact, pulses feet 2+ b/l; edema of b/l feet trace- 1+ psych - awake/alert/oriented x 3 Results & Data Results & Data Vital Signs (Past 12 Hours) Vital Signs Temp Pulse Resp BP Pulse Ox O2 Del Method 03/30/23 11:11 85 14 84 L Room Air 03/30/23 11:02 37.0 C 85 17 135/68 95 Room Air 03/30/23 09:50 88 94 Room Air 03/30/23 09:11 Room Air 03/30/23 07:45 101 H 18 90 Room Air 03/30/23 06:57 36.9 C 99 H 17 149/61 H 93 Room Air 03/30/23 03:32 36.9 C 95 H 18 127/70 90 Room Air Laboratory Results Laboratory Results 03/29/23 03/30/23 03/30/23 08:12 07:51 07:51 WBC 12.94 H RBC 2.91 L Hgb 8.6 L Hct 26.1 L MCV 89.7 MCH 29.6 MCHC 33.0 RDW Std Deviation 43.8 RDW Coeff of Felicity 13.2 Plt Count 278 MPV 10.3 Immature Gran % (Auto) 0.5 Neut % (Auto) 77.6 Lymph % (Auto) 9.9 [place] % (Auto) 11.7 Eos % (Auto) 0.2 Baso % (Auto) 0.1 Neut # (Auto) 10.06 H Lymph # (Auto) 1.28 [place] # (Auto) 1.51 H Eos # (Auto) 0.02 Baso # (Auto) 0.01 Immature Gran # (Auto) 0.06 RBC Morphology Sodium Potassium Chloride Carbon Dioxide Anion Gap BUN Creatinine Est Cr Clr Drug Dosing Est GFR ( Amer) Est GFR (Non-Af Amer) BUN/Creatinine Ratio Glucose Estimat Average Glucose Hemoglobin A1c Calcium Iron TIBC Unsaturated IBC Transferrin % Sat Ferritin 25-OH Vitamin D Total 37.6 Blood Type B Negative Antibody Screen NEGATIVE Crossmatch See Detail 03/30/23 03/30/23 07:51 07:51 WBC RBC Hgb Hct MCV MCH MCHC RDW Std Deviation RDW Coeff of Felicity Plt Count MPV Immature Gran % (Auto) Neut % (Auto) Lymph % (Auto) [place] % (Auto) Eos % (Auto) Baso % (Auto) Neut # (Auto) Lymph # (Auto) [place] # (Auto) Eos # (Auto) Baso # (Auto) Immature Gran # (Auto) RBC Morphology Sodium 129 L Potassium 4.6 Chloride 99 Carbon Dioxide 24 Anion Gap 6 BUN 12 Creatinine 0.57 L Est Cr Clr Drug Dosing 53.5 Est GFR ( Amer) 95.9 Est GFR (Non-Af Amer) 82.8 BUN/Creatinine Ratio 21.1 H Glucose 84 Estimat Average Glucose 111 Hemoglobin A1c 5.5 Calcium 8.4 L Iron TIBC Unsaturated IBC Transferrin % Sat Ferritin 25-OH Vitamin D Total Blood Type Antibody Screen Crossmatch PG Care Time/CCT Total # of Minutes Spent Total Time Spent with Patient: Total time spent is greater than 50% in coordination of care (as documented) at patient's floor/unit and/or counseling patient: Coding Level of Care Code 72035 SUB INP/OBS CARE 2/35MIN Diagnoses Periprosthetic fracture of shaft of femur M97.8XXA; Z96.649 Hyponatremia E87.1 Wheezing R06.2 Hiatal hernia K44.9 Hypothyroidism E03.9 Hypertension I10 Hyperlipidemia E78.5 Pre-diabetes R73.03 Vitamin D deficiency E55.9 DVT prophylaxis Z29.9 Anemia D64.9
--- NOTE | 2023-03-30 23:05 | Electrocardiogram Report ---
Test Reason : Blood Pressure : / mmHG Vent. Rate : 096 BPM Atrial Rate : 096 BPM P-R Int : 136 ms QRS Dur : 084 ms QT Int : 328 ms P-R-T Axes : 072 -38 045 degrees QTc Int : 414 ms Normal sinus rhythm Left axis deviation Minimal voltage criteria for LVH, may be normal variant Poor R wave progression, consider anterior SD vs. lead placement vs. LVH Abnormal ECG When compared with ECG of 18-JAN-2023 05:45, No significant change was found Confirmed by Galo Mace ([id number]) on 03/30/2023 11:05:07 PM Referred By: REFERRED SELF Confirmed By:Galo Mace
[2023-03-31 07:11] LABS: Basophils # (auto) 0.01 K/uL (0-0.2); Basophils % (auto) 0.1 %; Eosinophils # (auto) 0.08 K/uL (0-0.50); Eosinophils % (auto) 0.6 %; Hematocrit (blood only) 23.2 % (37.0-47.0); Hemoglobin 7.8 g/dl (12.0-16.0); Immature Granulocytes # (auto) 0.06 K/uL (0.01-0.20); Immature Granulocytes % (auto) 0.5 %; Lymphocytes # (auto) 1.94 K/uL (1.2-3.4); Lymphocytes % (auto) 15.1 %; Mean Corpuscular Hemoglobin 29.9 pg (25.0-34.0); Mean Corpuscular Hgb Conc 33.6 g/dL (32.0-36.0); Mean Corpuscular Volume 88.9 fL (80.0-100.0); Mean Platelet Volume 10.6 fL (9.4-12.4); Monocytes # (auto) 1.99 K/uL (0.11-0.59); Monocytes % (auto) 15.5 %; Neutrophils # (auto) 8.74 K/uL (1.40-6.50); Neutrophils % (auto) 68.2 %; Platelet Count 249 K/uL (130-400); RDW Coefficient of Variation 13.2 % (11.5-14.5); RDW Standard Deviation 43.2 fL (36.4-46.3); Red Blood Count 2.61 M/uL (4.20-5.40); White Blood Count 12.82 K/ul (4.8-10.8)
[2023-03-31] MEDS: IPRATROPIUM BROMIDE HFA INHALER INH SCH ×4 (07:24→19:20)
[2023-03-31] MEDS: ALBUTEROL HFA 8 GM INHALER INH SCH ×4 (07:24→19:20)
[2023-03-31 07:36] LABS: Anion Gap 6 (3-11); BUN Creatinine Ratio 26.4 (10-20); Blood Urea Nitrogen 14 mg/dl (6-23); Carbon Dioxide 23 mmol/L (21-32); Chloride 96 mmol/L (98-107); Creatinine Clr Calc Pharmacy 57.5 ml/min; Est GFR (African American) 98.3 ml/min; Est GFR (Non-African American) 84.8 ml/min; Glucose 87 mg/dl (70-99(Fasting)); Potassium 4.3 mmol/L (3.5-5.1); Sodium 125 mmol/L (136-145)
[2023-03-31 07:39] LABS: Iron < 10 mcg/dl (35-150); Unsaturated Iron Binding Cap 199 mcg/dl (155-355)
[2023-03-31 07:51] LABS: RBC Morphology Unremarkable
[2023-03-31 07:55] LABS: Ferritin 207.7 ng/ml (8-388)
[2023-03-31] MEDS: ASPIRIN 81 MG ECTAB PO SCH ×2 (08:59→20:42)
[2023-03-31] MEDS: ACETAMINOPHEN 325 MG TAB PO SCH ×3 (08:59→20:05)
[2023-03-31] MEDS: TIMOLOL MALEATE 0.5% OP SOLN 5 ML BTL OPB SCH (09:02)
[2023-03-31] MEDS ORDERED: SODIUM CHLORIDE 0.9% 250 ML IV PRN (09:53)
[2023-03-31] MEDS: SODIUM CHLORIDE 1 GM TABLET PO SCH ×2 (10:23→20:05)
[2023-03-31] MEDS: amLODIPine BESYLATE 5 MG TAB PO SCH (10:23)
[2023-03-31] MEDS: PANTOprazole 40 MG TAB PO SCH (10:23)
[2023-03-31] MEDS: POLYETHYLENE (MIRALAX) 17 GM PACK PO SCH ×2 (17:07→23:24)
--- NOTE | 2023-03-31 17:15 | Orthopedic Progress Note ---
Date of Service March 31, 2023 Assessment & Plan (1) Periprosthetic fracture of shaft of femur: 88-year-old female postop day 2 from a IM nail removal and placement of long trochanteric nail/exchange nailing. Orthopedically she is doing well. Pain is controlled. She is neurologically intact. She is anemic but really not symptomatic. She is already receiving a unit of blood. Plan: 1. DVT prophylaxis including thigh-high teds SCDs and aspirin twice a day for 6 weeks. 2. PT OT. She can fully weight-bear on this leg. There is no restrictions from weightbearing standpoint. 3. Pain control doing okay with current pain regimen for anemia. She is already getting some blood. I tried to limit the blood transfusion that this does increase her risk of infection. I would wait till she is symptomatic. 4. Medical management as per the medicine service 5. Disposition she is orthopedically okay for discharge anytime medically stable. I did see her back 2 to 3 weeks out from surgery date. Any orthopedic questions can recommend [phone] Subjective . 88-year-old female now postop day 2 from removal of IM nail and placement of long trochanteric nail for periprosthetic fracture. Patient is a currently doing pretty well. Says her pain is controlled. Denies any chest pain or shortness of breath. Not feeling dizzy or lightheaded. She is currently getting a unit of blood. Review of Systems All systems reviewed & are unremarkable except as noted in HPI & below. Physical Exam . Physical examination was a pleasant middle-age female. Pleasant elderly female. She is lying in bed looks pretty comfortable. She is currently receiving some blood. Examination the right hip reveals all incisions to be well approximated. I will detect any drainage. Leg lengths are equal. She can dorsiflex and plantarflex her foot appropriately. She is neurologically intact. Results & Data Results & Data Laboratory Results . Hemoglobin 7.8. Hematocrit is 23.2. Sodium continues to be low at 125. Creatinine stable Diagnostic Findings . PG Care Time/CCT Total # of Minutes Spent Total Time Spent with Patient: Total time spent is greater than 50% in coordination of care (as documented) at patient's floor/unit and/or counseling patient: Coding Level of Care Code 31549 Post Operative Follow-Up Diagnoses Periprosthetic fracture of shaft of femur M97.8XXA; Z96.649
[2023-03-31] MEDS ORDERED: FUROSEMIDE 20 MG TAB PO ONE (19:26)
--- NOTE | 2023-03-31 20:17 | Hospitalist Progress Note ---
Date of Service March 31, 2023 Assessment & Plan (1) Periprosthetic fracture of shaft of femur: Plan: right original ORIF of right hip fracture was 12/26/[address] Alarcon POD #2 - s/p removal of old hardware by Dr Thomason with placement of longer hardware PT, OT asa BID for DVT proph 25-OH vit D level - 37 acute blood loss anemia - Tx 1 unit PRBCs today for Hb 7.8 cbc am appreciate [facility] assistance (2) Hyponatremia: Plan: acute on chronic had been improving then steadily declined - now 123 increase salt tabs to 1 BID and give lasix 20mg po x 1 serial Na levels if Na levels do not rise then give Tolvaptan (3) Wheezing: Plan: resolved occurred post-op cxr interpreted as normal suspect she had aspiration leading to bronchospasm no evidence of pulmonary edema on cxr o2 sats wnl cont combivent cont incentive spirometry (4) Hiatal hernia: Plan: large, as seen on CT a/p in 2022 this puts her at risk of aspiration, reflux, ulcers, etc cont PPI was wheezing post-op a sign of aspiration? regardless her wheezing is resolved and O2 sats are stable (5) Hypothyroidism: Plan: TSH 06/2022 wnl cont synthroid (6) Hypertension: Plan: BPs stable can resume amlodipine today (7) Hyperlipidemia: Plan: statin on hold can resume at discharge (8) Pre-diabetes: Plan: a1c has been as high as 6% in the past last reading was 5.6% in late 2021 repeat level 5.5% resolved (9) Vitamin D deficiency: Plan: 25-OH vit D level in 2021 was quite robust (>70) repeat level 37 (10) DVT prophylaxis: Plan: asa 81mg BID x 6 weeks (11) Anemia: Plan: acute blood loss anemia hb 7.8 today Tx 1 unit PRBCs followed by lasix cbc am Plan updated pt's daughter by phone yesterday evening Admission and Anticipated Discharge Date Admission Date: March 28, 2023 Subjective no issues overnight right hip pain is controlled at rest but much worse with movement/activity +flatus and stool eating well no breathing difficulty Review of Systems Review of Systems: cv - no cp, no orthopnea pulm - no wheezing GI - no pain or N/V Physical Exam Physical Exam: gen - NAD, looks good mouth - MMM heart - RRR, s1 s2, no murmur lungs - CTA b/l, no rales, no wheezing; no increased work of breathing abd - soft NT ND BS+ ext - right thigh edema from recent right femur fracture; b/l ankle edema about 1+; pulses 2+ b/l feet psych - awake/alert/oriented x 3 skin - tung intact right lateral thigh Results & Data Results & Data Vital Signs (Past 12 Hours) Vital Signs Temp Pulse Pulse Resp BP BP Pulse Ox 03/31/23 15:18 37.1 C 87 20 143/63 H 96 03/31/23 15:04 88 18 93 03/31/23 13:50 37.1 C 82 20 137/70 95 03/31/23 13:20 37 C 80 16 138/65 98 03/31/23 12:20 37 C 84 18 128/68 98 03/31/23 11:50 37.0 C 84 20 148/73 H 96 03/31/23 11:29 03/31/23 11:20 37.1 C 78 20 121/63 94 03/31/23 11:27 79 18 93 03/31/23 11:19 37.1 C 80 16 130/69 98 03/31/23 11:05 37.2 C 80 20 128/67 94 03/31/23 10:47 37.0 C 80 20 133/68 94 O2 Del Method O2 Flow Rate 03/31/23 15:18 Room Air 03/31/23 15:04 Room Air 03/31/23 13:50 03/31/23 13:20 03/31/23 12:20 03/31/23 11:50 03/31/23 11:29 Room Air 03/31/23 11:20 03/31/23 11:27 Room Air 03/31/23 11:19 03/31/23 11:05 0 03/31/23 10:47 0 Laboratory Results Laboratory Results - last 24 hr 03/29/23 03/31/23 03/31/23 08:12 06:20 06:20 WBC 12.82 H RBC 2.61 L Hgb 7.8 L Hct 23.2 L MCV 88.9 MCH 29.9 MCHC 33.6 RDW Std Deviation 43.2 RDW Coeff of Felicity 13.2 Plt Count 249 MPV 10.6 Immature Gran % (Auto) 0.5 Neut % (Auto) 68.2 Lymph % (Auto) 15.1 [place] % (Auto) 15.5 Eos % (Auto) 0.6 Baso % (Auto) 0.1 Neut # (Auto) 8.74 H Lymph # (Auto) 1.94 [place] # (Auto) 1.99 H Eos # (Auto) 0.08 Baso # (Auto) 0.01 Immature Gran # (Auto) 0.06 RBC Morphology Unremarkable Sodium 125 L Potassium 4.3 Chloride 96 L Carbon Dioxide 23 Anion Gap 6 BUN 14 Creatinine 0.53 L Est Cr Clr Drug Dosing 57.5 Est GFR ( Amer) 98.3 Est GFR (Non-Af Amer) 84.8 BUN/Creatinine Ratio 26.4 H Glucose 87 Calcium 8.0 L Iron < 10 L TIBC TNP Unsaturated IBC 199 Transferrin % Sat TNP Ferritin 207.7 Blood Type B Negative Antibody Screen NEGATIVE Crossmatch See Detail 03/31/23 17:42 WBC RBC Hgb Hct MCV MCH MCHC RDW Std Deviation RDW Coeff of Felicity Plt Count MPV Immature Gran % (Auto) Neut % (Auto) Lymph % (Auto) [place] % (Auto) Eos % (Auto) Baso % (Auto) Neut # (Auto) Lymph # (Auto) [place] # (Auto) Eos # (Auto) Baso # (Auto) Immature Gran # (Auto) RBC Morphology Sodium 123 L Potassium Chloride Carbon Dioxide Anion Gap BUN Creatinine Est Cr Clr Drug Dosing Est GFR ( Amer) Est GFR (Non-Af Amer) BUN/Creatinine Ratio Glucose Calcium Iron TIBC Unsaturated IBC Transferrin % Sat Ferritin Blood Type Antibody Screen Crossmatch PG Care Time/CCT Total # of Minutes Spent Total Time Spent with Patient: Total time spent is greater than 50% in coordination of care (as documented) at patient's floor/unit and/or counseling patient: Coding Level of Care Code 39142 SUB INP/OBS CARE 2/35MIN Diagnoses Periprosthetic fracture of shaft of femur M97.8XXA; Z96.649 Hyponatremia E87.1 Wheezing R06.2 Hiatal hernia K44.9 Hypothyroidism E03.9 Hypertension I10 Hyperlipidemia E78.5 Pre-diabetes R73.03 Vitamin D deficiency E55.9 DVT prophylaxis Z29.9 Anemia D64.9
[2023-04-01 07:02] LABS: Basophils # (auto) 0.01 K/uL (0-0.2); Basophils % (auto) 0.1 %; Eosinophils # (auto) 0.08 K/uL (0-0.50); Eosinophils % (auto) 0.7 %; Hematocrit (blood only) 27.2 % (37.0-47.0); Hemoglobin 9.5 g/dl (12.0-16.0); Immature Granulocytes # (auto) 0.06 K/uL (0.01-0.20); Immature Granulocytes % (auto) 0.6 %; Lymphocytes # (auto) 1.56 K/uL (1.2-3.4); Lymphocytes % (auto) 14.4 %; Mean Corpuscular Hemoglobin 30.1 pg (25.0-34.0); Mean Corpuscular Hgb Conc 34.9 g/dL (32.0-36.0); Mean Corpuscular Volume 86.1 fL (80.0-100.0); Mean Platelet Volume 10.4 fL (9.4-12.4); Monocytes # (auto) 1.53 K/uL (0.11-0.59); Monocytes % (auto) 14.1 %; Neutrophils % (auto) 70.1 %; Platelet Count 251 K/uL (130-400); RDW Coefficient of Variation 13.1 % (11.5-14.5); RDW Standard Deviation 41.6 fL (36.4-46.3); Red Blood Count 3.16 M/uL (4.20-5.40); White Blood Count 10.84 K/ul (4.8-10.8)
[2023-04-01] MEDS: POLYETHYLENE (MIRALAX) 17 GM PACK PO SCH ×3 (07:02→17:14)
[2023-04-01] MEDS: IPRATROPIUM BROMIDE HFA INHALER INH SCH ×4 (07:06→19:48)
[2023-04-01] MEDS: ALBUTEROL HFA 8 GM INHALER INH SCH ×4 (07:06→19:48)
[2023-04-01 07:29] LABS: BUN Creatinine Ratio 34.9 (10-20); Calcium 8.4 mg/dl (8.6-10.3); Creatinine Clr Calc Pharmacy 70.9 ml/min; Est GFR (African American) 105.3 ml/min; Est GFR (Non-African American) 90.8 ml/min; Potassium 3.8 mmol/L (3.5-5.1)
[2023-04-01] MEDS ORDERED: POTASSIUM CHLORIDE 10 MEQ TABCR PO STA (07:32)
[2023-04-01] MEDS ORDERED: FUROSEMIDE 20 MG TAB PO ONE (07:32)
[2023-04-01] MEDS: amLODIPine BESYLATE 5 MG TAB PO SCH (07:51)
[2023-04-01] MEDS: SODIUM CHLORIDE 1 GM TABLET PO SCH ×2 (07:51→20:09)
[2023-04-01] MEDS: PANTOprazole 40 MG TAB PO SCH (07:51)
[2023-04-01] MEDS: TIMOLOL MALEATE 0.5% OP SOLN 5 ML BTL OPB SCH (07:52)
[2023-04-01] MEDS: ACETAMINOPHEN 325 MG TAB PO SCH ×3 (07:52→20:10)
[2023-04-01] MEDS: ASPIRIN 81 MG ECTAB PO SCH ×2 (07:53→20:10)
--- NOTE | 2023-04-01 08:15 | Orthopedic Progress Note ---
Date of Service April 01, 2023 Assessment & Plan (1) Periprosthetic fracture of shaft of femur: 88-year-old female postop day 3 from exchange nailing of her right periprosthetic femur fracture doing well orthopedically. Pain is controlled. She looks comfortable. Hemoglobin is improved. Plan: 1. DVT prophylaxis including thigh-high teds, SCDs, and would recommend a baby aspirin twice a day for 6 weeks. 2. PT OT. She can fully weight-bear as tolerated in this right leg.. 3. Pain control doing okay with current pain regimen. 4. Medical management as per the medicine service. 5. Disposition she is orthopedically okay for discharge anytime. Routine wound care to the right hip. She can weight-bear as tolerated. I need to see him back 2 to 3 weeks out from surgery date. Any orthopedic questions can be direct me at [phone] Subjective . 88-year-old female postop day 3 from exchange nailing of a right periprosthetic femur fracture. She looks to be doing well. Pain seems to be controlled. She looks a little bit better more comfortable each day. No complaints. Review of Systems All systems reviewed & are unremarkable except as noted in HPI & below. Physical Exam . Physical examination reveals the patient is lying in bed looks pretty comfortable. Examination of the right hip and leg reveals leg lengths are equal. Just a slight bit of drainage at the incision sites. The thigh is soft and supple. She is neurologically intact. Results & Data Results & Data Laboratory Results . Hemoglobin is 9.5 hematocrit is 27.2. Electrolytes are stable. Diagnostic Findings . PG Care Time/CCT Total # of Minutes Spent Total Time Spent with Patient: Total time spent is greater than 50% in coordination of care (as documented) at patient's floor/unit and/or counseling patient: Coding Level of Care Code 83869 Post Operative Follow-Up Diagnoses Periprosthetic fracture of shaft of femur M97.8XXA; Z96.649
[2023-04-01] MEDS: ONDANSETRON INJ 2 MG/ML 2 ML VIAL IV PRN (08:16)
[2023-04-01] MEDS: DULoxetine HCL 30 MG CAP PO SCH (16:04)
--- NOTE | 2023-04-01 20:27 | Hospitalist Progress Note ---
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 regardless her wheezing is resolved and O2 sats are stable (5) Hypothyroidism: Plan: TSH 06/2022 wnl cont synthroid (6) Hypertension: Plan: BPs stable cont amlodipine holding losartan (7) Hyperlipidemia: Plan: statin on hold can resume at discharge (8) Pre-diabetes: Plan: a1c has been as high as 6% in the past last reading was 5.6% in late 2021 repeat level 5.5% resolved (9) Vitamin D deficiency: Plan: 25-OH vit D level in 2021 was quite robust (>70) repeat level 37 (10) DVT prophylaxis: Plan: asa 81mg BID x 6 weeks (11) Anemia: Plan: acute blood loss anemia s/p 1 unit PRBCs with nice response H/H stable since Plan progressing dispo - [facility] will update family tomorrow Admission and Anticipated Discharge Date Admission Date: March 28, 2023 Subjective saw patient in the afternoon she stated she had 2 episodes of regurgitation - 1 last pm, and another this am she had taken her pills and was eating toast nursing staff stated she regurgitated stomach acid/chyme; there were no pill remnants denies abd pain able to eat lunch without difficulty +BM continues with right hip pain with ambulation did sit in chair today Review of Systems Review of Systems: gen - overall feels ok cv - no chest pain pulm - no cough, no wheeze, no dyspnea, no MYERS GI - see HPI - has julio cesar, we discussed discontinuation of such Physical Exam Physical Exam: gen - awake, alert, pleasant, NAD mouth - MMM today heart - RRR, s1 s2, no murmur lungs - CTA b/l, no rales, no wheezing; no increased work of breathing abd - soft NT ND BS+ ext - tung right lateral thigh c/d/i, pulses feet 2+ b/l; edema of b/l feet trace today only psych - awake/alert/oriented x 3 Results & Data Results & Data Vital Signs (Past 12 Hours) Vital Signs Temp Pulse Resp BP Pulse Ox O2 Del Method 04/01/23 16:54 37.1 C 88 16 153/71 H 98 Room Air 04/01/23 15:30 84 18 98 Room Air 04/01/23 11:58 89 18 96 Room Air 04/01/23 09:01 Room Air Laboratory Results Laboratory Results - last 24 hr 03/31/23 03/31/23 04/01/23 20:50 20:50 00:31 WBC RBC Hgb Hct MCV MCH MCHC RDW Std Deviation RDW Coeff of Felicity Plt Count MPV Immature Gran % (Auto) Neut % (Auto) Lymph % (Auto) Ramsey % (Auto) Eos % (Auto) Baso % (Auto) Neut # (Auto) Lymph # (Auto) Ramsey # (Auto) Eos # (Auto) Baso # (Auto) Immature Gran # (Auto) Sodium 123 L Potassium Chloride Carbon Dioxide Anion Gap BUN Creatinine Est Cr Clr Drug Dosing Est GFR ( Amer) Est GFR (Non-Af Amer) BUN/Creatinine Ratio Glucose Calcium Urine Osmolality 499 L Ur Random Sodium 89 04/01/23 04/01/23 04/01/23 06:10 06:10 06:10 WBC 10.84 H RBC 3.16 L Hgb 9.5 L Hct 27.2 L MCV 86.1 MCH 30.1 MCHC 34.9 RDW Std Deviation 41.6 RDW Coeff of Felicity 13.1 Plt Count 251 MPV 10.4 Immature Gran % (Auto) 0.6 Neut % (Auto) 70.1 Lymph % (Auto) 14.4 Ramsey % (Auto) 14.1 Eos % (Auto) 0.7 Baso % (Auto) 0.1 Neut # (Auto) 7.60 H Lymph # (Auto) 1.56 Ramsey # (Auto) 1.53 H Eos # (Auto) 0.08 Baso # (Auto) 0.01 Immature Gran # (Auto) 0.06 Sodium 125 L 126 L Potassium 3.8 Chloride 93 L Carbon Dioxide 27 Anion Gap 6 BUN 15 Creatinine 0.43 L Est Cr Clr Drug Dosing 70.9 Est GFR ( Amer) 105.3 Est GFR (Non-Af Amer) 90.8 BUN/Creatinine Ratio 34.9 H Glucose 103 H Calcium 8.4 L Urine Osmolality Ur Random Sodium 04/01/23 12:18 WBC RBC Hgb Hct MCV MCH MCHC RDW Std Deviation RDW Coeff of Felicity Plt Count MPV Immature Gran % (Auto) Neut % (Auto) Lymph % (Auto) Ramsey % (Auto) Eos % (Auto) Baso % (Auto) Neut # (Auto) Lymph # (Auto) Ramsey # (Auto) Eos # (Auto) Baso # (Auto) Immature Gran # (Auto) Sodium 125 L Potassium Chloride Carbon Dioxide Anion Gap BUN Creatinine Est Cr Clr Drug Dosing Est GFR ( Amer) Est GFR (Non-Af Amer) BUN/Creatinine Ratio Glucose Calcium Urine Osmolality Ur Random Sodium PG Care Time/CCT Total # of Minutes Spent Total Time Spent with Patient: Total time spent is greater than 50% in coordination of care (as documented) at patient's floor/unit and/or counseling patient: Coding Level of Care Code 71140 SUB INP/OBS CARE 2/35MIN Diagnoses Periprosthetic fracture of shaft of femur M97.8XXA; Z96.649 Hyponatremia E87.1 Wheezing R06.2 Hiatal hernia K44.9 Hypothyroidism E03.9 Hypertension I10 Hyperlipidemia E78.5 Pre-diabetes R73.03 Vitamin D deficiency E55.9 DVT prophylaxis Z29.9 Anemia D64.9
[2023-04-02] MEDS: POLYETHYLENE (MIRALAX) 17 GM PACK PO SCH ×3 (01:05→12:16)
[2023-04-02] MEDS ORDERED: ALBUTEROL HFA 8 GM INHALER INH PRN (04:53)
[2023-04-02] MEDS ORDERED: IPRATROPIUM BROMIDE HFA INHALER INH PRN (04:53)
[2023-04-02 06:05] LABS: BUN Creatinine Ratio 43.9 (10-20); Calcium 8.3 mg/dl (8.6-10.3); Creatinine Clr Calc Pharmacy 74.4 ml/min; Est GFR (African American) 106.9 ml/min; Est GFR (Non-African American) 92.2 ml/min
[2023-04-02] MEDS: DULoxetine HCL 30 MG CAP PO SCH (08:30)
[2023-04-02] MEDS: ACETAMINOPHEN 325 MG TAB PO SCH ×3 (08:30→20:22)
[2023-04-02] MEDS: TIMOLOL MALEATE 0.5% OP SOLN 5 ML BTL OPB SCH (08:31)
[2023-04-02] MEDS: SODIUM CHLORIDE 1 GM TABLET PO SCH ×2 (08:31→20:21)
[2023-04-02] MEDS: PANTOprazole 40 MG TAB PO SCH (08:31)
[2023-04-02] MEDS: ASPIRIN 81 MG ECTAB PO SCH ×2 (08:31→20:22)
[2023-04-02] MEDS: amLODIPine BESYLATE 5 MG TAB PO SCH (08:31)
[2023-04-02] MEDS ORDERED: TOLVAPTAN 15 MG TABLET PO ONE (16:26)
[2023-04-02] MEDS: PSYLLIUM or GUAR GUM FIBER POWDER PACKET PO SCH (17:00)
[2023-04-02] MEDS: SENNA 8.6 MG TAB PO SCH (17:00)
--- NOTE | 2023-04-02 20:21 | Hospitalist Progress Note ---
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 regardless her wheezing is resolved and O2 sats are stable (5) Hypothyroidism: Plan: TSH 06/2022 wnl cont synthroid (6) Hypertension: Plan: BPs stable cont amlodipine resume losartan am (7) Hyperlipidemia: Plan: statin on hold can resume at discharge (8) Pre-diabetes: Plan: a1c has been as high as 6% in the past last reading was 5.6% in late 2021 repeat level 5.5% resolved (9) Vitamin D deficiency: Plan: 25-OH vit D level in 2021 was quite robust (>70) repeat level 37 (10) DVT prophylaxis: Plan: asa 81mg BID x 6 weeks (11) Anemia: Plan: acute blood loss anemia s/p 1 unit PRBCs with nice response H/H stable since then cbc in am fors stability Plan progressing nicely can d/c to [facility] when Na level is 130 or higher consistently updated daughter by phone this evening Admission and Anticipated Discharge Date Admission Date: March 28, 2023 Subjective patient has had no additional episodes of reflux/vomiting very tired today but eating fair had BM this afternoon no abd pain right hip pain is fair no cough or dyspnea in good spirits overall - anxious to get back to the [facility] Review of Systems Review of Systems: cv - no cp, no orthopnea pulm - no cough/wheeze/dyspnea GI - no diarrhea; firm hard stool this am, softer this pm - harrell removed, voiding ok w/o dysuria Physical Exam Physical Exam: gen - awake, alert, pleasant, NAD - looks good mouth - MMM heart - RRR, s1 s2, no murmur lungs - CTA b/l, no rales, no wheezing; no increased work of breathing abd - soft NT ND BS+ ext - tung right lateral thigh c/d/i, pulses feet 2+ b/l; no edema b/l ankles/feet; mild edema of right thigh psych - awake/alert/oriented x 3 Results & Data Results & Data Vital Signs (Past 12 Hours) Vital Signs Temp Pulse Resp BP Pulse Ox O2 Del Method 04/02/23 16:15 36.6 C 81 18 142/80 H 95 Room Air 04/02/23 11:26 Room Air Laboratory Results Laboratory Results - last 24 hr 04/02/23 04/02/23 05:18 15:36 Sodium 127 L 124 L Potassium 4.0 Chloride 94 L Carbon Dioxide 28 Anion Gap 5 BUN 18 Creatinine 0.41 L Est Cr Clr Drug Dosing 74.4 Est GFR ( Amer) 106.9 Est GFR (Non-Af Amer) 92.2 BUN/Creatinine Ratio 43.9 H Glucose 105 H Calcium 8.3 L PG Care Time/CCT Total # of Minutes Spent Total Time Spent with Patient: Total time spent is greater than 50% in coordination of care (as documented) at patient's floor/unit and/or counseling patient: Coding Level of Care Code 86404 SUB INP/OBS CARE 2/35MIN Diagnoses Periprosthetic fracture of shaft of femur M97.8XXA; Z96.649 Hyponatremia E87.1 Wheezing R06.2 Hiatal hernia K44.9 Hypothyroidism E03.9 Hypertension I10 Hyperlipidemia E78.5 Pre-diabetes R73.03 Vitamin D deficiency E55.9 DVT prophylaxis Z29.9 Anemia D64.9
[2023-04-03] MEDS: ACETAMINOPHEN 325 MG TAB PO SCH ×3 (08:36→20:32)
[2023-04-03] MEDS: SODIUM CHLORIDE 1 GM TABLET PO SCH ×2 (08:36→20:33)
[2023-04-03] MEDS: ASPIRIN 81 MG ECTAB PO SCH ×2 (08:36→20:32)
[2023-04-03] MEDS: PSYLLIUM or GUAR GUM FIBER POWDER PACKET PO SCH (08:37)
[2023-04-03] MEDS: TIMOLOL MALEATE 0.5% OP SOLN 5 ML BTL OPB SCH (08:37)
[2023-04-03] MEDS: SENNA 8.6 MG TAB PO SCH (08:37)
[2023-04-03] MEDS: amLODIPine BESYLATE 5 MG TAB PO SCH (08:38)
[2023-04-03] MEDS: PANTOprazole 40 MG TAB PO SCH ×2 (08:38→20:32)
[2023-04-03] MEDS: DULoxetine HCL 30 MG CAP PO SCH (08:38)
[2023-04-03 09:24] LABS: Hematocrit (blood only) 28.5 % (37.0-47.0); Hemoglobin 9.6 g/dl (12.0-16.0); Mean Corpuscular Hemoglobin 29.4 pg (25.0-34.0); Mean Corpuscular Hgb Conc 33.7 g/dL (32.0-36.0); Mean Corpuscular Volume 87.4 fL (80.0-100.0); Mean Platelet Volume 9.5 fL (9.4-12.4); Platelet Count 392 K/uL (130-400); RDW Coefficient of Variation 13.2 % (11.5-14.5); RDW Standard Deviation 41.6 fL (36.4-46.3); Red Blood Count 3.26 M/uL (4.20-5.40)
[2023-04-03 09:34] LABS: BUN Creatinine Ratio 43.2 (10-20); Creatinine Clr Calc Pharmacy 82.4 ml/min; Est GFR (African American) 110.6 ml/min; Est GFR (Non-African American) 95.4 ml/min; Potassium 4.2 mmol/L (3.5-5.1)
[2023-04-03] MEDS ORDERED: TOLVAPTAN 15 MG TABLET PO ONE ×2 (11:30→19:30)
[2023-04-03] MEDS: ONDANSETRON INJ 2 MG/ML 2 ML VIAL IV PRN (20:45)
--- NOTE | 2023-04-03 20:55 | Hospitalist Progress Note ---
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 urine osm/urine Na support such some improvement overnight in Na with dose of tolvaptan yesterday urine osm still quite high and Na this evening 128 will give another dose of tolvaptan today - 15mg x 1 repeat Na in am if Na level is >130 can likely d/c to SNF ([facility]) tomorrow with NaCL tabs 1gm BID, fluid restriction will need close monitoring of the sodium levels after d/c (3) Wheezing: Plan: resolved occurred post-op cxr was normal suspect she had aspiration leading to bronchospasm perioperatively no evidence of pulmonary edema never had hypoxia post-op cont combivent prn cont incentive spirometry (4) Hiatal hernia: Plan: large, as seen on CT a/p in 2022 this puts her at risk of aspiration, reflux, ulcers, etc cont PPI twice daily at discharge (5) Hypothyroidism: Plan: TSH 06/2022 wnl cont synthroid (6) Hypertension: Plan: BPs stable but trending upwards increase amlodipine to 5mg daily if needed resume losartan as well (7) Hyperlipidemia: Plan: statin on hold can resume at discharge (8) Pre-diabetes: Plan: a1c has been as high as 6% in the past last reading was 5.6% in late 2021 repeat level 5.5% resolved (9) Vitamin D deficiency: Plan: 25-OH vit D level in 2021 was quite robust (>70) repeat level 37 (10) DVT prophylaxis: Plan: asa 81mg BID x 6 weeks (11) Anemia: Plan: acute blood loss anemia s/p 1 unit PRBCs with nice response this admission H/H stable since then Plan progressing nicely can d/c to [facility] when Na level is 130 or higher consistently (hopefully tomorrow) updated daughter by phone yesterday pm Admission and Anticipated Discharge Date Admission Date: March 28, 2023 Subjective no events today had another bowel movement no vomiting or regurgitation episodes more energy today no dyspnea or cough feels good pain right hip at rest is controlled only has pain with ambulation continues to void fine w/o harrell in place Review of Systems Review of Systems: cv - no orthopnea pulm - no dyspnea or MYERS or wheeze GI - no nausea or pain Physical Exam Physical Exam: gen - awake, alert, pleasant, NAD mouth - MMM heart - RRR, s1 s2, no murmur lungs - CTA b/l abd - soft NT ND BS+ ext - tung right lateral thigh c/d/i, pulses feet 2+ b/l; trace edema b/l ankles/feet; mild edema of right thigh psych - awake/alert/oriented x 3 Results & Data Results & Data Vital Signs (Past 12 Hours) Vital Signs Temp Pulse Resp BP Pulse Ox O2 Del Method 04/03/23 14:51 37 C 74 18 150/77 H 95 Room Air Laboratory Results Laboratory Results - last 24 hr 04/03/23 04/03/23 04/03/23 08:55 08:55 16:14 WBC 8.60 RBC 3.26 L Hgb 9.6 L Hct 28.5 L MCV 87.4 MCH 29.4 MCHC 33.7 RDW Std Deviation 41.6 RDW Coeff of Felicity 13.2 Plt Count 392 MPV 9.5 Sodium 128 L Potassium 4.2 Chloride 93 L Carbon Dioxide 29 Anion Gap 6 BUN 16 Creatinine 0.37 L Est Cr Clr Drug Dosing 82.4 Est GFR ( Amer) 110.6 Est GFR (Non-Af Amer) 95.4 BUN/Creatinine Ratio 43.2 H Glucose 160 H Calcium 9.0 Urine Osmolality 515 04/03/23 17:20 WBC RBC Hgb Hct MCV MCH MCHC RDW Std Deviation RDW Coeff of Felicity Plt Count MPV Sodium 128 L Potassium Chloride Carbon Dioxide Anion Gap BUN Creatinine Est Cr Clr Drug Dosing Est GFR ( Amer) Est GFR (Non-Af Amer) BUN/Creatinine Ratio Glucose Calcium Urine Osmolality PG Care Time/CCT Total # of Minutes Spent Total Time Spent with Patient: Total time spent is greater than 50% in coordination of care (as documented) at patient's floor/unit and/or counseling patient: Coding Level of Care Code 65578 SUB INP/OBS CARE MIN Diagnoses Periprosthetic fracture of shaft of femur M97.8XXA; Z96.649 Hyponatremia E87.1 Wheezing R06.2 Hiatal hernia K44.9 Hypothyroidism E03.9 Hypertension I10 Hyperlipidemia E78.5 Pre-diabetes R73.03 Vitamin D deficiency E55.9 DVT prophylaxis Z29.9 Anemia D64.9
[2023-04-03] MEDS ORDERED: ZOLPIDEM TARTRATE 5 MG TAB PO PRN (22:27)
[2023-04-04 06:40] LABS: BUN Creatinine Ratio 37.5 (10-20); Calcium 9.1 mg/dl (8.6-10.3); Creatinine Clr Calc Pharmacy 76.2 ml/min; Est GFR (African American) 107.8 ml/min; Potassium 4.2 mmol/L (3.5-5.1)
[2023-04-04] MEDS ORDERED: amLODIPine BESYLATE 5 MG TAB PO SCH (09:00)
[2023-04-04] MEDS: ASPIRIN 81 MG ECTAB PO SCH (09:02)
[2023-04-04] MEDS: DULoxetine HCL 30 MG CAP PO SCH (09:02)
[2023-04-04] MEDS: PANTOprazole 40 MG TAB PO SCH (09:02)
[2023-04-04] MEDS: PSYLLIUM or GUAR GUM FIBER POWDER PACKET PO SCH (09:02)
[2023-04-04] MEDS: SENNA 8.6 MG TAB PO SCH (09:02)
[2023-04-04] MEDS: SODIUM CHLORIDE 1 GM TABLET PO SCH (09:02)
[2023-04-04] MEDS: TIMOLOL MALEATE 0.5% OP SOLN 5 ML BTL OPB SCH (09:03)
[2023-04-04] MEDS: ACETAMINOPHEN 325 MG TAB PO SCH (09:03)
--- NOTE | 2023-04-04 09:04 | Discharge Summary ---
Discharge Summary Date of Service April 04, 2023 Admission HPI Per Admitting Provider The patient is an 88-year-old female with a past medical history including osteoporosis, prediabetes, lumbar degenerative disc disease, status post right TSA, left rotator cuff tear arthropathy, anxiety, GERD, insomnia and hypothyroidism. The patient had a right intertrochanteric femur fracture on 12/25/2022, and underwent an intramedullary nail fixation of right hip on 12/26/[address] Alarcon. Patient reports that she had been doing well at physical therapy, but has little discomfort after therapy yesterday. She woke up today, was walking, and felt and heard a snap in her right leg, developed severe pain instantaneously, and then lowered herself to the ground. Since that incident, she has not been able to bear weight on her right hip, and is brought to the ED for further assessment. She has also been reporting some chronic pain in her right shoulder for the last few weeks, but did not have injury that she is aware of today. Principal Dx & Hospital Course #1 = Principal Diagnosis (1) Periprosthetic fracture of shaft of femur: (2) Hyponatremia: (3) Wheezing: (4) Hiatal hernia: (5) Hypothyroidism: (6) Hypertension: (7) Hyperlipidemia: (8) Pre-diabetes: (9) Vitamin D deficiency: (10) DVT prophylaxis: (11) Anemia: Plan Periprosthetic fracture of shaft of right femur: Original ORIF of right hip fracture was 12/26/[address] Alarcon Now s/p removal of old hardware by Dr Thomason with placement of longer hardware on 03/29/23 Cont PT, OT Cont asa BID for DVT proph x6 weeks 25-OH vit D level - 37 Tylenol/NSAIDs first line for pain, oxycodone as needed for severe pain not alleviated with Tylenol/NSAIDs Hyponatremia: Acute on chronic, with a component of SIADH (urine osm/urine Na support such) Received tolvaptan 15mg po x 1, Na 131 on day of discharge Continue BID salt tabs, fluid restriction 1200mL with BMP on to determine if patient requires PO Lasix dosing on top of these interventions Wheezing: Resolved, occurred post-op CXR interpreted as normal, suspect bronchospasm Cont incentive spirometry Hiatal hernia: large, as seen on CTAP in 2022 This puts her at risk of aspiration, reflux, ulcers, etc Cont PPI Hypothyroidism: TSH 06/2022 wnl, cont Synthroid Hypertension: BPs stable Cont amlodipine and losartan Hyperlipidemia: Resume statin at discharge Pre-diabetes: a1c has been as high as 6% in the past Repeat level 5.5% Vitamin D deficiency: 25-OH vit D level in 2021 was quite robust (>70) Repeat level 37 DVT prophylaxis: Asa 81mg BID x 6 weeks Anemia: acute blood loss anemia s/p 1 unit PRBCs with nice response H/H stable since then, repeat with outpatient labs Discharge Exam Constitutional WD/WN, vitals as above Respiratory normal respiratory effort, lungs clear to auscultation Musculoskeletal right hip/thigh soft, no drainage Psychiatric A+Ox3, euthymic affect Updated Medication List Medication Instructions Recorded Confirmed Type timolol maleate 0.5 % eye drops 1 drp OPB QAM 03/29/19 03/28/23 History (Timoptic) levothyroxine 25 mcg tablet 25 mcg PO DAILY #90 tabs 03/23/22 03/28/23 Rx (Synthroid) valsartan 160 mg tablet (Diovan) 160 mg PO DAILY #90 tabs 03/23/22 03/28/23 Rx multivitamin (Daily Multi-Vitamin 1 tab PO DAILY 07/08/22 03/28/23 History tablet) amlodipine 2.5 mg tablet 2.5 mg PO DAILY 12/25/22 03/28/23 History pravastatin 80 mg tablet 80 mg PO QPM 12/25/22 03/28/23 History acetaminophen 500 mg tablet 500 mg PO QID PRN Pain 01/18/23 03/22/23 History (Tylenol Extra Strength) calcium carbonate 500 mg calcium 500 mg PO DAILY 01/18/23 03/28/23 History (1,250 mg) chewable tablet diclofenac sodium 1 % topical gel 4 g EXT QID PRN RIGHT shoulder 01/22/23 03/28/23 Rx (Voltaren Arthritis Pain) pain #1 tube ondansetron 4 mg disintegrating 4 mg PO Q6H PRN nausea, 01/22/23 03/28/23 Rx tablet regurgitation or emesis #10 tabs pantoprazole 40 mg tablet,delayed 40 mg PO QAM #30 tabs 01/22/23 03/28/23 Rx release zolpidem 5 mg tablet (Ambien) 2.5 mg PO HS #10 tabs 01/22/23 03/28/23 Rx duloxetine 30 mg capsule,delayed 30 mg PO DAILY #30 caps 03/28/23 03/28/23 Rx release PSYLLIUM or GUAR GUM FIBER SUP 1 pkg PO QAM ##0 04/04/23 Rx [METAMUCIL or NUTRISOURCE FIBER SUPPLEMENT] aspirin 81 mg tablet,delayed 81 mg PO BID #60 tabs 04/04/23 03/28/23 Rx release hydrocodone 5 mg-acetaminophen 325 1 tab PO Q6H PRN severe pain 04/04/23 Rx mg tablet (scale score 7-10) #10 tabs polyethylene glycol 3350 17 gram 17 g PO Q6 #0 ea 04/04/23 Rx oral powder packet (Miralax) sennosides 8.6 mg tablet (Senokot) 17.2 mg PO QAM #0 tabs 04/04/23 Rx sodium chloride 1,000 mg soluble 1,000 mg PO BID 30 days #60 tabs 04/04/23 Rx tablet Hospital Stay Data Consultations 03/28/23 22:09 ED Decision to Admit Stat 03/28/23 22:29 Consult Orthopedic Surgery Stat 03/28/23 23:14 Consult Orthopedic Surgery Routine Procedures Performed Operation Date: 03/29/23 09:10 Actual Procedures p Hardware Removal Right Femur with Insertion of Long Right Intramedullary Nail(Right) - Salomon Thomason MD Diagnostic Imagining Performed 03/29/23 FL hip RT 2-3V Routine Discharge Instructions Given to Patient (Per Discharging Provider) Periprosthetic fracture of shaft of right femur: Original ORIF of right hip fracture was 12/26/[address] Alarcon Now s/p removal of old hardware by Dr Thomason with placement of longer hardware on 03/29/23 Cont PT, OT Cont asa BID for DVT proph 25-OH vit D level - 37 Tylenol/NSAIDs first line for pain, oxycodone as needed for severe pain not alleviated with Tylenol/NSAIDs Hyponatremia: Acute on chronic, with a component of SIADH (urine osm/urine Na support such) Received tolvaptan 15mg po x 1, Na 131 on day of discharge Continue BID salt tabs, fluid restriction 1200mL with BMP on to determine if patient requires PO Lasix dosing on top of these interventions Wheezing: Resolved, occurred post-op CXR interpreted as normal, suspect bronchospasm Cont incentive spirometry Hiatal hernia: large, as seen on CTAP in 2022 This puts her at risk of aspiration, reflux, ulcers, etc Cont PPI Hypothyroidism: TSH 06/2022 wnl, cont Synthroid Hypertension: BPs stable Cont amlodipine and losartan Hyperlipidemia: Resume statin at discharge Pre-diabetes: a1c has been as high as 6% in the past Repeat level 5.5% Vitamin D deficiency: 25-OH vit D level in 2021 was quite robust (>70) Repeat level 37 DVT prophylaxis: Asa 81mg BID x 6 weeks Anemia: acute blood loss anemia s/p 1 unit PRBCs with nice response H/H stable since then, repeat with outpatient labs Total Time Total Time Spent Total Time Spent (In Minutes): 35 min Coding Level of Care Code 07470 INP/OBS DISCH >30 MIN Diagnoses Periprosthetic fracture of shaft of femur M97.8XXA; Z96.649 Hyponatremia E87.1 Wheezing R06.2 Hiatal hernia K44.9 Hypothyroidism E03.9 Hypertension I10 Hyperlipidemia E78.5 Pre-diabetes R73.03 Vitamin D deficiency E55.9 DVT prophylaxis Z29.9 Anemia D64.9
== END 2023-04-04 14:35 | DRG 481 ==
LOC: ED 19:14 → 3N 23:14 → SUATTDRO 23:14 → 3N 03-29 00:08

== ENCOUNTER 2023-11-04 09:17 | Inpatient (IN) ==
--- NOTE | 2023-11-04 09:35 | Emergency Department Note ---
Impression & Plan Acute pain of left hip, Fall, Elevated troponin, Acute dehydration ED Provider Note ED Provider Note NAME: MARE OTOOLE AGE:88 SEX: Female : 1935 ARRIVES VIA: EMS INFORMANT: Patient ED PROVIDER(s): Cornelia Fernandez DO CHIEF COMPLAINT: Fall, left hip pain HPI: This is an 88-year-old female who presents from the [facility] after she was found by staff on the bathroom floor this morning. Patient states she got up to use the bathroom overnight, was using her walker as is her usual, and became off balance and fell. She believes she did strike her head on the toilet during the fall but did not lose consciousness. She states she was unable to get up due to pain at the left hip which she has had prior surgery on and so laid there into the morning until staff came to check on her. She denies neck pain, back pain, abdominal pain, chest pain, or shortness of breath. She denies paresthesias. Patient does take low-dose aspirin daily, no other anticoagulation. PAST MEDICAL HISTORY:See Below PAST SURGICAL HISTORY:See Below FAMILY HISTORY:See Below SOCIAL HISTORY:See Below HOME MEDICATIONS:See Below ALLERGIES:See Below VITALS:See Below PHYSICAL EXAMINATION: GENERAL: alert, well appearing, well nourished, no distress, non-toxic HEAD: nc/at, no evidence of facial trauma, no coburn signs, no raccoon eyes EYE EXAM: normal conjunctiva, PERRL and EOM's grossly intact OROPHARYNX: no exudate, no erythema, lips, buccal mucosa, and tongue normal and mucous membranes are dry NECK: supple, no nuchal rigidity, no adenopathy, non-tender LUNGS: Clear to auscultation. Normal chest wall mechanics, no w/r/r HEART: no murmurs, S1 normal and S2 normal ABDOMEN: abdomen soft, non-tender, normo-active bowel sounds, no masses, no rebound or guarding. PELVIS: Stable to compression, nontender with palpation BACK: Back is symmetrical on inspection and there is no deformity, no midline tenderness, no CVA tenderness. SKIN: no rashes, petechiae, orbruising UPPER EXTREMITIES: upper extremities are grossly normal. FROM, nml pulses b/l. LOWER EXTREMITIES: No pitting edema. FROM RLE, decreased range of motion to the left lower extremity but patient is able to flex the hip somewhat, nml pulses b/l. NEURO EXAM: Normal sensorium, cranial nerves II-XII grossly intact, normal speech, no facial droop,nogross weakness of arms, no gross weakness of legs. Gross sensation intact. No ataxia. Vital Signs: reviewed and remarkable Differential Diagnosis: Fracture, subluxation, dislocation, contusion, ligamentous injury, neurovascular, compartment syndrome, rhabdomyolysis, as well as other pathologies. MEDICAL DECISION MAKING: This is an 88 yo female who presents to the ER following being found down following a fall in the middle of the night. She c/o left hip pain. She was afebrile and VS stable. Labs drawn and sent, IV established, EKG and xrays performed and interpreted at bedside, and patient placed on telemetry. She was sent for additional CT imaging which was reassuring also. She was cautiously hydrated with IVF and given IV tylenol. No evidence of acute traumatic injury noted on imaging. She had a leukocytosis of 20 and elevated troponin although denied chest pain or sob. Blood cultures and procal added as a precaution although likely related to stress demargination from trauma. Unclear if troponin elevation related to demand, I do not suspect occult cardiac contusion. Patient verbalized understanding of all results. I did update fam via phone per her request. VS stable throught and patient asking to eat. CAse discussed with hospitalist team for additional evaluation and mgmt. Consultation(s): 1244: Discussed with Vijay Michael PA-C, [facility] hospitalist team, for additional evaluation and management. ER Treatment Provided: See below 1240: Patient updated at bedside. She states her pain is a little bit improved. We discussed additional inpatient evaluation given her pain in independent living status as well as the elevated troponin that was noted. I did update her daughter via phone at bedside per her request. Diagnostics Interpreted By Me: -ECG: Normal sinus at 99, rightward axis, normal intervals, nonspecific ST/T wave changes, possible limb lead reversal -Cardiac Monitoring: An order was placed for continuous cardiac monitoring. The monitor shows a rate of 92 with normal sinus rhythm. -Laboratory studies: As stated above and show below. -Imaging studies: X-ray Chest: A single view study of the chest was reviewed and was negative for cardiomegaly, focal infiltrate, effusion, pulmonary edema, or wide mediastinum. No obvious pneumothorax or rib fracture. X-ray hip/pelvis: Fracture fragment noted over the left greater trochanter, hardware noted at the right hip Triage Nursing Note Reviewed Prior/Outside Records Reviewed Past Med/Surg History Medical History Pain in right shoulder Cellulitis Hiatal hernia Cough Iron deficiency anemia Rash SIRS (systemic inflammatory response syndrome) Anemia Arthritis Hypothyroidism History of diverticulosis Insomnia Hypothyroidism Pre-diabetes Hypertension Hyperlipidemia Glaucoma Osteoporosis Hyponatremia Surgical History Status post-operative repair of closed fracture of right hip History of colonoscopy History of appendectomy [place] teeth removed History of tonsillectomy History of cataract surgery Family History Father Coronary heart disease Myocardial infarction Family history of diabetes mellitus Sister Breast cancer Other Family history non-contributory No family history of adverse response to anesthesia Denies family history of Ovarian cancer Prostate cancer Colorectal cancer Social History Smoking Status: Never smoker Second Hand Exposure: No; Do You Dip or Chew Tobacco: No; Hx Alcohol Use: No Hx Substance Use: No Preferred Language: French Communication Ability: Effective Communication Ability Comment: ALSO SPEAKS [place] Visual Impairment: No Limitations Hearing Ability: Normal Perinatal Specialist Required: No Beliefs That Will Affect Care: None marital status: / Current Living Situation: Alone current occupational status: retired Other Information That Helps Us Care for You: No Feels Safe at Home: Yes Safety Concerns: Feels Safe At This Time Childhood Exposure to Second-Hand Smoke: Yes Dental Care, Regularly: Yes Physical Activity Frequency: 1-2 Times per Week Seatbelt Use: always Sunscreen Use: Yes Assistive Devices: Walker Allergies Allergies Allergy/AdvReac Type Severity Reaction Status Date / Time atorvastatin [From Lipitor] Allergy Mild Rash Verified 11/04/23 11:54 Home Meds Home Medications Medication Instructions Recorded Confirmed timolol maleate 0.5 % eye drops 1 drp OPB QAM 03/29/19 11/04/23 (Timoptic) acetaminophen 500 mg tablet 500 mg PO TID PRN Pain 05/31/23 11/04/23 (Tylenol Extra Strength) sennosides 8.6 mg tablet (Senokot) 17.5 mg PO DAILY 11/04/23 11/04/23 Previous Rx's Medication Instructions Recorded ferrous sulfate 325 mg (65 mg 325 mg PO DAILY #90 tabs 06/05/23 iron) tablet levothyroxine 25 mcg tablet 25 mcg PO DAILY #90 tabs 06/05/23 (Synthroid) calcium carbonate 500 mg calcium 500 mg PO DAILY #90 tabs 06/06/23 (1,250 mg) chewable tablet amlodipine 2.5 mg tablet 2.5 mg PO DAILY #90 tabs 06/20/23 aspirin 81 mg tablet,delayed 81 mg PO DAILY #90 tabs 06/20/23 release multivitamin (Daily Multi-Vitamin 1 tab PO DAILY #90 tabs 06/20/23 tablet) pravastatin 80 mg tablet 80 mg PO QPM #90 tabs 06/20/23 valsartan 160 mg tablet (Diovan) 160 mg PO DAILY #90 tabs 06/20/23 zolpidem 5 mg tablet (Ambien) 2.5 mg (1/2 x 5 mg) PO HS #30 tabs 10/11/23 duloxetine 20 mg capsule,delayed 20 mg PO DAILY #90 caps 10/30/23 release Results & Data (ED) Vital Signs Vital Signs - 24 hr 11/04/23 09:23 11/04/23 09:37 11/04/23 11:16 Temperature 36.4 C L Temperature Source Oral Pulse Rate 101 H 97 H 94 H Pulse Rate from SpO2 Sensor 95 H Pulse Rhythm Regular Pulse Strength Normal Respiratory Rate 16 21 Respiratory Effort / Characteristics Non-Labored Spontaneous Respiratory Depth Normal Blood Pressure 191/100 H 187/87 H Blood Pressure Mean 130 120 Blood Pressure Position Lying Pulse Oximetry 97 100 Oxygen Delivery Method Room Air Sepsis Recent Fever Within 48 Hours No Sepsis New/Unexplained Change in Mental Status N/A Sepsis Action Taken by Nursing No Action Required 11/04/23 12:00 11/04/23 12:30 Temperature Temperature Source Pulse Rate 98 H 86 Pulse Rate from SpO2 Sensor 98 H 86 Pulse Rhythm Pulse Strength Respiratory Rate 24 15 Respiratory Effort / Characteristics Respiratory Depth Blood Pressure 196/75 H 186/89 H Blood Pressure Mean 115 121 Blood Pressure Position Pulse Oximetry 84 L 96 Oxygen Delivery Method Sepsis Recent Fever Within 48 Hours Sepsis New/Unexplained Change in Mental Status Sepsis Action Taken by Nursing Laboratory Data 11/04/23 09:30 11/04/23 09:30 Lab Results 11/04/23 11/04/23 11/04/23 Range/Units 09:30 11:15 12:11 WBC 20.38 H (4.8-10.8) K/ul RBC 4.28 (4.20-5.40) M/uL Hgb 12.7 (12.0-16.0) g/dl Hct 38.1 (37.0-47.0) % MCV 89.0 (80.0-100.0) fL MCH 29.7 (25.0-34.0) pg MCHC 33.3 (32.0-36.0) g/dL RDW Std Deviation 41.2 (36.4-46.3) fL RDW Coeff of Felicity 12.7 (11.5-14.5) % Plt Count 374 (130-400) K/uL MPV 10.1 (9.4-12.4) fL Immature Gran % (Auto) 0.7 % Neut % (Auto) 88.8 % Lymph % (Auto) 4.4 % [place] % (Auto) 5.9 % Eos % (Auto) 0.0 % Baso % (Auto) 0.2 % Neut # (Auto) 18.08 H (1.40-6.50) K/uL Lymph # (Auto) 0.90 L (1.20-3.40) K/uL [place] # (Auto) 1.21 H (0.11-0.59) K/uL Eos # (Auto) 0.00 (0.00-0.50) K/uL Baso # (Auto) 0.04 (0.00-0.20) K/uL Immature Gran # (Auto) 0.15 (0.01-0.20) K/uL PT 10.3 (9.0-12.0) Seconds INR 0.9 (0.9-1.1) Sodium 131 L (136-145) mmol/L Potassium 3.4 L (3.5-5.1) mmol/L Chloride 94 L (98-107) mmol/L Carbon Dioxide 28 (21-32) mmol/L Anion Gap 9 (3-11) BUN 17 (6-23) mg/dl Creatinine 0.51 L (0.6-1.2) mg/dl Est Cr Clr Drug Dosing 59.8 ml/min Est GFR ( Amer) 99.5 ml/min Est GFR (Non-Af Amer) 85.9 ml/min BUN/Creatinine Ratio 33.3 H (10-20) Glucose 157 H (70-99(Fasting)) mg/dl Lactate (0.4-2.0) mmol/L Calcium 9.3 (8.6-10.3) mg/dl Magnesium 1.7 (1.7-2.4) mg/dl Total Bilirubin 0.5 (0.2-1.0) mg/dl AST 26 (13-39) U/L ALT 18 (7-52) U/L Alkaline Phosphatase 78 (34-104) U/L Total Creatine Kinase 158 (26-192) U/L Troponin I High Sens 68.0 H* (0-14) pg/ml Total Protein 7.2 (6.0-8.3) gm/dl Albumin 4.6 (3.4-5.0) gm/dl Globulin 2.6 (2.5-4.0) gm/dl Albumin/Globulin Ratio 1.8 (0.9-2) Lipase 31 (11-82) U/L Procalcitonin 0.04 (0-0.5) ng/ml TSH 2.044 (0.300-4.500) uIu/ml Urine Color Yellow Urine Appearance Clear (Clear) Urine pH 7.5 (4.5-7.5) Ur Specific [place] 1.014 (1.000-1.030) Urine Protein Trace H (Negative) Urine Glucose (UA) Negative (Negative) Urine Ketones Negative (Negative) Urine Blood Trace H (Negative) Urine Nitrite Negative (Negative) Urine Bilirubin Negative (Negative) Urine Urobilinogen Negative (Negative) Ur Leukocyte Esterase Negative (Negative) Urine WBC (Auto) 0 (0-5) /hpf Urine RBC (Auto) 0-4 (0-4) /hpf U Hyaline Cast (Auto) 0 (0-5) /lpf U Epithel Cells (Auto) 0-5 (0-5) /lpf Urine Bacteria (Auto) Negative (Negative) 11/04/23 Range/Units 12:16 WBC (4.8-10.8) K/ul RBC (4.20-5.40) M/uL Hgb (12.0-16.0) g/dl Hct (37.0-47.0) % MCV (80.0-100.0) fL MCH (25.0-34.0) pg MCHC (32.0-36.0) g/dL RDW Std Deviation (36.4-46.3) fL RDW Coeff of Felicity (11.5-14.5) % Plt Count (130-400) K/uL MPV (9.4-12.4) fL Immature Gran % (Auto) % Neut % (Auto) % Lymph % (Auto) % [place] % (Auto) % Eos % (Auto) % Baso % (Auto) % Neut # (Auto) (1.40-6.50) K/uL Lymph # (Auto) (1.20-3.40) K/uL [place] # (Auto) (0.11-0.59) K/uL Eos # (Auto) (0.00-0.50) K/uL Baso # (Auto) (0.00-0.20) K/uL Immature Gran # (Auto) (0.01-0.20) K/uL PT (9.0-12.0) Seconds INR (0.9-1.1) Sodium (136-145) mmol/L Potassium (3.5-5.1) mmol/L Chloride (98-107) mmol/L Carbon Dioxide (21-32) mmol/L Anion Gap (3-11) BUN (6-23) mg/dl Creatinine (0.6-1.2) mg/dl Est Cr Clr Drug Dosing ml/min Est GFR ( Amer) ml/min Est GFR (Non-Af Amer) ml/min BUN/Creatinine Ratio (10-20) Glucose (70-99(Fasting)) mg/dl Lactate 1.3 (0.4-2.0) mmol/L Calcium (8.6-10.3) mg/dl Magnesium (1.7-2.4) mg/dl Total Bilirubin (0.2-1.0) mg/dl AST (13-39) U/L ALT (7-52) U/L Alkaline Phosphatase (34-104) U/L Total Creatine Kinase (26-192) U/L Troponin I High Sens (0-14) pg/ml Total Protein (6.0-8.3) gm/dl Albumin (3.4-5.0) gm/dl Globulin (2.5-4.0) gm/dl Albumin/Globulin Ratio (0.9-2) Lipase (11-82) U/L Procalcitonin (0-0.5) ng/ml TSH (0.300-4.500) uIu/ml Urine Color Urine Appearance (Clear) Urine pH (4.5-7.5) Ur Specific [place] (1.000-1.030) Urine Protein (Negative) Urine Glucose (UA) (Negative) Urine Ketones (Negative) Urine Blood (Negative) Urine Nitrite (Negative) Urine Bilirubin (Negative) Urine Urobilinogen (Negative) Ur Leukocyte Esterase (Negative) Urine WBC (Auto) (0-5) /hpf Urine RBC (Auto) (0-4) /hpf U Hyaline Cast (Auto) (0-5) /lpf U Epithel Cells (Auto) (0-5) /lpf Urine Bacteria (Auto) (Negative) Administered Medications Acetaminophen (Acetaminophen 325 Mg Tab) 650 mg PO Q6H GRABIEL Stop: 12/04/23 13:59 Last Admin: 11/04/23 14:51 Dose: 650 mg Documented By: MIRIAM Sodium Chloride (Nss) 1,000 mls @ 250 mls/hr IV .Q4H GRABIEL Stop: 12/04/23 09:44 Last Admin: 11/04/23 18:51 Dose: 250 mls/hr Documented By: Infusion: 11/04/23 18:46 Dose: Infused Documented By: Admin: 11/04/23 14:27 Dose: 250 mls/hr Documented By: Infusion: 11/04/23 13:40 Dose: Infused [place] [facility] [place]: 11/04/23 09:40 Dose: 250 mls/hr [place]ed [place] [facility] [place] Lactated Ringer's (Lr) 1,000 mls @ 80 mls/hr IV .[id number] GRABIEL Stop: 11/05/23 01:59 Last Admin: 11/04/23 14:05 Dose: 80 mls/hr Documented By: MIRIAM Potassium Chloride (Potassium Chloride Crtab 20 Meq Tabcr) 20 meq PO BID GRABIEL Stop: 11/04/23 21:01 Last Admin: 11/04/23 14:04 Dose: 20 meq Documented By: MIRIAM Discontinued Medications Amlodipine Besylate (Amlodipine Besylate 5 Mg Tab) 2.5 mg PO NOW ONE Stop: 11/04/23 13:11 Last Admin: 11/04/23 14:04 Dose: 2.5 mg Documented By: MIRIAM Aspirin (Aspirin 81 Mg Ectab) 81 mg PO NOW STA Stop: 11/04/23 13:11 Last Admin: 11/04/23 14:04 Dose: 81 mg Documented By: MIRIAM Acetaminophen (Ofirmev) 1,000 mg in 100 mls @ 400 mls/hr IV NOW STA Stop: 11/04/23 09:54 Last Infusion: 11/04/23 10:09 Dose: Infused Documented By: Admin: 11/04/23 09:44 Dose: 400 mls/hr Documented By: DAJA Magnesium Sulfate/Dextrose (Magnesium Sulfate / D5w) 1 gm in 100 mls @ 50 mls/hr IV Q2H GRABIEL Stop: 11/04/23 17:29 Last Infusion: 11/04/23 17:45 Dose: Infused Documented By: Admin: 11/04/23 15:33 Dose: 50 mls/hr Documented By: Infusion: 11/04/23 15:33 Dose: Infused Documented By: Admin: 11/04/23 14:05 Dose: 50 mls/hr Documented By: MIRIAM Lidocaine (Lidocaine 5% 1 Patch) 1 patch TD NOW STA Stop: 11/04/23 13:12 Last Admin: 11/04/23 14:05 Dose: 1 patch Documented By: MIRIAM Valsartan (Valsartan 80 Mg Tab) 160 mg PO NOW STA Stop: 11/04/23 13:12 Last Admin: 11/04/23 14:04 Dose: 160 mg Documented By: MIRIAM Imaging Data Radiologist's Impression: Cervical Spine CT 11/04/23 09:33 CT cervical spine wo con CLINICAL HISTORY: trauma TECHNIQUE: Multidetector row helical CT of the cervical spine was performed without administration of intravenous contrast. Coronal and sagittal reformations were obtained. Automated dose lowering techniques and/or adjustment according to patient size were utilized for this exam. Comparison: None available at the time of this dictation. FINDINGS: No acute fractures or subluxations are identified. Degenerative changes are seen in the visualized spine. The alignment is normal. Biapical scarring is seen. IMPRESSION: Degenerative changes without evidence of acute bony injury. ACT 112: Negative or not required by law. Electronically signed by: Kenneth Camacho M.D. 11/04/2023 10:19 AM Chest X-Ray 11/04/23 09:33 XR chest 1V portable CLINICAL HISTORY: trauma TECHNIQUE: Single frontal radiograph of the chest was obtained. 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 Degenerative changes are seen in the left shoulder joint with penciling of the clavicle. Calcified aortic knob is seen. The lungs are clear. No evidence of pleural effusion or pneumothorax. IMPRESSION: 1. No acute abnormalities. 2. Penciling of the distal clavicles compatible with rheumatoid arthritis. ACT 112: Negative or not required by law. Electronically signed by: Kenneth Camacho M.D. 11/04/2023 11:[address] 11/04/23 09:33 CT head/brain wo con CLINICAL HISTORY: trauma Technique: Contiguous axial CT images of the head were acquired from the base of the skull to the vertex without intravenous contrast administration. Images were viewed in brain, subdural and bone windows. Automated dose lowering techniques and/or adjustment according to patient size were utilized for this exam. Comparison: Comparison is made to CT head 12/25/2022 Findings: Areas of decreased attenuation are present in the periventricular and subcortical white matter bilaterally consistent with small vessel ischemic disease. Generalized cerebral atrophy with commensurate enlargement of the ventricles, sulci, and cisterns is also present. There is no acute intracranial hemorrhage or evidence of acute territorial infarction. No shift of the midline structures, mass effect, or extra-axial abnormalities are shown. Atherosclerotic calcifications are present in the intracranial segments of the internal carotid arteries. Imaged portions of the paranasal sinuses and mastoid air cells are clear. The orbits appear normal. There are no acute fractures of the calvaria or scalp swelling. Impression: No acute intracranial hemorrhage, no evidence of acute territorial infarction or other acute intracranial disease process. ACT 112: Negative or not required by law. Electronically signed by: Kenneth Camacho M.D. 11/04/2023 10:12 AM Hip/Pelvis X-Ray 11/04/23 09:33 XR hip LT 2V w pelvis CLINICAL HISTORY: trauma TECHNIQUE: 2 views of the right hip and single frontal view of the pelvis were obtained. Comparison: None available at the time of this dictation. FINDINGS: Redemonstration of a right medullary nail transfixing a healed fracture. Degenerative changes are seen in the hip joint. No soft tissue abnormality is seen. IMPRESSION: No acute fracture. Old healed fracture of the right femur is again seen. ACT 112: Negative or not required by law. Electronically signed by: Kenneth Camacho M.D. 11/04/2023 11:[address] 11/04/23 11:08 CT hip LT wo con CLINICAL HISTORY: fall, pain TECHNIQUE: Multidetector row helical CT of the left hip was performed without intravenous contrast. Coronal and sagittal reformations were obtained. Automated dose lowering techniques and/or adjustment according to patient size were utilized for this examination. CT DOSE: 335.35 mGy.cm Comparison: None available at the time of this dictation. FINDINGS: The osseous structures are without fracture or dislocation. Mild degenerative changes are seen. Overall bony fragment is seen in the region of the greater trochanter. No joint effusion is seen. The soft tissues are unremarkable. IMPRESSION: No evidence of acute fracture or dislocation. ACT 112: Negative or not required by law. Electronically signed by: Kenneth Camacho M.D. 11/04/2023 11:47 AM Discharge Plan Visit Data Chief Complaint: Fall ED Provider: Cornelia Fernandez Discharge Problem: Acute pain of left hip, Fall, Elevated troponin, Acute dehydration Patient Disposition: Admitted As Inpatient Discharge Instructions Interventions: ED Discharge Assessment Last Done: 11/04/23 17:16
[2023-11-04] MEDS: SODIUM CHLORIDE 0.9% 1,000 ML IV SCH (09:40)
[2023-11-04] MEDS: ACETAMINOPHEN 1,000 MG/100 ML VIAL IV STA (09:44)
[2023-11-04 09:54] LABS: Basophils # (auto) 0.04 K/uL (0.00-0.20); Basophils % (auto) 0.2 %; Hematocrit (blood only) 38.1 % (37.0-47.0); Hemoglobin 12.7 g/dl (12.0-16.0); Immature Granulocytes # (auto) 0.15 K/uL (0.01-0.20); Immature Granulocytes % (auto) 0.7 %; Lymphocytes % (auto) 4.4 %; Mean Corpuscular Hemoglobin 29.7 pg (25.0-34.0); Mean Corpuscular Hgb Conc 33.3 g/dL (32.0-36.0); Mean Platelet Volume 10.1 fL (9.4-12.4); Monocytes # (auto) 1.21 K/uL (0.11-0.59); Monocytes % (auto) 5.9 %; Neutrophils # (auto) 18.08 K/uL (1.40-6.50); Neutrophils % (auto) 88.8 %; Platelet Count 374 K/uL (130-400); RDW Coefficient of Variation 12.7 % (11.5-14.5); RDW Standard Deviation 41.2 fL (36.4-46.3); Red Blood Count 4.28 M/uL (4.20-5.40); White Blood Count 20.38 K/ul (4.8-10.8)
[2023-11-04 10:09] LABS: Albumin Globulin Ratio 1.8 (0.9-2); Albumin Level 4.6 gm/dl (3.4-5.0); BUN Creatinine Ratio 33.3 (10-20); Bilirubin,Total 0.5 mg/dl (0.2-1.0); Calcium 9.3 mg/dl (8.6-10.3); Creatinine Clr Calc Pharmacy 59.8 ml/min; Est GFR (African American) 99.5 ml/min; Est GFR (Non-African American) 85.9 ml/min; Globulin 2.6 gm/dl (2.5-4.0); Magnesium 1.7 mg/dl (1.7-2.4); Potassium 3.4 mmol/L (3.5-5.1); Total Protein 7.2 gm/dl (6.0-8.3)
--- NOTE | 2023-11-04 10:14 | CT Scan Report ---
CT head/brain wo con CLINICAL HISTORY: trauma Technique: Contiguous axial CT images of the head were acquired from the base of the skull to the [place] without intravenous contrast administration. Images were viewed in brain, subdural and bone [facility]. Automated dose lowering techniques and/or adjustment according to patient size were utilized for this exam. Comparison: Comparison is made to CT head 12/25/2022 Findings: Areas of decreased attenuation are present in the periventricular and subcortical white matter bilate rally consistent with small vessel ischemic disease. Generalized cerebral atrophy with commensurate e nlargement of the ventricles, sulci, and cisterns is also present. There is no acute intracranial hem orrhage or evidence of acute territorial infarction. No shift of the midline structures, mass effect, or extra-axial abnormalities are shown. Atherosclerotic calcifications are present in the intracran ial segments of the internal carotid arteries. Imaged portions of the paranasal sinuses and mastoid air cells are clear. The orbits appear normal. There are no acute fractures of the calvaria or scalp swelling. Impression: No acute intracranial hemorrhage, no evidence of acute territorial infarction or other acute intracra nial disease process. ACT 112: Negative or not required by law. Electronically signed by: Kenneth Camacho M.D. 11/04/2023 10:12 AM
--- NOTE | 2023-11-04 10:21 | CT Scan Report ---
CT cervical spine wo con CLINICAL HISTORY: trauma TECHNIQUE: Multidetector row helical CT of the cervical spine was performed without administration of intravenous contrast. Coronal and sagittal reformations were obtained. Automated dose lowering techn iques and/or adjustment according to patient size were utilized for this exam. Comparison: None available at the time of this dictation. FINDINGS: No acute fractures or subluxations are identified. Degenerative changes are seen in the visualized sp ine. The alignment is normal. Biapical scarring is seen. IMPRESSION: Degenerative changes without evidence of acute bony injury. ACT 112: Negative or not required by law. Electronically signed by: Kenneth Camacho M.D. 11/04/2023 10:19 AM
[2023-11-04 10:25] LABS: Thyroid Stimulating Hormone 2.044 uIu/ml (0.300-4.500)
[2023-11-04 10:28] LABS: INR 0.9 (0.9-1.1); Prothrombin Time 10.3 Seconds (9.0-12.0)
--- NOTE | 2023-11-04 11:02 | XRay Report ---
XR chest 1V portable CLINICAL HISTORY: trauma TECHNIQUE: Single frontal radiograph of the chest was obtained. 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 Degenerative changes are seen in the left shoulder joint with penciling of the clavicle. Calcified aortic knob is seen. The lungs are clear. No evidence of p leural effusion or pneumothorax. IMPRESSION: 1. No acute abnormalities. 2. Penciling of the distal clavicles compatible with rheumatoid arthritis. ACT 112: Negative or not required by law. Electronically signed by: Kenneth Camacho M.D. 11/04/2023 11:00 AM
--- NOTE | 2023-11-04 11:06 | XRay Report ---
XR hip LT 2V w pelvis CLINICAL HISTORY: trauma TECHNIQUE: 2 views of the right hip and single frontal view of the pelvis were obtained. Comparison: None available at the time of this dictation. FINDINGS: Redemonstration of a right medullary nail transfixing a healed fracture. Degenerative changes are see n in the hip joint. No soft tissue abnormality is seen. IMPRESSION: No acute fracture. Old healed fracture of the right femur is again seen. ACT 112: Negative or not required by law. Electronically signed by: Kenneth Camacho M.D. 11/04/2023 11:04 AM
[2023-11-04 11:37] LABS: Appearance Urine Clear (Clear); Bacteria Urine Automated Negative (Negative); Bilirubin Urine Negative (Negative); Blood Urine Trace (Negative); Cast Urine Automated 0 /lpf (0-5); Color Urine Yellow; Epithelial Cell Urine Auto 0-5 /lpf (0-5); Glucose Urine UA Negative (Negative); Ketones Urine Negative (Negative); Leukocyte Esterase Urine Negative (Negative); Nitrite Urine Negative (Negative); RBC Urine Automated 0-4 /hpf (0-4); Specific Gravity Urine 1.014 (1.000-1.030); Urobilinogen Urine Negative (Negative); WBC Urine Automated 0 /hpf (0-5); pH Urine 7.5 (4.5-7.5)
[2023-11-04 11:38] LABS: Protein Urine Trace (Negative)
--- NOTE | 2023-11-04 11:48 | CT Scan Report ---
CT hip LT wo con CLINICAL HISTORY: fall, pain TECHNIQUE: Multidetector row helical CT of the left hip was performed without intravenous contrast. C oronal and sagittal reformations were obtained. Automated dose lowering techniques and/or adjustment according to patient size were utilized for this examination. CT DOSE: 335.35 mGy.cm Comparison: None available at the time of this dictation. FINDINGS: The osseous structures are without fracture or dislocation. Mild degenerative changes are seen. Overa ll bony fragment is seen in the region of the greater trochanter. No joint effusion is seen. The sof t tissues are unremarkable. IMPRESSION: No evidence of acute fracture or dislocation. ACT 112: Negative or not required by law. Electronically signed by: Kenneth Camacho M.D. 11/04/2023 11:47 AM
--- NOTE | 2023-11-04 12:49 | History & Physical Report ---
Date of Service November 04, 2023 Assessment & Plan (1) Fall: Plan: -Admit to med/tele -Currently hypertensive at 186/89 but otherwise stable -Presented to the ED via EMS from [place] after sustaining a mechanical fall while walking in the bathroom -Did hit the posterior aspect of her head off the toilet but denies losing consciousness -Is only on aspirin, no other antiplatelets or anticoagulants -Is without acute trauma on CT head, Ct cervical spine, CXR, Xray of the BL hips, and CT of the left hip -Continue with tylenol and lidocaine patch for pain -Will start BL ARAM's for DVT PPX -Fall/aspiration precautions -PT/OR consults placed -DMII diet -AM CBC, bmp, mag, PT/INR (2) Elevated troponin: Plan: -Initial high sen trop elevated at 68 -Patient denies chest pain, SOB, palpitations, chest pressure/tightness -Not acute changes on ECG -Total CK is WNL -Likely due to demand from her fall and being on the ground for approximately 8 hours -Two hour repeat high sen trop is in process, if stable or trending down will stop trending -Continue to monitor on tele (3) Leukocytosis: Plan: -WBC elevated at 20 with neutrophile predominance of 18 -Immature granulocyte count is WNL -Lactate and Procal are WNL -Has been afebrile, CXR and UA are negative for signs of infection -Likely reactive due to her fall and mild dehydration -Hold abx for now -Blood cultures obtained in the ED, continue to follow -S/P 1L NSS in the ED -Will start LR at 80 mL/hr x 1 L for now -Monitor daily CBC (4) Harrell catheter in place: Plan: -Harrell catheter was placed in the ED as patient was weak and was having difficulty providing a clean cath sample -UA appears clean -Will keep harrell in for today as she is still weak -Would attempt voiding trial prior to discharge (5) Acute pain of left hip: Plan: -Noted after her fall this am -No acute trauma noted on Xray of the BL hips and left hip CT -Continue tylenol and lidocaine patch for pain (6) Hypokalemia: Plan: -Potassium of 3.4 today -Mag is 1.7 -Likely due to not eating anything prior to arrival and dehydration -Will give 20 meq PO KCL x 2 and 2gm IV mag sulfate on admission -Monitor am electrolytes (7) Hypertension: Plan: -Currently hypertensive at 186/89 -Patient is asymptomatic -Likely due to her fall and not taking am antihypertensives this am -Will give her am doses of amlodipine and Valsartan now -Will continue to monitor on tele for now (8) Hypothyroidism: Plan: -Continue levothyroxine (9) Hyponatremia: Plan: -Chronic issue -Baseline appears near 133 -Corrected sodium of 132 -Continue light IV hydration on admission -Monitor am renal function and electrolytes (10) Insomnia: Plan: -Patient normally takes 2.5 mg Ambien nightly -States she has been taking this for 25 years -Will continue for not to prevent withdrawal -Continue fall/aspiration precautions Plan The patient was discussed with Dr. Diamond at the time of the admission History of Present Illness Chief Complaint: Fall Primary Care Provider: Dav Perez MD [place] is an 88-year-old female with a past medical history including chronic hyponatremia, prediabetes, hypothyroidism, and right intertrochanteric femur fracture on 12/25/2022 with intramedullary nail fixation of the right hip on 12/26/[address] Alarcon who presented to the [facility] ED on 11/04/23 via EMS after sustaining a fall in her bathroom this am around 0200. On arrival she was noted to be hypertensive at 191/100, tachycardic at 101, and otherwise stable. Labs were significant for a leukocytosis of 20 with neutrophil predominance of 18, potassium of 3.4, corrected sodium of 132, chloride of 94, total CK WNL, initial high sen trop of 68, prcal and lactate WNL, and UA negative for signs of infection. CT of the head/brain wo con and Ct of the cervical spine wo con, chest xray, xray of the BL hips, and CT of the of the left hip were negative for acute findings. Prior to admission the patient was given 1L NSS and 1gm IV tylenol. At the time of the exam the patient was sitting in bed in no acute distress. She states that she has baseline ambulatory dysfunction and uses a walker. This am she woke around 0200 and needed to use the restroom. While walking the the bathroom her left foot caught the floor and caused her to lose her balance. She fell laterally, to the left hitting the back of her head on the toilet. She denies losing consciousness. She was unable to get herself up and was on the ground until approximately 0830 when staff found her. She denies lightheadedness, dizziness, chest pain, palpitations, or SOB prior to or after her fall. She currently denies any chest discomfort. Her only complaints are so reness on the back of her head and mild left hip pain. She did not have her am meds prior to arrival. She is a DNR/DNI and would want her daughter to make medical decisions for her if she cannot make them herself. Please refer to Dr. Diamond's attestation for any changes to the treatment plan Allergies Allergy/AdvReac Type Severity Reaction Status Date / Time atorvastatin [From Lipitor] Allergy Mild Rash Verified 11/04/23 11:54 Home Medications Medication Instructions Recorded Confirmed Type timolol maleate 0.5 % eye drops 1 drp OPB QAM 03/29/19 11/04/23 History (Timoptic) acetaminophen 500 mg tablet 500 mg PO TID PRN Pain 05/31/23 11/04/23 History (Tylenol Extra Strength) ferrous sulfate 325 mg (65 mg 325 mg PO DAILY #90 tabs 06/05/23 11/04/23 Rx iron) tablet levothyroxine 25 mcg tablet 25 mcg PO DAILY #90 tabs 06/05/23 11/04/23 Rx (Synthroid) calcium carbonate 500 mg calcium 500 mg PO DAILY #90 tabs 06/06/23 11/04/23 Rx (1,250 mg) chewable tablet amlodipine 2.5 mg tablet 2.5 mg PO DAILY #90 tabs 06/20/23 11/04/23 Rx aspirin 81 mg tablet,delayed 81 mg PO DAILY #90 tabs 06/20/23 11/04/23 Rx release multivitamin (Daily Multi-Vitamin 1 tab PO DAILY #90 tabs 06/20/23 11/04/23 Rx tablet) pravastatin 80 mg tablet 80 mg PO QPM #90 tabs 06/20/23 11/04/23 Rx valsartan 160 mg tablet (Diovan) 160 mg PO DAILY #90 tabs 06/20/23 11/04/23 Rx zolpidem 5 mg tablet (Ambien) 2.5 mg (1/2 x 5 mg) PO HS #30 tabs 10/11/23 11/04/23 Rx duloxetine 20 mg capsule,delayed 20 mg PO DAILY #90 caps 10/30/23 11/04/23 Rx release sennosides 8.6 mg tablet (Senokot) 17.5 mg PO DAILY 11/04/23 11/04/23 History Past Med/Surg History Medical History Pain in right shoulder Cellulitis Hiatal hernia Cough Iron deficiency anemia Rash SIRS (systemic inflammatory response syndrome) Anemia Arthritis Hypothyroidism History of diverticulosis Insomnia Hypothyroidism Pre-diabetes Hypertension Hyperlipidemia Glaucoma Osteoporosis Hyponatremia Surgical History Status post-operative repair of closed fracture of right hip History of colonoscopy History of appendectomy [place] teeth removed History of tonsillectomy History of cataract surgery Family History Father Coronary heart disease Myocardial infarction Family history of diabetes mellitus Sister Breast cancer Other Family history non-contributory No family history of adverse response to anesthesia Denies family history of Ovarian cancer Prostate cancer Colorectal cancer Social History Smoking Status: Never smoker Second Hand Exposure: No; Do You Dip or Chew Tobacco: No; Hx Alcohol Use: No Hx Substance Use: No Preferred Language: Nigerien Communication Ability: Effective Communication Ability Comment: ALSO SPEAKS DIVEHI Visual Impairment: No Limitations Hearing Ability: Normal Assistant Dean Required: No Beliefs That Will Affect Care: None marital status: / Current Living Situation: Alone current occupational status: retired Feels Safe at Home: Yes Childhood Exposure to Second-Hand Smoke: Yes Dental Care, Regularly: Yes Physical Activity Frequency: 1-2 Times per Week Seatbelt Use: always Sunscreen Use: Yes Assistive Devices: Walker Physical Exam Physical Exam: Physical Exam: General: In no acute distress, stated age, well-nourished, non-toxic appearing HEENT: Normocephalic, atraumatic, patient with tenderness to palpation of the posterior scalp but is without crepitus or trauma on palpation, no scleral icterus, pupils around round, symmetrical, and reactive to light, dry mucus membranes, trachea midline, no thyromegaly Chest/Pulm: No respiratory distress, symmetrical chest expansion, clear breath sounds throughout Cardiac: RRR, no murmurs noted Abdomen: Negative for ascites and bruising, normoactive bowel sounds, soft, non-tender to palpation throughout : Harrell catheter is currently in place and draining clear, yellow urine. Musculoskeletal: Symmetrical and without signs of acute trauma, upper and lower extremities with full ROM, no atrophy, spasticity, or flaccidity, patient without tenderness or trauma on palpation of the cervical/thoracic/lumbar spine, negative for trauma on palpation of the BL hips, knees, and ankles Extremities: Radial, dorsalis pedis, and posterior tibial pulses are intact and symmetrical, no edema noted in the BL LE's Skin: Warm, dry, no rashes , lesions, or scars noted Neuro: Alert and oriented to person, place, month, year, and president, no focal defects, CN II-XII tested and intact, no tremors noted Psych: No acute distress, calm and cooperative during the exam Results & Data Results & Data Vital Signs (Past 12 Hours) Vital Signs Temp Pulse Resp BP Pulse Ox O2 Del Method 11/04/23 11:16 94 H 21 187/87 H 100 11/04/23 09:37 97 H 11/04/23 09:23 36.4 C L 101 H 16 191/100 H 97 Room Air Laboratory Results Abnormal lab results 11/04/23 11/04/23 Range/Units 09:30 11:15 WBC 20.38 H (4.8-10.8) K/ul Neut # (Auto) 18.08 H (1.40-6.50) K/uL Lymph # (Auto) 0.90 L (1.20-3.40) K/uL [place] # (Auto) 1.21 H (0.11-0.59) K/uL Sodium 131 L (136-145) mmol/L Potassium 3.4 L (3.5-5.1) mmol/L Chloride 94 L (98-107) mmol/L Creatinine 0.51 L (0.6-1.2) mg/dl BUN/Creatinine Ratio 33.3 H (10-20) Glucose 157 H (70-99(Fasting)) mg/dl Troponin I High Sens 68.0 H* (0-14) pg/ml Urine Protein Trace H (Negative) Urine Blood Trace H (Negative) Diagnostic Findings Cervical Spine CT 11/04/23 09:33 CT cervical spine wo con CLINICAL HISTORY: trauma TECHNIQUE: Multidetector row helical CT of the cervical spine was performed without administration of intravenous contrast. Coronal and sagittal reformations were obtained. Automated dose lowering techniques and/or adjustment according to patient size were utilized for this exam. Comparison: None available at the time of this dictation. FINDINGS: No acute fractures or subluxations are identified. Degenerative changes are seen in the visualized spine. The alignment is normal. Biapical scarring is seen. IMPRESSION: Degenerative changes without evidence of acute bony injury. ACT 112: Negative or not required by law. Electronically signed by: Kenneth Camacho M.D. 11/04/2023 10:19 AM Chest X-Ray 11/04/23 09:33 XR chest 1V portable CLINICAL HISTORY: trauma TECHNIQUE: Single frontal radiograph of the chest was obtained. 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 Degenerative changes are seen in the left shoulder joint with penciling of the clavicle. Calcified aortic knob is seen. The lungs are clear. No evidence of pleural effusion or pneumothorax. IMPRESSION: 1. No acute abnormalities. 2. Penciling of the distal clavicles compatible with rheumatoid arthritis. ACT 112: Negative or not required by law. Electronically signed by: Kenneth Camacho M.D. 11/04/2023 11:[address] 11/04/23 09:33 CT head/brain wo con CLINICAL HISTORY: trauma Technique: Contiguous axial CT images of the head were acquired from the base of the skull to the vertex without intravenous contrast administration. Images were viewed in brain, subdural and bone windows. Automated dose lowering techniques and/or adjustment according to patient size were utilized for this exam. Comparison: Comparison is made to CT head 12/25/2022 Findings: Areas of decreased attenuation are present in the periventricular and s ubcortical white matter bilaterally consistent with small vessel ischemic disease. Generalized cerebral atrophy with commensurate enlargement of the ventricles, sulci, and cisterns is also present. There is no acute intracranial hemorrhage or evidence of acute territorial infarction. No shift of the midline structures, mass effect, or extra-axial abnormalities are shown. Atherosclerotic calcifications are present in the intracranial segments of the internal carotid arteries. Imaged portions of the paranasal sinuses and mastoid air cells are clear. The orbits appear normal. There are no acute fractures of the calvaria or scalp swelling. Impression: No acute intracranial hemorrhage, no evidence of acute territorial infarction or other acute intracranial disease process. ACT 112: Negative or not required by law. Electronically signed by: Kenneth Camacho M.D. 11/04/2023 10:12 AM Hip/Pelvis X-Ray 11/04/23 09:33 XR hip LT 2V w pelvis CLINICAL HISTORY: trauma TECHNIQUE: 2 views of the right hip and single frontal view of the pelvis were obtained. Comparison: None available at the time of this dictation. FINDINGS: Redemonstration of a right medullary nail transfixing a healed fracture. Degenerative changes are seen in the hip joint. No soft tissue abnormality is seen. IMPRESSION: No acute fracture. Old healed fracture of the right femur is again seen. ACT 112: Negative or not required by law. Electronically signed by: Kenneth Camacho M.D. 11/04/2023 11:[address] 11/04/23 11:08 CT hip LT wo con CLINICAL HISTORY: fall, pain TECHNIQUE: Multidetector row helical CT of the left hip was performed without intravenous contrast. Coronal and sagittal reformations were obtained. Automated dose lowering techniques and/or adjustment according to patient size were utilized for this examination. CT DOSE: 335.35 mGy.cm Comparison: None available at the time of this dictation. FINDINGS: The osseous structures are without fracture or dislocation. Mild degenerative changes are seen. Overall bony fragment is seen in the region of the greater trochanter. No joint effusion is seen. The soft tissues are unremarkable. IMPRESSION: No evidence of acute fracture or dislocation. ACT 112: Negative or not required by law. Electronically signed by: Kenneth Camacho M.D. 11/04/2023 11:47 AM ECG Additional Comments: Suspect arm lead reversal, interpretation assumes no reversal Normal sinus rhythm Right atrial enlargement Right superior axis deviation Pulmonary disease pattern Nonspecific ST and T wave abnormality Abnormal ECG When compared with ECG of 28-MAR-2023 19:22, QT has lengthened Code Status & VTE Plan Code Status DNR/DNI VTE Prophylaxis Plan VTE Prophylaxis will be ordered: Yes Supervising Physician Co-Signing Physician Notes Patient seen and examined by myself. Case was discussed with the LA. Agree with the assessment and plan. This is an elderly patient who had a mechanical fall and stayed down for several hours. Fortunately, all images negative for fractures/dislocations. She was found to have elevated troponin and WBC. No chest pain. No signs of infection. Will repeat trops. PG Care Time/CCT Total # of Minutes Spent Total Time Spent with Patient: Total time spent is greater than 50% in coordination of care (as documented) at patient's floor/unit and/or counseling patient: Coding [place] [address] INT INP/OBS CARE 3/75MIN Patient Type Established Medical Decision Making High Complexity Diagnoses Fall W19.XXXA Elevated troponin R79.89 Leukocytosis D72.[address] Z97.8 Acute pain of left hip M25.552 Hypokalemia E87.6 Hypertension I10 Hypothyroidism E03.9 Hyponatremia E87.1 Insomnia G47.00
[2023-11-04] MEDS: ASPIRIN 81 MG ECTAB PO STA (14:04)
[2023-11-04] MEDS: VALSARTAN 80 MG TAB PO STA (14:04)
[2023-11-04] MEDS: amLODIPine BESYLATE 5 MG TAB PO ONE (14:04)
[2023-11-04] MEDS: POTASSIUM CHLORIDE CRTAB 20 MEQ TABCR PO SCH (14:04)
[2023-11-04] MEDS: MAGNESIUM SULFATE / D5W 1 GM/100 ML BAG IV SCH (14:05)
[2023-11-04] MEDS: LIDOCAINE 5% 1 PATCH TD STA (14:05)
[2023-11-04] MEDS: LACTATED RINGER'S 1,000 ML IV SCH (14:05)
[2023-11-04] MEDS: ACETAMINOPHEN 325 MG TAB PO SCH (14:51)
[2023-11-04] MEDS: ZOLPIDEM TARTRATE 5 MG TAB PO SCH (21:01)
[2023-11-04] MEDS: PRAVASTATIN SOD 40 MG TAB PO SCH (21:06)
[2023-11-05] MEDS ORDERED: Nursing to Pharmacy Communication SCH (01:45)
[2023-11-05 03:35] LABS: BUN Creatinine Ratio 27.5 (10-20); Creatinine Clr Calc Pharmacy 76.2 ml/min; Est GFR (African American) 107.8 ml/min; Potassium 3.7 mmol/L (3.5-5.1)
[2023-11-05 03:36] LABS: Basophils # (auto) 0.02 K/uL (0.00-0.20); Basophils % (auto) 0.2 %; Eosinophils # (auto) 0.01 K/uL (0.00-0.50); Eosinophils % (auto) 0.1 %; Hematocrit (blood only) 29.2 % (37.0-47.0); Hemoglobin 9.7 g/dl (12.0-16.0); Immature Granulocytes # (auto) 0.05 K/uL (0.01-0.20); Immature Granulocytes % (auto) 0.5 %; Lymphocytes # (auto) 1.84 K/uL (1.20-3.40); Lymphocytes % (auto) 16.8 %; Mean Corpuscular Hemoglobin 29.8 pg (25.0-34.0); Mean Corpuscular Hgb Conc 33.2 g/dL (32.0-36.0); Mean Corpuscular Volume 89.6 fL (80.0-100.0); Mean Platelet Volume 9.9 fL (9.4-12.4); Monocytes # (auto) 1.21 K/uL (0.11-0.59); Neutrophils # (auto) 7.85 K/uL (1.40-6.50); Neutrophils % (auto) 71.4 %; Platelet Count 304 K/uL (130-400); RDW Coefficient of Variation 12.7 % (11.5-14.5); RDW Standard Deviation 42.1 fL (36.4-46.3); Red Blood Count 3.26 M/uL (4.20-5.40); White Blood Count 10.98 K/ul (4.8-10.8)
[2023-11-05 03:44] LABS: Prothrombin Time 10.6 Seconds (9.0-12.0)
[2023-11-05] MEDS: LEVOTHYROXINE SODIUM 25 MCG TABLET PO SCH (06:21)
--- NOTE | 2023-11-05 07:53 | Electrocardiogram Report ---
Test Reason : Blood Pressure : / mmHG Vent. Rate : 099 BPM Atrial Rate : 099 BPM P-R Int : 190 ms QRS Dur : 094 ms QT Int : 374 ms P-R-T Axes : 098 252 094 degrees QTc Int : 479 ms Suspect arm lead reversal, interpretation assumes no reversal Normal sinus rhythm Right atrial enlargement Right superior axis deviation Pulmonary disease pattern Abnormal ECG When compared with ECG of 28-MAR-2023 19:22, limb lead reversal now present Confirmed by Rodolfo Fraire ([id number]) on 11/05/2023 7:53:42 AM Referred By: REFERRED SELF Confirmed By:Rodolfo Fraire
[2023-11-05] MEDS: VALSARTAN 80 MG TAB PO SCH (09:58)
[2023-11-05] MEDS: DULoxetine HCL 20 MG CAP PO SCH (09:58)
[2023-11-05] MEDS: FERROUS SULFATE 325 MG TAB PO SCH (09:58)
[2023-11-05] MEDS: ASPIRIN 81 MG ECTAB PO SCH (09:58)
[2023-11-05] MEDS: amLODIPine BESYLATE 5 MG TAB PO SCH (09:59)
[2023-11-05] MEDS: TIMOLOL MALEATE 0.5% OP SOLN 5 ML BTL OPB SCH (10:00)
--- NOTE | 2023-11-05 11:16 | Hospitalist Progress Note ---
Date of Service November 05, 2023 Assessment & Plan (1) Fall: Plan: -Presented to the ED via EMS from [place] after sustaining a mechanical fall while walking in the bathroom -Is only on aspirin, no other antiplatelets or anticoagulants -Is without acute trauma on CT head, Ct cervical spine, CXR, Xray of the BL hips, and CT of the left hip -Continue with tylenol and lidocaine patch for pain -Fall/aspiration precautions -Awaiting PT/OT recommendations (2) Elevated troponin: Plan: High-sensitivity troponin peaked at 106 Patient remains chest pain-free No acute changes on EKG Most likely demand ischemia from her fall and being on the floor for several hours Check echocardiogram (3) Leukocytosis: Plan: Most likely stress-induced Improved without any antibiotics from 20 to 10 today Infection very unlikely (4) Michael catheter in place: Plan: -Michael catheter was placed in the ED as patient was weak and was having difficulty providing a clean cath sample -UA appears clean -Remove Michael catheter (5) Acute pain of left hip: Plan: -Noted after her fall this am -No acute trauma noted on Xray of the BL hips and left hip CT -Continue tylenol and lidocaine patch for pain (6) Hypokalemia: Plan: -Improved, repleted (7) Hypertension: Plan: -Currently hypertensive -Patient is asymptomatic On 2.5 mg of amlodipine and 160 mg of valsartan at home Will increase the dose of amlodipine to 10 mg starting tomorrow Given extra dose of 5 mg of amlodipine today -Will continue to monitor on tele for now (8) Hypothyroidism: Plan: -Continue levothyroxine (9) Hyponatremia: Plan: -Chronic issue -Baseline appears near 133 Discontinued IV fluids -Monitor am renal function and electrolytes (10) Insomnia: Plan: -Patient normally takes 2.5 mg Ambien nightly -States she has been taking this for 25 years -Will continue for not to prevent withdrawal -Continue fall/aspiration precautions Admission and Anticipated Discharge Date Admission Date: November 04, 2023 Subjective Patient feels well overall. She has not been evaluated by physical therapy yet. She denies any chest pain or shortness of breath. Review of Systems Review of Systems: All systems reviewed & are unremarkable except as noted in Subjective Physical Exam Physical Exam: General: Awake, conversant Heart: S1, S2/regular rate and rhythm, no murmur rubs or gallops Lungs: Clear to auscultation bilaterally. Normal effort Abdomen: Soft/nontender/nondistended. No hepatosplenomegaly Extremities: No clubbing/cyanosis. No edema Behavior: Appropriate, cooperative Results & Data Results & Data Vital Signs (Past 12 Hours) Vital Signs Temp Pulse Pulse Resp BP Pulse Ox O2 Del Method 11/05/23 08:59 36.5 C 84 16 173/76 H 95 Room Air 11/05/23 04:12 36.7 C 97 H 18 182/73 H 95 Room Air 11/04/23 22:49 36.8 C 98 H 18 154/65 H 95 Room Air 11/04/23 22:18 92 H Laboratory Results Abnormal lab results 11/04/23 11/04/23 11/04/23 Range/Units 09:30 11:15 15:33 WBC (4.8-10.8) K/ul RBC (4.20-5.40) M/uL Hgb (12.0-16.0) g/dl Hct (37.0-47.0) % Neut # (Auto) (1.40-6.50) K/uL [place] # (Auto) (0.11-0.59) K/uL Sodium (136-145) mmol/L Creatinine (0.6-1.2) mg/dl BUN/Creatinine Ratio (10-20) Calcium (8.6-10.3) mg/dl Troponin I High Sens 68.0 H* 119.9 H* D (0-14) pg/ml Urine Protein Trace H (Negative) Urine Blood Trace H (Negative) 11/04/23 11/05/23 11/05/23 Range/Units 19:46 03:01 09:08 WBC 10.98 H (4.8-10.8) K/ul RBC 3.26 L (4.20-5.40) M/uL Hgb 9.7 L D (12.0-16.0) g/dl Hct 29.2 L (37.0-47.0) % Neut # (Auto) 7.85 H (1.40-6.50) K/uL [place] # (Auto) 1.21 H (0.11-0.59) K/uL Sodium 133 L (136-145) mmol/L Creatinine 0.40 L (0.6-1.2) mg/dl BUN/Creatinine Ratio 27.5 H (10-20) Calcium 8.0 L (8.6-10.3) mg/dl Troponin I High Sens 106.0 H* 91.2 H* D 88.6 H* (0-14) pg/ml Urine Protein (Negative) Urine Blood (Negative) PG Care Time/CCT Total # of Minutes Spent Total Time Spent with Patient: Total time spent is greater than 50% in coordination of care (as documented) at patient's floor/unit and/or counseling patient: Coding Level of Care Code 93057 SUB INP/OBS CARE 2/35MIN Diagnoses Fall W19.XXXA Elevated troponin R79.89 Leukocytosis D72.[address] Z97.8 Acute pain of left hip M25.552 Hypokalemia E87.6 Hypertension I10 Hypothyroidism E03.9 Hyponatremia E87.1 Insomnia G47.00
[2023-11-05] MEDS: amLODIPine BESYLATE 5 MG TAB PO ONE (14:22)
--- NOTE | 2023-11-05 16:45 | XCELERA ---
[id number]
[2023-11-06 07:49] LABS: Basophils # (auto) 0.02 K/uL (0.00-0.20); Basophils % (auto) 0.3 %; Eosinophils # (auto) 0.02 K/uL (0.00-0.50); Eosinophils % (auto) 0.3 %; Hematocrit (blood only) 34.8 % (37.0-47.0); Hemoglobin 11.9 g/dl (12.0-16.0); Immature Granulocytes # (auto) 0.03 K/uL (0.01-0.20); Immature Granulocytes % (auto) 0.4 %; Lymphocytes # (auto) 2.28 K/uL (1.20-3.40); Lymphocytes % (auto) 28.8 %; Mean Corpuscular Hemoglobin 30.4 pg (25.0-34.0); Mean Corpuscular Hgb Conc 34.2 g/dL (32.0-36.0); Mean Corpuscular Volume 88.8 fL (80.0-100.0); Mean Platelet Volume 10.4 fL (9.4-12.4); Monocytes # (auto) 0.91 K/uL (0.11-0.59); Monocytes % (auto) 11.5 %; Neutrophils # (auto) 4.66 K/uL (1.40-6.50); Neutrophils % (auto) 58.7 %; Platelet Count 348 K/uL (130-400); RDW Standard Deviation 42.2 fL (36.4-46.3); Red Blood Count 3.92 M/uL (4.20-5.40); White Blood Count 7.92 K/ul (4.8-10.8)
[2023-11-06 08:11] LABS: BUN Creatinine Ratio 28.6 (10-20); Calcium 8.5 mg/dl (8.6-10.3); Creatinine Clr Calc Pharmacy 72.6 ml/min; Est GFR (African American) 106.1 ml/min; Est GFR (Non-African American) 91.5 ml/min; Magnesium 1.9 mg/dl (1.7-2.4); Potassium 3.7 mmol/L (3.5-5.1)
[2023-11-06] MEDS: amLODIPine BESYLATE 5 MG TAB PO SCH (08:50)
--- NOTE | 2023-11-06 14:46 | Hospitalist Progress Note ---
Date of Service November 06, 2023 Assessment & Plan (1) Fall: Plan: -Presented to the ED via EMS from [place] after sustaining a mechanical fall while walking in the bathroom -Is only on aspirin, no other antiplatelets or anticoagulants -Is without acute trauma on CT head, Ct cervical spine, CXR, Xray of the BL hips, and CT of the left hip -Continue with tylenol and lidocaine patch for pain -Fall/aspiration precautions -Awaiting PT/OT recommendations (2) Elevated troponin: Plan: High-sensitivity troponin peaked at 106 Patient remains chest pain-free No acute changes on EKG Most likely demand ischemia from her fall and being on the floor for several hours echocardiogram EF 60-65 % (3) Leukocytosis: Plan: Most likely stress-induced Improved without any antibiotics from 20 to 10 today Infection very unlikely WBC 7 , no antibiotics (4) Michael catheter in place: Plan: -Michael catheter was placed in the ED as patient was weak and was having difficulty providing a clean cath sample -UA appears clean Michael catheter removed (5) Acute pain of left hip: Plan: -Noted after her fall this am -No acute trauma noted on Xray of the BL hips and left hip CT -Continue tylenol and lidocaine patch for pain (6) Hypokalemia: Plan: -Improved, repleted (7) Hypertension: Plan: -Currently hypertensive -Patient is asymptomatic On Amlodipine 10 mg, Valsartan 160 mg monitor BP (8) Hypothyroidism: Plan: -Continue levothyroxine (9) Hyponatremia: Plan: -Chronic issue -Baseline appears near 133 Discontinued IV fluids -Monitor am renal function and electrolytes (10) Insomnia: Plan: -Patient normally takes 2.5 mg Ambien nightly -States she has been taking this for 25 years -Will continue for not to prevent withdrawal -Continue fall/aspiration precautions Plan awaiting for PT eval, discharge to rehab Admission and Anticipated Discharge Date Admission Date: November 04, 2023 Subjective Patient feels well overall. reports constipation, denies chest pain or SOB Results & Data Results & Data Vital Signs (Past 12 Hours) Vital Signs Temp Pulse Pulse Resp BP Pulse Ox O2 Del Method 11/06/23 11:33 36.4 C L 63 16 160/76 H 96 Room Air 11/06/23 07:40 36.8 C 73 14 189/74 H 96 Room Air 11/06/23 05:59 73 03/11/24 02:44 36.7 C 84 16 176/74 H 97 Room Air Laboratory Results Abnormal lab results 11/06/23 Range/Units 06:49 RBC 3.92 L (4.20-5.40) M/uL Hgb 11.9 L (12.0-16.0) g/dl Hct 34.8 L (37.0-47.0) % [place] # (Auto) 0.91 H (0.11-0.59) K/uL Sodium 131 L (136-145) mmol/L Chloride 97 L (98-107) mmol/L Creatinine 0.42 L (0.6-1.2) mg/dl BUN/Creatinine Ratio 28.6 H (10-20) Calcium 8.5 L (8.6-10.3) mg/dl PG Care Time/CCT Total # of Minutes Spent Total Time Spent with Patient: Total time spent is greater than 50% in coordination of care (as documented) at patient's floor/unit and/or counseling patient: Coding Level of Care Code 53424 SUB INP/OBS CARE 2/35MIN Diagnoses Fall W19.XXXA Elevated troponin R79.89 Leukocytosis D72.[address] Z97.8 Acute pain of left hip M25.552 Hypokalemia E87.6 Hypertension I10 Hypothyroidism E03.9 Hyponatremia E87.1 Insomnia G47.00
[2023-11-06] MEDS ORDERED: POLYETHYLENE (MIRALAX) 17 GM PACK PO PRN (14:58)
[2023-11-07 08:16] LABS: Basophils # (auto) 0.01 K/uL (0.00-0.20); Basophils % (auto) 0.1 %; Eosinophils # (auto) 0.02 K/uL (0.00-0.50); Eosinophils % (auto) 0.3 %; Hematocrit (blood only) 39.3 % (37.0-47.0); Immature Granulocytes # (auto) 0.03 K/uL (0.01-0.20); Immature Granulocytes % (auto) 0.4 %; Lymphocytes % (auto) 20.9 %; Mean Corpuscular Hemoglobin 29.5 pg (25.0-34.0); Mean Corpuscular Hgb Conc 33.1 g/dL (32.0-36.0); Mean Corpuscular Volume 89.3 fL (80.0-100.0); Mean Platelet Volume 9.8 fL (9.4-12.4); Monocytes # (auto) 0.79 K/uL (0.11-0.59); Monocytes % (auto) 10.3 %; Platelet Count 364 K/uL (130-400); RDW Coefficient of Variation 12.5 % (11.5-14.5); RDW Standard Deviation 41.6 fL (36.4-46.3); White Blood Count 7.65 K/ul (4.8-10.8)
[2023-11-07 08:31] LABS: BUN Creatinine Ratio 39.6 (10-20); Creatinine Clr Calc Pharmacy 62.1 ml/min; Est GFR (African American) 101.5 ml/min; Est GFR (Non-African American) 87.6 ml/min; Magnesium 1.9 mg/dl (1.7-2.4)
--- NOTE | 2023-11-07 17:59 | Hospitalist Progress Note ---
Date of Service November 07, 2023 Assessment & Plan (1) Fall: Plan: mechanical fall in setting of acute dehydration, hyponatremia , demand ischemia and weakness hyponatremia resolved dehydration resolved PT recommends rehab (2) Elevated troponin: Plan: High-sensitivity troponin peaked at 106 Patient remains chest pain-free No acute changes on EKG Most likely demand ischemia from her fall and being on the floor for several hours echocardiogram EF 60-65 % (3) Leukocytosis: Plan: Most likely stress-induced Improved without any antibiotics from 20 to 10 today Infection very unlikely WBC 7 , no antibiotics no signs of infection monitor off antibiotics (4) Michael catheter in place: Plan: -Michael catheter was placed in the ED as patient was weak and was having difficulty providing a clean cath sample -UA appears clean Michael catheter removed (5) Acute pain of left hip: Plan: -Noted after her fall this am -No acute trauma noted on Xray of the BL hips and left hip CT -Continue tylenol and lidocaine patch for pain (6) Hypokalemia: Plan: -Improved, repleted (7) Hypertension: Plan: -Currently hypertensive -Patient is asymptomatic On Amlodipine 10 mg, Valsartan 160 mg monitor BP (8) Hypothyroidism: Plan: -Continue levothyroxine (9) Hyponatremia: Plan: -Chronic issue -Baseline appears near 133 Discontinued IV fluids -Monitor am renal function and electrolytes (10) Insomnia: Plan: -Patient normally takes 2.5 mg Ambien nightly -States she has been taking this for 25 years -Will continue for not to prevent withdrawal -Continue fall/aspiration precautions Plan awaiting for PT eval, discharge to rehab Admission and Anticipated Discharge Date Admission Date: November 04, 2023 Subjective Patient is awaiting for rehab , denies chest pain, SOB, no nausea, no vomiting, no diarrhea, no abdominal pain Review of Systems Review of Systems: All systems reviewed & are unremarkable except as noted in Subjective Results & Data Results & Data Vital Signs (Past 12 Hours) Vital Signs Temp Pulse Pulse Resp BP Pulse Ox O2 Del Method 11/07/23 15:53 36.7 C 72 18 131/84 97 Room Air 11/07/23 14:30 72 11/07/23 11:02 36.5 C 60 18 136/75 98 Room Air 11/07/23 07:27 36.5 C 64 18 175/77 H 96 Room Air 11/07/23 06:00 66 PG Care Time/CCT Total # of Minutes Spent Total Time Spent with Patient: Total time spent is greater than 50% in coordination of care (as documented) at patient's floor/unit and/or counseling patient: Coding Level of Care Code 14807 SUB INP/OBS CARE 2/35MIN Diagnoses Fall W19.XXXA Elevated troponin R79.89 Leukocytosis D72.[address] Z97.8 Acute pain of left hip M25.552 Hypokalemia E87.6 Hypertension I10 Hypothyroidism E03.9 Hyponatremia E87.1 Insomnia G47.00
[2023-11-08] MEDS ORDERED: COUGH DROP (SUGAR FREE) LOZ 24 LOZ/1 BOX BUCCAL PRN (03:18)
[2023-11-08] MEDS: BENZONATATE 100 MG CAPSULE PO PRN (06:51)
[2023-11-08 07:19] LABS: Eosinophils # (auto) 0.02 K/uL (0.00-0.50); Eosinophils % (auto) 0.2 %; Hematocrit (blood only) 33.9 % (37.0-47.0); Hemoglobin 11.7 g/dl (12.0-16.0); Immature Granulocytes # (auto) 0.02 K/uL (0.01-0.20); Immature Granulocytes % (auto) 0.2 %; Lymphocytes # (auto) 2.28 K/uL (1.20-3.40); Lymphocytes % (auto) 26.6 %; Mean Corpuscular Hemoglobin 30.3 pg (25.0-34.0); Mean Corpuscular Hgb Conc 34.5 g/dL (32.0-36.0); Mean Corpuscular Volume 87.8 fL (80.0-100.0); Mean Platelet Volume 9.8 fL (9.4-12.4); Monocytes # (auto) 0.88 K/uL (0.11-0.59); Monocytes % (auto) 10.3 %; Neutrophils # (auto) 5.38 K/uL (1.40-6.50); Neutrophils % (auto) 62.7 %; Platelet Count 358 K/uL (130-400); RDW Coefficient of Variation 12.6 % (11.5-14.5); RDW Standard Deviation 40.8 fL (36.4-46.3); Red Blood Count 3.86 M/uL (4.20-5.40); White Blood Count 8.58 K/ul (4.8-10.8)
[2023-11-08 07:34] LABS: BUN Creatinine Ratio 34.4 (10-20); Calcium 8.7 mg/dl (8.6-10.3); Est GFR (African American) 93.8 ml/min; Est GFR (Non-African American) 80.9 ml/min; Potassium 3.8 mmol/L (3.5-5.1)
--- NOTE | 2023-11-08 11:06 | Discharge Summary ---
Date of Service November 08, 2023 Admission HPI Per Admitting Provider Angeles is an 88-year-old female with a past medical history including chronic hyponatremia, prediabetes, hypothyroidism, and right intertrochanteric femur fracture on 12/25/2022 with intramedullary nail fixation of the right hip on 12/26/[address] Alarcon who presented to the [facility] ED on 11/04/23 via EMS after sustaining a fall in her bathroom this am around 0200. On arrival she was noted to be hypertensive at 191/100, tachycardic at 101, and otherwise stable. Labs were significant for a leukocytosis of 20 with neutrophil predominance of 18, potassium of 3.4, corrected sodium of 132, chloride of 94, total CK WNL, initial high sen trop of 68, prcal and lactate WNL, and UA negative for signs of infection. CT of the head/brain wo con and Ct of the cervical spine wo con, chest xray, xray of the BL hips, and CT of the of the left hip were negative for acute findings. Prior to admission the patient was given 1L NSS and 1gm IV tylenol. At the time of the exam the patient was sitting in bed in no acute distress. She states that she has baseline ambulatory dysfunction and uses a walker. This am she woke around 0200 and needed to use the restroom. While walking the the bathroom her left foot caught the floor and caused her to lose her balance. She fell laterally, to the left hitting the back of her head on the toilet. She denies losing consciousness. She was unable to get herself up and was on the ground until approximately 0830 when staff found her. She denies lightheadedness, dizziness, chest pain, palpitations, or SOB prior to or after her fall. She currently denies any chest discomfort. Her only complaints are soreness on the back of her head and mild left hip pain. She did not have her am meds prior to arrival. She is a DNR/DNI and would want her daughter to make medical decisions for her if she cannot make them herself. Please refer to Dr. Diamond's attestation for any changes to the treatment plan Principal Diagnosis dehydration, hyponatremia, fall Discharge Data Allergies Allergy/AdvReac Type Severity Reaction Status Date / Time atorvastatin [From Lipitor] Allergy Mild Rash Verified 11/04/23 11:54 Consultations 11/04/23 12:44 ED Decision to Admit Stat Ordered Studies 11/04/23 09:33 CT cervical spine wo con Stat CT head/brain wo con Stat 11/04/23 11:08 CT hip LT wo con Stat Hospital Course (1) Fall: mechanical fall in setting of acute dehydration, hyponatremia , demand ischemia and weakness hyponatremia resolved dehydration resolved PT recommends rehab 11/07 patient is stable for discharge, has a bad at rehab (2) Elevated troponin: High-sensitivity troponin peaked at 106 Patient remains chest pain-free No acute changes on EKG Most likely demand ischemia from her fall and being on the floor for several hours echocardiogram EF 60-65 % (3) Leukocytosis: Most likely stress-induced Improved without any antibiotics from 20 to 10 today Infection very unlikely WBC 7 , no antibiotics no signs of infection monitor off antibiotics (4) Michael catheter in place: -Michael catheter was placed in the ED as patient was weak and was having difficulty providing a clean cath sample -UA appears clean Michael catheter removed urinating without difficulties (5) Acute pain of left hip: -Noted after her fall this am -No acute trauma noted on Xray of the BL hips and left hip CT -Continue tylenol and lidocaine patch for pain (6) Hypokalemia: -Improved, repleted (7) Hypertension: -Currently hypertensive -Patient is asymptomatic On Amlodipine 10 mg, Valsartan 160 mg monitor BP (8) Hypothyroidism: -Continue levothyroxine (9) Hyponatremia: -Chronic issue -Baseline appears near 133 Discontinued IV fluids -Monitor am renal function and electrolytes (10) Insomnia: -Patient normally takes 2.5 mg Ambien nightly -States she has been taking this for 25 years -Will continue for not to prevent withdrawal -Continue fall/aspiration precautions Plan discharge to rehab Total Time Total Time Spent Total Time Spent (In Minutes): 35 Discharge Plan Discharge Items Patient Disposition: Transfer Inpatient Rehab Fac Reason For Visit: FALL, leukocytosis, elevated trop Discharge Diagnosis: fall Activity: As commented below Activity Comment: as tolerated Lifting: None Bathing: No limitations Non-emergency contact: Primary Care Provider Call non-emergency contact if: you have any medication questions, your symptoms worsen and your temperature is above 101 Follow-up/Referrals: ProDav MD [Primary Care Provider] - Diet: Heart Healthy Addtl Attending Provider Instructions: monitor blood pressure daily Pending Studies at Discharge: No Stand-Alone Forms: My [facility] Skilled Items Patient informed of condition?: Yes DNR: Yes Discharge Level of Care: Skilled Communicable Disease: No Discharge Prognosis: Stable Lines: None Urinary Catheter: No Medications and DC Order Prescriptions: New amlodipine [Norvasc] 5 mg Tablet 10 mg PO DAILY Qty: 30 0RF Continued levothyroxine [Synthroid] 25 mcg tablet 25 mcg PO DAILY Qty: 90 3RF Patient Comments: QAM ferrous sulfate 325 mg (65 mg iron) tablet 325 mg PO DAILY Qty: 90 3RF calcium carbonate 500 mg calcium (1,250 mg) tablet,chewable 500 mg PO DAILY Qty: 90 3RF aspirin 81 mg tablet,delayed release (DR/EC) 81 mg PO DAILY Qty: 90 3RF multivitamin [Daily Multi-Vitamin] Tablet 1 tab PO DAILY Qty: 90 3RF pravastatin 80 mg tablet 80 mg PO QPM Qty: 90 3RF valsartan [Diovan] 160 mg tablet 160 mg PO DAILY Qty: 90 3RF Patient Comments: DAILY AT 1200 zolpidem [Ambien] 5 mg tablet 2.5 mg PO HS Qty: 30 0RF Rx Instructions: New DC [facility] 05/29/23 duloxetine 20 mg capsule,delayed release(DR/EC) 20 mg PO DAILY Qty: 90 1RF timolol maleate [Timoptic] 0.5 % drops 1 drp OPB QAM acetaminophen [Tylenol Extra Strength] 500 mg tablet 500 mg PO TID PRN (Reason: Pain) sennosides [Senokot] 8.6 mg Tablet 17.5 mg PO DAILY Discontinued amlodipine 2.5 mg tablet 2.5 mg PO DAILY Qty: 90 3RF Discharge Orders: Discharge Order (Routine); Ordered 11/08/23 Ordered By: Gina Bajwa Admission Data Admit Date/Time: 11/04/23 12:50 Attending Provider: Gina Bajwa Admit Provider: Bibiana Diamond Primary Care Provider: Dav Perez Other Providers: Roberto Ascencio Coding Level of Care Code 99902 INP/OBS DISCH >30 MIN Diagnoses Fall W19.XXXA Elevated troponin R79.89 Leukocytosis D72.[address] Z97.8 Acute pain of left hip M25.552 Hypokalemia E87.6 Hypertension I10 Hypothyroidism E03.9 Hyponatremia E87.1 Insomnia G47.00
== END 2023-11-08 14:29 | DRG 641 ==
LOC: ED 09:17 → EDINP 12:50 → SUATTDRO 12:50 → 2N 17:16

== ENCOUNTER 2024-06-15 20:25 | Inpatient (IN) ==
--- NOTE | 2024-06-15 21:09 | Emergency Department Note ---
Impression & Plan Closed fracture of right patella, Periprosthetic fracture around internal prosthetic right shoulder joint, Hypertension, Fall ED Provider Note NAME: MARE OTOOLE AGE: 89 SEX: F : 1935 ARRIVES VIA: Ambulance INFORMANT: Patient ED PROVIDER(S): Randy Khan MD CHIEF COMPLAINT: Right knee pain, right shoulder pain, referred PLAN: Disposition: Admit MEDICAL DECISION MAKING: The patient is a pleasant 89-year-old woman with a past medical history of degenerative joint disease, osteoporosis, history of right total shoulder replacement in February 2021 and right hip fracture status post right IM nail fixation in December 2022 complicated by a periprosthetic fracture in March 2023 with hardware removal and subsequent long trochanteric nailing of the right periprosthetic femur fracture, hypertension, hypothyroidism who presents to the emergency department for evaluation via EMS from her independent living at the [facility] after having mechanical fall where she lost her balance using her walker and fell onto her right side and complained of right knee pain unable to bear weight due to the pain. The patient did not realize initially but later then also complained of right shoulder pain. She reports she was uncertain if she hit her head or not. She denies loss of consciousness. She denies being on anticoagulation. On evaluation the patient is uncomfortable but no acute distress afebrile with heart in the 90s and blood pressure 180s/70s in setting of her discomfort and vital signs otherwise stable. She has pain with range of motion of the right knee which exhibits mild swelling but no gross deformity. Distal PMS is intact. Pelvis is stable. She has no inguinal tenderness bilaterally. She does have mild ecchymosis of the medial aspect of the right upper arm with limited range of motion which she reports is her baseline since her prior total shoulder shoulder surgery. Plain films of the chest and right shoulder were obtained as well as the pelvis, right hip and knee. Right shoulder appears to have periprosthetic fracture and loosening of hardware. Right hip/femur demonstrates previous periprosthetic fracture which does not appear to be acutely worse. However suspicion for possible occult tibial plateau fracture per my preliminary independent interpretation. Findings reviewed with the patient and family at the bedside. Given the patient is unable to bear weight we agreed that admission would be required whether a tibial plateau fracture was present or not. Shoulder x-rays were reviewed with orthopedic surgery on-call, Dr. Alarcon Who is aware of plan for admission to hospitalist service. CT imaging of shoulder is not necessary at this time. EKG was obtained and was negative for acute ischemia. Chest x-ray negative for acute cardiopulmonary process per my preliminary independent or potation. WBC 18.5 K with neutrophilia but no left shift, nonspecific and may be reactive secondary to patient's fall. H/H similar to prior values. Platelets within normal limits. Chemistry without metabolic acidosis. Electrolytes and LFTs are unremarkable. UA without evidence of infection. CT of the head was negative for acute findings. CT of the C-spine was also negative for acute traumatic injury. CT of the right knee was negative for tibial plateau fracture but does demonstrate acute and somewhat displaced comminuted/avulsed fracture of the inferior pole of the patella with associated prepatellar and infrapatellar soft tissue edema and small joint effusion. Case was discussed with Dr. Turpin, [facility] hospitalist, who will evaluate the patient for admission. Further management per admitting team. Triage Nursing notes reviewed and agree them. Prior/external medical records reviewed Vital Signs: reviewed Differential diagnosis: Fracture, dislocation, contusion, intra-abdominal, pneumothorax, intrathoracic, intracranial, neurologic, compartment syndrome, rhabdomyolysis, as well as other pathologies. ER treatment provided: See below. Diagnostics interpreted by me: ECG: Normal sinus rhythm, 94 bpm, LVH, no overt ST elevation or depression, QTc 432, QRS 100. Cardiac Monitoring: An order for continuous cardiac monitoring was placed and demonstrated Normal sinus rhythm, 94 bpm, no ectopy Laboratory studies: See below Imaging studies: See below Consultation(s): Dr. Alarcon, orthopedic surgery on-call. Dr. Turpin, [facility] hospitalist. HPI: The patient is a pleasant 89-year-old woman with a past medical history of degenerative joint disease, osteoporosis, history of right total shoulder replacement in February 2021 and right hip fracture status post right IM nail fixation in December 2022 complicated by a periprosthetic fracture in March 2023 with hardware removal and subsequent long trochanteric nailing of the right periprosthetic femur fracture, hypertension, hypothyroidism who presents to the emergency department for evaluation via EMS from her independent living at the [facility] after having mechanical fall where she lost her balance using her walker and fell onto her right side and complained of right knee pain unable to bear weight due to the pain. The patient did not realize initially but later then also complained of right shoulder pain. She reports she was uncertain if she hit her head or not. She denies loss of consciousness. She denies being on anticoagulation. ROS: See above HPI for pertinent positives & negatives. A total of 10 systems reviewed and were otherwise negative. VITALS:See Below PHYSICAL EXAMINATION: GENERAL: Awake, alert, uncomfortable-appearing, in no distress HENT: Normocephalic, atraumatic. Oropharynx unremarkable. EYES: Normal conjunctiva. Sclera non-icteric. NECK: Supple. No nuchal rigidity. FROM. No JVD. RESPIRATORY: Clear to auscultation. CARDIAC: Regular rate, normal rhythm. Extremities warm and well perfused. Pulses equal. ABDOMEN: Soft, non-distended. No tenderness to palpation. No rebound or guarding. No masses. MUSCULOSKELETAL: Chest examination reveals no tenderness. The back is symmetrical on inspection without obvious abnormality. There is no CVA tenderness to palpation. Pain with range of motion of the right knee which exhibits mild swelling but no gross deformity. Distal PMS is intact. Pelvis is stable. She has no inguinal tenderness bilaterally. She does have mild ecchymosis of the medial aspect of the right upper arm with limited range of motion which she reports is her baseline since her prior total shoulder shoulder surgery. LOWER EXTREMITIES: Calves are equal size bilaterally and non-tender. No edema. No discoloration. NEURO: Normal sensorium. No sensory or motor deficits noted. SKIN: No rash or jaundice noted. Randy Khan MD Past Med/Surg History Problem List (Updated 06/16/24 @ 03:35 by Randy Khan MD) Closed fracture of right patella (Acute) Fall (Acute) Hypertension (Acute) Periprosthetic fracture around internal prosthetic right shoulder joint (Acute) Iron deficiency anemia Leukocytosis Elevated troponin (Acute) Fall (Acute) Acute pain of left hip (Acute) Hyperglycemia Pain in right shoulder (Acute) Chondrocalcinosis Left knee DJD Periprosthetic fracture of shaft of femur DVT prophylaxis Hiatal hernia Hyperlipidemia Hypertension Hypothyroidism Hyponatremia Femur fracture, right (Acute) Anemia Hip pain Thickened endometrium Fracture, intertrochanteric, right femur (12/25/22) had fall and surgical repair Osteoporosis Glaucoma Borderline Fibrocystic breast disease Pre-diabetes Vitamin D deficiency Nasal septal deviation Hypertrophy of both inferior nasal turbinates Degenerative arthritis of lumbar spine (Acute) Encounter for pre-operative examination 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 Anxiety Greater trochanteric bursitis of right hip Insomnia Medical History Acute dehydration Michael catheter in place Hypokalemia Cellulitis Cough Rash SIRS (systemic inflammatory response syndrome) Arthritis History of diverticulosis Hypothyroidism Surgical History Status post-operative repair of closed fracture of right hip History of colonoscopy History of appendectomy [place] teeth removed History of tonsillectomy History of cataract surgery R/L Family History Father Coronary heart disease Myocardial infarction Family history of diabetes mellitus Sister Breast cancer Other Family history non-contributory No family history of adverse response to anesthesia Denies family history of Ovarian cancer Prostate cancer Colorectal cancer Social History Smoking Status: Never smoker Second Hand Exposure: No; Do You Dip or Chew Tobacco: No; Tobacco Cessation Education Requested by Patient: No Hx Alcohol Use: No Hx Substance Use: No Preferred Language: Irish Communication Ability: Effective Communication Ability Comment: ALSO SPEAKS [place] Visual Impairment: No Limitations Hearing Ability: Normal 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 Beliefs That Will Affect Care: None marital status: / Current Living Situation: Alone current occupational status: retired Other Information That Helps Us Care for You: No Feels Safe at Home: Yes Safety Concerns: Feels Safe At This Time Childhood Exposure to Second-Hand Smoke: Yes Dental Care, Regularly: Yes Physical Activity Frequency: 1-2 Times per Week Seatbelt Use: always Sunscreen Use: Yes Assistive Devices: Walker Allergies Allergies Allergy/AdvReac Type Severity Reaction Status Date / Time atorvastatin [From Lipitor] Allergy Mild Rash Verified 04/24/24 16:14 Home Meds Home Medications Medication Instructions Recorded Confirmed acetaminophen 500 mg tablet 500 mg PO TID PRN Pain 05/31/23 06/15/24 (Tylenol Extra Strength) sennosides 8.6 mg tablet (Senokot) 17.5 mg PO DAILY PRN Constipation 12/14/23 06/15/24 zolpidem 5 mg tablet (Ambien) 2.5 mg PO HS PRN Sleep 12/14/23 06/15/24 amlodipine 2.5 mg tablet 2.5 mg PO QAM 06/15/24 06/15/24 amoxicillin 500 mg tablet 2,000 mg PO ONCE PRN PRIOR TO 06/15/24 06/15/24 DENTAL APPT aspirin 81 mg tablet,delayed 81 mg PO QAM 06/15/24 06/15/24 release calcium carbonate 500 mg PO QAM 06/15/24 06/15/24 cholecalciferol (vitamin D3) 25 25 mcg PO DAILY 06/15/24 06/15/24 mcg (1,000 unit) tablet (Vitamin D3) levothyroxine 25 mcg tablet 25 mcg PO DAILYBB 06/15/24 06/15/24 (Synthroid) multivitamin (Daily Multi-Vitamin 1 tab PO QAM 06/15/24 06/15/24 tablet) timolol maleate 0.5 % eye drops 1 drp OPB QAM 06/15/24 06/15/24 valsartan 160 mg tablet (Diovan) 160 mg PO QAM 06/15/24 06/15/24 Previous Rx's Medication Instructions Recorded ferrous sulfate 325 mg (65 mg 325 mg PO DAILY #90 tabs 06/05/23 iron) tablet pravastatin 80 mg tablet 80 mg PO QPM #90 tabs 04/12/24 duloxetine 20 mg capsule,delayed 20 mg PO DAILY #90 caps 04/22/24 release solifenacin 5 mg tablet (Vesicare) 5 mg PO DAILY #30 tabs 04/24/24 Results & Data (ED) Vital Signs Vital Signs - 24 hr 06/15/24 20:32 06/15/24 20:44 06/15/24 20:48 Temperature 36.7 C Temperature Source Oral Pulse Rate 93 H 88 Pulse Rate [Apical] 87 Respiratory Rate 19 19 Blood Pressure 180/72 H Blood Pressure [Right Arm] 180/72 H Blood Pressure Mean 108 Blood Pressure Mean [Right Arm] 108 Pulse Oximetry 95 95 Oxygen Delivery Method Room Air Room Air Sepsis Recent Fever Within 48 Hours No Sepsis New/Unexplained Change in Mental Status No Sepsis Action Taken by Nursing No Action Required 06/15/24 22:19 06/16/24 00:41 06/16/24 00:53 Temperature Temperature Source Pulse Rate 95 H 94 H Pulse Rate [Apical] 90 Respiratory Rate 16 20 Blood Pressure 197/93 H Blood Pressure [Right Arm] 171/96 H Blood Pressure Mean 127 Blood Pressure Mean [Right Arm] 121 Pulse Oximetry 96 94 Oxygen Delivery Method Room Air Sepsis Recent Fever Within 48 Hours Sepsis New/Unexplained Change in Mental Status Sepsis Action Taken by Nursing Laboratory Data 06/15/24 23:15 06/15/24 23:15 Lab Results 06/15/24 06/16/24 Range/Units 23:15 00:47 WBC 18.57 H (4.8-10.8) K/ul RBC 3.88 L (4.20-5.40) M/uL Hgb 11.2 L (12.0-16.0) g/dl Hct 33.8 L (37.0-47.0) % MCV 87.1 (80.0-100.0) fL MCH 28.9 (25.0-34.0) pg MCHC 33.1 (32.0-36.0) g/dL RDW Std Deviation 40.5 (36.4-46.3) fL RDW Coeff of Felicity 12.8 (11.5-14.5) % Plt Count 334 (130-400) K/uL MPV 10.1 (9.4-12.4) fL Immature Gran % (Auto) 0.5 % Neut % (Auto) 82.5 % Lymph % (Auto) 8.7 % [place] % (Auto) 8.0 % Eos % (Auto) 0.1 % Baso % (Auto) 0.2 % Neut # (Auto) 15.32 H (1.40-6.50) K/uL Lymph # (Auto) 1.62 (1.20-3.40) K/uL [place] # (Auto) 1.49 H (0.11-0.59) K/uL Eos # (Auto) 0.02 (0.00-0.50) K/uL Baso # (Auto) 0.03 (0.00-0.20) K/uL Immature Gran # (Auto) 0.09 (0.01-0.20) K/uL PT 10.1 (9.0-12.0) Seconds INR 0.9 (0.9-1.1) Sodium 133 L (136-145) mmol/L Potassium 3.9 (3.5-5.1) mmol/L Chloride 97 L (98-107) mmol/L Carbon Dioxide 28 (21-32) mmol/L Anion Gap 8 (3-11) BUN 19 (6-23) mg/dl Creatinine 0.61 (0.6-1.2) mg/dl Est Cr Clr Drug Dosing 43.6 ml/min eGFR 85.40 BUN/Creatinine Ratio 31.1 H (10-20) Glucose 116 H (70-99(Fasting)) mg/dl Calcium 9.4 (8.6-10.3) mg/dl Total Bilirubin 0.3 (0.2-1.0) mg/dl AST 19 (13-39) U/L ALT 13 (7-52) U/L Alkaline Phosphatase 84 (34-104) U/L Total Protein 7.0 (6.0-8.3) gm/dl Albumin 4.2 (3.4-5.0) gm/dl Globulin 2.8 (2.5-4.0) gm/dl Albumin/Globulin Ratio 1.5 (0.9-2) Urine Color Yellow Urine Appearance Clear (Clear) Urine pH 7.5 (4.5-7.5) Ur Specific [place] 1.008 (1.000-1.030) Urine Protein Negative (Negative) Urine Glucose (UA) Negative (Negative) Urine Ketones Negative (Negative) Urine Blood Negative (Negative) Urine Nitrite Negative (Negative) Urine Bilirubin Negative (Negative) Urine Urobilinogen Negative (Negative) Ur Leukocyte Esterase Negative (Negative) Administered Medications Hydralazine HCl (Hydralazine Hcl 20 Mg/Ml Vial) 10 mg IV Q6H PRN PRN Reason: SBP >180 Stop: 07/16/24 02:23 Last Admin: 06/16/24 02:57 Dose: 10 mg Documented By: JUANITO Potassium Chloride/Sodium Chloride (Normal Saline W/20 Meq Kcl) 20 meq in 1,000 mls @ 60 mls/hr IV .[id number] ONE Stop: 06/16/24 19:09 Last Admin: 06/16/24 02:57 Dose: 60 mls/hr Documented By: JUANITO Ketorolac Tromethamine (Ketorolac Tromethamine 15 Mg/Ml Vial) 10 mg IV Q6H PRN PRN Reason: Moderate Pain (Scale 4, 5, 6) Stop: 06/21/24 00:54 Last Admin: 06/16/24 02:28 Dose: 10 mg Documented By: JUANITO Discontinued Medications Acetaminophen (Ofirmev) 1,000 mg in 100 mls @ 400 mls/hr IV NOW STA Stop: 06/15/24 23:30 Last Infusion: 06/16/24 00:55 Dose: Infused Documented By: Admin: 06/16/24 00:11 Dose: 400 mls/hr Documented By: LYNETTE Pantoprazole Sodium (Protonix) 40 mg in 10 mls @ 5 mls/min IV NOW STA Stop: 06/16/24 01:02 Last Admin: 06/16/24 01:26 Dose: 5 mls/min Documented By: LYNETTE Metoprolol Tartrate (Metoprolol Tartrate 1 Mg/Ml Vial) 2.5 mg IV NOW STA Stop: 06/16/24 01:06 Last Admin: 06/16/24 01:23 Dose: 2.5 mg Documented By: LYNETTE Imaging Data Radiologist's Impression: Cervical Spine CT 06/15/24 23:14 Exam(s): CT C SPINE EXAM: CT Cervical Spine Without Intravenous Contrast CLINICAL HISTORY: Reason for exam: pain fall. TECHNIQUE: Axial computed tomography images of the cervical spine without intravenous contrast. CTDI is 26.96 mGy and DLP is 482.28 mGy-cm. Automated exposure control was utilized for the study. A dose lowering technique was utilized adhering to the principles of ALARA. COMPARISON: CT cervical spine: 11/04/2023 FINDINGS: Motion-induced image degradation limits anatomical details. Vertebrae: Osteopenia.. No acute fracture. Discs/spinal canal/neural foramina: Osteoarthritis of the atlantoaxial articulation. Multilevel moderately advanced degenerative endplate/disc and posterior elements spondylosis with significant neuroforaminal stenosis and anterior thecal sac compression. Soft tissues: Unremarkable. Other findings: . Lung apical minimal apparent foramina is marked pleural parenchymal thickening. Bilateral diffuse carotid arterial calcified atherosclerosis. IMPRESSION: Limited exam. Degenerative spondylitic changes without evidence of acute cervical bony injury. . Electronically signed by: Malik Winters MD, DABR 06/16/24 01:[address] 06/15/24 23:14 Exam(s): CT HEAD Without Contrast EXAM: CT Head Without Intravenous Contrast CLINICAL HISTORY: Reason for exam: pain fall. TECHNIQUE: Axial computed tomography images of the head/brain without intravenous contrast. CTDI is 36.55 mGy and DLP is 624.41 mGy-cm. Automated exposure control was utilized for the study. A dose lowering technique was utilized adhering to the principles of ALARA. COMPARISON: CT head: 11/04/2023 FINDINGS: Diagnostic sensitivity of the exam is reduced by motion artifact. Brain: There is no acute intracranial hemorrhage, mass-effect or midline shift. There are no abnormal extra-axial fluid collections. Age-related cerebral atrophy with widening of the extra-axial spaces and ventricular dilatation. Significant periventricular/subcortical areas of decreased attenuation likely from chronic microvascular disease process. Bones/joints: No acute skull fracture. Soft tissues: Unremarkable. Sinuses: Unremarkable as visualized. No acute sinusitis. Mastoid air cells: Unremarkable as visualized. No mastoid effusion. IMPRESSION: No definite acute intracranial abnormality noted. Chronic involutional and significant ischemic changes of the brain. Increased ventricular dilatation, possibly NPH in the appropriate clinical context. . Electronically signed by: Malik Winters MD, DABR 06/16/24 00:[address] 06/15/24 23:14 Exam(s): CT RIGHT KNEE Without Contrast EXAM: CT Right Lower Extremity Without Intravenous Contrast, Knee CLINICAL HISTORY: Reason for exam: pain, fall, r/o tib plat fx. TECHNIQUE: Axial computed tomography images of the right knee without intravenous contrast. CTDI is 24.91 mGy and DLP is 384.65 mGy-cm. Automated exposure control was utilized for the study. A dose lowering technique was utilized adhering to the principles of ALARA. COMPARISON: None. FINDINGS: Bones/joints: Diffuse osseous demineralization. Mildly inferiorly displaced comminuted/avulsed fracture of the inferior pole of the patella is seen with corresponding/surrounding prepatellar/infrapatellar soft tissue hematoma and swelling. No other acute fracture identified. Moderately severe osteoarthritis of the medial/lateral femorotibial compartments with posteriorly displaced small intra-articular osseous bodies.. There are significant intra-articular/meniscal calcifications/chondrocalcinosis. Incompletely visualized a femoral intra-articular metal mile with a small fixating screw. Soft tissues: Small joint effusion.. IMPRESSION: Demonstrates an acute somewhat displaced comminuted/avulsed fracture of the inferior pole of the patella with corresponding/surrounding prepatellar/infrapatellar significant soft tissue edema, hematoma/swelling.. A small joint effusion. Moderate osteoarthritis with small intra-articular displaced loose bodies. Significant meniscal calcifications/chondrocalcinosis. Electronically signed by: Malik Winters MD, KIN 06/16/24 01:33 AM Discharge Plan Visit Data Chief Complaint: Fall Stated Complaint: GLF, R Knee Pain ED Provider: Randy Khan Discharge Problem: Closed fracture of right patella, Periprosthetic fracture around internal prosthetic right shoulder joint, Hypertension, Fall Patient Disposition: Admitted As Inpatient Discharge Instructions Interventions: ED Discharge Assessment Last Done: 06/16/24 01:54 Discharge Problem: Closed fracture of right patella Qualifiers: Encounter type: initial encounter Fracture morphology: comminuted Fracture alignment: displaced Qualified Code(s): S82.041A - Displaced comminuted fracture of right patella, initial encounter for closed fracture Periprosthetic fracture around internal prosthetic right shoulder joint Qualifiers: Encounter type: initial encounter Qualified Code(s): M97.31XA - Periprosthetic fracture around internal prosthetic right shoulder joint, initial encounter Hypertension Qualifiers: Hypertension type: unspecified Qualified Code(s): I10 - Essential (primary) hypertension Fall Qualifiers: Encounter type: initial encounter Qualified Code(s): W19.XXXA - Unspecified fall, initial encounter
[2024-06-15 23:53] LABS: Basophils # (auto) 0.03 K/uL (0.00-0.20); Basophils % (auto) 0.2 %; Eosinophils # (auto) 0.02 K/uL (0.00-0.50); Eosinophils % (auto) 0.1 %; Hematocrit (blood only) 33.8 % (37.0-47.0); Hemoglobin 11.2 g/dl (12.0-16.0); Immature Granulocytes # (auto) 0.09 K/uL (0.01-0.20); Immature Granulocytes % (auto) 0.5 %; Lymphocytes # (auto) 1.62 K/uL (1.20-3.40); Lymphocytes % (auto) 8.7 %; Mean Corpuscular Hemoglobin 28.9 pg (25.0-34.0); Mean Corpuscular Hgb Conc 33.1 g/dL (32.0-36.0); Mean Corpuscular Volume 87.1 fL (80.0-100.0); Mean Platelet Volume 10.1 fL (9.4-12.4); Monocytes # (auto) 1.49 K/uL (0.11-0.59); Neutrophils # (auto) 15.32 K/uL (1.40-6.50); Neutrophils % (auto) 82.5 %; Platelet Count 334 K/uL (130-400); RDW Coefficient of Variation 12.8 % (11.5-14.5); RDW Standard Deviation 40.5 fL (36.4-46.3); Red Blood Count 3.88 M/uL (4.20-5.40); White Blood Count 18.57 K/ul (4.8-10.8)
[2024-06-16 00:04] LABS: Albumin Globulin Ratio 1.5 (0.9-2); Albumin Level 4.2 gm/dl (3.4-5.0); BUN Creatinine Ratio 31.1 (10-20); Bilirubin,Total 0.3 mg/dl (0.2-1.0); Calcium 9.4 mg/dl (8.6-10.3); Creatinine Clr Calc Pharmacy 43.6 ml/min; Globulin 2.8 gm/dl (2.5-4.0); Potassium 3.9 mmol/L (3.5-5.1)
[2024-06-16] MEDS: ACETAMINOPHEN 1,000 MG/100 ML VIAL IV STA (00:11)
[2024-06-16 00:13] LABS: INR 0.9 (0.9-1.1); Prothrombin Time 10.1 Seconds (9.0-12.0)
--- NOTE | 2024-06-16 00:41 | CT Scan Report ---
Exam(s): CT HEAD Without Contrast EXAM: CT Head Without Intravenous Contrast CLINICAL HISTORY: Reason for exam: pain fall. TECHNIQUE: Axial computed tomography images of the head/brain without intravenous contrast. CTDI is 36.55 mGy and DLP is 624.41 mGy-cm. Automated exposure control was utilized for the study. A dose lowering technique was utilized adhering to the principles of ALARA. COMPARISON: CT head: 11/04/2023 FINDINGS: Diagnostic sensitivity of the exam is reduced by motion artifact. Brain: There is no acute intracranial hemorrhage, mass-effect or midline shift. There are no abnormal extra-axial fluid collections. Age-related cerebral atrophy with widening of the extra-axial spaces and ventricular dilatation. Significant periventricular/subcortical areas of decreased attenuation likely from chronic microvascular disease process. Bones/joints: No acute skull fracture. Soft tissues: Unremarkable. Sinuses: Unremarkable as visualized. No acute sinusitis. Mastoid air cells: Unremarkable as visualized. No mastoid effusion. IMPRESSION: No definite acute intracranial abnormality noted. Chronic involutional and significant ischemic changes of the brain. Increased ventricular dilatation, possibly NPH in the appropriate clinical context. . Electronically signed by: Malik Winters MD, DABR 06/16/24 00:40 AM
[2024-06-16] MEDS ORDERED: ONDANSETRON INJ 2 MG/ML 2 ML VIAL IV PRN (00:55)
[2024-06-16] MEDS ORDERED: MoRPHine SULFATE 2 MG/ML CARP IV PRN (00:55)
--- NOTE | 2024-06-16 00:59 | History & Physical Report ---
Date of Service June 16, 2024 Assessment & Plan (1) Closed fracture of right patella: (2) Periprosthetic fracture around internal prosthetic right shoulder joint: (3) Fall: (4) Hypertension: (5) Hyperlipidemia: (6) Hypertension: (7) Hypothyroidism: (8) Periprosthetic fracture of shaft of femur: (9) Hiatal hernia: (10) Anxiety: (11) Insomnia: Plan Closed fracture of right patella/periprosthetic fracture around right shoulder arthroplasty- N.p.o. until assessed by orthopedic surgery Acetaminophen 1 g IV every 8 hours as needed for mild pain or fever Toradol 10 mg IV every 6 hours as needed for moderate pain Morphine sulfate 2 mg IV every 3 hours as needed for severe pain Zofran 4 mg IV every 6 hours as needed NSS + KCl 20 mill equivalents at 60 mL/h x 1 L Pantoprazole 40 mg IV daily Consult orthopedic surgery Hypertension- Hold amlodipine, aspirin and valsartan a.m. Lopressor 2.5 mg IV x 1 now Lopressor 2.5 mg IV every 4 hours, hold for heart rate less than 60 or systolic blood pressure less than 120 Anxiety/insomnia- Hold duloxetine and zolpidem until taking p.o. History of Present Illness Chief Complaint: The patient was brought to the emergency department by EMS from the [facility], after she had a mechanical fall, due to loss of balance, landing on her right side, and complained of right shoulder and right knee pain. Primary Care Provider: Dav Perez MD Hypothyroidism, the patient is a 89-year-old female with a past medical history including hypertension, iron deficiency anemia, right femur fracture, periprosthetic fracture of shaft of right femur, hyperlipidemia, lumbar degenerative disc disease, right shoulder reverse arthroplasty, anxiety and insomnia. Patient presented to the emergency department via EMS after a mechanical fall, sustaining right shoulder and right knee pain. Radiology studies in the emergency department revealed a periprosthetic right shoulder fr acture, and right patella fracture. Allergies Allergy/AdvReac Type Severity Reaction Status Date / Time atorvastatin [From Lipitor] Allergy Mild Rash Verified 04/24/24 16:14 Home Medications Medication Instructions Recorded Confirmed Type acetaminophen 500 mg tablet 500 mg PO TID PRN Pain 05/31/23 06/15/24 History (Tylenol Extra Strength) ferrous sulfate 325 mg (65 mg 325 mg PO DAILY #90 tabs 06/05/23 06/15/24 Rx iron) tablet sennosides 8.6 mg tablet (Senokot) 17.5 mg PO DAILY PRN Constipation 12/14/23 06/15/24 History zolpidem 5 mg tablet (Ambien) 2.5 mg PO HS PRN Sleep 12/14/23 06/15/24 History pravastatin 80 mg tablet 80 mg PO QPM #90 tabs 04/12/24 06/15/24 Rx duloxetine 20 mg capsule,delayed 20 mg PO DAILY #90 caps 04/22/24 06/15/24 Rx release solifenacin 5 mg tablet (Vesicare) 5 mg PO DAILY #30 tabs 04/24/24 06/15/24 Rx amlodipine 2.5 mg tablet 2.5 mg PO QAM 06/15/24 06/15/24 History amoxicillin 500 mg tablet 2,000 mg PO ONCE PRN PRIOR TO 06/15/24 06/15/24 History DENTAL APPT aspirin 81 mg tablet,delayed 81 mg PO QAM 06/15/24 06/15/24 History release calcium carbonate 500 mg PO QAM 06/15/24 06/15/24 History cholecalciferol (vitamin D3) 25 25 mcg PO DAILY 06/15/24 06/15/24 History mcg (1,000 unit) tablet (Vitamin D3) levothyroxine 25 mcg tablet 25 mcg PO DAILYBB 06/15/24 06/15/24 History (Synthroid) multivitamin (Daily Multi-Vitamin 1 tab PO QAM 06/15/24 06/15/24 History tablet) timolol maleate 0.5 % eye drops 1 drp OPB QAM 06/15/24 06/15/24 History valsartan 160 mg tablet (Diovan) 160 mg PO QAM 06/15/24 06/15/24 History Past Med/Surg History Problem List (Updated 06/16/24 @ 03:35 by Randy Khan MD) Closed fracture of right patella (Acute) Fall (Acute) Hypertension (Acute) Periprosthetic fracture around internal prosthetic right shoulder joint (Acute) Iron deficiency anemia Leukocytosis Elevated troponin (Acute) Fall (Acute) Acute pain of left hip (Acute) Hyperglycemia Pain in right shoulder (Acute) Chondrocalcinosis Left knee DJD Periprosthetic fracture of shaft of femur DVT prophylaxis Hiatal hernia Hyperlipidemia Hypertension Hypothyroidism Hyponatremia Femur fracture, right (Acute) Anemia Hip pain Thickened endometrium Fracture, intertrochanteric, right femur (12/25/22) had fall and surgical repair Osteoporosis Glaucoma Borderline Fibrocystic breast disease Pre-diabetes Vitamin D deficiency Nasal septal deviation Hypertrophy of both inferior nasal turbinates Degenerative arthritis of lumbar spine (Acute) Encounter for pre-operative examination 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 Anxiety Greater trochanteric bursitis of right hip Insomnia Medical History Acute dehydration Michael catheter in place Hypokalemia Cellulitis Cough Rash SIRS (systemic inflammatory response syndrome) Arthritis History of diverticulosis Hypothyroidism Surgical History Status post-operative repair of closed fracture of right hip History of colonoscopy History of appendectomy [place] teeth removed History of tonsillectomy History of cataract surgery R/L Family History Father Coronary heart disease Myocardial infarction Family history of diabetes mellitus Sister Breast cancer Other Family history non-contributory No family history of adverse response to anesthesia Denies family history of Ovarian cancer Prostate cancer Colorectal cancer Social History Smoking Status: Never smoker Second Hand Exposure: No; Do You Dip or Chew Tobacco: No; Tobacco Cessation Education Requested by Patient: No Hx Alcohol Use: No Hx Substance Use: No Preferred Language: Belarusian Communication Ability: Effective Communication Ability Comment: ALSO SPEAKS JAPANESE Visual Impairment: No Limitations Hearing Ability: Normal Gynecologist Required: No Beliefs That Will Affect Care: None marital status: / Current Living Situation: Alone current occupational status: retired Other Information That Helps Us Care for You: No Feels Safe at Home: Yes Safety Concerns: Feels Safe At This Time Childhood Exposure to Second-Hand Smoke: Yes Dental Care, Regularly: Yes Physical Activity Frequency: 1-2 Times per Week Seatbelt Use: always Sunscreen Use: Yes Assistive Devices: Walker Review of Systems Review of Systems: The patient denies chest pain, palpitations, shortness of breath, dyspnea on exertion, cough, lower extremity swelling, sore throat, fevers, chills, sweats, weight change, fatigue, nausea, vomiting, diarrhea , constipation, abdominal pain, pelvic pain, blood in urine or stool, dysuria, urinary frequency or urgency, lightheadedness, dizziness, headache, memory loss, loss of consciousness, rash, abnormal bruising or bleeding, generalized arthralgias or myalgias, back or neck pain, or night sweats. The review of systems is otherwise negative other than for that already noted above, and at least 10 systems have been reviewed. Physical Exam Physical Exam: The patient is awake, alert and oriented 3, well developed and well nourished, normocephalic and atraumatic, lying in bed and in no acute distress. HEENT--PERRL, EOMI, mucous membranes and oropharynx mildly dry. Neck--supple. No JVD. No bruits. Thyroid normal, trachea midline, no elizabeth opathy. Heart--normal S1 and S2. No murmurs, rubs or gallops. Lungs--clear bilaterally, no respiratory distress, no accessory muscle use. Abdomen--normal bowel sounds and soft. Nontender. Nondistended, no hernias or masses, no organomegaly. Extremities--no cyanosis or clubbing. No edema. . Dermatologic--normal skin turgor, normal color, no abnormal lymph nodes, no rash. Neurologic--cranial nerves II through XII grossly intact. Rheumatologic--decreased range of motion of right shoulder right knee due to pain Psychiatric--normal affect. Results & Data Results & Data Vital Signs (Past 12 Hours) Vital Signs Temp Pulse Pulse Resp BP BP Pulse Ox 06/16/24 00:53 94 H 20 197/93 H 94 06/15/24 22:19 90 16 171/96 H 96 06/15/24 20:48 87 19 180/72 H 95 06/15/24 20:44 36.7 C 88 19 180/72 H 95 06/15/24 20:32 93 H O2 Del Method 06/16/24 00:53 06/15/24 22:19 Room Air 06/15/24 20:48 Room Air 06/15/24 20:44 Room Air 06/15/24 20:32 Laboratory Results Laboratory Results WBC 18.57 K/ul (4.8-10.8) H 06/15/24 23:15 RBC 3.88 M/uL (4.20-5.40) L 06/15/24 23:15 Hgb 11.2 g/dl (12.0-16.0) L 06/15/24 23:15 Hct 33.8 % (37.0-47.0) L 06/15/24 23:15 MCV 87.1 fL (80.0-100.0) 06/15/24 23:15 MCH 28.9 pg (25.0-34.0) 06/15/24 23:15 MCHC 33.1 g/dL (32.0-36.0) 06/15/24 23:15 RDW Std Deviation 40.5 fL (36.4-46.3) 06/15/24 23:15 RDW Coeff of Felicity 12.8 % (11.5-14.5) 06/15/24 23:15 Plt Count 334 K/uL (130-400) 06/15/24 23:15 MPV 10.1 fL (9.4-12.4) 06/15/24 23:15 Immature Gran % (Auto) 0.5 % 06/15/24 23:15 Neut % (Auto) 82.5 % 06/15/24 23:15 Lymph % (Auto) 8.7 % 06/15/24 23:15 [place] % (Auto) 8.0 % 06/15/24 23:15 Eos % (Auto) 0.1 % 06/15/24 23:15 Baso % (Auto) 0.2 % 06/15/24 23:15 Neut # (Auto) 15.32 K/uL (1.40-6.50) H 06/15/24 23:15 Lymph # (Auto) 1.62 K/uL (1.20-3.40) 06/15/24 23:15 [place] # (Auto) 1.49 K/uL (0.11-0.59) H 06/15/24 23:15 Eos # (Auto) 0.02 K/uL (0.00-0.50) 06/15/24 23:15 Baso # (Auto) 0.03 K/uL (0.00-0.20) 06/15/24 23:15 Immature Gran # (Auto) 0.09 K/uL (0.01-0.20) 06/15/24 23:15 PT 10.1 Seconds (9.0-12.0) 06/15/24 23:15 INR 0.9 (0.9-1.1) 06/15/24 23:15 Sodium 133 mmol/L (136-145) L 06/15/24 23:15 Potassium 3.9 mmol/L (3.5-5.1) 06/15/24 23:15 Chloride 97 mmol/L (98-107) L 06/15/24 23:15 Carbon Dioxide 28 mmol/L (21-32) 06/15/24 23:15 Anion Gap 8 (3-11) 06/15/24 23:15 BUN 19 mg/dl (6-23) 06/15/24 23:15 Creatinine 0.61 mg/dl (0.6-1.2) 06/15/24 23:15 Est Cr Clr Drug Dosing 43.6 ml/min 06/15/24 23:15 eGFR 85.40 06/15/24 23:15 BUN/Creatinine Ratio 31.1 (10-20) H 06/15/24 23:15 Glucose 116 mg/dl (70-99(Fasting)) H 06/15/24 23:15 Calcium 9.4 mg/dl (8.6-10.3) 06/15/24 23:15 Total Bilirubin 0.3 mg/dl (0.2-1.0) 06/15/24 23:15 AST 19 U/L (13-39) 06/15/24 23:15 ALT 13 U/L (7-52) 06/15/24 23:15 Alkaline Phosphatase 84 U/L (34-104) 06/15/24 23:15 Total Protein 7.0 gm/dl (6.0-8.3) 06/15/24 23:15 Albumin 4.2 gm/dl (3.4-5.0) 06/15/24 23:15 Globulin 2.8 gm/dl (2.5-4.0) 06/15/24 23:15 Albumin/Globulin Ratio 1.5 (0.9-2) 06/15/24 23:15 Urine Color Yellow 06/16/24 00:47 Urine Appearance Clear (Clear) 06/16/24 00:47 Urine pH 7.5 (4.5-7.5) 06/16/24 00:47 Ur Specific [place] 1.008 (1.000-1.030) 06/16/24 00:47 Urine Protein Negative (Negative) 06/16/24 00:47 Urine Glucose (UA) Negative (Negative) 06/16/24 00:47 Urine Ketones Negative (Negative) 06/16/24 00:47 Urine Blood Negative (Negative) 06/16/24 00:47 Urine Nitrite Negative (Negative) 06/16/24 00:47 Urine Bilirubin Negative (Negative) 06/16/24 00:47 Urine Urobilinogen Negative (Negative) 06/16/24 00:47 Ur Leukocyte Esterase Negative (Negative) 06/16/24 00:[address] 06/15/24 23:14 Exam(s): CT C SPINE EXAM: CT Cervical Spine Without Intravenous Contrast CLINICAL HISTORY: Reason for exam: pain fall. TECHNIQUE: Axial computed tomography images of the cervical spine without intravenous contrast. CTDI is 26.96 mGy and DLP is 482.28 mGy-cm. Automated exposure control was utilized for the study. A dose lowering technique was utilized adhering to the principles of ALARA. COMPARISON: CT cervical spine: 11/04/2023 FINDINGS: Motion-induced image degradation limits anatomical details. Vertebrae: Osteopenia.. No acute fracture. Discs/spinal canal/neural foramina: Osteoarthritis of the atlantoaxial articulation. Multilevel moderately advanced degenerative endplate/disc and posterior elements spondylosis with significant neuroforaminal stenosis and anterior thecal sac compression. Soft tissues: Unremarkable. Other findings: . Lung apical minimal apparent foramina is marked pleural parenchymal thickening. Bilateral diffuse carotid arterial calcified atherosclerosis. IMPRESSION: Limited exam. Degenerative spondylitic changes without evidence of acute cervical bony injury. . Electronically signed by: Malik Winters MD, DABR 06/16/24 01:[address] 06/15/24 23:14 Exam(s): CT HEAD Without Contrast EXAM: CT Head Without Intravenous Contrast CLINICAL HISTORY: Reason for exam: pain fall. TECHNIQUE: Axial computed tomography images of the head/brain without intravenous contrast. CTDI is 36.55 mGy and DLP is 624.41 mGy-cm. Automated exposure control was utilized for the study. A dose lowering technique was utilized adhering to the principles of ALARA. COMPARISON: CT head: 11/04/2023 FINDINGS: Diagnostic sensitivity of the exam is reduced by motion artifact. Brain: There is no acute intracranial hemorrhage, mass-effect or midline shift. There are no abnormal extra-axial fluid collections. Age-related cerebral atrophy with widening of the extra-axial spaces and ventricular dilatation. Significant periventricular/subcortical areas of decreased attenuation likely from chronic microvascular disease process. Bones/joints: No acute skull fracture. Soft tissues: Unremarkable. Sinuses: Unremarkable as visualized. No acute sinusitis. Mastoid air cells: Unremarkable as visualized. No mastoid effusion. IMPRESSION: No definite acute intracranial abnormality noted. Chronic involutional and significant ischemic changes of the brain. Increased ventricular dilatation, possibly NPH in the appropriate clinical context. . Electronically signed by: Malik Winters MD, DABR 06/16/24 00:[address] 06/15/24 23:14 Exam(s): CT RIGHT KNEE Without Contrast EXAM: CT Right Lower Extremity Without Intravenous Contrast, Knee CLINICAL HISTORY: Reason for exam: pain, fall, r/o tib plat fx. TECHNIQUE: Axial computed tomography images of the right knee without intravenous contrast. CTDI is 24.91 mGy and DLP is 384.65 mGy-cm. Automated exposure control was utilized for the study. A dose lowering technique was utilized adhering to the principles of ALARA. COMPARISON: None. FINDINGS: Bones/joints: Diffuse osseous demineralization. Mildly inferiorly displaced comminuted/avulsed fracture of the inferior pole of the patella is seen with corresponding/surrounding prepatellar/infrapatellar soft tissue hematoma and swelling. No other acute fracture identified. Moderately severe osteoarthritis of the medial/lateral femorotibial compartments with posteriorly displaced small intra-articular osseous bodies.. There are significant intra-articular/meniscal calcifications/chondrocalcinosis. Incompletely visualized a femoral intra-articular metal mile with a small fixating screw. Soft tissues: Small joint effusion.. IMPRESSION: Demonstrates an acute somewhat displaced comminuted/avulsed fracture of the inferior pole of the patella with corresponding/surrounding prepatellar/infrapatellar significant soft tissue edema, hematoma/swelling.. A small joint effusion. Moderate osteoarthritis with small intra-articular displaced loose bodies. Significant meniscal calcifications/chondrocalcinosis. Electronically signed by: Malik Winters MD, DABR 06/16/24 01:33 AM Code Status & VTE Plan Code Status DNR/DNI VTE Prophylaxis Plan VTE Prophylaxis will be ordered: Yes PG Care Time/CCT Total # of Minutes Spent Total Time Spent with Patient: Total time spent is greater than 50% in coordination of care (as documented) at patient's floor/unit and/or counseling patient: Coding Level of Care Code 33073 INT INP/OBS CARE 3/75MIN Diagnoses Closed fracture of right patella S82.041A Encounter type: initial encounter Fracture alignment: displaced Fracture morphology: comminuted Periprosthetic fracture around internal prosthetic right shoulder joint M97.31XA Encounter type: initial encounter Fall W19.XXXA Encounter type: initial encounter Hypertension I10 Hypertension type: unspecified Hyperlipidemia E78.5 Hypothyroidism E03.9 Periprosthetic fracture of shaft of femur M97.8XXA; Z96.649 Hiatal hernia K44.9 Anxiety F41.9 Insomnia G47.00 (1) Closed fracture of right patella Encounter type: initial encounter Fracture alignment: displaced Fracture morphology: comminuted Qualified Code(s): S82.041A - Displaced comminuted fracture of right patella, initial encounter for closed fracture (2) Periprosthetic fracture around internal prosthetic right shoulder joint Encounter type: initial encounter Qualified Code(s): M97.31XA - Periprosthetic fracture around internal prosthetic right shoulder joint, initial encounter (3) Fall Encounter type: initial encounter Qualified Code(s): W19.XXXA - Unspecified fall, initial encounter (4) Hypertension Hypertension type: unspecified Qualified Code(s): I10 - Essential (primary) hypertension
[2024-06-16 01:01] LABS: Appearance Urine Clear (Clear); Bilirubin Urine Negative (Negative); Blood Urine Negative (Negative); Color Urine Yellow; Glucose Urine UA Negative (Negative); Ketones Urine Negative (Negative); Leukocyte Esterase Urine Negative (Negative); Nitrite Urine Negative (Negative); Protein Urine Negative (Negative); Specific Gravity Urine 1.008 (1.000-1.030); Urobilinogen Urine Negative (Negative); pH Urine 7.5 (4.5-7.5)
--- NOTE | 2024-06-16 01:20 | CT Scan Report ---
Exam(s): CT C SPINE EXAM: CT Cervical Spine Without Intravenous Contrast CLINICAL HISTORY: Reason for exam: pain fall. TECHNIQUE: Axial computed tomography images of the cervical spine without intravenous contrast. CTDI is 26.96 mGy and DLP is 482.28 mGy-cm. Automated exposure control was utilized for the study. A dose lowering technique was utilized adhering to the principles of ALARA. COMPARISON: CT cervical spine: 11/04/2023 FINDINGS: Motion-induced image degradation limits anatomical details. Vertebrae: Osteopenia.. No acute fracture. Discs/spinal canal/neural foramina: Osteoarthritis of the atlantoaxial articulation. Multilevel moderately advanced degenerative endplate/disc and posterior elements spondylosis with significant neuroforaminal stenosis and anterior thecal sac compression. Soft tissues: Unremarkable. Other findings: . Lung apical minimal apparent foramina is marked pleural parenchymal thickening. Bilateral diffuse carotid arterial calcified atherosclerosis. IMPRESSION: Limited exam. Degenerative spondylitic changes without evidence of acute cervical bony injury. . Electronically signed by: Malik Winters MD, MIGUELR 06/16/24 01:19 AM
[2024-06-16] MEDS: METOPROLOL TARTRATE 1 MG/ML VIAL IV STA (01:23)
[2024-06-16] MEDS: PANTOprazole 40 MG/10 ML SYR IV STA (01:26)
--- NOTE | 2024-06-16 01:34 | CT Scan Report ---
Exam(s): CT RIGHT KNEE Without Contrast EXAM: CT Right Lower Extremity Without Intravenous Contrast, Knee CLINICAL HISTORY: Reason for exam: pain, fall, r/o tib plat fx. TECHNIQUE: Axial computed tomography images of the right knee without intravenous contrast. CTDI is 24.91 mGy and DLP is 384.65 mGy-cm. Automated exposure control was utilized for the study. A dose lowering technique was utilized adhering to the principles of ALARA. COMPARISON: None. FINDINGS: Bones/joints: Diffuse osseous demineralization. Mildly inferiorly displaced comminuted/avulsed fracture of the inferior pole of the patella is seen with corresponding/surrounding prepatellar/infrapatellar soft tissue hematoma and swelling. No other acute fracture identified. Moderately severe osteoarthritis of the medial/lateral femorotibial compartments with posteriorly displaced small intra-articular osseous bodies.. There are significant intra-articular/meniscal calcifications/chondrocalcinosis. Incompletely visualized a femoral intra-articular metal mile with a small fixating screw. Soft tissues: Small joint effusion.. IMPRESSION: Demonstrates an acute somewhat displaced comminuted/avulsed fracture of the inferior pole of the patella with corresponding/surrounding prepatellar/infrapatellar significant soft tissue edema, hematoma/swelling.. A small joint effusion. Moderate osteoarthritis with small intra-articular displaced loose bodies. Significant meniscal calcifications/chondrocalcinosis. Electronically signed by: Malik Winters MD, KIN 06/16/24 01:33 AM
[2024-06-16] MEDS: KETOROLAC TROMETHAMINE 15 MG/ML VIAL IV PRN (02:28)
[2024-06-16] MEDS: NSS + 20MEQ KCL 20 MEQ/1,000 ML BAG IV ONE (02:57)
[2024-06-16] MEDS: hydrALAZINE HCL 20 MG/ML VIAL IV PRN (02:57)
[2024-06-16] MEDS: METOPROLOL TARTRATE 1 MG/ML VIAL IV SCH (05:33)
[2024-06-16] MEDS: PANTOprazole 40 MG/10 ML SYR IV SCH (09:12)
[2024-06-16] MEDS: TIMOLOL MALEATE 0.5% OP SOLN 5 ML BTL OP SCH (09:12)
--- NOTE | 2024-06-16 09:18 | XRay Report ---
SINGLE VIEW CHEST CLINICAL HISTORY: Fall. FINDINGS: An AP, portable, upright chest radiograph is compared to study dated 11/04/2023. There is a l arge hiatal hernia. The heart is top normal for projection noting atherosclerotic calcification of th e thoracic aorta. The pulmonary vasculature is noncongested. Chronic interstitial thickening is simil ar to previous. There is bibasilar scarring/atelectasis. The lungs and pleural spaces are clear. No p neumothorax is seen. The skeletal structures are osteopenic. There is periprosthetic fracture of the right proximal humerus. A right shoulder arthroplasty is in place. Severe arthritic changes noted in the left shoulder. Degenerative change and scoliosis is seen in the spine. IMPRESSION: 1. No acute cardiopulmonary abnormality is identified. 2. Periprosthetic fracture of the right proximal humerus. 3. Hiatal hernia. ACT 112: Negative or not required by law. Electronically signed by: Gonzalo Sidhu M.D. 06/16/2024 9:17 AM
--- NOTE | 2024-06-16 09:50 | XRay Report ---
XR shoulder RT min 2V routine CLINICAL HISTORY: pain fall TECHNIQUE: 3 views of the right shoulder were obtained. Comparison: Comparison is made to shoulder radiograph 03/28/2023 FINDINGS: Periprosthetic fracture of the right shoulder humeral component of the arthroplasty is noted with dis placement of the prosthesis. Right reverse arthroplasties noted. The overlying soft tissues are unrem arkable. The visualized portions of the lungs are clear. IMPRESSION: Displaced and mildly comminuted periprosthetic fracture of the humerus. ACT 112: Negative or not required by law. Electronically signed by: Kenneth Camacho M.D. 06/16/2024 9:49 AM
--- NOTE | 2024-06-16 09:54 | XRay Report ---
XR knee RT 3V CLINICAL HISTORY: pain fall TECHNIQUE: 3 views of the right knee were obtained. Comparison: Comparison is made to right femur radiograph 07/27/2023 FINDINGS: There is no evidence of an acute fracture. Degenerative changes and chondrocalcinosis are noted. No j oint effusion is seen. Soft tissue swelling is seen about the knee. IMPRESSION: Soft tissue swelling without evidence of underlying bony abnormality. ACT 112: Negative or not required by law. Electronically signed by: Kenneth Camacho M.D. 06/16/2024 9:52 AM
--- NOTE | 2024-06-16 09:54 | XRay Report ---
XR hip RT 2V w pelvis CLINICAL HISTORY: pain fall TECHNIQUE: 2 views of the right hip and single frontal view of the pelvis were obtained. Comparison: None available at the time of this dictation. FINDINGS: There is no evidence of an acute fracture. Femoral mile is again seen. Degenerative changes are seen i n the hip joint. No soft tissue abnormality is seen. IMPRESSION: No evidence of acute osseous injury. Degenerative and postoperative changes are again noted. ACT 112: Negative or not required by law. Electronically signed by: Kenneth Camacho M.D. 06/16/2024 9:53 AM
--- NOTE | 2024-06-16 10:02 | Orthopedic Consultation ---
Date of Service June 16, 2024 Assessment & Plan (1) Closed fracture of right patella: I think the fracture of the right patella is acute. Fortunately, this can be treated nonoperatively. I ordered a knee immobilizer to the room. She can be weightbearing as tolerated while in the knee immobilizer. This will usually take about 6 weeks before the swelling starts to go down and starts to feel better. We can start range of motion at 6 weeks. (2) Periprosthetic fracture around internal prosthetic right shoulder joint: The right shoulder injury is almost an acute on chronic injury. The prosthesis has been loose for years but this summer the fracture appears to be new. She is not having as much pain in the right shoulder. I told her that the only surgical option for the right shoulder would be to remove the implants and leave her with a flail shoulder. Will see how she does. If she has continued pain in the shoulder then we will proceed with that. For right now I do not see any operative indications with the right shoulder. History of Present Illness Reason for Consultation: Right shoulder injury and right patella fracture. Requesting Physician: . Attending Physician: Roberto Reynoso is a pleasant 89-year-old female who is well-known to me. I did a right reverse shoulder arthroplasty on her in the past. She has very poor bone quality. I have been watching progressive degeneration of the bone around the shoulder prosthesis for some time. She has poor function but she does not have much pain. Unfortunately, she fell the other day. She hurt her right shoulder but she also injured her right knee. Her right knee is more bothersome. It is very swollen. She was seen in the emergency room and admitted to the hospitalist service. Orthopedics was consulted to evaluate and treat.. Allergies Allergy/AdvReac Type Severity Reaction Status Date / Time atorvastatin [From Lipitor] Allergy Mild Rash Verified 04/24/24 16:14 Home Medications Medication Instructions Recorded Confirmed Type acetaminophen 500 mg tablet 500 mg PO TID PRN Pain 05/31/23 06/15/24 History (Tylenol Extra Strength) ferrous sulfate 325 mg (65 mg 325 mg PO DAILY #90 tabs 06/05/23 06/15/24 Rx iron) tablet sennosides 8.6 mg tablet (Senokot) 17.5 mg PO DAILY PRN Constipation 12/14/23 06/15/24 History zolpidem 5 mg tablet (Ambien) 2.5 mg PO HS PRN Sleep 12/14/23 06/15/24 History pravastatin 80 mg tablet 80 mg PO QPM #90 tabs 04/12/24 06/15/24 Rx duloxetine 20 mg capsule,delayed 20 mg PO DAILY #90 caps 04/22/24 06/15/24 Rx release solifenacin 5 mg tablet (Vesicare) 5 mg PO DAILY #30 tabs 04/24/24 06/15/24 Rx amlodipine 2.5 mg tablet 2.5 mg PO QAM 06/15/24 06/15/24 History amoxicillin 500 mg tablet 2,000 mg PO ONCE PRN PRIOR TO 06/15/24 06/15/24 History DENTAL APPT aspirin 81 mg tablet,delayed 81 mg PO QAM 06/15/24 06/15/24 History release calcium carbonate 500 mg PO QAM 06/15/24 06/15/24 History cholecalciferol (vitamin D3) 25 25 mcg PO DAILY 06/15/24 06/15/24 History mcg (1,000 unit) tablet (Vitamin D3) levothyroxine 25 mcg tablet 25 mcg PO DAILYBB 06/15/24 06/15/24 History (Synthroid) multivitamin (Daily Multi-Vitamin 1 tab PO QAM 06/15/24 06/15/24 History tablet) timolol maleate 0.5 % eye drops 1 drp OPB QAM 06/15/24 06/15/24 History valsartan 160 mg tablet (Diovan) 160 mg PO QAM 06/15/24 06/15/24 History Past Med/Surg History Problem List Closed fracture of right patella (Acute) Fall (Acute) Hypertension (Acute) Periprosthetic fracture around internal prosthetic right shoulder joint (Acute) Iron deficiency anemia Leukocytosis Elevated troponin (Acute) Fall (Acute) Acute pain of left hip (Acute) Hyperglycemia Pain in right shoulder (Acute) Chondrocalcinosis Left knee DJD Periprosthetic fracture of shaft of femur DVT prophylaxis Hiatal hernia Hyperlipidemia Hypertension Hypothyroidism Hyponatremia Femur fracture, right (Acute) Anemia Hip pain Thickened endometrium Fracture, intertrochanteric, right femur (12/25/22) had fall and surgical repair Osteoporosis Glaucoma Borderline Fibrocystic breast disease Pre-diabetes Vitamin D deficiency Nasal septal deviation Hypertrophy of both inferior nasal turbinates Degenerative arthritis of lumbar spine (Acute) Encounter for pre-operative examination 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 Anxiety Greater trochanteric bursitis of right hip Insomnia Medical History Acute dehydration Michael catheter in place Hypokalemia Cellulitis Cough Rash SIRS (systemic inflammatory response syndrome) Arthritis History of diverticulosis Hypothyroidism Surgical History Status post-operative repair of closed fracture of right hip History of colonoscopy History of appendectomy [place] teeth removed History of tonsillectomy History of cataract surgery R/L Family History Father Coronary heart disease Myocardial infarction Family history of diabetes mellitus Sister Breast cancer Other Family history non-contributory No family history of adverse response to anesthesia Denies family history of Ovarian cancer Prostate cancer Colorectal cancer Social History Smoking Status: Never smoker Second Hand Exposure: No; Do You Dip or Chew Tobacco: No; Tobacco Cessation Education Requested by Patient: No Hx Alcohol Use: No Hx Substance Use: No Preferred Language: Italian Communication Ability: Effective Communication Ability Comment: ALSO SPEAKS FRENCH Visual Impairment: No Limitations Hearing Ability: Normal Switch Crew Supervisor Required: No Beliefs That Will Affect Care: None marital status: / Current Living Situation: Alone current occupational status: retired Other Information That Helps Us Care for You: No Feels Safe at Home: Yes Safety Concerns: Feels Safe At This Time Childhood Exposure to Second-Hand Smoke: Yes Dental Care, Regularly: Yes Physical Activity Frequency: 1-2 Times per Week Seatbelt Use: always Sunscreen Use: Yes Assistive Devices: Walker Review of Systems All systems reviewed & are unremarkable except as noted in HPI & below. Physical Exam On physical exam of the right shoulder, I am able to do about 30 degrees of forward elevation and 30 degrees of abduction passively without much pain. She is a little bit of ecchymosis in the axilla. She has some pain in her shoulder but it does not seem to be too bad. On exam of her right knee she has a large area of ecchymosis. She has tenderness palpation directly over the inferior pole the patella.. Constitutional WD/WN, vitals as above Eyes PERRL, conjunctivae normal, anicteric sclerae ENMT external ear and nose normal, oropharynx normal Neck trachea midline, no thyromegaly Respiratory normal respiratory effort Cardiovascular RRR, no murmur, no edema Gastrointestinal (Abdomen) normal bowel sounds, soft, nontender, no hepatosplenomegaly Psychiatric A+Ox3, euthymic affect Results & Data Results & Data Laboratory Results . Diagnostic Findings X-rays and CT scan of the right knee does show a fracture of the inferior pole the right patella X-rays of the right shoulder show continued progressive worsening of the right shoulder prosthesis. The glenoid positioning and the acromial fracture appear to be chronic. There appears to be some new loosening of fracture around the humeral stem.. PG Care Time/CCT Total # of Minutes Spent Total Time Spent with Patient: Total time spent is greater than 50% in coordination of care (as documented) at patient's floor/unit and/or counseling patient: Coding Level of Care Code 46718 IN/OBS CONSULT LVL 4,60M Diagnoses Closed fracture of right patella S82.041A Encounter type: initial encounter Fracture alignment: displaced Fracture morphology: comminuted Periprosthetic fracture around internal prosthetic right shoulder joint M97.31XA Encounter type: initial encounter (1) Closed fracture of right patella Encounter type: initial encounter Fracture alignment: displaced Fracture morphology: comminuted Qualified Code(s): S82.041A - Displaced comminuted fracture of right patella, initial encounter for closed fracture (2) Periprosthetic fracture around internal prosthetic right shoulder joint Encounter type: initial encounter Qualified Code(s): M97.31XA - Periprosthetic fracture around internal prosthetic right shoulder joint, initial encounter
[2024-06-16 15:54] LABS: Basophils # (auto) 0.01 K/uL (0.00-0.20); Basophils % (auto) 0.1 %; Eosinophils # (auto) 0.03 K/uL (0.00-0.50); Eosinophils % (auto) 0.3 %; Hemoglobin 9.7 g/dl (12.0-16.0); Immature Granulocytes # (auto) 0.03 K/uL (0.01-0.20); Immature Granulocytes % (auto) 0.3 %; Lymphocytes # (auto) 1.73 K/uL (1.20-3.40); Lymphocytes % (auto) 16.9 %; Mean Corpuscular Hemoglobin 28.9 pg (25.0-34.0); Mean Corpuscular Hgb Conc 33.4 g/dL (32.0-36.0); Mean Corpuscular Volume 86.3 fL (80.0-100.0); Mean Platelet Volume 10.5 fL (9.4-12.4); Monocytes # (auto) 1.23 K/uL (0.11-0.59); Neutrophils # (auto) 7.23 K/uL (1.40-6.50); Neutrophils % (auto) 70.4 %; Platelet Count 291 K/uL (130-400); RDW Coefficient of Variation 12.9 % (11.5-14.5); RDW Standard Deviation 40.7 fL (36.4-46.3); Red Blood Count 3.36 M/uL (4.20-5.40); White Blood Count 10.26 K/ul (4.8-10.8)
[2024-06-16 16:10] LABS: Albumin Globulin Ratio 1.6 (0.9-2); Albumin Level 3.7 gm/dl (3.4-5.0); BUN Creatinine Ratio 21.6 (10-20); Bilirubin,Total 0.4 mg/dl (0.2-1.0); C Reactive Protein 4.37 mg/dl (0-0.5); Calcium 8.7 mg/dl (8.6-10.3); Creatinine Clr Calc Pharmacy 28.2 ml/min; Globulin 2.3 gm/dl (2.5-4.0); Potassium 4.1 mmol/L (3.5-5.1)
[2024-06-16] MEDS: cefTRIAXone SODIUM 1,000 MG/50 ML BAG IV SCH (19:47)
[2024-06-16] MEDS: PRAVASTATIN SOD 40 MG TAB PO SCH (20:29)
--- NOTE | 2024-06-16 20:53 | Communication Note ---
Date of Service: June 16, 2024 Notified by nursing at beginning of shift that patient's right lower leg was warm to the touch, red, and a bit swollen. Nursing reported that this was di fferent than her presentation on admission, unfortunately there was no hospitalist note/documentation available to review at this time. I went to bedside and examined the patient. Patient's right lower extremity has significant ecchymosis around knee (admitted with right patellar fracture), +1 nonpitting edema below knee on R LE, erythema present at anterior surface/king. Patient with palpable pedal pulse, able to move toes without difficulty. Denies shortness of breath/dizziness/body aches/chills. Order placed for R lower extremity venous duplex to rule out DVT. Fortunately, venous duplex was negative for evidence of DVT. Resident Activity Tracking Resident Involvement: Resident Care Provided Care Provided: Adult Hospital Medicine
--- NOTE | 2024-06-17 00:58 | Ultrasound Report ---
Exam(s): US VENOUS RIGHT LOWER EXTREMITY EXAM: US Duplex Right Lower Extremity Veins CLINICAL HISTORY: Right LE pain/swelling, rule out DVT. TECHNIQUE: Real-time duplex ultrasound scan of the right lower extremity veins integrating B-mode two-dimensional vascular structure, Doppler spectral analysis, color flow Doppler imaging and compression. COMPARISON: No relevant prior studies available. FINDINGS: Deep veins: Unremarkable. No DVT in the visualized common femoral, femoral, proximal deep femoral or popliteal veins. The veins demonstrate normal color flow, are normally compressible, with normal phasic flow and/or augmentation response. Superficial veins: Unremarkable. No thrombus in the visualized great saphenous vein. Soft tissues: No acute abnormality. No popliteal cyst. IMPRESSION: No evidence of deep venous thrombosis. Electronically signed by: Dequan Bravo M.D. 06/17/24 00:57 AM
[2024-06-17] MEDS: LEVOTHYROXINE SODIUM 25 MCG TABLET PO SCH (06:09)
--- NOTE | 2024-06-17 07:16 | Communication Note ---
Date of Service: June 16, 2024 Patient with an elevated temperature of 37.7, leukocytosis, and erythema of her right leg. Will treat for cellulitis and place on ceftriaxone.
[2024-06-17] MEDS: ACETAMINOPHEN 1,000 MG/100 ML VIAL IV PRN (08:44)
[2024-06-17] MEDS: amLODIPine BESYLATE 5 MG TAB PO SCH (08:46)
[2024-06-17] MEDS: FERROUS SULFATE 325 MG TAB PO SCH (08:46)
[2024-06-17] MEDS: OXYBUTYNIN CHLORIDE XL 5 MG TABCR PO SCH (08:46)
[2024-06-17] MEDS: DULoxetine HCL 20 MG CAP PO SCH (08:46)
[2024-06-17] MEDS: VALSARTAN 80 MG TAB PO SCH (08:47)
[2024-06-17 09:58] LABS: Basophils # (auto) 0.02 K/uL (0.00-0.20); Basophils % (auto) 0.2 %; Eosinophils % (auto) 0.9 %; Hematocrit (blood only) 29.6 % (37.0-47.0); Hemoglobin 9.5 g/dl (12.0-16.0); Immature Granulocytes # (auto) 0.04 K/uL (0.01-0.20); Immature Granulocytes % (auto) 0.4 %; Lymphocytes # (auto) 1.26 K/uL (1.20-3.40); Lymphocytes % (auto) 11.4 %; Mean Corpuscular Hemoglobin 28.2 pg (25.0-34.0); Mean Corpuscular Hgb Conc 32.1 g/dL (32.0-36.0); Mean Corpuscular Volume 87.8 fL (80.0-100.0); Mean Platelet Volume 10.3 fL (9.4-12.4); Monocytes % (auto) 14.5 %; Neutrophils # (auto) 8.03 K/uL (1.40-6.50); Neutrophils % (auto) 72.6 %; Platelet Count 272 K/uL (130-400); RDW Coefficient of Variation 13.2 % (11.5-14.5); RDW Standard Deviation 42.5 fL (36.4-46.3); Red Blood Count 3.37 M/uL (4.20-5.40); White Blood Count 11.05 K/ul (4.8-10.8)
[2024-06-17 10:13] LABS: Calcium 8.4 mg/dl (8.6-10.3); Magnesium 1.8 mg/dl (1.7-2.4)
[2024-06-17 10:19] LABS: BUN Creatinine Ratio 35.8 (10-20); Creatinine Clr Calc Pharmacy 40.9 ml/min
[2024-06-17 10:44] LABS: Folate (Folic Acid),Ser orPlas > 22.30 ng/ml (>5.38)
[2024-06-17 10:45] LABS: Vitamin B12 215 pg/ml (180-914)
--- NOTE | 2024-06-17 13:55 | Hospitalist Progress Note ---
Date of Service June 17, 2024 Assessment & Plan (1) Closed fracture of right patella: Plan: appreciate ortho assistance and consultation nonoperative Rx advised orthotics consult appreciated for fitting of knee immobilizer once in place can WBAT on the RLE for pain control - tylenol 1gm TID scheduled; morphine prn 25-OH vit D level 11/2023 was wnl (2) Periprosthetic fracture around internal prosthetic right shoulder joint: Plan: nonoperative Rx at this time per Dr Alarcon pain control (3) Fall: Plan: likely multifactorial causes B12 level is low -- replace with PO B12 1000mcg daily (4) Hypertension: Plan: cont home meds (5) Hyperlipidemia: Plan: checked CPK - wnl cont pravastatin (6) Hypothyroidism: Plan: TSH wnl 10/2023 cont synthroid (7) Hiatal hernia: Plan: cont PPI (8) Fever, low grade: Plan: Tm 37.7 overnight ?RLE cellulitis and rocephin IV added by night resident blood cx's neg to date will cont rocephin for now photo taken with pt's verbal permission and placed in her chart today serial exams (9) Chondrocalcinosis: Plan: as seen on right knee CT if she has worsening pain consider low-dose prednisone for pseudogout defer for now Plan DVT proph - if H/H remain stable next 24 hours start heparin SC as she is at high risk of VTE due to immobility appreciate ortho consult appreciate orthotics consult PT, OT when able Admission and Anticipated Discharge Date Admission Date: June 16, 2024 Subjective patient lying in bed c/o right knee & leg pain c/o chronic right shoulder pain upset at her recent fall prior to the fall "had been doing ok" denies dyspnea denies chest pain denies abd pain eating ok tele overnight wnl Review of Systems 2 Review of Systems: cv - no orthopnea pulm - no cough GI - no nausea/emesis Physical Exam 2 Physical Exam: gen - lying in bed comfortably, NAD neck - no JVD mouth - MM dry heart - RRR, s1 s2 lungs - CTA b/l abd - soft NT ND BS+ ext - right leg with severe edema from foot to above the knee; pulses b/l feet 2+ skin - extensive ecchymoses about the right knee and inferior to the knee; there is erythema over the anterior and lateral king (see attached photo) musculo - joint effusion R knee Results & Data Results & Data Vital Signs (Past 12 Hours) Vital Signs Temp Pulse Pulse Resp BP Pulse Ox O2 Del Method 06/17/24 11:00 36.8 C 99 H 18 149/74 H 98 Room Air 06/17/24 09:52 94 H 06/17/24 07:42 36.6 C 98 H 18 149/68 H 96 Room Air 06/17/24 03:49 36.7 C 110 H 17 160/72 H 93 Room Air Laboratory Results Laboratory Results - last 48 hr 06/16/24 06/17/24 15:34 09:45 WBC 10.26 11.05 H RBC 3.36 L 3.37 L Hgb 9.7 L 9.5 L Hct 29.0 L 29.6 L MCV 86.3 87.8 MCH 28.9 28.2 MCHC 33.4 32.1 RDW Std Deviation 40.7 42.5 RDW Coeff of Felicity 12.9 13.2 Plt Count 291 272 MPV 10.5 10.3 Immature Gran % (Auto) 0.3 0.4 Neut % (Auto) 70.4 72.6 Lymph % (Auto) 16.9 11.4 Valley % (Auto) 12.0 14.5 Eos % (Auto) 0.3 0.9 Baso % (Auto) 0.1 0.2 Neut # (Auto) 7.23 H 8.03 H Lymph # (Auto) 1.73 1.26 Valley # (Auto) 1.23 H 1.60 H Eos # (Auto) 0.03 0.10 Baso # (Auto) 0.01 0.02 Immature Gran # (Auto) 0.03 0.04 Sodium 133 L 131 L Potassium 4.1 4.0 Chloride 100 98 Carbon Dioxide 27 28 Anion Gap 6 5 BUN 21 24 H Creatinine 0.97 D 0.67 D Est Cr Clr Drug Dosing 28.2 40.9 eGFR 55.86 83.49 BUN/Creatinine Ratio 21.6 H 35.8 H Glucose 117 H 142 H Calcium 8.7 8.4 L Magnesium 1.8 Total Bilirubin 0.4 AST 16 ALT 12 Alkaline Phosphatase 60 Total Creatine Kinase 21 L C-Reactive Protein 4.37 H Total Protein 6.0 Albumin 3.7 Globulin 2.3 L Albumin/Globulin Ratio 1.6 Vitamin B12 215 Folate > 22.30 Procalcitonin 0.05 Diagnostic Findings PG Care Time/CCT Total # of Minutes Spent Total Time Spent with Patient: Total time spent is greater than 50% in coordination of care (as documented) at patient's floor/unit and/or counseling patient: Coding Level of Care Code 80280 SUB INP/OBS CARE 2/35MIN Diagnoses Closed fracture of right patella S82.041A Encounter type: initial encounter Fracture alignment: displaced Fracture morphology: comminuted Periprosthetic fracture around internal prosthetic right shoulder joint M97.31XA Encounter type: initial encounter Fall W19.XXXA Encounter type: initial encounter Hypertension I10 Hypertension type: unspecified Hyperlipidemia E78.5 Hypothyroidism E03.9 Hiatal hernia K44.9 Fever, low grade R50.9 Chondrocalcinosis M11.20 (1) Closed fracture of right patella Encounter type: initial encounter Fracture alignment: displaced Fracture morphology: comminuted Qualified Code(s): S82.041A - Displaced comminuted fracture of right patella, initial encounter for closed fracture (2) Periprosthetic fracture around internal prosthetic right shoulder joint Encounter type: initial encounter Qualified Code(s): M97.31XA - Periprosthetic fracture around internal prosthetic right shoulder joint, initial encounter (3) Fall Encounter type: initial encounter Qualified Code(s): W19.XXXA - Unspecified fall, initial encounter (4) Hypertension Hypertension type: unspecified Qualified Code(s): I10 - Essential (primary) hypertension
[2024-06-17] MEDS: CYANOCOBALAMIN (B-12) 500 MCG TABLET PO SCH (14:22)
[2024-06-17] MEDS: ACETAMINOPHEN 500 MG TAB PO SCH (14:22)
--- NOTE | 2024-06-17 21:13 | Electrocardiogram Report ---
Test Reason : Blood Pressure : */* mmHG Vent. Rate : 94 BPM Atrial Rate : 94 BPM P-R Int : 148 ms QRS Dur : 100 ms QT Int : 346 ms P-R-T Axes : 70 -36 70 degrees QTcB Int : 432 ms Normal sinus rhythm Left axis deviation Minimal voltage criteria for LVH, may be normal variant Poor R wave progression, consider anterior ND vs. lead placement vs. LVH Abnormal ECG When compared with ECG of 04-Nov-2023 09:33, No significant change was found Confirmed by Galo Mace ([id number]) on 06/17/2024 9:13:20 PM Referred By: [facility] Confirmed By: Galo Mace
[2024-06-18 07:55] LABS: Hematocrit (blood only) 29.5 % (37.0-47.0); Hemoglobin 9.5 g/dl (12.0-16.0); Mean Corpuscular Hemoglobin 28.2 pg (25.0-34.0); Mean Corpuscular Hgb Conc 32.2 g/dL (32.0-36.0); Mean Corpuscular Volume 87.5 fL (80.0-100.0); Mean Platelet Volume 10.6 fL (9.4-12.4); Platelet Count 286 K/uL (130-400); RDW Coefficient of Variation 12.6 % (11.5-14.5); RDW Standard Deviation 40.7 fL (36.4-46.3); Red Blood Count 3.37 M/uL (4.20-5.40); White Blood Count 9.45 K/ul (4.8-10.8)
[2024-06-18 08:14] LABS: BUN Creatinine Ratio 37.7 (10-20); Calcium 8.4 mg/dl (8.6-10.3); Creatinine Clr Calc Pharmacy 51.3 ml/min; Potassium 3.9 mmol/L (3.5-5.1)
--- NOTE | 2024-06-18 13:18 | Hospitalist Progress Note ---
Date of Service June 18, 2024 Assessment & Plan (1) Closed fracture of right patella: Plan: appreciate ortho assistance and consultation nonoperative Rx advised orthotics consult appreciated has RIGHT knee immobilizer in place can WBAT on the RLE with immobilizer in place for pain control - tylenol 1gm TID scheduled; morphine prn 25-OH vit D level 11/2023 was wnl (2) Periprosthetic fracture around internal prosthetic right shoulder joint: Plan: nonoperative Rx at this time per Dr Alarcon pain control (3) Fall: Plan: likely multifactorial causes B12 level is low -- replace with PO B12 1000mcg daily (4) Hypertension: Plan: cont home meds (5) Hyperlipidemia: Plan: checked CPK - wnl cont pravastatin (6) Hypothyroidism: Plan: TSH wnl 10/2023 cont synthroid (7) Hiatal hernia: Plan: cont PPI (8) Fever, low grade: Plan: Tm 37.7 early this admission ?RLE cellulitis (king) and rocephin IV added blood cx's neg to date will cont rocephin for now but can likely transition to po keflex or similar tomorrow I am not certain if the redness was simply from trauma/ecchymoses/etc vs true infection either way the right leg erythema is improved today (9) Chondrocalcinosis: Plan: as seen on right knee CT left knee effusion could be CPPD/pseudogout as well poor candidate for NSAIDs due to aspirin for DVT proph will give low-dose prednisone for a few days -- 5mg (10) Acute blood loss anemia: Plan: 2nd to patellar fracture & bleeding into the right leg tissues Hb 9.5 today repeat CBC am consider Fe supplementation Plan DVT proph - aspirin 81mg BID appreciate ortho consult appreciate orthotics consult PT, OT dispo - [facility] updated pt's daughter Hilda Adames by phone this evening Admission and Anticipated Discharge Date Admission Date: June 16, 2024 Subjective pt reports that even before she fell recently at [facility] she had been having b/l knee pain with swelling today - mild pain in L knee with swelling right knee - moderate pain even at rest she also has pain in her right hand small joints along with swelling right shoulder pain - at baseline she is anxious to start PT/OT - "I have to keep moving" denies any new complaints tele overnight wnl Review of Systems Review of Systems: gen - no fevers or chills cv - no chest pain pulm - no dyspnea GI - moving bowels, no nausea, no emesis, no pain Physical Exam Physical Exam: gen - lying in bed comfortably, NAD, pleasant; looks well neck - no JVD mouth - MMM heart - RRR, s1 s2, no murmur lungs - CTA b/l abd - soft NT ND BS+ ext - right leg with moderate edema from foot to above the knee; pulses b/l feet 2+ skin - extensive ecchymoses about the right knee and inferior to the knee; there is erythema over the anterior and lateral king but it is improved relative to yesterday's exam musculo - joint effusion R knee, mild joint effusion left knee; mild synovitis of several small joints of right hand Results & Data Results & Data Vital Signs (Past 12 Hours) Vital Signs Temp Pulse Pulse Resp BP Pulse Ox Pulse Ox 06/18/24 10:41 36.5 C 76 17 173/73 H 92 06/18/24 07:03 81 06/18/24 07:01 36.5 C 85 19 177/75 H 95 06/18/24 03:00 36.8 C 75 20 137/70 94 06/18/24 02:00 94 O2 Del Method O2 Del Method 06/18/24 10:41 Room Air 06/18/24 07:03 06/18/24 07:01 Room Air 06/18/24 03:00 Room Air 06/18/24 02:00 Room Air Laboratory Results Laboratory Results - last 24 hr 06/18/24 07:17 WBC 9.45 RBC 3.37 L Hgb 9.5 L Hct 29.5 L MCV 87.5 MCH 28.2 MCHC 32.2 RDW Std Deviation 40.7 RDW Coeff of Felicity 12.6 Plt Count 286 MPV 10.6 Sodium 131 L Potassium 3.9 Chloride 98 Carbon Dioxide 26 Anion Gap 7 BUN 20 Creatinine 0.53 L Est Cr Clr Drug Dosing 51.3 eGFR 88.35 BUN/Creatinine Ratio 37.7 H Glucose 102 H Calcium 8.4 L PG Care Time/CCT Total # of Minutes Spent Total Time Spent with Patient: Total time spent is greater than 50% in coordination of care (as documented) at patient's floor/unit and/or counseling patient: Coding Level of Care Code 23358 SUB INP/OBS CARE MIN Diagnoses Closed fracture of right patella S82.041A Encounter type: initial encounter Fracture alignment: displaced Fracture morphology: comminuted Periprosthetic fracture around internal prosthetic right shoulder joint M97.31XA Encounter type: initial encounter Fall W19.XXXA Encounter type: initial encounter Hypertension I10 Hypertension type: unspecified Hyperlipidemia E78.5 Hypothyroidism E03.9 Hiatal hernia K44.9 Fever, low grade R50.9 Chondrocalcinosis M11.20 Acute blood loss anemia D62 (1) Closed fracture of right patella Encounter type: initial encounter Fracture alignment: displaced Fracture morphology: comminuted Qualified Code(s): S82.041A - Displaced comminuted fracture of right patella, initial encounter for closed fracture (2) Periprosthetic fracture around internal prosthetic right shoulder joint Encounter type: initial encounter Qualified Code(s): M97.31XA - Periprosthetic fracture around internal prosthetic right shoulder joint, initial encounter (3) Fall Encounter type: initial encounter Qualified Code(s): W19.XXXA - Unspecified fall, initial encounter (4) Hypertension Hypertension type: unspecified Qualified Code(s): I10 - Essential (primary) hypertension
[2024-06-18] MEDS: predniSONE 5 MG TAB PO ONE (15:29)
[2024-06-18] MEDS: PANTOprazole 40 MG TAB PO SCH (20:48)
[2024-06-18] MEDS: ASPIRIN 81 MG ECTAB PO SCH (20:48)
[2024-06-19 06:40] LABS: Hematocrit (blood only) 28.8 % (37.0-47.0); Hemoglobin 9.4 g/dl (12.0-16.0); Mean Corpuscular Hemoglobin 28.3 pg (25.0-34.0); Mean Corpuscular Hgb Conc 32.6 g/dL (32.0-36.0); Mean Corpuscular Volume 86.7 fL (80.0-100.0); Mean Platelet Volume 10.4 fL (9.4-12.4); Platelet Count 286 K/uL (130-400); RDW Coefficient of Variation 12.5 % (11.5-14.5); RDW Standard Deviation 39.8 fL (36.4-46.3); Red Blood Count 3.32 M/uL (4.20-5.40); White Blood Count 9.42 K/ul (4.8-10.8)
[2024-06-19 07:17] LABS: BUN Creatinine Ratio 37.3 (10-20); Calcium 8.4 mg/dl (8.6-10.3); Creatinine Clr Calc Pharmacy 54.7 ml/min; Potassium 3.9 mmol/L (3.5-5.1)
[2024-06-19] MEDS: predniSONE 5 MG TAB PO SCH (09:09)
[2024-06-19] MEDS: cephALEXin 500 MG CAP PO SCH (09:09)
[2024-06-19] MEDS: SODIUM CHLORIDE 1 GM TABLET PO SCH (09:10)
[2024-06-19] MEDS: ACETAMINOPHEN 500 MG TAB PO SCH (09:10)
[2024-06-19] MEDS: ONDANSETRON INJ 2 MG/ML 2 ML VIAL IV PRN (10:46)
--- NOTE | 2024-06-19 19:25 | Hospitalist Progress Note ---
Date of Service June 19, 2024 Assessment & Plan (1) Closed fracture of right patella: Plan: appreciate ortho assistance and consultation nonoperative Rx advised orthotics consult appreciated has RIGHT knee immobilizer in place can WBAT on the RLE with immobilizer in place for pain control - tylenol 500mg TID scheduled; add norco prn; stop morphine IV 25-OH vit D level 11/2023 was wnl (2) Periprosthetic fracture around internal prosthetic right shoulder joint: Plan: nonoperative Rx at this time per Dr Alarcon pain control (3) Fall: Plan: likely multifactorial causes B12 level is low -- replace with PO B12 1000mcg daily patient reports right leg weakness dating back to 2022 (R hip fracture s/p ORIF; then had periprosthetic fracture of right femur later in 2022) will obtain MRI brain to ensure no old or new stroke causing weakness, falls, etc (4) Hypertension: Plan: cont home meds (5) Hyperlipidemia: Plan: checked CPK - wnl cont pravastatin (6) Hypothyroidism: Plan: TSH wnl 10/2023 cont synthroid (7) Hiatal hernia: Plan: cont PPI (8) Fever, low grade: Plan: Tm 37.7 early this admission ?RLE cellulitis (king) and rocephin IV added blood cx's neg to date I am not certain if the redness was simply from trauma/ecchymoses/etc vs true infection either way the right leg erythema again is improved today stop rocephin change to keflex 500 QID x 5 more days (9) Chondrocalcinosis: Plan: as seen on right knee CT left knee effusion could be CPPD/pseudogout as well poor candidate for NSAIDs due to aspirin for DVT proph will give low-dose prednisone for a few days -- 5mg L knee effusion improved following prednisone right hand fingers - synovitis improved (10) Acute blood loss anemia: Plan: 2nd to patellar fracture & bleeding into the right leg tissues Hb 9.4 today repeat CBC am check Fe studies in am (11) Hyponatremia: Plan: chronic, baseline about 130 today's level 130 has been on NaCl tabs in the past - will add repeat BMP am TSH wnl 2023 Plan DVT proph - aspirin 81mg BID appreciate ortho consult appreciate orthotics consult PT, OT dispo - [facility] - likely d/c there tomorrow updated pt's daughter Hilda Adames by phone this evening once again Admission and Anticipated Discharge Date Admission Date: June 16, 2024 Subjective patient lying in bed comfortably during the visit c/o right knee pain only left knee pain, pain in fingers, etc - improved did walk 12 feet with PT today her right leg feels "weak" but has felt this way chronically for some time denies h/o stroke eating well tele wnl overnight Review of Systems Review of Systems: CV - no chest pain pulm - no dyspnea GI - no N/V Physical Exam Physical Exam: gen - lying in bed comfortably, NAD, pleasant neck - no JVD mouth - MMM heart - RRR, s1 s2, no murmur lungs - CTA b/l abd - soft NT ND BS+ ext - right leg with moderate edema from foot to above the knee; pulses b/l feet 2+ skin - extensive ecchymoses about the right knee and inferior to the knee; there is erythema over the anterior and lateral king but again it is improved relative to yesterday's exam; no discrete cellulitis musculo - joint effusion R knee, minimal joint effusion left knee; mild synovitis of several small joints of right hand - IMPROVED today psych - a/o x 3 Results & Data Results & Data Vital Signs (Past 12 Hours) Vital Signs Temp Pulse Pulse Resp BP BP Pulse Ox 06/19/24 16:09 36.7 C 70 18 166/67 H 91 06/19/24 14:43 68 06/19/24 11:08 36.6 C 76 17 112/69 94 06/19/24 07:52 36.5 C 75 17 148/92 H 95 O2 Del Method 06/19/24 16:09 Room Air 06/19/24 14:43 06/19/24 11:08 Room Air 06/19/24 07:52 Room Air Laboratory Results Laboratory Results - last 24 hr 06/19/24 06:16 WBC 9.42 RBC 3.32 L Hgb 9.4 L Hct 28.8 L MCV 86.7 MCH 28.3 MCHC 32.6 RDW Std Deviation 39.8 RDW Coeff of Felicity 12.5 Plt Count 286 MPV 10.4 Sodium 130 L Potassium 3.9 Chloride 97 L Carbon Dioxide 28 Anion Gap 5 BUN 19 Creatinine 0.51 L Est Cr Clr Drug Dosing 54.7 eGFR 89.17 BUN/Creatinine Ratio 37.3 H Glucose 101 H Calcium 8.4 L PG Care Time/CCT Total # of Minutes Spent Total Time Spent with Patient: Total time spent is greater than 50% in coordination of care (as documented) at patient's floor/unit and/or counseling patient: Coding Level of Care Code 29951 SUB INP/OBS CARE 2/35MIN Diagnoses Closed fracture of right patella S82.041A Encounter type: initial encounter Fracture alignment: displaced Fracture morphology: comminuted Periprosthetic fracture around internal prosthetic right shoulder joint M97.31XA Encounter type: initial encounter Fall W19.XXXA Encounter type: initial encounter Hypertension I10 Hypertension type: unspecified Hyperlipidemia E78.5 Hypothyroidism E03.9 Hiatal hernia K44.9 Fever, low grade R50.9 Chondrocalcinosis M11.20 Acute blood loss anemia D62 Hyponatremia E87.1 (1) Closed fracture of right patella Encounter type: initial encounter Fracture alignment: displaced Fracture morphology: comminuted Qualified Code(s): S82.041A - Displaced comminuted fracture of right patella, initial encounter for closed fracture (2) Periprosthetic fracture around internal prosthetic right shoulder joint Encounter type: initial encounter Qualified Code(s): M97.31XA - Perip rosthetic fracture around internal prosthetic right shoulder joint, initial encounter (3) Fall Encounter type: initial encounter Qualified Code(s): W19.XXXA - Unspecified fall, initial encounter (4) Hypertension Hypertension type: unspecified Qualified Code(s): I10 - Essential (primary) hypertension
--- NOTE | 2024-06-19 21:49 | Magnetic Resonance Report ---
Exam(s): MRI HEAD Without Contrast EXAM: MR Head Without Intravenous Contrast CLINICAL HISTORY: falls, abnormal head CT (?NPH), RLE weakness. TECHNIQUE: Magnetic resonance images of the head/brain without intravenous contrast in multiple planes. COMPARISON: 06/15/2024 FINDINGS: Brain: Age-appropriate central and peripheral atrophy. No acute stroke. Small old right cerebellar lacunar infarct. Confluent degree of supratentorial periventricular and subcortical white matter hyperintensities on FLAIR and T2-weighted images. No acute hemorrhage or abnormal extra-axial fluid collection. Ventricles: No midline shift. No ventriculomegaly. Bones/joints: Unremarkable. No acute fracture. Sinuses: Unremarkable as visualized. No acute sinusitis. Mastoid air cells: Unremarkable as visualized. No mastoid effusion. Orbits: Unremarkable as visualized. IMPRESSION: 1. No acute stroke or hemorrhage. 2. Small old right cerebellar lacunar infarct. 3. Nonspecific white matter changes most commonly seen with small vessel disease. Electronically signed by: Dequan Braov M.D. 06/19/24 21:49 PM
[2024-06-20] MEDS: HYDROCODONE/ACETAMOPHEN 5/325MG TAB PO PRN (04:11)
[2024-06-20 09:55] LABS: Basophils # (auto) 0.01 K/uL (0.00-0.20); Basophils % (auto) 0.1 %; Eosinophils # (auto) 0.03 K/uL (0.00-0.50); Eosinophils % (auto) 0.3 %; Hematocrit (blood only) 30.4 % (37.0-47.0); Immature Granulocytes # (auto) 0.04 K/uL (0.01-0.20); Immature Granulocytes % (auto) 0.4 %; Lymphocytes # (auto) 1.13 K/uL (1.20-3.40); Lymphocytes % (auto) 10.9 %; Mean Corpuscular Hemoglobin 28.6 pg (25.0-34.0); Mean Corpuscular Hgb Conc 32.9 g/dL (32.0-36.0); Mean Corpuscular Volume 86.9 fL (80.0-100.0); Mean Platelet Volume 10.2 fL (9.4-12.4); Monocytes % (auto) 13.5 %; Neutrophils # (auto) 7.77 K/uL (1.40-6.50); Neutrophils % (auto) 74.8 %; Platelet Count 345 K/uL (130-400); RDW Coefficient of Variation 12.7 % (11.5-14.5); RDW Standard Deviation 39.9 fL (36.4-46.3); White Blood Count 10.38 K/ul (4.8-10.8)
[2024-06-20 10:08] LABS: BUN Creatinine Ratio 36.7 (10-20); Creatinine Clr Calc Pharmacy 45.3 ml/min
[2024-06-20 10:28] LABS: Ferritin 69.7 ng/ml (8-388)
[2024-06-20 10:32] LABS: Influenza A virus by PCR Negative (Neg); Influenza B virus by PCR Negative (Neg); RSV by PCR Negative (Neg); SARS CoV2 RNA(COVID-19) Ceph NEGATIVE (Negative)
[2024-06-20] MEDS: SUCRALFATE 1 GM/10 ML UDC PO SCH (13:13)
--- NOTE | 2024-06-20 19:20 | Hospitalist Progress Note ---
Date of Service June 20, 2024 Assessment & Plan (1) Fever, low grade: Plan: Tm 37.7 early this admission Temps normalized, then had low-grade fever again this am - 37.8 checked COVID/flu/RSV - negative blood cx's negative there was a ? of RLE cellulitis early in the admission - had been placed on rocephin IV (see photos in my notes) it remains uncertain if the redness is truly infectious or simply due to all of the trauma from the R patellar fracture if there is cellulitis will cont keflex (MSSA, strep); add doxy for MRSA coverage to be complete pseudogout of either knee can cause low-grade temps cont prednisone vomiting issue is not a new problem for her - she has this from time to time due to her large hiatal hernia she overall looks good today - will simply monitor her carefully 1 more day (2) Age-related osteoporosis with current pathological fracture: Plan: right patella (3) Closed fracture of right patella: Plan: appreciate ortho assistance and consultation nonoperative Rx advised orthotics consult appreciated has RIGHT knee immobilizer in place can WBAT on the RLE with immobilizer in place for pain control - tylenol 500mg TID scheduled; norco prn 25-OH vit D level 11/2023 was wnl (4) Periprosthetic fracture around internal prosthetic right shoulder joint: Plan: nonoperative Rx at this time per Dr Alarcon pain control (5) Fall: Plan: likely multifactorial causes B12 level is low -- replace with PO B12 1000mcg daily patient reports right leg weakness dating back to 2022 (R hip fracture s/p ORIF; then had periprosthetic fracture of right femur later in 2022) 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 but nothing fresh/acute can't exclude old cerebellar stroke contributing to fall risk (6) Hypertension: Plan: cont home meds (7) Hyperlipidemia: Plan: checked CPK - wnl cont pravastatin (8) Hypothyroidism: Plan: TSH wnl 10/2023 cont synthroid (9) Hiatal hernia: Plan: cont PPI twice daily add carafate qid (10) Chondrocalcinosis: Plan: as seen on right knee CT left knee effusion could be CPPD/pseudogout as well poor candidate for NSAIDs due to aspirin for DVT proph will give low-dose prednisone for a few days -- 5mg today is day #3 of such L knee effusion has resolved following prednisone right hand fingers - synovitis also resolved cont pred 5mg daily for total 7 days then stop consider sending to rheumatology post-discharge (11) Acute blood loss anemia: Plan: 2nd to patellar fracture & bleeding into the right leg tissues Fe studies show low-normal Fe levels - add ferrous sulfate no further PRBCs needed (12) Hyponatremia: Plan: chronic, baseline about 130 today's level 131 cont NaCl 1gm daily repeat BMP am TSH wnl 2023 Plan DVT proph - aspirin 81mg BID appreciate ortho consult appreciate orthotics consult PT, OT dispo - [facility] - likely d/c there tomorrow if no additional fevers and feeling well tomorrow morning updated pt's daughter Hilda Adames by phone yesterday pm Admission and Anticipated Discharge Date Admission Date: June 16, 2024 Subjective patient had low-grade fever this am she did not realize she had such however, she does stay cold most days right knee pain remains - worse with ambulation left knee pain resolved right hand pain resolved denies headache, URI symptoms, cough, congestion, nausea, dysuria did have 1 episode of vomiting after she tried to take many of her AM meds this happens frequently outside the hospital as well - she typically spaces her meds out to avoid the emesis tele overnight wnl Review of Systems 2 Review of Systems: cv - no chest pain, no orthopnea pulm - no cough/wheeze/dyspnea GI - no abd pain - no LUTS Physical Exam 2 Physical Exam: gen - lying in bed comfortably, NAD, pleasant; looks well neck - no JVD mouth - MMM heart - RRR, s1 s2, no murmur lungs - CTA b/l abd - soft NT ND BS+ ext - right leg with moderate edema from foot to above the knee - no change; pulses b/l feet 2+ skin - extensive ecchymoses about the right knee and inferior to the knee; there is erythema over the anterior and lateral king - see photo below; no worsening from prior exam erythema is warm but the appearance is quite atypical for cellulitis musculo - joint effusion R knee unchanged; joint effusion left knee resolved; warmth L knee resolved; mild synovitis of several small joints of right hand - resolved psych - a/o x 3 Results & Data Results & Data Vital Signs (Past 12 Hours) Vital Signs Temp Pulse Pulse Resp BP BP Pulse Ox 06/20/24 17:11 71 06/20/24 15:29 37.1 C 69 18 153/69 H 96 06/20/24 11:41 36.8 C 71 18 144/60 H 97 06/20/24 08:35 88 06/20/24 08:02 37.8 C H 85 20 136/75 91 O2 Del Method 06/20/24 17:11 06/20/24 15:29 Room Air 06/20/24 11:41 Room Air 06/20/24 08:35 06/20/24 08:02 Room Air Laboratory Results Laboratory Results - last 24 hr 06/20/24 06/20/24 09:00 09:33 WBC 10.38 RBC 3.50 L Hgb 10.0 L Hct 30.4 L MCV 86.9 MCH 28.6 MCHC 32.9 RDW Std Deviation 39.9 RDW Coeff of Felicity 12.7 Plt Count 345 MPV 10.2 Immature Gran % (Auto) 0.4 Neut % (Auto) 74.8 Lymph % (Auto) 10.9 Traill % (Auto) 13.5 Eos % (Auto) 0.3 Baso % (Auto) 0.1 Neut # (Auto) 7.77 H Lymph # (Auto) 1.13 L Traill # (Auto) 1.40 H Eos # (Auto) 0.03 Baso # (Auto) 0.01 Immature Gran # (Auto) 0.04 Sodium 131 L Potassium 4.0 Chloride 97 L Carbon Dioxide 28 Anion Gap 6 BUN 22 Creatinine 0.60 Est Cr Clr Drug Dosing 45.3 eGFR 85.75 BUN/Creatinine Ratio 36.7 H Glucose 118 H Calcium 9.0 Iron 38 TIBC 346 Unsaturated IBC 308 Transferrin % Sat 11 L Ferritin 69.7 SARS-CoV-2 (PCR) NEGATIVE Influenza Type A (PCR) Negative Influenza Type B (PCR) Negative RSV (RT-PCR) Negative Microbiology 06/16/24 15:27 Blood Aerobic Blood Culture - Preliminary No growth in Aerobic bottle after 48 hours. 06/16/24 15:27 Blood Anaerobic Blood Culture - Preliminary No growth in Anaerobic bottle after 48 hours. 06/16/24 15:34 Blood Aerobic Blood Culture - Preliminary No growth in Aerobic bottle after 48 hours. 06/16/24 15:34 Blood Anaerobic Blood Culture - Preliminary No growth in Anaerobic bottle after 48 hours. Diagnostic Findings PG Care Time/CCT Total # of Minutes Spent Total Time Spent with Patient: Total time spent is greater than 50% in coordination of care (as documented) at patient's floor/unit and/or counseling patient: Coding Level of Care Code 43578 SUB INP/OBS CARE 3/50MIN Diagnoses Fever, low grade R50.9 Age-related osteoporosis with current pathological fracture M80.00XA Closed fracture of right patella S82.041A Encounter type: initial encounter Fracture alignment: displaced Fracture morphology: comminuted Periprosthetic fracture around internal prosthetic right shoulder joint M97.31XA Encounter type: initial encounter Fall W19.XXXA Encounter type: initial encounter Hypertension I10 Hypertension type: unspecified Hyperlipidemia E78.5 Hypothyroidism E03.9 Hiatal hernia K44.9 Chondrocalcinosis M11.20 Acute blood loss anemia D62 Hyponatremia E87.1 (3) Closed fracture of right patella Encounter type: initial encounter Fracture alignment: displaced Fracture morphology: comminuted Qualified Code(s): S82.041A - Displaced comminuted fracture of right patella, initial encounter for closed fracture (4) Periprosthetic fracture around internal prosthetic right shoulder joint Encounter type: initial encounter Qualified Code(s): M97.31XA - Periprosthetic fracture around internal prosthetic right shoulder joint, initial encounter (5) Fall Encounter type: initial encounter Qualified Code(s): W19.XXXA - Unspecified fall, initial encounter (6) Hypertension Hypertension type: unspecified Qualified Code(s): I10 - Essential (primary) hypertension
[2024-06-20] MEDS: DOXYCYCLINE HYCLATE 100 MG CAP PO SCH (21:11)
[2024-06-21 07:10] LABS: BUN Creatinine Ratio 47.1 (10-20); Calcium 8.7 mg/dl (8.6-10.3); Creatinine Clr Calc Pharmacy 53.3 ml/min; Potassium 3.9 mmol/L (3.5-5.1)
[2024-06-21 11:01] VITALS: PULSE 71; RESP 18; TEMP 97.5; O2SAT 96
--- NOTE | 2024-06-21 12:53 | Discharge Summary ---
Discharge Summary Date of Service June 21, 2024 Principal Dx & Hospital Course #1 = Principal Diagnosis (1) Fever, low grade: Tm 37.7 early this admission Temps normalized, then had low-grade fever again this am - 37.8 checked COVID/flu/RSV - negative blood cx's negative there was a ? of RLE cellulitis early in the admission - had been placed on rocephin IV (see photos in my notes) it remains uncertain if the redness is truly infectious or simply due to all of the trauma from the R patellar fracture if there is cellulitis will cont keflex (MSSA, strep); add doxy for MRSA coverage to be complete pseudogout of either knee can cause low-grade temps cont prednisone vomiting issue is not a new problem for her - she has this from time to time due to her large hiatal hernia she overall looks good today - will simply monitor her carefully 1 more day (2) Age-related osteoporosis with current pathological fracture: right patella (3) Closed fracture of right patella: appreciate ortho assistance and consultation nonoperative Rx advised orthotics consult appreciated has RIGHT knee immobilizer in place can WBAT on the RLE with immobilizer in place for pain control - tylenol 500mg TID scheduled; norco prn 25-OH vit D level 11/2023 was wnl (4) Periprosthetic fracture around internal prosthetic right shoulder joint: nonoperative Rx at this time per Dr Alarcon pain control (5) Fall: likely multifactorial causes B12 level is low -- replace with PO B12 1000mcg daily patient reports right leg weakness dating back to 2022 (R hip fracture s/p ORIF; then had periprosthetic fracture of right femur later in 2022) 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 but nothing fresh/acute can't exclude old cerebellar stroke contributing to fall risk (6) Hypertension: cont home meds (7) Hyperlipidemia: checked CPK - wnl cont pravastatin (8) Hypothyroidism: TSH wnl 10/2023 cont synthroid (9) Hiatal hernia: cont PPI twice daily add carafate qid (10) Chondrocalcinosis: as seen on right knee CT left knee effusion could be CPPD/pseudogout as well poor candidate for NSAIDs due to aspirin for DVT proph will give low-dose prednisone for a few days -- 5mg today is day #3 of such L knee effusion has resolved following prednisone right hand fingers - synovitis also resolved cont pred 5mg daily for total 7 days then stop consider sending to rheumatology post-discharge (11) Acute blood loss anemia: 2nd to patellar fracture & bleeding into the right leg tissues Fe studies show low-normal Fe levels - add ferrous sulfate no further PRBCs needed (12) Hyponatremia: chronic, baseline about 130 today's level 131 cont NaCl 1gm daily repeat BMP am TSH wnl 2023 Plan DVT proph - aspirin 81mg BID appreciate ortho consult appreciate orthotics consult PT, OT dispo - [facility] - likely d/c there tomorrow if no additional fevers and feeling well tomorrow morning updated pt's daughter Hilda Adames by phone yesterday pm Admission HPI Per Admitting Provider Hypothyroidism, the patient is a 89-year-old female with a past medical history including hypertension, iron deficiency anemia, right femur fracture, periprosthetic fracture of shaft of right femur, hyperlipidemia, lumbar degenerative disc disease, right shoulder reverse arthroplasty, anxiety and insomnia. Patient presented to the emergency department via EMS after a mechanical fall, sustaining right shoulder and right knee pain. Radiology studies in the emergency department revealed a periprosthetic right shoulder fracture, and right patella fracture. Discharge Exam gen - lying in bed comfortably, NAD, pleasant; looks well neck - no JVD mouth - MMM heart - RRR, s1 s2, no murmur lungs - CTA b/l abd - soft NT ND BS+ ext - right leg with moderate edema from foot to above the knee - no change; pulses b/l feet 2+ skin - extensive ecchymoses about the right knee and inferior to the knee; there is erythema over the anterior and lateral king - see photo below; no worsening from prior exam erythema is warm but the appearance is quite atypical for cellulitis musculo - joint effusion R knee unchanged; joint effusion left knee resolved; warmth L knee resolved; mild synovitis of several small joints of right hand - resolved psych - a/o x 3 Discharge Plan Discharge Items Patient Disposition: Transfer Detention Fac Reason For Visit: RT SHOULDER AND RT LEG PAIN S/P FALL Discharge Diagnosis: 1. Right patella fracture 2. Right periprosthetic humerus fracture 3. Chronic hyponatremia; discharge sodium level 132 4. 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 Moderate-severe generalized osteoarthritis 6. Vitamin B12 deficiency (level = 215) 7. Large hiatal hernia with occasional episodes of regurgitation 8. HTN 9. Question of cellulitis of right lower extremity (king) vs traumatic ecchymoses from her fall Activity: Per Instructions section Weightbearing Comment: Non-weightbearing right arm. WBAT RLE w/ KNEE IMMOBILIZER in place. Non-emergency contact: Primary Care Provider and Surgeon Call non-emergency contact if: you have any medication questions, your symptoms worsen, your pain is not controlled, your pain is worsening and you have a fever Follow-up/Referrals: Dav Perez MD [Primary Care Provider] - (1 week) Kurt Alarcon DO [Physician] - (2-3 weeks, f/u of right humerus fracture & right patella fracture) Scot Hammonds DO [Physician] - (consider referral to Dr Hammonds for pseudogout and generalized osteoarthritis ) Diet: Regular Pending Studies at Discharge: No Stand-Alone Forms: My [facility] Skilled Items Patient informed of condition?: Yes DNR: Yes Discharge Level of Care: Skilled Communicable Disease: No Discharge Prognosis: Stable Lines: None Urinary Catheter: No Medications and DC Order Prescriptions: New doxycycline hyclate 100 mg Capsule 100 mg PO BID 6 Days Qty: 12 0RF cephalexin 500 mg Capsule 500 mg PO TID 5 Days Qty: 15 0RF hydrocodone-acetaminophen 5-325 mg Tablet 1 tab PO Q6H PRN (Reason: pain) Qty: 10 0RF cyanocobalamin (vitamin B-12) 500 mcg Tablet 1,000 mcg PO QAM Qty: 60 5RF sodium chloride 1,000 mg Tablet,Soluble 1,000 mg PO DAILY Qty: 10 0RF sucralfate 100 mg/mL Suspension 1 g PO QID 30 Days Qty: 1200 0RF pantoprazole 40 mg Tablet,Delayed Release (Dr/Ec) 40 mg PO BID Qty: 60 2RF Continued ferrous sulfate 325 mg (65 mg iron) tablet 325 mg PO DAILY Qty: 90 3RF pravastatin 80 mg tablet 80 mg PO QPM Qty: 90 3RF duloxetine 20 mg capsule,delayed release(DR/EC) 20 mg PO DAILY Qty: 90 1RF solifenacin [Vesicare] 5 mg tablet 5 mg PO DAILY Qty: 30 2RF timolol maleate 0.5 % drops 1 drp OPB QAM multivitamin [Daily Multi-Vitamin] Tablet 1 tab PO QAM amlodipine 2.5 mg tablet 2.5 mg PO QAM levothyroxine [Synthroid] 25 mcg tablet 25 mcg PO DAILYBB Patient Comments: QAM valsartan [Diovan] 160 mg tablet 160 mg PO QAM Patient Comments: DAILY AT 1200 calcium carbonate 500 mg calcium (1,250 mg) tablet,chewable 500 mg PO QAM cholecalciferol (vitamin D3) [Vitamin D3] 25 mcg (1,000 unit) Tablet 25 mcg PO DAILY amoxicillin 500 mg Tablet 2,000 mg PO ONCE PRN (Reason: PRIOR TO DENTAL APPT) zolpidem [Ambien] 5 mg tablet 2.5 mg PO HS PRN (Reason: Sleep) Qty: 10 0RF sennosides [Senokot] 8.6 mg tablet 17.5 mg PO DAILY PRN (Reason: Constipation) Changed aspirin 81 mg tablet,delayed release (DR/EC) 81 mg PO BID 42 Days Qty: 84 0RF acetaminophen [Tylenol Extra Strength] 500 mg tablet 500 mg PO TID Qty: 0 0RF Discharge Orders: Discharge Order (Routine); Ordered 06/21/24 Ordered By: Elijah Mckinnon Admission Data Admit Date/Time: 06/16/24 00:59 Attending Provider: Elijah Mckinnon Admit Provider: Cornelius Turpin Primary Care Provider: Dav Perez Other Providers: Cornelius Turpin; Kurt Alarcon Hospital Stay Data Consultations 06/16/24 03:31 ED Decision to Admit Stat 06/16/24 08:32 Consult Orthopedic Surgery Routine Diagnostic Imagining Performed 06/15/24 23:14 CT cervical spine wo con Stat CT head/brain wo con Stat CT knee RT wo con Stat 06/16/24 20:52 US venous duplex leg [US venous doppler LE RT] Stat 06/19/24 15:21 MR brain wo con Urgent Pending Results Patient Have Any Pending Studies at Discharge: No Coding Diagnoses Fever, low grade R50.9 Age-related osteoporosis with current pathological fracture M80.00XA Closed fracture of right patella S82.041A Encounter type: initial encounter Fracture alignment: displaced Fracture morphology: comminuted Periprosthetic fracture around internal prosthetic right shoulder joint M97.31XA Encounter type: initial encounter Fall W19.XXXA Encounter type: initial encounter Hypertension I10 Hypertension type: unspecified Hyperlipidemia E78.5 Hypothyroidism E03.9 Hiatal hernia K44.9 Chondrocalcinosis M11.20 Acute blood loss anemia D62 Hyponatremia E87.1
[2024-06-21 12:56] VITALS: BP 136/75
--- NOTE | 2024-06-21 13:50 | XRay Report ---
RIGHT TIBIA AND FIBULA 2 VIEWS CLINICAL HISTORY: Right leg pain and swelling. FINDINGS: AP and crosstable lateral views of the right tibia and fibula are correlated with radiograp hs and CT of the right knee dated 06/15/2024. The skeletal structures are osteopenic. There is no rad iographic evidence of right tibial or fibular fracture. An intramedullary nail is partially visualize d in the distal femur. There is a comminuted fractures of the lower pole of the patella with inferior ly displaced fragments and overlying soft tissue edema. There is a knee joint effusion. Arthritic susy nge and chondrocalcinosis is seen in the knee. The ankle joint is grossly maintained. Soft tissue ange ma is present throughout the right lower extremity. IMPRESSION: 1. Soft tissue edema with no radiographic evidence of right tibial or fibular fracture. 2. Again seen is a comminuted fracture through the lower pole of the patella with associated joint ef fusion. Electronically signed by: Gonzalo Sidhu M.D. 06/21/2024 1:49 PM
== END 2024-06-21 14:36 | DRG 543 ==
LOC: ED 20:25 → 2S 06-16 00:59 → SUATTDRO 06-16 00:59 → 2S 06-16 01:54

== ENCOUNTER 2024-09-30 12:19 | Inpatient (IN) ==
[2024-09-30 12:49] LABS: iSTAT Creatinine 0.6 mg/dl (0.6-1.3); iSTAT Ionized Calcium 1.04 mmol/l (1.12-1.32); iSTAT Potassium 3.5 mmol/L (3.3-5.0)
[2024-09-30 12:57] LABS: Basophils # (auto) 0.02 K/uL (0.00-0.20); Basophils % (auto) 0.2 %; Hematocrit (blood only) 40.7 % (37.0-47.0); Hemoglobin 14.7 g/dl (12.0-16.0); Immature Granulocytes # (auto) 0.11 K/uL (0.01-0.20); Immature Granulocytes % (auto) 0.9 %; Lymphocytes # (auto) 0.78 K/uL (1.20-3.40); Lymphocytes % (auto) 6.4 %; Mean Corpuscular Hemoglobin 27.4 pg (25.0-34.0); Mean Corpuscular Hgb Conc 36.1 g/dL (32.0-36.0); Mean Corpuscular Volume 75.9 fL (80.0-100.0); Mean Platelet Volume 9.3 fL (9.4-12.4); Monocytes # (auto) 0.73 K/uL (0.11-0.59); Neutrophils # (auto) 10.51 K/uL (1.40-6.50); Neutrophils % (auto) 86.5 %; Platelet Count 363 K/uL (130-400); RDW Coefficient of Variation 12.5 % (11.5-14.5); RDW Standard Deviation 34.1 fL (36.4-46.3); Red Blood Count 5.36 M/uL (4.20-5.40); White Blood Count 12.15 K/ul (4.8-10.8)
--- NOTE | 2024-09-30 12:57 | Emergency Department Note ---
Impression & Plan Acute alteration in mental status, Acute hyponatremia, Generalized weakness, Hypomagnesemia ED Provider Note NAME: MARE OTOOLE AGE: 89 SEX: F : 1935 ARRIVES VIA: Ambulance INFORMANT: Patient, EMS ED PROVIDER(S): Dav Ashby DO CHIEF COMPLAINT: Altered mental status HPI: The patient is an 89-year-old female who presented to the emergency department for altered mental status. The history was very poor. The prehospital personnel did not know her last known well time. We are trying to contact the patient's living facility to determine when the last known well time was. The patient herself offers no complaints. She does appear to be confused. ROS: See above HPI for pertinent positives & negatives. A total of 10 systems reviewed and were otherwise negative. PAST MEDICAL HISTORY: See Below PAST SURGICAL HISTORY: See Below FAMILY HISTORY: See Below SOCIAL HISTORY: See Below HOME MEDICATIONS: See Below ALLERGIES: See Below VITALS: See Below PHYSICAL EXAMINATION: GENERAL: The patient is listless and slow to respond to questions. She responds inappropriately. EYES: The conjunctivae are clear. The pupils are round and reactive. EARS, NOSE, MOUTH AND THROAT: The nose is without any evidence of any deformity. Mucous membranes are dry. NECK: The neck is nontender and supple. RESPIRATORY: Diminished breath sounds are noted throughout. There were rhonchi in the right lung field. There is no tachypnea. CARDIOVASCULAR: Regular rate and rhythm noted there no murmurs rubs or gallops normal S1 normal S2. GASTROINTESTINAL: The abdomen is soft. Abdomen is nontender. MUSCULOSKELETAL/EXTREMITIES: There is no evidence of gross deformity full range of motion is noted in the hips and shoulders. SKIN: There is no obvious evidence of any rash. There are no petechiae, pallor or cyanosis noted. NEUROLOGIC: The is awake to verbal commands. Strength was diminished but symmetric bilaterally. The patient is oriented only to person and place. MEDICAL DECISION MAKING: The patient is an 89-year-old female who presented to the emergency department for an evaluation of altered mental status. The patient has had ongoing symptoms over the course of the last few weeks but it became worse over the last couple of days. The patient was very listless and appeared to be more encephalopathic. She had no focal neurologic deficits. As it turns out the patient's sodium was very low. I do feel this explains the patient's symptoms. I discussed the patient's laboratory and radiographic studies with her. [facility] also [facility] The patient's volume status still requires some workup. It is unclear if she would benefit from hypertonic saline. This would likely need to be done in the ICU unless the patient decompensates and has clear indication for hypertonic saline such as seizure. The patient had a Michael catheter placed. Triage Nursing notes reviewed. Prior medical records reviewed Vital Signs: reviewed and remarkable for no significant abnormalities Differential diagnosis: Infection, hypoglycemia, electrolyte abnormalities, overdose, toxicologic, cardiac sources, intracerebral event, neurologic, trauma, as well as other pathologies. ER treatment provided: See below Diagnostics interpreted by me: ECG: EKG was obtained in the emergency department. My interpretation is sinus rhythm at 90 bpm. PVC was noted. LVH was suggested by voltage criteria. Nonspecific ST abnormalities were noted. This was compared to a tracing from June 15, 2024. No specific changes were noted. Cardiac Monitoring: An order was placed for continuous cardiac monitoring. The monitor shows a rate of 89 bpm with sinus rhythm. Laboratory studies: As stated above and show below. Imaging studies: See below. Radiographic imaging was reviewed by myself Consultation(s): I discussed this case with Dr. Huddleston. He was on-call for the [facility] hospitalist group. I discussed this case with Ortley who is on for the ICU. ED COURSE: Procedures: none Critical Care: I have personally spent greater than 35 minutes of critical care time in the direct management of this patient. This includes bedside care, interpretation of diagnostic studies, and testing, discussion with consultants, patient, and family members, and other required patient management activities. This 35 minutes is in excess of all separately billable procedures. Past Med/Surg History Problem List (Updated 09/30/24 @ 19:04 by Dav Ashby DO) Hypomagnesemia (Acute) Generalized weakness (Acute) Acute hyponatremia (Acute) Acute alteration in mental status (Acute) Acute encephalopathy Cellulitis of right leg Cerebellar stroke Age-related osteoporosis with current pathological fracture (~06/15/24) Acute blood loss anemia Fever, low grade Periprosthetic fracture around internal prosthetic right shoulder joint, initial encounter (Acute ~06/15/24) right patella-acute somewhat displaced comminuted/avulsed fracture of the inferior pole of the patella and right shoulder-displaced and mildly comminuted periprosthetic fracture of the right humerus Closed fracture of right patella (Acute ~06/15/24) right patella-acute somewhat displaced comminuted/avulsed fracture of the inferior pole of the patella and right shoulder-displaced and mildly comminuted periprosthetic fracture of the right humerus Closed fracture of right patella (Acute 06/15/24) acute somewhat displaced comminuted/avulsed fracture of the inferior pole of the right patella from a fall Fall (Acute) Hypertension (Acute) Periprosthetic fracture around internal prosthetic right shoulder joint (Acute 06/15/24) Displaced and mildly comminuted periprosthetic fracture of the right humerus from a fall Iron deficiency anemia Leukocytosis Elevated troponin (Acute) Fall (Acute) Acute pain of left hip (Acute) Hyperglycemia Pain in right shoulder (Acute) Chondrocalcinosis Left knee DJD Periprosthetic fracture of shaft of femur (03/28/23) Acute comminuted, angulated and displaced periprosthetic fracture of the proximal right femoral diaphysis DVT prophylaxis Hiatal hernia Hyperlipidemia Hypertension Hypothyroidism Hyponatremia Femur fracture, right (Acute 03/28/23) Acute comminuted, angulated and displaced periprosthetic fracture of the proximal right femoral diaphysis Anemia Hip pain Thickened endometrium Fracture, intertrochanteric, right femur (12/25/22) had fall and surgical repair Osteoporosis Glaucoma Borderline Fibrocystic breast disease Pre-diabetes Vitamin D deficiency Nasal septal deviation Hypertrophy of both inferior nasal turbinates Degenerative arthritis of lumbar spine (Acute) Encounter for pre-operative examination 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 Anxiety Greater trochanteric bursitis of right hip Medical History Insomnia Acute dehydration Michael catheter in place Hypokalemia Cellulitis Cough Rash SIRS (systemic inflammatory response syndrome) Arthritis History of diverticulosis Hypothyroidism Surgical History Status post-operative repair of closed fracture of right hip History of colonoscopy History of appendectomy Chapman teeth removed History of tonsillectomy History of cataract surgery R/L Family History Father Coronary heart disease Myocardial infarction Family history of diabetes mellitus Sister Breast cancer Other Family history non-contributory No family history of adverse response to anesthesia Denies family history of Ovarian cancer Prostate cancer Colorectal cancer Social History Smoking Status: Unknown if ever smoked Second Hand Exposure: No; Do You Dip or Chew Tobacco: No; Hx Alcohol Use: No Hx Substance Use: No Preferred Language: Ethiopian Communication Ability: Impaired Communication Ability Comment: Patient is confused due to encephalopathy which impairs communication. Visual Impairment: No Limitations Hearing Ability: Normal Sonographer Required: Yes and No Beliefs That Will Affect Care: None marital status: / Current Living Situation: [facility] current occupational status: retired Feels Safe at Home: Yes Childhood Exposure to Second-Hand Smoke: Yes Dental Care, Regularly: Yes Physical Activity Frequency: 1-2 Times per Week Seatbelt Use: always Sunscreen Use: Yes Assistive Devices: None Allergies Allergies Allergy/AdvReac Type Severity Reaction Status Date / Time atorvastatin [From Lipitor] Allergy Mild Rash Verified 04/24/24 16:14 Home Meds Home Medications Medication Instructions Recorded Confirmed sennosides 8.6 mg tablet (Senokot) 17.5 mg PO DAILY PRN Constipation 12/14/23 06/15/24 amlodipine 2.5 mg tablet 2.5 mg PO QAM 06/15/24 06/15/24 amoxicillin 500 mg tablet 2,000 mg PO ONCE PRN PRIOR TO 06/15/24 06/15/24 DENTAL APPT calcium carbonate 500 mg PO QAM 06/15/24 06/15/24 cholecalciferol (vitamin D3) 25 25 mcg PO DAILY 06/15/24 06/15/24 mcg (1,000 unit) tablet (Vitamin D3) levothyroxine 25 mcg tablet 25 mcg PO DAILYBB 06/15/24 06/15/24 (Synthroid) multivitamin (Daily Multi-Vitamin 1 tab PO QAM 06/15/24 06/15/24 tablet) timolol maleate 0.5 % eye drops 1 drp OPB QAM 06/15/24 06/15/24 valsartan 160 mg tablet (Diovan) 160 mg PO QAM 06/15/24 06/15/24 Previous Rx's Medication Instructions Recorded ferrous sulfate 325 mg (65 mg 325 mg PO DAILY #90 tabs 06/05/23 iron) tablet pravastatin 80 mg tablet 80 mg PO QPM #90 tabs 04/12/24 duloxetine 20 mg capsule,delayed 20 mg PO DAILY #90 caps 04/22/24 release acetaminophen 500 mg tablet 500 mg PO TID Pain #0 tabs 06/21/24 (Tylenol Extra Strength) aspirin 81 mg tablet,delayed 81 mg PO BID 6 weeks #84 tabs 06/21/24 release cyanocobalamin (vitamin B-12) 500 1,000 mcg (2 x 500 mcg) PO QAM #60 06/21/24 mcg tablet tabs hydrocodone 5 mg-acetaminophen 325 1 tab PO Q6H PRN pain #10 tabs 06/21/24 mg tablet pantoprazole 40 mg tablet,delayed 40 mg PO BID #60 tabs 06/21/24 release sodium chloride 1,000 mg soluble 1,000 mg PO DAILY #10 tabs 06/21/24 tablet zolpidem 5 mg tablet (Ambien) 2.5 mg (1/2 x 5 mg) PO HS PRN 06/21/24 Sleep #10 tabs solifenacin 5 mg tablet (Vesicare) 5 mg PO DAILY #30 tabs 07/03/24 Results & Data (ED) Vital Signs Vital Signs - 24 hr 09/30/24 12:32 09/30/24 12:38 09/30/24 12:45 Pulse Rate 94 H 90 90 Pulse Rate [Apical] Respiratory Rate 16 20 Respiratory Effort / Characteristics Blood Pressure 221/104 H 204/99 H Blood Pressure [Right Arm] Blood Pressure Mean 143 140 Blood Pressure Mean [Right Arm] Blood Pressure Position Sitting Blood Pressure Position [Right Arm] Pulse Oximetry 93 93 Oxygen Delivery Method Room Air Room Air Oxygen Flow Rate Sepsis Recent Fever Within 48 Hours No Sepsis New/Unexplained Change in Mental Status No Sepsis Action Taken by Nursing No Action Required 09/30/24 12:46 09/30/24 13:00 09/30/24 13:30 Pulse Rate 92 H 97 H 91 H Pulse Rate [Apical] Respiratory Rate 19 19 18 Respiratory Effort / Characteristics Blood Pressure 207/104 H 218/110 H 200/93 H Blood Pressure [Right Arm] Blood Pressure Mean 175 154 160 Blood Pressure Mean [Right Arm] Blood Pressure Position Blood Pressure Position [Right Arm] Pulse Oximetry 94 94 93 Oxygen Delivery Method Room Air Room Air Room Air Oxygen Flow Rate Sepsis Recent Fever Within 48 Hours Sepsis New/Unexplained Change in Mental Status Sepsis Action Taken by Nursing 09/30/24 13:44 09/30/24 13:45 09/30/24 13:47 Pulse Rate 88 Pulse Rate [Apical] 90 Respiratory Rate 17 17 Respiratory Effort / Characteristics Non-Labored Spontaneous Blood Pressure 192/85 H Blood Pressure [Right Arm] 192/85 H Blood Pressure Mean 134 Blood Pressure Mean [Right Arm] 120 Blood Pressure Position Blood Pressure Position [Right Arm] Lying Pulse Oximetry 91 94 91 Oxygen Delivery Method Room Air Nasal Cannula Oxygen Flow Rate 2 Sepsis Recent Fever Within 48 Hours Sepsis New/Unexplained Change in Mental Status Sepsis Action Taken by Nursing 09/30/24 14:15 Pulse Rate 83 Pulse Rate [Apical] Respiratory Rate 18 Respiratory Effort / Characteristics Blood Pressure 192/93 H Blood Pressure [Right Arm] Blood Pressure Mean 106 Blood Pressure Mean [Right Arm] Blood Pressure Position Blood Pressure Position [Right Arm] Pulse Oximetry 96 Oxygen Delivery Method Oxygen Flow Rate Sepsis Recent Fever Within 48 Hours Sepsis New/Unexplained Change in Mental Status Sepsis Action Taken by [facility] Medications Current Medication List: was personally reviewed by me Laboratory Data Attestation: I reviewed the patient's lab results. 09/30/24 12:32 09/30/24 16:40 Lab Results 09/30/24 09/30/24 09/30/24 Range/Units 12:28 12:32 12:37 WBC 12.15 H (4.8-10.8) K/ul RBC 5.36 (4.20-5.40) M/uL Hgb 14.7 (12.0-16.0) g/dl POC Hgb 16.0 (12.0-16.0) g/dl Hct 40.7 (37.0-47.0) % POC Hct 47 (37-47) % MCV 75.9 L (80.0-100.0) fL MCH 27.4 (25.0-34.0) pg MCHC 36.1 H (32.0-36.0) g/dL RDW Std Deviation 34.1 L (36.4-46.3) fL RDW Coeff of Felicity 12.5 (11.5-14.5) % Plt Count 363 (130-400) K/uL MPV 9.3 L (9.4-12.4) fL Immature Gran % (Auto) 0.9 % Neut % (Auto) 86.5 % Lymph % (Auto) 6.4 % [place] % (Auto) 6.0 % Eos % (Auto) 0.0 % Baso % (Auto) 0.2 % Neut # (Auto) 10.51 H (1.40-6.50) K/uL Lymph # (Auto) 0.78 L (1.20-3.40) K/uL [place] # (Auto) 0.73 H (0.11-0.59) K/uL Eos # (Auto) 0.00 (0.00-0.50) K/uL Baso # (Auto) 0.02 (0.00-0.20) K/uL Immature Gran # (Auto) 0.11 (0.01-0.20) K/uL PT 9.8 (9.0-12.0) Seconds INR 0.9 (0.9-1.1) APTT 29 (21-31) Seconds PTT Ratio 1.1 VBG pH 7.49 H (7.36-7.41) VBG pCO2 (38-50) mmHg VBG pO2 mmHg VBG HCO3 mmol/L VBG O2 Saturation % VBG Base Excess mEq/L POC Sodium 111 L* (135-144) mmol/L Sodium 112 L* (136-145) mmol/L POC Potassium 3.5 (3.3-5.0) mmol/L Potassium 3.5 (3.5-5.1) mmol/L POC Chloride 69 L (101-112) mmol/L Chloride 68 L (98-107) mmol/L Carbon Dioxide 36 H (21-32) mmol/L POC Total CO2 35 H (24-31) mmol/L Anion Gap 8 (3-11) POC Anion Gap 11.0 L (16-25) mmol/L POC BUN 13 (7-18) mg/dl BUN 13 (6-23) mg/dl Creatinine 0.43 L (0.6-1.2) mg/dl POC Creatinine 0.6 (0.6-1.3) mg/dl Est Cr Clr Drug Dosing Not Reportable eGFR 92.91 BUN/Creatinine Ratio 30.2 H (10-20) Glucose 112 H (70-99(Fasting)) mg/dl POC Glucose 124 H (70-99) mg/dl POC Glucose (other) 119 H (70-99) mg/dl Osmolality 233 L* (280-300) mOsm/kg Calcium 9.1 (8.6-10.3) mg/dl POC Ioniz Calcium Jonathan 1.04 L (1.12-1.32) mmol/l Magnesium 1.6 L (1.7-2.4) mg/dl Total Bilirubin 0.7 (0.2-1.0) mg/dl AST 23 (13-39) U/L ALT 19 (7-52) U/L Alkaline Phosphatase 96 (34-104) U/L Total Creatine Kinase 86 (26-192) U/L Troponin I High Sens 12.4 (0-14) pg/ml Total Protein 7.6 (6.0-8.3) gm/dl Albumin 4.1 (3.4-5.0) gm/dl Globulin 3.5 (2.5-4.0) gm/dl Albumin/Globulin Ratio 1.2 (0.9-2) Urine Color Urine Appearance (Clear) Urine pH (4.5-7.5) Ur Specific Daphne (1.000-1.030) Urine Protein (Negative) Urine Glucose (UA) (Negative) Urine Ketones (Negative) Urine Blood (Negative) Urine Nitrite (Negative) Urine Bilirubin (Negative) Urine Urobilinogen (Negative) Ur Leukocyte Esterase (Negative) Urine WBC (Auto) (0-5) /hpf Urine RBC (Auto) (0-2) /hpf U Hyaline Cast (Auto) (0-2) /lpf U Epithel Cells (Auto) (0-2) /hpf Urine Bacteria (Auto) (None Seen) Urine Osmolality (500-800) mOsm/kg Ur Random Sodium mmol/L SARS-CoV-2 (PCR) (Negative) Influenza Type A (PCR) (Neg) Influenza Type B (PCR) (Neg) RSV (RT-PCR) (Neg) 09/30/24 09/30/24 09/30/24 Range/Units 12:39 13:32 14:04 WBC (4.8-10.8) K/ul RBC (4.20-5.40) M/uL Hgb (12.0-16.0) g/dl POC Hgb (12.0-16.0) g/dl Hct (37.0-47.0) % POC Hct (37-47) % MCV (80.0-100.0) fL MCH (25.0-34.0) pg MCHC (32.0-36.0) g/dL RDW Std Deviation (36.4-46.3) fL RDW Coeff of Felicity (11.5-14.5) % Plt Count (130-400) K/uL MPV (9.4-12.4) fL Immature Gran % (Auto) % Neut % (Auto) % Lymph % (Auto) % [place] % (Auto) % Eos % (Auto) % Baso % (Auto) % Neut # (Auto) (1.40-6.50) K/uL Lymph # (Auto) (1.20-3.40) K/uL [place] # (Auto) (0.11-0.59) K/uL Eos # (Auto) (0.00-0.50) K/uL Baso # (Auto) (0.00-0.20) K/uL Immature Gran # (Auto) (0.01-0.20) K/uL PT (9.0-12.0) Seconds INR (0.9-1.1) APTT (21-31) Seconds PTT Ratio VBG pH 7.46 H (7.36-7.41) VBG pCO2 51 H (38-50) mmHg VBG pO2 30 mmHg VBG HCO3 36 mmol/L VBG O2 Saturation < 60.0 % VBG Base Excess 10.6 mEq/L POC Sodium (135-144) mmol/L Sodium (136-145) mmol/L POC Potassium (3.3-5.0) mmol/L Potassium (3.5-5.1) mmol/L POC Chloride (101-112) mmol/L Chloride (98-107) mmol/L Carbon Dioxide (21-32) mmol/L POC Total CO2 (24-31) mmol/L Anion Gap (3-11) POC Anion Gap (16-25) mmol/L POC BUN (7-18) mg/dl BUN (6-23) mg/dl Creatinine (0.6-1.2) mg/dl POC Creatinine (0.6-1.3) mg/dl Est Cr Clr Drug Dosing eGFR BUN/Creatinine Ratio (10-20) Glucose (70-99(Fasting)) mg/dl POC Glucose (70-99) mg/dl POC Glucose (other) (70-99) mg/dl Osmolality (280-300) mOsm/kg Calcium (8.6-10.3) mg/dl POC Ioniz Calcium Jonathan (1.12-1.32) mmol/l Magnesium (1.7-2.4) mg/dl Total Bilirubin (0.2-1.0) mg/dl AST (13-39) U/L ALT (7-52) U/L Alkaline Phosphatase (34-104) U/L Total Creatine Kinase (26-192) U/L Troponin I High Sens (0-14) pg/ml Total Protein (6.0-8.3) gm/dl Albumin (3.4-5.0) gm/dl Globulin (2.5-4.0) gm/dl Albumin/Globulin Ratio (0.9-2) Urine Color Dark Yellow Urine Appearance Clear (Clear) Urine pH 8.0 H (4.5-7.5) Ur Specific Daphne 1.015 (1.000-1.030) Urine Protein 2+ H (Negative) Urine Glucose (UA) Negative (Negative) Urine Ketones 1+ H (Negative) Urine Blood Negative (Negative) Urine Nitrite Negative (Negative) Urine Bilirubin Negative (Negative) Urine Urobilinogen Negative (Negative) Ur Leukocyte Esterase Negative (Negative) Urine WBC (Auto) 0-5 (0-5) /hpf Urine RBC (Auto) 6-10 H (0-2) /hpf U Hyaline Cast (Auto) 0-2 (0-2) /lpf U Epithel Cells (Auto) 0-2 (0-2) /hpf Urine Bacteria (Auto) 1+ H (None Seen) Urine Osmolality 450 L (500-800) mOsm/kg Ur Random Sodium 63 mmol/L SARS-CoV-2 (PCR) NEGATIVE (Negative) Influenza Type A (PCR) Negative (Neg) Influenza Type B (PCR) Negative (Neg) RSV (RT-PCR) Negative (Neg) Administered Medications Hydralazine HCl (Hydralazine Hcl 20 Mg/Ml Vial) 10 mg IV Q8 PRN PRN Reason: sbp>185 or dbp>95 Stop: 03/05/25 15:03 Last Admin: 09/30/24 15:16 Dose: 10 mg Documented By: EDY Discontinued Medications Magnesium Sulfate/Dextrose (Magnesium Sulfate / D5w) 1 gm in 100 mls @ 100 mls/hr IV NOW STA Stop: 09/30/24 14:29 Last Infusion: 09/30/24 14:44 Dose: Infused Documented By: Admin: 09/30/24 13:40 Dose: 100 mls/hr Documented By: ELIOT Sodium Chloride (Hypertonic Saline 3%) 50 mls @ 300 mls/hr IV .Q10M ONE; Protocol Stop: 09/30/24 14:34 Last Infusion: 09/30/24 15:00 Dose: Infused Documented By: CHITO Co-signed By: Admin: 09/30/24 14:40 Dose: 300 mls/hr Documented By: QGV Co-signed By: ELIOT Ceftriaxone Sodium (Rocephin) 1,000 mg in 50 mls @ 100 mls/hr IV ONE ONE Stop: 09/30/24 15:29 Last Infusion: 09/30/24 15:58 Dose: Infused Documented By: Admin: 09/30/24 15:14 Dose: 100 mls/hr Documented By: EDY Imaging Data Attestation: I personally reviewed and interpreted this imaging study as follows: My Impression: 1 view chest x-ray was in the emergency department. My interpretation is no free air or definite infiltrate, final report below. Radiologist's Impression: Chest X-Ray 09/30/24 12:32 XR chest 1V portable HISTORY: 89 years-old Female neuro deficit, acute stroke suspected acute stroke like symptoms COMPARISON: 06/15/2024 TECHNIQUE: AP view of the chest FINDINGS: Cardiac silhouette is enlarged. Large hiatal hernia. Mild chronic interstitial coarsening without pneumothorax, pleural effusion or airspace consolidation. 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 IMPRESSION: 1. Cardiomegaly without acute process. 2. Hiatal hernia. ACT 112: Negative or not required by law. The above report was generated using voice recognition software. It may contain grammatical, syntax or spelling errors. Electronically signed by: Rodolfo Solis M.D. 09/30/2024 1:[address] 09/30/24 12:32 CT OF THE HEAD WITHOUT CONTRAST CLINICAL HISTORY: neuro deficit, acute stroke suspected COMPARISON STUDY: Head CT June 15, 2024. MRI of the brain June 19, 2024. CT DOSE: 625.8 mGy.cm TECHNIQUE: Helical axial images of the head were obtained without IV contrast. Automated exposure control was utilized for the study. A dose lowering technique was utilized adhering to the principles of ALARA. FINDINGS: No acute intracranial hemorrhage, midline shift or mass effect is present. The ventricular system is stable. White matter hypodensity suggests small vessel disease. These are unchanged. The basal cisterns are patent. No extra-axial collections are present. There are no findings to suggest acute dural sinus thrombosis or acute territorial infarct. No significant calvarial abnormalities are present. There are old nasal bone fractures. Visualized portions of the sinuses and mastoid air cells are clear. IMPRESSION: No acute intracranial findings. No change in appearance of the brain. ACT 112: Negative or not required by law. Electronically signed by: Abdoulaye Rosenthal M.D. 09/30/2024 12:56 PM Discharge Plan Visit Data Chief Complaint: Lethargic ED Provider: Dav Ashby Discharge Problem: Acute alteration in mental status, Acute hyponatremia, Generalized weakness, Hypomagnesemia Patient Disposition: Admitted As Inpatient Discharge Instructions Interventions: ED Discharge Assessment Last Done: 09/30/24 15:22
--- NOTE | 2024-09-30 12:57 | CT Scan Report ---
CT OF THE HEAD WITHOUT CONTRAST CLINICAL HISTORY: neuro deficit, acute stroke suspected COMPARISON STUDY: Head CT June 15, 2024. MRI of the brain June 19, 2024. CT DOSE: 625.8 mGy.cm TECHNIQUE: Helical axial images of the head were obtained without IV contrast. Automated exposure con trol was utilized for the study. A dose lowering technique was utilized adhering to the principles o f ALARA. FINDINGS: No acute intracranial hemorrhage, midline shift or mass effect is present. The ventricular system is stable. White matter hypodensity suggests small vessel disease. These are unchanged. The ba amelia cisterns are patent. No extra-axial collections are present. There are no findings to suggest acu te dural sinus thrombosis or acute territorial infarct. No significant calvarial abnormalities are pr esent. There are old nasal bone fractures. Visualized portions of the sinuses and mastoid air cells a re clear. IMPRESSION: No acute intracranial findings. No change in appearance of the brain. ACT 112: Negative or not required by law. Electronically signed by: Abdoulaye Rosenthal M.D. 09/30/2024 12:56 PM
[2024-09-30 13:20] LABS: Alanine Aminotransferase 19 U/L (7-52); Albumin Globulin Ratio 1.2 (0.9-2); Albumin Level 4.1 gm/dl (3.4-5.0); Alkaline Phosphatase 96 U/L (34-104); Anion Gap 8 (3-11); Aspartate Aminotransferase 23 U/L (13-39); BUN Creatinine Ratio 30.2 (10-20); Bilirubin,Total 0.7 mg/dl (0.2-1.0); Blood Urea Nitrogen 13 mg/dl (6-23); Calcium 9.1 mg/dl (8.6-10.3); Carbon Dioxide 36 mmol/L (21-32); Chloride 68 mmol/L (98-107); Globulin 3.5 gm/dl (2.5-4.0); Glucose 112 mg/dl (70-99(Fasting)); Magnesium 1.6 mg/dl (1.7-2.4); Potassium 3.5 mmol/L (3.5-5.1); Sodium 112 mmol/L (136-145); Total Protein 7.6 gm/dl (6.0-8.3)
[2024-09-30 13:21] LABS: Troponin I High Sensitivity 12.4 pg/ml (0-14)
[2024-09-30 13:36] LABS: INR 0.9 (0.9-1.1); Partial Thromboplastin Ratio 1.1; Partial Thromboplastin Time 29 Seconds (21-31); Prothrombin Time 9.8 Seconds (9.0-12.0)
[2024-09-30] MEDS: MAGNESIUM SULFATE / D5W 1 GM/100 ML BAG IV STA (13:40)
--- NOTE | 2024-09-30 13:55 | XRay Report ---
XR chest 1V portable HISTORY: 89 years-old Female neuro deficit, acute stroke suspected acute stroke like symptoms COMPARISON: 06/15/2024 TECHNIQUE: AP view of the chest FINDINGS: Cardiac silhouette is enlarged. Large hiatal hernia. Mild chronic interstitial coarsening without pne umothorax, pleural effusion or airspace consolidation. Chronic deformity of the proximal right humeru s with reverse right shoulder arthroplasty. Severe left glenohumeral osteoarthritis with chronic violeta deling. IMPRESSION: 1. Cardiomegaly without acute process. 2. Hiatal hernia. ACT 112: Negative or not required by law. The above report was generated using voice recognition software. It may contain grammatical, syntax o r spelling errors. Electronically signed by: Rodolfo Solis M.D. 09/30/2024 1:52 PM
[2024-09-30 14:07] LABS: Influenza A virus by PCR Negative (Neg); Influenza B virus by PCR Negative (Neg); RSV by PCR Negative (Neg); SARS CoV2 RNA(COVID-19) Ceph NEGATIVE (Negative)
[2024-09-30 14:09] LABS: Base Excess VBG 10.6 mEq/L; HCO3 VBG 36 mmol/L; Oxygen Saturation VBG < 60.0 %; PCO2 VBG 51 mmHg (38-50); PO2 VBG 30 mmHg; pH VBG 7.46 (7.36-7.41)
[2024-09-30 14:22] LABS: Appearance Urine Clear (Clear); Bacteria Urine Automated 1+ (None Seen); Bilirubin Urine Negative (Negative); Blood Urine Negative (Negative); Cast Urine Automated 0-2 /lpf (0-2); Color Urine Dark Yellow; Epithelial Cell Urine Auto 0-2 /hpf (0-2); Glucose Urine UA Negative (Negative); Ketones Urine 1+ (Negative); Leukocyte Esterase Urine Negative (Negative); Nitrite Urine Negative (Negative); Protein Urine 2+ (Negative); Specific Gravity Urine 1.015 (1.000-1.030); Urobilinogen Urine Negative (Negative); WBC Urine Automated 0-5 /hpf (0-5)
[2024-09-30 14:25] LABS: Creatine Kinase 86 U/L (26-192)
[2024-09-30] MEDS ORDERED: STAT IV/IM STA ×2 (14:25→22:01)
[2024-09-30] MEDS: SODIUM CHLORIDE 3 % 50 ML IV ONE ×2 (14:40→22:17)
[2024-09-30] MEDS ORDERED: ACETAMINOPHEN 325 MG TAB PO PRN (14:45)
--- NOTE | 2024-09-30 15:04 | History & Physical Report ---
Date of Service September 30, 2024 Assessment & Plan (1) Hyponatremia: Plan: Assessment: 1. Hypovolemic hyponatremia. Severe/critical. 111. 50 mL of 3% sodium chloride then recheck BMP. Critical care will manage there after. I personally spoke with LA from [facility]. It is noted the patient does have a history of hyponatremia chronically but she has never been nearly this low. She typically takes salt tabs at home. 2. Acute metabolic encephalopathy probably secondary to the acute hyponatremia. 3. Probable evolving urinary tract infection. 1 g of Rocephin daily ordered. 4. Mild hypomagnesemia. Received 1 g of magnesium sulfate in the ER. Repeat in the a.m. 5. History of hypertension. Home meds will be ordered as appropriate upon reconciliation. Currently uncontrolled. I will order some as needed hydralazine. 6. Dyslipidemia. 7. Hypothyroidism. Continue replacement therapy. 8. Subacute closed right patellar fracture May 2024. 9. Chronic debility and weakness. Exacerbated by acute illness. 10. Subacute parainfluenza virus infection. She tested + September 23, 2024. Her influenza and COVID-19 testing and RSV testing here negative. Plan: As discussed above. Please refer to orders for further planning. History of Present Illness Chief Complaint: Altered mental status Primary Care Provider: [facility] 89-year-old female of [place] descent lives in a skilled nursing currently. History of present illness was quite vague therefore I called the patient's daughter-Mrs. Hilda Gonzalez at [phone]. Per the patient's daughter over the last 2 weeks she has had a waxing and waning of her mental status. However approximate week ago she tested positive for parainfluenza virus at the skilled nursing. Over the last week her mental status is continued to decline Primaxin today with a trip to the emergency department for further evaluation and treatment. In the emergency department she had a negative CT of the brain. Sodium level was found to be critically low at 111. Magnesium low at 1.6. Course Emergency Department she got 1 g of magnesium sulfate. Will call admit the patient further evaluation and treatment due to altered mental status most likely secondary to severe/critical hyponatremia. Recommended critical care consultation and hypertonic saline. We have ordered a 50 cc bolus of 3% saline. We have spoken to the LA from [facility], who will be seeing the patient shortly on consultation. Repeat troponin has been ordered as well as repeat BMP at 4 PM. I did confirm the patient's CODE STATUS with patient's daughter there is advanced directives on the skilled nursing chart and she has confirmed that her mother is a DNR/DNI she is very appreciative the call and all her questions were answered to her satisfaction.. Allergies Allergy/AdvReac Type Severity Reaction Status Date / Time atorvastatin [From Lipitor] Allergy Mild Rash Verified 04/24/24 16:14 Home Medications Medication Instructions Recorded Confirmed Type ferrous sulfate 325 mg (65 mg 325 mg PO DAILY #90 tabs 06/05/23 06/15/24 Rx iron) tablet sennosides 8.6 mg tablet (Senokot) 17.5 mg PO DAILY PRN Constipation 12/14/23 06/15/24 History pravastatin 80 mg tablet 80 mg PO QPM #90 tabs 04/12/24 06/15/24 Rx duloxetine 20 mg capsule,delayed 20 mg PO DAILY #90 caps 04/22/24 06/15/24 Rx release amlodipine 2.5 mg tablet 2.5 mg PO QAM 06/15/24 06/15/24 History amoxicillin 500 mg tablet 2,000 mg PO ONCE PRN PRIOR TO 06/15/24 06/15/24 History DENTAL APPT calcium carbonate 500 mg PO QAM 06/15/24 06/15/24 History cholecalciferol (vitamin D3) 25 25 mcg PO DAILY 06/15/24 06/15/24 History mcg (1,000 unit) tablet (Vitamin D3) levothyroxine 25 mcg tablet 25 mcg PO DAILYBB 06/15/24 06/15/24 History (Synthroid) multivitamin (Daily Multi-Vitamin 1 tab PO QAM 06/15/24 06/15/24 History tablet) timolol maleate 0.5 % eye drops 1 drp OPB QAM 06/15/24 06/15/24 History valsartan 160 mg tablet (Diovan) 160 mg PO QAM 06/15/24 06/15/24 History acetaminophen 500 mg tablet 500 mg PO TID Pain #0 tabs 06/21/24 06/15/24 Rx (Tylenol Extra Strength) aspirin 81 mg tablet,delayed 81 mg PO BID 6 weeks #84 tabs 06/21/24 Rx release cyanocobalamin (vitamin B-12) 500 1,000 mcg (2 x 500 mcg) PO QAM #60 06/21/24 Rx mcg tablet tabs hydrocodone 5 mg-acetaminophen 325 1 tab PO Q6H PRN pain #10 tabs 06/21/24 Rx mg tablet pantoprazole 40 mg tablet,delayed 40 mg PO BID #60 tabs 06/21/24 Rx release sodium chloride 1,000 mg soluble 1,000 mg PO DAILY #10 tabs 06/21/24 Rx tablet zolpidem 5 mg tablet (Ambien) 2.5 mg (1/2 x 5 mg) PO HS PRN 06/21/24 Rx Sleep #10 tabs solifenacin 5 mg tablet (Vesicare) 5 mg PO DAILY #30 tabs 07/03/24 Rx Past Med/Surg History Problem List Cellulitis of right leg Cerebellar stroke Age-related osteoporosis with current pathological fracture (~06/15/24) Acute blood loss anemia Fever, low grade Periprosthetic fracture around internal prosthetic right shoulder joint, initial encounter (Acute ~06/15/24) right patella-acute somewhat displaced comminuted/avulsed fracture of the inferior pole of the patella and right shoulder-displaced and mildly co mminuted periprosthetic fracture of the right humerus Closed fracture of right patella (Acute ~06/15/24) right patella-acute somewhat displaced comminuted/avulsed fracture of the inferior pole of the patella and right shoulder-displaced and mildly comminuted periprosthetic fracture of the right humerus Closed fracture of right patella (Acute 06/15/24) acute somewhat displaced comminuted/avulsed fracture of the inferior pole of the right patella from a fall Fall (Acute) Hypertension (Acute) Periprosthetic fracture around internal prosthetic right shoulder joint (Acute 06/15/24) Displaced and mildly comminuted periprosthetic fracture of the right humerus from a fall Iron deficiency anemia Leukocytosis Elevated troponin (Acute) Fall (Acute) Acute pain of left hip (Acute) Hyperglycemia Pain in right shoulder (Acute) Chondrocalcinosis Left knee DJD Periprosthetic fracture of shaft of femur (03/28/23) Acute comminuted, angulated and displaced periprosthetic fracture of the proximal right femoral diaphysis DVT prophylaxis Hiatal hernia Hyperlipidemia Hypertension Hypothyroidism Hyponatremia Femur fracture, right (Acute 03/28/23) Acute comminuted, angulated and displaced periprosthetic fracture of the proximal right femoral diaphysis Anemia Hip pain Thickened endometrium Fracture, intertrochanteric, right femur (12/25/22) had fall and surgical repair Osteoporosis Glaucoma Borderline Fibrocystic breast disease Pre-diabetes Vitamin D deficiency Nasal septal deviation Hypertrophy of both inferior nasal turbinates Degenerative arthritis of lumbar spine (Acute) Encounter for pre-operative examination 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 Anxiety Greater trochanteric bursitis of right hip Medical History Insomnia Acute dehydration Michael catheter in place Hypokalemia Cellulitis Cough Rash SIRS (systemic inflammatory response syndrome) Arthritis History of diverticulosis Hypothyroidism Surgical History Status post-operative repair of closed fracture of right hip History of colonoscopy History of appendectomy [place] teeth removed History of tonsillectomy History of cataract surgery R/L Family History Father Coronary heart disease Myocardial infarction Family history of diabetes mellitus Sister Breast cancer Other Family history non-contributory No family history of adverse response to anesthesia Denies family history of Ovarian cancer Prostate cancer Colorectal cancer Social History Smoking Status: Unknown if ever smoked Second Hand Exposure: No; Do You Dip or Chew Tobacco: No; Hx Alcohol Use: No Hx Substance Use: No Preferred Language: Mongolian Communication Ability: Effective Communication Ability Comment: ALSO SPEAKS DOMINICAN Visual Impairment: No Limitations Hearing Ability: Normal Cryptozoologist Required: No Beliefs That Will Affect Care: None marital status: / Current Living Situation: Alone current occupational status: retired Feels Safe at Home: Yes Childhood Exposure to Second-Hand Smoke: Yes Dental Care, Regularly: Yes Physical Activity Frequency: 1-2 Times per Week Seatbelt Use: always Sunscreen Use: Yes Assistive Devices: Walker Review of Systems Review of Systems: A 10 point review of system was obtained and unless otherwise stated here or in history of present illness are negative and noncontributory to chief complaint. Physical Exam Physical Exam: In General: In general 89-year-old female is alert and oriented to person and place. She tells me she is in the "hospital". I asked what nationality she was she said "[place]". Therefore her mental status is not horrible. She is very slow to respond but does respond appropriately and follows all my commands appropriately. HEENT: Normocephalic atraumatic pupils are equal round and reactive to light bilaterally. No scleral icterus no conjunctival injection external auditory canals are patent septum is in the midline nose is without discharge oral mucosa is pink and dry without lesion. NECK: Supple no rigidity no lymphadenopathy no thyromegaly no carotid bruits no JVD no masses. HEART: Regular rate and rhythm I do not appreciate any ectopy or rub. Faint 2 out of 6 systolic ejection murmur at the right sternal border. LUNGS: Diminished but clear to auscultation bilaterally and anteriorly with no evidence of adventitious sounds/wheezes rales or rhonchi. ABDOMEN: Michael catheter noted placed in the ER. Soft nontender, no rebound, no peritoneal signs, positive bowel sounds, no appreciable organomegaly. EXTREMITIES: Intact, no peripheral cyanosis, clubbing or edema. Decree strength globally. But does grasp hands on command moves arms on command and moves legs and feet on command. Mild changes of chronic venous stasis noted. NEUROLOGICAL: Grossly intact. The patient cannot cooperate with all cranial nerve exam given her weakness currently but no focal deficit elicited.. No tremor. Results & Data Results & Data Vital Signs (Past 12 Hours) Vital Signs Pulse Pulse Resp BP BP Pulse Ox O2 Del Method 09/30/24 14:15 83 18 192/93 H 96 09/30/24 13:47 90 17 192/85 H 91 Nasal Cannula 09/30/24 13:45 88 17 192/85 H 94 09/30/24 13:44 91 Room Air 09/30/24 13:30 91 H 18 200/93 H 93 Room Air 09/30/24 13:00 97 H 19 218/110 H 94 Room Air 09/30/24 12:46 92 H 19 207/104 H 94 Room Air 09/30/24 12:45 90 09/30/24 12:38 90 20 204/99 H 93 Room Air 09/30/24 12:32 94 H 16 221/104 H 93 Room Air O2 Flow Rate 09/30/24 14:15 09/30/24 13:47 2 09/30/24 13:45 09/30/24 13:44 09/30/24 13:30 09/30/24 13:00 09/30/24 12:46 09/30/24 12:45 09/30/24 12:38 09/30/24 12:32 Code Status & VTE Plan Code Status DNR/DNI. This is per the advanced directive from the skilled nursing and per conversations with the patient's daughter who is power of state's attorney. Please see HPI VTE Prophylaxis Plan VTE Prophylaxis will be ordered: Yes PG Care Time/CCT Total # of Minutes Spent Total Time Spent with Patient: Total time spent is greater than 50% in coordination of care (as documented) at patient's floor/unit and/or counseling patient: Coding Level of Care Code 81037 INT INP/OBS CARE 3/75MIN Diagnoses Hyponatremia E87.1
[2024-09-30] MEDS: cefTRIAXone SODIUM 1,000 MG/50 ML BAG IV ONE (15:14)
[2024-09-30] MEDS: hydrALAZINE HCL 20 MG/ML VIAL IV PRN (15:16)
--- NOTE | 2024-09-30 17:31 | Electrocardiogram Report ---
Test Reason : Blood Pressure : */* mmHG Vent. Rate : 90 BPM Atrial Rate : 90 BPM P-R Int : 148 ms QRS Dur : 102 ms QT Int : 370 ms P-R-T Axes : 75 -54 71 degrees QTcB Int : 452 ms Sinus rhythm with occasional Premature ventricular complexes Left axis deviation Left ventricular hypertrophy with repolarization abnormality ( Sokolow-Camp , [place] product , Romhi lt-Perry ) Abnormal ECG When compared with ECG of 15-Jun-2024 23:33, Premature ventricular complexes are now Present Confirmed by Rodolfo Fraire ([id number]) on 09/30/2024 5:30:54 PM Referred By: [facility] Confirmed By: Rodolfo Fraire
[2024-09-30 18:04] LABS: Troponin I High Sensitivity 12.7 pg/ml (0-14)
[2024-09-30 18:10] LABS: BUN Creatinine Ratio 25.5 (10-20); Creatinine Clr Calc Pharmacy 59.7 ml/min; Potassium 3.3 mmol/L (3.5-5.1)
--- NOTE | 2024-09-30 18:20 | Critical Care Consultation ---
Date of Consultation September 30, 2024 Assessment & Plan (1) Acute hyponatremia: Patient with hypoosmolar hyponatremia possibly due to poor solute intake and failure to thrive. Low urine osmolality noted as well. Continue slow correction with as needed with hypertonic fluid boluses and potassium supplem entation. Goal would be 6 to 8 mEq correction in the next 24 hours. Nephrology consulted as well. TSH normal. CT head reviewed which was unremarkable. Chest x-ray without acute infiltrates. (2) Acute encephalopathy: Secondary to acute hyponatremia. Possibly secondary to acute urinary tract infection. Agree with Rocephin. Follow urine cultures. (3) Hypokalemia: Replacing with 40 mEq potassium and rechecking BMP every 4 hours. Plan Patient is a DNR/DNI with a POLST form and would not want aggressive measures aside for routine critical care. History of Present Illness Reason for Consultation: Acute hyponatremia Attending Physician: Nayan Hudldeston, PhD, DO History of Present Illness 89-year-old female who resides in a skilled nursing who has been ill for the last 2 weeks with waxing mental status and periods of confusion comes in today due to worsening altered mental status and lethargy. She was found to have a sodium level of 111 and received 50 mL of hypertonic saline in the emergency department. ICU was consulted for further management of the patient's sodium and encephalopathy. Patient tested positive for parainfluenza 2 weeks ago. Allergies Allergy/AdvReac Type Severity Reaction Status Date / Time atorvastatin [From Lipitor] Allergy Mild Rash Verified 04/24/24 16:14 Home Medications Medication Instructions Recorded Confirmed Type ferrous sulfate 325 mg (65 mg 325 mg PO DAILY #90 tabs 06/05/23 06/15/24 Rx iron) tablet sennosides 8.6 mg tablet (Senokot) 17.5 mg PO DAILY PRN Constipation 12/14/23 06/15/24 History pravastatin 80 mg tablet 80 mg PO QPM #90 tabs 04/12/24 06/15/24 Rx duloxetine 20 mg capsule,delayed 20 mg PO DAILY #90 caps 04/22/24 06/15/24 Rx release amlodipine 2.5 mg tablet 2.5 mg PO QAM 06/15/24 06/15/24 History amoxicillin 500 mg tablet 2,000 mg PO ONCE PRN PRIOR TO 06/15/24 06/15/24 History DENTAL APPT calcium carbonate 500 mg PO QAM 06/15/24 06/15/24 History cholecalciferol (vitamin D3) 25 25 mcg PO DAILY 06/15/24 06/15/24 History mcg (1,000 unit) tablet (Vitamin D3) levothyroxine 25 mcg tablet 25 mcg PO DAILYBB 06/15/24 06/15/24 History (Synthroid) multivitamin (Daily Multi-Vitamin 1 tab PO QAM 06/15/24 06/15/24 History tablet) timolol maleate 0.5 % eye drops 1 drp OPB QAM 06/15/24 06/15/24 History valsartan 160 mg tablet (Diovan) 160 mg PO QAM 06/15/24 06/15/24 History acetaminophen 500 mg tablet 500 mg PO TID Pain #0 tabs 06/21/24 06/15/24 Rx (Tylenol Extra Strength) aspirin 81 mg tablet,delayed 81 mg PO BID 6 weeks #84 tabs 06/21/24 Rx release cyanocobalamin (vitamin B-12) 500 1,000 mcg (2 x 500 mcg) PO QAM #60 06/21/24 Rx mcg tablet tabs hydrocodone 5 mg-acetaminophen 325 1 tab PO Q6H PRN pain #10 tabs 06/21/24 Rx mg tablet pantoprazole 40 mg tablet,delayed 40 mg PO BID #60 tabs 06/21/24 Rx release sodium chloride 1,000 mg soluble 1,000 mg PO DAILY #10 tabs 06/21/24 Rx tablet zolpidem 5 mg tablet (Ambien) 2.5 mg (1/2 x 5 mg) PO HS PRN 06/21/24 Rx Sleep #10 tabs solifenacin 5 mg tablet (Vesicare) 5 mg PO DAILY #30 tabs 07/03/24 Rx Patient History Medical History Insomnia Acute dehydration Michael catheter in place Hypokalemia Cellulitis Cough Rash SIRS (systemic inflammatory response syndrome) Arthritis History of diverticulosis Hypothyroidism Surgical History Status post-operative repair of closed fracture of right hip History of colonoscopy History of appendectomy [place] teeth removed History of tonsillectomy History of cataract surgery R/L Family History Father Coronary heart disease Myocardial infarction Family history of diabetes mellitus Sister Breast cancer Other Family history non-contributory No family history of adverse response to anesthesia Denies family history of Ovarian cancer Prostate cancer Colorectal cancer Social History Smoking Status: Unknown if ever smoked Second Hand Exposure: No; Do You Dip or Chew Tobacco: No; Hx Alcohol Use: No Hx Substance Use: No Preferred Language: Belarusian Communication Ability: Impaired Communication Ability Comment: Patient is confused due to encephalopathy which impairs communication. Visual Impairment: No Limitations Hearing Ability: Normal Vascular Radiologist Required: Yes and No Beliefs That Will Affect Care: None marital status: / Current Living Situation: Long Term current occupational status: retired Feels Safe at Home: Yes Childhood Exposure to Second-Hand Smoke: Yes Dental Care, Regularly: Yes Physical Activity Frequency: 1-2 Times per Week Seatbelt Use: always Sunscreen Use: Yes Assistive Devices: None Review of Systems Review of Systems: All systems reviewed & are unremarkable except as noted in HPI & below Physical Exam Physical Exam: Constitutional: Patient appears to be of their stated age. Patient is in no apparent distress. Patient is well-developed. Eyes: Pupils are equal round and reactive to light. Conjunctivae are normal. Anicteric sclera. Ears nose, mouth and throat: Mallampati class 2. Normal posterior oropharynx. Uvula is midline. Neck: Trachea is midline. Visual inspection is normal. Respiratory: Clear to auscultation bilaterally. No use of accessory muscles. No significant clubbing noted. Cardiovascular: Regular rate and rhythm. Faint systolic flow murmur. Gastrointestinal: Normal bowel sounds, soft, nontender and nondistended. No hepatosplenomegaly noted. Musculoskeletal: No cyanosis. Patient is able to move all extremities. Strength is 5 out of 5 in the upper and lower extremities. Skin: No rashes, warm dry and intact. Neurologic: No obvious focal neurological deficits seen. Psychiatric: Alert and oriented x3 with a euthymic affect. Results & Data Results & Data Vital Signs (Past 12 Hours) Vital Signs Temp Pulse Pulse Resp BP BP Pulse Ox 09/30/24 16:26 09/30/24 16:26 36.5 C 89 19 147/68 H 95 09/30/24 16:06 93 H 15 92 09/30/24 15:14 94 H 18 201/82 H 95 09/30/24 15:00 89 18 208/91 H 97 09/30/24 14:15 83 18 192/93 H 96 09/30/24 13:47 90 17 192/85 H 91 09/30/24 13:45 88 17 192/85 H 94 09/30/24 13:44 91 09/30/24 13:30 91 H 18 200/93 H 93 09/30/24 13:00 97 H 19 218/110 H 94 09/30/24 12:46 92 H 19 207/104 H 94 09/30/24 12:45 90 09/30/24 12:38 90 20 204/99 H 93 09/30/24 12:32 94 H 16 221/104 H 93 O2 Del Method O2 Flow Rate 09/30/24 16:26 Room Air 09/30/24 16:26 Room Air 09/30/24 16:06 09/30/24 15:14 Nasal Cannula 2 09/30/24 15:00 Room Air 09/30/24 14:15 09/30/24 13:47 Nasal Cannula 2 09/30/24 13:45 09/30/24 13:44 Room Air 09/30/24 13:30 Room Air 09/30/24 13:00 Room Air 09/30/24 12:46 Room Air 09/30/24 12:45 09/30/24 12:38 Room Air 09/30/24 12:32 Room Air Coding Level of Care Code 18482 IN/OBS CONSULT LVL 3,45M Diagnoses Acute hyponatremia E87.1 Acute encephalopathy G93.40 Hypokalemia E87.6
--- NOTE | 2024-09-30 18:36 | Nephrology Consultation ---
Date of Consultation September 30, 2024 Assessment & Plan (1) Hyponatremia: Sodium trending upward 111-->113 mmol/L. Potassium replacement for hyperkalemia is being provided which should aid correction. Close prospective monitoring q3-4 hours of sodium and potassium is advised. Goal would be to correct ~4-6 mmol/L overnight. Ideally avoid sodium >120 mmol/L by tomorrow AM. If sodium dose not continue to trend toward goal at next blood check, I would suggest another bolus of 50-100 ml of 3% saline. Recommendations were discussed with the architecture technician. Hyponatremia is severe, chronic and symptomatic. Angeles is euvolemic to slightly volume depleted. As volume status improves monitor closely for overcorrection. In addition to frequent labs, please continue regular neurochecks and document strict I/O's. Recheck a urine osmolality in the AM. (2) Hypertension: May continue amlodipine and valsartan per home Rx. (3) Hypothyroidism: Continue levothyroxine per home Rx. Update TSH with AM labs. History of Present Illness Reason for Consultation: Severe hyponatremia Requesting Physician: Nayan Huddleston, PhD, DO Attending Physician: Nayan Huddleston, PhD, DO History of Present Illness Angeles Peterson is an 89 year-old female with hypertension, hypothyroidism, history of CVA, and chronic hyponatremia. [facility]. Angeles presented to the ER at [facility] today with mental status changes and lethargy. Symptoms reportedly waxing and waning for ~2 weeks. Angeles was unable to provide medical history. She was evaluated in the ICU this evening. History and plan of care were discussed with the architecture technician. She has been admitted with severe hyponatremia. Serum sodium on presentation 111 mmol/L. Serum potassium slightly low (~3.3 mmol/L). Urine osmolality ~450. Creatinine normal. Angeles is non-chas guric. She does not have fluid retention or edema. PO intake has been decreased. No diarrhea reported. 50 ml of 3% saline provided on admission. Serum sodium increased to 113 mmol/L on recheck. Angeles tested positive for parainfluenza [address] of the head was normal appearing. No focal neurologic findings have been identified on exam. Allergies Allergy/AdvReac Type Severity Reaction Status Date / Time atorvastatin [From Lipitor] Allergy Mild Rash Verified 04/24/24 16:14 Home Medications Medication Instructions Recorded Confirmed Type ferrous sulfate 325 mg (65 mg 325 mg PO DAILY #90 tabs 06/05/23 06/15/24 Rx iron) tablet sennosides 8.6 mg tablet (Senokot) 17.5 mg PO DAILY PRN Constipation 12/14/23 06/15/24 History pravastatin 80 mg tablet 80 mg PO QPM #90 tabs 04/12/24 06/15/24 Rx duloxetine 20 mg capsule,delayed 20 mg PO DAILY #90 caps 04/22/24 06/15/24 Rx release amlodipine 2.5 mg tablet 2.5 mg PO QAM 06/15/24 06/15/24 History amoxicillin 500 mg tablet 2,000 mg PO ONCE PRN PRIOR TO 06/15/24 06/15/24 History DENTAL APPT calcium carbonate 500 mg PO QAM 06/15/24 06/15/24 History cholecalciferol (vitamin D3) 25 25 mcg PO DAILY 06/15/24 06/15/24 History mcg (1,000 unit) tablet (Vitamin D3) levothyroxine 25 mcg tablet 25 mcg PO DAILYBB 06/15/24 06/15/24 History (Synthroid) multivitamin (Daily Multi-Vitamin 1 tab PO QAM 06/15/24 06/15/24 History tablet) timolol maleate 0.5 % eye drops 1 drp OPB QAM 06/15/24 06/15/24 History valsartan 160 mg tablet (Diovan) 160 mg PO QAM 06/15/24 06/15/24 History acetaminophen 500 mg tablet 500 mg PO TID Pain #0 tabs 06/21/24 06/15/24 Rx (Tylenol Extra Strength) aspirin 81 mg tablet,delayed 81 mg PO BID 6 weeks #84 tabs 06/21/24 Rx release cyanocobalamin (vitamin B-12) 500 1,000 mcg (2 x 500 mcg) PO QAM #60 06/21/24 Rx mcg tablet tabs hydrocodone 5 mg-acetaminophen 325 1 tab PO Q6H PRN pain #10 tabs 06/21/24 Rx mg tablet pantoprazole 40 mg tablet,delayed 40 mg PO BID #60 tabs 06/21/24 Rx release sodium chloride 1,000 mg soluble 1,000 mg PO DAILY #10 tabs 06/21/24 Rx tablet zolpidem 5 mg tablet (Ambien) 2.5 mg (1/2 x 5 mg) PO HS PRN 06/21/24 Rx Sleep #10 tabs solifenacin 5 mg tablet (Vesicare) 5 mg PO DAILY #30 tabs 07/03/24 Rx Patient History Medical History Insomnia Acute dehydration Michael catheter in place Hypokalemia Cellulitis Cough Rash SIRS (systemic inflammatory response syndrome) Arthritis History of diverticulosis Hypothyroidism Surgical History Status post-operative repair of closed fracture of right hip History of colonoscopy History of appendectomy Beaman teeth removed History of tonsillectomy History of cataract surgery R/L Family History Father Coronary heart disease Myocardial infarction Family history of diabetes mellitus Sister Breast cancer Other Family history non-contributory No family history of adverse response to anesthesia Denies family history of Ovarian cancer Prostate cancer Colorectal cancer Social History Smoking Status: Unknown if ever smoked Second Hand Exposure: No; Do You Dip or Chew Tobacco: No; Hx Alcohol Use: No Hx Substance Use: No Preferred Language: Mohawk Communication Ability: Impaired Communication Ability Comment: Patient is confused due to encephalopathy which impairs communication. Visual Impairment: No Limitations Hearing Ability: Normal Cottage Parent Required: Yes and No Beliefs That Will Affect Care: None marital status: / Current Living Situation: [facility] current occupational status: retired Feels Safe at Home: Yes Childhood Exposure to Second-Hand Smoke: Yes Dental Care, Regularly: Yes Physical Activity Frequency: 1-2 Times per Week Seatbelt Use: always Sunscreen Use: Yes Assistive Devices: None Review of Systems Review of Systems: All systems reviewed & are unremarkable except as noted in HPI & below and Unobtainable due to cognitive status (limited due to mental status and language barrier) Physical Exam Constitutional: well developed; no acute distress Eyes: + anicteric sclerae; no conjunctival abn ormality ENMT: Mouth: + dry oral mucous membranes; no oral mucosal abnormality Neck: normal visual inspection and trachea midline Respiratory: normal respiratory effort Auscultation: lungs clear to auscultation bilaterally Cardiovascular: Rate/Rhythm: regular rate Heart Sounds: normal S1 and normal S2 Extremities: no edema Musculoskeletal: Extremities: no cyanosis and no clubbing Skin: normal turgor; no jaundice Neurologic: Motor/Sensory: no tremor and no asterixis Psychiatric: Orientation: alert and oriented x 3 Results & Data Vital Signs (Past 12 Hours) Vital Signs Temp Pulse Pulse Resp BP BP Pulse Ox 09/30/24 16:26 09/30/24 16:26 36.5 C 89 19 147/68 H 95 09/30/24 16:06 93 H 15 92 09/30/24 15:14 94 H 18 201/82 H 95 09/30/24 15:00 89 18 208/91 H 97 09/30/24 14:15 83 18 192/93 H 96 09/30/24 13:47 90 17 192/85 H 91 09/30/24 13:45 88 17 192/85 H 94 09/30/24 13:44 91 09/30/24 13:30 91 H 18 200/93 H 93 09/30/24 13:00 97 H 19 218/110 H 94 09/30/24 12:46 92 H 19 207/104 H 94 09/30/24 12:45 90 09/30/24 12:38 90 20 204/99 H 93 09/30/24 12:32 94 H 16 221/104 H 93 O2 Del Method O2 Flow Rate 09/30/24 16:26 Room Air 09/30/24 16:26 Room Air 09/30/24 16:06 09/30/24 15:14 Nasal Cannula 2 09/30/24 15:00 Room Air 09/30/24 14:15 09/30/24 13:47 Nasal Cannula 2 09/30/24 13:45 09/30/24 13:44 Room Air 09/30/24 13:30 Room Air 09/30/24 13:00 Room Air 09/30/24 12:46 Room Air 09/30/24 12:45 09/30/24 12:38 Room Air 09/30/24 12:32 Room Air Laboratory Results Laboratory Results - last 24 hr 09/30/24 09/30/24 09/30/24 12:28 12:32 12:37 WBC 12.15 H RBC 5.36 Hgb 14.7 POC Hgb 16.0 Hct 40.7 POC Hct 47 MCV 75.9 L MCH 27.4 MCHC 36.1 H RDW Std Deviation 34.1 L RDW Coeff of Felicity 12.5 Plt Count 363 MPV 9.3 L Immature Gran % (Auto) 0.9 Neut % (Auto) 86.5 Lymph % (Auto) 6.4 [place] % (Auto) 6.0 Eos % (Auto) 0.0 Baso % (Auto) 0.2 Neut # (Auto) 10.51 H Lymph # (Auto) 0.78 L [place] # (Auto) 0.73 H Eos # (Auto) 0.00 Baso # (Auto) 0.02 Immature Gran # (Auto) 0.11 PT 9.8 INR 0.9 APTT 29 PTT Ratio 1.1 VBG pH 7.49 H VBG pCO2 VBG pO2 VBG HCO3 VBG O2 Saturation VBG Base Excess POC Sodium 111 L* Sodium 112 L* POC Potassium 3.5 Potassium 3.5 POC Chloride 69 L Chloride 68 L Carbon Dioxide 36 H POC Total CO2 35 H Anion Gap 8 POC Anion Gap 11.0 L POC BUN 13 BUN 13 Creatinine 0.43 L POC Creatinine 0.6 Est Cr Clr Drug Dosing Not Reportable eGFR 92.91 BUN/Creatinine Ratio 30.2 H Glucose 112 H POC Glucose 124 H POC Glucose (other) 119 H Osmolality 233 L* Calcium 9.1 POC Ioniz Calcium Jonathan 1.04 L Magnesium 1.6 L Total Bilirubin 0.7 AST 23 ALT 19 Alkaline Phosphatase 96 Total Creatine Kinase 86 Troponin I High Sens 12.4 Total Protein 7.6 Albumin 4.1 Globulin 3.5 Albumin/Globulin Ratio 1.2 Urine Color Urine Appearance Urine pH Ur Specific [place] Urine Protein Urine Glucose (UA) Urine Ketones Urine Blood Urine Nitrite Urine Bilirubin Urine Urobilinogen Ur Leukocyte Esterase Urine WBC (Auto) Urine RBC (Auto) U Hyaline Cast (Auto) U Epithel Cells (Auto) Urine Bacteria (Auto) Urine Osmolality Ur Random Sodium SARS-CoV-2 (PCR) Influenza Type A (PCR) Influenza Type B (PCR) RSV (RT-PCR) 09/30/24 09/30/24 09/30/24 12:39 13:32 14:04 WBC RBC Hgb POC Hgb Hct POC Hct MCV MCH MCHC RDW Std Deviation RDW Coeff of Felicity Plt Count MPV Immature Gran % (Auto) Neut % (Auto) Lymph % (Auto) [place] % (Auto) Eos % (Auto) Baso % (Auto) Neut # (Auto) Lymph # (Auto) [place] # (Auto) Eos # (Auto) Baso # (Auto) Immature Gran # (Auto) PT INR APTT PTT Ratio VBG pH 7.46 H VBG pCO2 51 H VBG pO2 30 VBG HCO3 36 VBG O2 Saturation < 60.0 VBG Base Excess 10.6 POC Sodium Sodium POC Potassium Potassium POC Chloride Chloride Carbon Dioxide POC Total CO2 Anion Gap POC Anion Gap POC BUN BUN Creatinine POC Creatinine Est Cr Clr Drug Dosing eGFR BUN/Creatinine Ratio Glucose POC Glucose POC Glucose (other) Osmolality Calcium POC Ioniz Calcium Jonathan Magnesium Total Bilirubin AST ALT Alkaline Phosphatase Total Creatine Kinase Troponin I High Sens Total Protein Albumin Globulin Albumin/Globulin Ratio Urine Color Dark Yellow Urine Appearance Clear Urine pH 8.0 H Ur Specific [place] 1.015 Urine Protein 2+ H Urine Glucose (UA) Negative Urine Ketones 1+ H Urine Blood Negative Urine Nitrite Negative Urine Bilirubin Negative Urine Urobilinogen Negative Ur Leukocyte Esterase Negative Urine WBC (Auto) 0-5 Urine RBC (Auto) 6-10 H U Hyaline Cast (Auto) 0-2 U Epithel Cells (Auto) 0-2 Urine Bacteria (Auto) 1+ H Urine Osmolality 450 L Ur Random Sodium 63 SARS-CoV-2 (PCR) NEGATIVE Influenza Type A (PCR) Negative Influenza Type B (PCR) Negative RSV (RT-PCR) Negative 09/30/24 16:40 WBC RBC Hgb POC Hgb Hct POC Hct MCV MCH MCHC RDW Std Deviation RDW Coeff of Felicity Plt Count MPV Immature Gran % (Auto) Neut % (Auto) Lymph % (Auto) [place] % (Auto) Eos % (Auto) Baso % (Auto) Neut # (Auto) Lymph # (Auto) [place] # (Auto) Eos # (Auto) Baso # (Auto) Immature Gran # (Auto) PT INR APTT PTT Ratio VBG pH VBG pCO2 VBG pO2 VBG HCO3 VBG O2 Saturation VBG Base Excess POC Sodium Sodium 113 L* POC Potassium Potassium 3.3 L POC Chloride Chloride 69 L Carbon Dioxide 34 H POC Total CO2 Anion Gap 10 POC Anion Gap POC BUN BUN 13 Creatinine 0.51 L POC Creatinine Est Cr Clr Drug Dosing 59.7 eGFR 89.17 BUN/Creatinine Ratio 25.5 H Glucose 125 H POC Glucose POC Glucose (other) Osmolality Calcium 9.0 POC Ioniz Calcium Jonathan Magnesium Total Bilirubin AST ALT Alkaline Phosphatase Total Creatine Kinase Troponin I High Sens 12.7 Total Protein Albumin Globulin Albumin/Globulin Ratio Urine Color Urine Appearance Urine pH Ur Specific [place] Urine Protein Urine Glucose (UA) Urine Ketones Urine Blood Urine Nitrite Urine Bilirubin Urine Urobilinogen Ur Leukocyte Esterase Urine WBC (Auto) Urine RBC (Auto) U Hyaline Cast (Auto) U Epithel Cells (Auto) Urine Bacteria (Auto) Urine Osmolality Ur Random Sodium SARS-CoV-2 (PCR) Influenza Type A (PCR) Influenza Type B (PCR) RSV (RT-PCR) Diagnostic Findings CT OF THE HEAD WITHOUT CONTRAST COMPARISON STUDY: Head CT June 15, 2024. MRI of the brain June 19, 2024. CT DOSE: 625.8 mGy.cm TECHNIQUE: Helical axial images of the head were obtained without IV contrast. Automated exposure control was utilized for the study. A dose lowering technique was utilized adhering to the principles of ALARA. FINDINGS: No acute intracranial hemorrhage, midline shift or mass effect is present. The ventricular system is stable. White matter hypodensity suggests small vessel disease. These are unchanged. The basal cisterns are patent. No extra-axial collections are present. There are no findings to suggest acute dural sinus thrombosis or acute territorial infarct. No significant calvarial abnormalities are present. There are old nasal bone fractures. Visualized portions of the sinuses and mastoid air cells are clear. IMPRESSION: No acute intracranial findings. No change in appearance of the brain. XR chest 1V portable COMPARISON: 06/15/2024 TECHNIQUE: AP view of the chest FINDINGS: Cardiac silhouette is enlarged. Large hiatal hernia. Mild chronic interstitial coarsening without pneumothorax, pleural effusion or airspace consolidation. 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 IMPRESSION: 1. Cardiomegaly without acute process. 2. Hiatal hernia. PG Care Time/CCT Total # of Minutes Spent Total Time Spent with Patient: Total time spent is greater than 50% in coordination of care (as documented) at patient's floor/unit and/or counseling patient: Coding Level of Care Code 69943 IN/OBS CONSULT LVL 5,80M Diagnoses Hyponatremia E87.1 Hypertension I10 Hypothyroidism E03.9
[2024-09-30] MEDS: POTASSIUM CHLORIDE / WTR 10 MEQ/100 ML PLCT IV SCH (19:01)
[2024-09-30 22:01] LABS: BUN Creatinine Ratio 28.6 (10-20); Calcium 8.4 mg/dl (8.6-10.3); Creatinine Clr Calc Pharmacy 62.1 ml/min; Potassium 3.7 mmol/L (3.5-5.1)
[2024-10-01 02:25] LABS: BUN Creatinine Ratio 29.2 (10-20); Calcium 8.7 mg/dl (8.6-10.3); Creatinine Clr Calc Pharmacy 63.4 ml/min; Potassium 3.9 mmol/L (3.5-5.1)
[2024-10-01] MEDS ORDERED: STAT IV/IM STA ×2 (02:25→07:06)
[2024-10-01] MEDS: SODIUM CHLORIDE 3% IV ONE ×2 (02:33→08:43)
[2024-10-01 05:55] LABS: Basophils # (auto) 0.01 K/uL (0.00-0.20); Basophils % (auto) 0.1 %; Eosinophils # (auto) 0.01 K/uL (0.00-0.50); Eosinophils % (auto) 0.1 %; Hematocrit (blood only) 33.1 % (37.0-47.0); Hemoglobin 12.1 g/dl (12.0-16.0); Immature Granulocytes # (auto) 0.13 K/uL (0.01-0.20); Immature Granulocytes % (auto) 1.3 %; Lymphocytes # (auto) 0.54 K/uL (1.20-3.40); Lymphocytes % (auto) 5.5 %; Mean Corpuscular Hemoglobin 27.8 pg (25.0-34.0); Mean Corpuscular Hgb Conc 36.6 g/dL (32.0-36.0); Mean Corpuscular Volume 75.9 fL (80.0-100.0); Mean Platelet Volume 9.6 fL (9.4-12.4); Monocytes # (auto) 1.01 K/uL (0.11-0.59); Monocytes % (auto) 10.4 %; Neutrophils # (auto) 8.03 K/uL (1.40-6.50); Neutrophils % (auto) 82.6 %; Platelet Count 321 K/uL (130-400); RDW Coefficient of Variation 12.8 % (11.5-14.5); RDW Standard Deviation 35.1 fL (36.4-46.3); Red Blood Count 4.36 M/uL (4.20-5.40); White Blood Count 9.73 K/ul (4.8-10.8)
[2024-10-01 06:12] LABS: Albumin Globulin Ratio 1.1 (0.9-2); Albumin Level 3.2 gm/dl (3.4-5.0); BUN Creatinine Ratio 30.4 (10-20); Bilirubin,Total 0.5 mg/dl (0.2-1.0); Calcium 7.9 mg/dl (8.6-10.3); Chol HDL Ratio 2.6 (0-5); Creatinine Clr Calc Pharmacy 66.3 ml/min; Globulin 2.8 gm/dl (2.5-4.0); Magnesium 1.8 mg/dl (1.7-2.4); Potassium 3.8 mmol/L (3.5-5.1)
[2024-10-01 06:18] LABS: Thyroid Stimulating Hormone 0.603 uIu/ml (0.300-4.500)
[2024-10-01] MEDS: SODIUM CHLORIDE 0.9% IV SCH (07:00)
[2024-10-01] MEDS: MAGNESIUM SULFATE IV SCH (07:00)
[2024-10-01] MEDS: POTASSIUM CHLORIDE 10 MEQ in SODIUM CHLORIDE 0.9% 100 ML IV SCH (07:00)
--- NOTE | 2024-10-01 10:28 | Nephrology Progress Note ---
Date of Service October 01, 2024 Assessment & Plan (1) Hyponatremia: Plan: Sodium trending upward 111-->114 mmol/L. Potassium replacement for hyperkalemia is being provided which should aid correction (additional 20 K and 2 gram Mg this AM). Close monitoring of sodium and potassium continues. I discussed the plan of care with the precision agriculture technician this AM. Additional 75 ml of 3% saline provided this AM. Lab recheck pending. Hyponatremia is severe, chronic and symptomatic. Angeles is euvolemic to slightly volume depleted. As volume status improves monitor closely for overcorrection. In addition to frequent labs, please continue regular neurochecks and document strict I/O's. (2) Hypertension: Plan: May continue amlodipine and valsartan per home Rx. (3) Hypothyroidism: Plan: Continue levothyroxine per home Rx. TSH 0.6. Admission and Anticipated Discharge Date Admission Date: September 30, 2024 Subjective No acute events overnight. Angeles was awake and resting comfortably in bed this AM. IV THERAPY NURSE reports poor appetite. [place] offers no complaints. She is more awake and alert this AM. Review of Systems Review of Systems: All systems reviewed & are unremarkable except as noted in HPI & below Physical Exam Constitutional: well developed; no acute distress Eyes: + anicteric sclerae; no conjunctival abn ormality ENMT: Mouth: + dry oral mucous membranes; no oral mucosal abnormality Neck: normal visual inspection and trachea midline Respiratory: normal respiratory effort Auscultation: lungs clear to auscultation bilaterally Cardiovascular: Rate/Rhythm: regular rate Heart Sounds: normal S1 and normal S2 Extremities: no edema Musculoskeletal: Extremities: no cyanosis and no clubbing Skin: normal turgor; no jaundice Neurologic: Motor/Sensory: no tremor and no asterixis Psychiatric: Orientation: alert and cooperative Results & Data Vital Signs (Past 12 Hours) Vital Signs Temp Pulse Resp BP Pulse Ox O2 Del Method 10/01/24 08:34 Room Air 10/01/24 06:01 37.1 C 86 19 162/69 H 92 Room Air 10/01/24 05:09 85 15 125/64 94 10/01/24 04:00 37 C 84 19 134/85 97 10/01/24 03:00 90 18 174/91 H 96 10/01/24 02:00 36.9 C 99 H 18 153/81 H 96 02/04/25 01:15 89 20 146/58 H 94 10/01/24 00:00 37.2 C 92 H 21 152/93 H 94 Room Air 10/01/24 00:00 98 H 09/30/24 23:00 99 H 20 172/74 H 94 Laboratory Results Laboratory Results - last 24 hr 09/30/24 09/30/24 09/30/24 12:28 12:32 12:37 WBC 12.15 H RBC 5.36 Hgb 14.7 POC Hgb 16.0 Hct 40.7 POC Hct 47 MCV 75.9 L MCH 27.4 MCHC 36.1 H RDW Std Deviation 34.1 L RDW Coeff of Felicity 12.5 Plt Count 363 MPV 9.3 L Immature Gran % (Auto) 0.9 Neut % (Auto) 86.5 Lymph % (Auto) 6.4 [place] % (Auto) 6.0 Eos % (Auto) 0.0 Baso % (Auto) 0.2 Neut # (Auto) 10.51 H Lymph # (Auto) 0.78 L [place] # (Auto) 0.73 H Eos # (Auto) 0.00 Baso # (Auto) 0.02 Immature Gran # (Auto) 0.11 PT 9.8 INR 0.9 APTT 29 PTT Ratio 1.1 VBG pH 7.49 H VBG pCO2 VBG pO2 VBG HCO3 VBG O2 Saturation VBG Base Excess POC Sodium 111 L* Sodium 112 L* POC Potassium 3.5 Potassium 3.5 POC Chloride 69 L Chloride 68 L Carbon Dioxide 36 H POC Total CO2 35 H Anion Gap 8 POC Anion Gap 11.0 L POC BUN 13 BUN 13 Creatinine 0.43 L POC Creatinine 0.6 Est Cr Clr Drug Dosing Not Reportable eGFR 92.91 BUN/Creatinine Ratio 30.2 H Glucose 112 H POC Glucose 124 H POC Glucose (other) 119 H Osmolality 233 L* Calcium 9.1 POC Ioniz Calcium Jonathan 1.04 L Magnesium 1.6 L Total Bilirubin 0.7 AST 23 ALT 19 Alkaline Phosphatase 96 Total Creatine Kinase 86 Troponin I High Sens 12.4 Total Protein 7.6 Albumin 4.1 Globulin 3.5 Albumin/Globulin Ratio 1.2 Triglycerides Cholesterol LDL Cholesterol, Calc VLDL Cholesterol, Calc HDL Cholesterol Cholesterol/HDL Ratio TSH Urine Color Urine Appearance Urine pH Ur Specific [place] Urine Protein Urine Glucose (UA) Urine Ketones Urine Blood Urine Nitrite Urine Bilirubin Urine Urobilinogen Ur Leukocyte Esterase Urine WBC (Auto) Urine RBC (Auto) U Hyaline Cast (Auto) U Epithel Cells (Auto) Urine Bacteria (Auto) Urine Osmolality Ur Random Sodium SARS-CoV-2 (PCR) Influenza Type A (PCR) Influenza Type B (PCR) RSV (RT-PCR) 09/30/24 09/30/24 09/30/24 12:39 13:32 14:04 WBC RBC Hgb POC Hgb Hct POC Hct MCV MCH MCHC RDW Std Deviation RDW Coeff of Felicity Plt Count MPV Immature Gran % (Auto) Neut % (Auto) Lymph % (Auto) [place] % (Auto) Eos % (Auto) Baso % (Auto) Neut # (Auto) Lymph # (Auto) [place] # (Auto) Eos # (Auto) Baso # (Auto) Immature Gran # (Auto) PT INR APTT PTT Ratio VBG pH 7.46 H VBG pCO2 51 H VBG pO2 30 VBG HCO3 36 VBG O2 Saturation < 60.0 VBG Base Excess 10.6 POC Sodium Sodium POC Potassium Potassium POC Chloride Chloride Carbon Dioxide POC Total CO2 Anion Gap POC Anion Gap POC BUN BUN Creatinine POC Creatinine Est Cr Clr Drug Dosing eGFR BUN/Creatinine Ratio Glucose POC Glucose POC Glucose (other) Osmolality Calcium POC Ioniz Calcium Jonathan Magnesium Total Bilirubin AST ALT Alkaline Phosphatase Total Creatine Kinase Troponin I High Sens Total Protein Albumin Globulin Albumin/Globulin Ratio Triglycerides Cholesterol LDL Cholesterol, Calc VLDL Cholesterol, Calc HDL Cholesterol Cholesterol/HDL Ratio TSH Urine Color Dark Yellow Urine Appearance Clear Urine pH 8.0 H Ur Specific [place] 1.015 Urine Protein 2+ H Urine Glucose (UA) Negative Urine Ketones 1+ H Urine Blood Negative Urine Nitrite Negative Urine Bilirubin Negative Urine Urobilinogen Negative Ur Leukocyte Esterase Negative Urine WBC (Auto) 0-5 Urine RBC (Auto) 6-10 H U Hyaline Cast (Auto) 0-2 U Epithel Cells (Auto) 0-2 Urine Bacteria (Auto) 1+ H Urine Osmolality 450 L Ur Random Sodium 63 SARS-CoV-2 (PCR) NEGATIVE Influenza Type A (PCR) Negative Influenza Type B (PCR) Negative RSV (RT-PCR) Negative 09/30/24 09/30/24 09/30/24 16:40 20:00 21:17 WBC RBC Hgb POC Hgb Hct POC Hct MCV MCH MCHC RDW Std Deviation RDW Coeff of Felicity Plt Count MPV Immature Gran % (Auto) Neut % (Auto) Lymph % (Auto) [place] % (Auto) Eos % (Auto) Baso % (Auto) Neut # (Auto) Lymph # (Auto) [place] # (Auto) Eos # (Auto) Baso # (Auto) Immature Gran # (Auto) PT INR APTT PTT Ratio VBG pH VBG pCO2 VBG pO2 VBG HCO3 VBG O2 Saturation VBG Base Excess POC Sodium Sodium 113 L* 112 L* POC Potassium Potassium 3.3 L 3.7 POC Chloride Chloride 69 L 71 L Carbon Dioxide 34 H 33 H POC Total CO2 Anion Gap 10 8 POC Anion Gap POC BUN BUN 13 14 Creatinine 0.51 L 0.49 L POC Creatinine Est Cr Clr Drug Dosing 59.7 62.1 eGFR 89.17 90.03 BUN/Creatinine Ratio 25.5 H 28.6 H Glucose 125 H 110 H POC Glucose 117 H POC Glucose (other) Osmolality Calcium 9.0 8.4 L POC Ioniz Calcium Jonathan Magnesium Total Bilirubin AST ALT Alkaline Phosphatase Total Creatine Kinase Troponin I High Sens 12.7 Total Protein Albumin Globulin Albumin/Globulin Ratio Triglycerides Cholesterol LDL Cholesterol, Calc VLDL Cholesterol, Calc HDL Cholesterol Cholesterol/HDL Ratio TSH Urine Color Urine Appearance Urine pH Ur Specific [place] Urine Protein Urine Glucose (UA) Urine Ketones Urine Blood Urine Nitrite Urine Bilirubin Urine Urobilinogen Ur Leukocyte Esterase Urine WBC (Auto) Urine RBC (Auto) U Hyaline Cast (Auto) U Epithel Cells (Auto) Urine Bacteria (Auto) Urine Osmolality Ur Random Sodium SARS-CoV-2 (PCR) Influenza Type A (PCR) Influenza Type B (PCR) RSV (RT-PCR) 10/01/24 10/01/24 10/01/24 00:00 01:37 04:13 WBC RBC Hgb POC Hgb Hct POC Hct MCV MCH MCHC RDW Std Deviation RDW Coeff of Felicity Plt Count MPV Immature Gran % (Auto) Neut % (Auto) Lymph % (Auto) [place] % (Auto) Eos % (Auto) Baso % (Auto) Neut # (Auto) Lymph # (Auto) [place] # (Auto) Eos # (Auto) Baso # (Auto) Immature Gran # (Auto) PT INR APTT PTT Ratio VBG pH VBG pCO2 VBG pO2 VBG HCO3 VBG O2 Saturation VBG Base Excess POC Sodium Sodium 113 L* POC Potassium Potassium 3.9 POC Chloride Chloride 75 L Carbon Dioxide 31 POC Total CO2 Anion Gap 7 POC Anion Gap POC BUN BUN 14 Creatinine 0.48 L POC Creatinine Est Cr Clr Drug Dosing 63.4 eGFR 90.48 BUN/Creatinine Ratio 29.2 H Glucose 117 H POC Glucose 108 H 125 H POC Glucose (other) Osmolality Calcium 8.7 POC Ioniz Calcium Jonathan Magnesium Total Bilirubin AST ALT Alkaline Phosphatase Total Creatine Kinase Troponin I High Sens Total Protein Albumin Globulin Albumin/Globulin Ratio Triglycerides Cholesterol LDL Cholesterol, Calc VLDL Cholesterol, Calc HDL Cholesterol Cholesterol/HDL Ratio TSH Urine Color Urine Appearance Urine pH Ur Specific [place] Urine Protein Urine Glucose (UA) Urine Ketones Urine Blood Urine Nitrite Urine Bilirubin Urine Urobilinogen Ur Leukocyte Esterase Urine WBC (Auto) Urine RBC (Auto) U Hyaline Cast (Auto) U Epithel Cells (Auto) Urine Bacteria (Auto) Urine Osmolality Ur Random Sodium SARS-CoV-2 (PCR) Influenza Type A (PCR) Influenza Type B (PCR) RSV (RT-PCR) 10/01/24 10/01/24 10/01/24 05:00 05:18 05:18 WBC 9.73 RBC 4.36 Hgb 12.1 POC Hgb Hct 33.1 L POC Hct MCV 75.9 L MCH 27.8 MCHC 36.6 H RDW Std Deviation 35.1 L RDW Coeff of Felicity 12.8 Plt Count 321 MPV 9.6 Immature Gran % (Auto) 1.3 Neut % (Auto) 82.6 Lymph % (Auto) 5.5 [place] % (Auto) 10.4 Eos % (Auto) 0.1 Baso % (Auto) 0.1 Neut # (Auto) 8.03 H Lymph # (Auto) 0.54 L [place] # (Auto) 1.01 H Eos # (Auto) 0.01 Baso # (Auto) 0.01 Immature Gran # (Auto) 0.13 PT INR APTT PTT Ratio VBG pH VBG pCO2 VBG pO2 VBG HCO3 VBG O2 Saturation VBG Base Excess POC Sodium Sodium 114 L* Cancelled POC Potassium Potassium 3.8 POC Chloride Chloride Carbon Dioxide POC Total CO2 Anion Gap POC Anion Gap POC BUN BUN Creatinine POC Creatinine Est Cr Clr Drug Dosing eGFR BUN/Creatinine Ratio Glucose POC Glucose POC Glucose (other) Osmolality Calcium POC Ioniz Calcium Jonathan Magnesium Total Bilirubin AST ALT Alkaline Phosphatase Total Creatine Kinase Troponin I High Sens Total Protein Albumin Globulin Albumin/Globulin Ratio Triglycerides Cholesterol LDL Cholesterol, Calc VLDL Cholesterol, Calc HDL Cholesterol Cholesterol/HDL Ratio TSH Urine Color Urine Appearance Urine pH Ur Specific [place] Urine Protein Urine Glucose (UA) Urine Ketones Urine Blood Urine Nitrite Urine Bilirubin Urine Urobilinogen Ur Leukocyte Esterase Urine WBC (Auto) Urine RBC (Auto) U Hyaline Cast (Auto) U Epithel Cells (Auto) Urine Bacteria (Auto) Urine Osmolality 488 L Ur Random Sodium SARS-CoV-2 (PCR) Influenza Type A (PCR) Influenza Type B (PCR) RSV (RT-PCR) 10/01/24 10/01/24 10/01/24 05:18 05:18 05:18 WBC RBC Hgb POC Hgb Hct POC Hct MCV MCH MCHC RDW Std Deviation RDW Coeff of Felicity Plt Count MPV Immature Gran % (Auto) Neut % (Auto) Lymph % (Auto) [place] % (Auto) Eos % (Auto) Baso % (Auto) Neut # (Auto) Lymph # (Auto) [place] # (Auto) Eos # (Auto) Baso # (Auto) Immature Gran # (Auto) PT INR APTT PTT Ratio VBG pH VBG pCO2 VBG pO2 VBG HCO3 VBG O2 Saturation VBG Base Excess POC Sodium Sodium POC Potassium Potassium Cancelled POC Chloride Chloride 76 L Cancelled Carbon Dioxide 33 H Cancelled POC Total CO2 Anion Gap 5 POC Anion Gap POC BUN BUN Creatinine POC Creatinine Est Cr Clr Drug Dosing eGFR BUN/Creatinine Ratio Glucose POC Glucose POC Glucose (other) Osmolality Calcium POC Ioniz Calcium Jonathan Magnesium Total Bilirubin AST ALT Alkaline Phosphatase Total Creatine Kinase Troponin I High Sens Total Protein Albumin Globulin Albumin/Globulin Ratio Triglycerides Cholesterol LDL Cholesterol, Calc VLDL Cholesterol, Calc HDL Cholesterol Cholesterol/HDL Ratio TSH Urine Color Urine Appearance Urine pH Ur Specific [place] Urine Protein Urine Glucose (UA) Urine Ketones Urine Blood Urine Nitrite Urine Bilirubin Urine Urobilinogen Ur Leukocyte Esterase Urine WBC (Auto) Urine RBC (Auto) U Hyaline Cast (Auto) U Epithel Cells (Auto) Urine Bacteria (Auto) Urine Osmolality Ur Random Sodium SARS-CoV-2 (PCR) Influenza Type A (PCR) Influenza Type B (PCR) RSV (RT-PCR) 10/01/24 10/01/24 10/01/24 05:18 05:18 05:18 WBC RBC Hgb POC Hgb Hct POC Hct MCV MCH MCHC RDW Std Deviation RDW Coeff of Felicity Plt Count MPV Immature Gran % (Auto) Neut % (Auto) Lymph % (Auto) [place] % (Auto) Eos % (Auto) Baso % (Auto) Neut # (Auto) Lymph # (Auto) [place] # (Auto) Eos # (Auto) Baso # (Auto) Immature Gran # (Auto) PT INR APTT PTT Ratio VBG pH VBG pCO2 VBG pO2 VBG HCO3 VBG O2 Saturation VBG Base Excess POC Sodium Sodium POC Potassium Potassium POC Chloride Chloride Carbon Dioxide POC Total CO2 Anion Gap Cancelled POC Anion Gap POC BUN BUN 14 Cancelled Creatinine 0.46 L Cancelled POC Creatinine Est Cr Clr Drug Dosing 66.3 eGFR BUN/Creatinine Ratio Glucose POC Glucose POC Glucose (other) Osmolality Calcium POC Ioniz Calcium Jonathan Magnesium Total Bilirubin AST ALT Alkaline Phosphatase Total Creatine Kinase Troponin I High Sens Total Protein Albumin Globulin Albumin/Globulin Ratio Triglycerides Cholesterol LDL Cholesterol, Calc VLDL Cholesterol, Calc HDL Cholesterol Cholesterol/HDL Ratio TSH Urine Color Urine Appearance Urine pH Ur Specific [place] Urine Protein Urine Glucose (UA) Urine Ketones Urine Blood Urine Nitrite Urine Bilirubin Urine Urobilinogen Ur Leukocyte Esterase Urine WBC (Auto) Urine RBC (Auto) U Hyaline Cast (Auto) U Epithel Cells (Auto) Urine Bacteria (Auto) Urine Osmolality Ur Random Sodium SARS-CoV-2 (PCR) Influenza Type A (PCR) Influenza Type B (PCR) RSV (RT-PCR) 10/01/24 10/01/24 10/01/24 05:18 05:18 05:18 WBC RBC Hgb POC Hgb Hct POC Hct MCV MCH MCHC RDW Std Deviation RDW Coeff of Felicity Plt Count MPV Immature Gran % (Auto) Neut % (Auto) Lymph % (Auto) [place] % (Auto) Eos % (Auto) Baso % (Auto) Neut # (Auto) Lymph # (Auto) [place] # (Auto) Eos # (Auto) Baso # (Auto) Immature Gran # (Auto) PT INR APTT PTT Ratio VBG pH VBG pCO2 VBG pO2 VBG HCO3 VBG O2 Saturation VBG Base Excess POC Sodium Sodium POC Potassium Potassium POC Chloride Chloride Carbon Dioxide POC Total CO2 Anion Gap POC Anion Gap POC BUN BUN Creatinine POC Creatinine Est Cr Clr Drug Dosing Cancelled eGFR 91.42 Cancelled BUN/Creatinine Ratio 30.4 H Cancelled Glucose 109 H POC Glucose POC Glucose (other) Osmolality Calcium POC Ioniz Calcium Jonathan Magnesium Total Bilirubin AST ALT Alkaline Phosphatase Total Creatine Kinase Troponin I High Sens Total Protein Albumin Globulin Albumin/Globulin Ratio Triglycerides Cholesterol LDL Cholesterol, Calc VLDL Cholesterol, Calc HDL Cholesterol Cholesterol/HDL Ratio TSH Urine Color Urine Appearance Urine pH Ur Specific [place] Urine Protein Urine Glucose (UA) Urine Ketones Urine Blood Urine Nitrite Urine Bilirubin Urine Urobilinogen Ur Leukocyte Esterase Urine WBC (Auto) Urine RBC (Auto) U Hyaline Cast (Auto) U Epithel Cells (Auto) Urine Bacteria (Auto) Urine Osmolality Ur Random Sodium SARS-CoV-2 (PCR) Influenza Type A (PCR) Influenza Type B (PCR) RSV (RT-PCR) 10/01/24 10/01/24 10/01/24 05:18 05:18 09:29 WBC RBC Hgb POC Hgb Hct POC Hct MCV MCH MCHC RDW Std Deviation RDW Coeff of Felicity Plt Count MPV Immature Gran % (Auto) Neut % (Auto) Lymph % (Auto) [place] % (Auto) Eos % (Auto) Baso % (Auto) Neut # (Auto) Lymph # (Auto) [place] # (Auto) Eos # (Auto) Baso # (Auto) Immature Gran # (Auto) PT INR APTT PTT Ratio VBG pH VBG pCO2 VBG pO2 VBG HCO3 VBG O2 Saturation VBG Base Excess POC Sodium Sodium Pending POC Potassium Potassium Pending POC Chloride Chloride Pending Carbon Dioxide Pending POC Total CO2 Anion Gap Pending POC Anion Gap POC BUN BUN Pending Creatinine Pending POC Creatinine Est Cr Clr Drug Dosing Pending eGFR Pending BUN/Creatinine Ratio Pending Glucose Cancelled Pending POC Glucose POC Glucose (other) Osmolality Calcium 7.9 L Cancelled Pending POC Ioniz Calcium Jonathan Magnesium 1.8 Total Bilirubin 0.5 AST 22 ALT 15 Alkaline Phosphatase 70 Total Creatine Kinase Troponin I High Sens Total Protein 6.0 D Albumin 3.2 L Globulin 2.8 Albumin/Globulin Ratio 1.1 Triglycerides 78 Cholesterol 168 LDL Cholesterol, Calc 88 VLDL Cholesterol, Calc 16 HDL Cholesterol 64 Cholesterol/HDL Ratio 2.6 TSH 0.603 Urine Color Urine Appearance Urine pH Ur Specific [place] Urine Protein Urine Glucose (UA) Urine Ketones Urine Blood Urine Nitrite Urine Bilirubin Urine Urobilinogen Ur Leukocyte Esterase Urine WBC (Auto) Urine RBC (Auto) U Hyaline Cast (Auto) U Epithel Cells (Auto) Urine Bacteria (Auto) Urine Osmolality Ur Random Sodium SARS-CoV-2 (PCR) Influenza Type A (PCR) Influenza Type B (PCR) RSV (RT-PCR) PG Care Time/CCT Total # of Minutes Spent Total Time Spent with Patient: Total time spent is greater than 50% in coordination of care (as documented) at patient's floor/unit and/or counseling patient: Coding Level of Care Code 89235 SUB INP/OBS CARE 3/50MIN Diagnoses Hyponatremia E87.1 Hypertension I10 Hypothyroidism E03.9
[2024-10-01 10:46] LABS: BUN Creatinine Ratio 30.2 (10-20); Calcium 8.7 mg/dl (8.6-10.3); Creatinine Clr Calc Pharmacy 70.9 ml/min; Potassium 3.9 mmol/L (3.5-5.1)
--- NOTE | 2024-10-01 14:21 | Critical Care Progress Note ---
Date of Service October 01, 2024 Assessment & Plan (1) Acute hyponatremia: Plan: Patient with hypoosmolar hyponatremia possibly due to poor solute intake and failure to thrive. Low urine osmolality noted as well. Continue slow correction with as needed with hypertonic fluid boluses and potassium supplementation. Goal would be 6 to 8 mEq correction in the next 24 hours. Nephrology consulted as well. TSH normal. CT head reviewed which was unremarkable. Chest x-ray without acute infiltrates. (2) Acute encephalopathy: Plan: Secondary to acute hyponatremia. Possibly secondary to acute urinary tract infection. Agree with Rocephin. Follow urine cultures. Encephalopathy slowly improving. (3) Hypokalemia: Plan: Replace potassium as necessary. Plan Patient downgraded by hospitalist service. Will defer further management to the hospitalist service. Admission and Anticipated Discharge Date Admission Date: September 30, 2024 Subjective Mental status improved today and patient oriented to self. Hypertensive at times. No chest pain, shortness of breath, nausea or vomiting. Review of Systems Review of Systems: All systems reviewed & are unremarkable except as noted in HPI & below Physical Exam Physical Exam: Constitutional: Patient appears to be of their stated age. Patient is in no apparent distress. Patient is well-developed. Eyes: Pupils are equal round and reactive to light. Conjunctivae are normal. Anicteric sclera. Ears nose, mouth and throat: Mallampati class 2. Normal posterior oropharynx. Uvula is midline. Neck: Trachea is midline. Visual inspection is normal. Respiratory: Clear to auscultation bilaterally. No use of accessory muscles. No significant clubbing noted. Cardiovascular: Regular rate and rhythm. Faint systolic flow murmur. Gastrointestinal: Normal bowel sounds, soft, nontender and nondistended. No hepatosplenomegaly noted. Musculoskeletal: No cyanosis. Patient is able to move all extremities. Strength is 5 out of 5 in the upper and lower extremities. Skin: No rashes, warm dry and intact. Neurologic: No obvious focal neurological deficits seen. Psychiatric: Lethargic and confused at times. Results & Data Results & Data Vital Signs (Past 12 Hours) Vital Signs Temp Pulse Resp BP Pulse Ox O2 Del Method 10/01/24 11:35 36.7 C 10/01/24 11:09 91 H 16 94 Room Air 10/01/24 11:00 186/82 H 10/01/24 11:00 186/82 H 10/01/24 10:54 89 19 94 10/01/24 10:00 82 16 95 10/01/24 10:00 185/71 H 10/01/24 10:00 185/71 H 10/01/24 09:06 85 17 94 10/01/24 08:34 Room Air 10/01/24 08:21 85 22 95 10/01/24 07:40 36.8 C 10/01/24 07:00 180/74 H 10/01/24 07:00 180/74 H 10/01/24 07:00 180/74 H 10/01/24 07:00 92 H 19 95 10/01/24 06:01 37.1 C 86 19 162/69 H 92 Room Air 10/01/24 05:09 85 15 125/64 94 10/01/24 04:00 37 C 84 19 134/85 97 10/01/24 03:00 90 18 174/91 H 96 Coding Level of Care Code 87457 SUB INP/OBS CARE 09/21MIN Diagnoses Acute hyponatremia E87.1 Acute encephalopathy G93.40 Hypokalemia E87.6
--- NOTE | 2024-10-01 15:36 | Hospitalist Progress Note ---
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 Nephrology consultation appreciated. Sodium 111 on admission and has improved to 114. She has received hypertonic saline. Fluid restriction implemented. Serial labs ordered. 1. Hypovolemic hyponatremia. Severe/critical. 111. 50 mL of 3% sodium chloride then recheck BMP. Critical care will manage there after. I personally spoke with LA from critical care, [place]. It is noted the patient does have a history of hyponatremia chronically but she has never been nearly this low. She typically takes salt tabs at home. 2. Acute metabolic encephalopathy probably secondary to the acute hyponatremia. 3. Probable evolving urinary tract infection. 1 g of Rocephin daily ordered. 4. Mild hypomagnesemia. Received 1 g of magnesium sulfate in the ER. Repeat in the a.m. 5. History of hypertension. Home meds will be ordered as appropriate upon reconciliation. Currently uncontrolled. I will order some as needed hydralazine. 6. Dyslipidemia. 7. Hypothyroidism. Continue replacement therapy. 8. Subacute closed right patellar fracture May 2024. 9. Chronic debility and weakness. Exacerbated by acute illness. 10. Subacute parainfluenza virus infection. She tested + September 23, 2024. Her influenza and COVID-19 testing and RSV testing here negative. Plan: As discussed above. Please refer to orders for further planning. (2) UTI (urinary tract infection): Plan: Suspected on admission. Continue Rocephin for now. Urine culture reveals only pinpoint growth (3) Metabolic encephalopathy: Plan: Present on admission. Supportive care. Correct hyponatremia (4) Hypomagnesemia: Plan: Mild on admission. Now corrected (5) Hypertension: Plan: Amlodipine switched to metoprolol for better heart rate and blood pressure control Plan The patient's daughter was at the bedside was brought up-to-date on her clinical status. OT and PT assessments requested Admission and Anticipated Discharge Date Admission Date: September 30, 2024 Subjective The patient is awake and alert. Her daughter is at the bedside and states she is much improved. Sodium was 111 on admission and is now 114 with hyperosmolar state consistent with SIADH. Fluid restriction implemented. Mild hypomagnesemia has been corrected. Amlodipine switched to metoprolol for better heart rate and blood pressure control. Nephrology entry noted. Urine culture reveals only pinpoint growth. She remains on Rocephin until final results known. Review of Systems 2 Review of Systems: Constitutionalno fever or chills ENTno blurred vision, no double vision, no epistaxis, no sore throat Respiratoryno cough, no wheezing, no shortness of breath Cardiacno palpitations, no chest pain, no syncope Abraham nausea, vomiting, diarrhea, melena, hematochezia GUno urinary retention, no urinary incontinence, no dysuria, no hematuria Musculoskeletalno joint pain, no muscle tenderness Skinno bruising, no rashes, no pruritus Neurono isolated weakness, no paresthesia, no weakness Psychno depression, no anxiety Physical Exam 2 Physical Exam: General-alert and oriented x3, no fever, no chills HEENT-head atraumatic and normocephalic, pupils equal and reactive to light, extraocular muscles intact Neck-no lymphadenopathy or thyromegaly, trachea midline Chest-clear to auscultation. No rales, wheezing or rhonchi Cardiac-regular rate and rhythm, normal S1 and S2 Abdomen-normal bowel sounds, no hepatosplenomegaly Extremities-no cyanosis, clubbing, or edema Neuro-cranial nerves II through XII intact, motor and sensory function within normal limits, strength symmetrical, no focal deficits Psych-normal affect, normal mood Results & Data Results & Data Vital Signs (Past 12 Hours) Vital Signs Temp Pulse Resp BP Pulse Ox O2 Del Method 10/01/24 11:35 36.7 C 10/01/24 11:09 91 H 16 94 Room Air 10/01/24 11:00 186/82 H 10/01/24 11:00 186/82 H 10/01/24 10:54 89 19 94 10/01/24 10:00 82 16 95 10/01/24 10:00 185/71 H 10/01/24 10:00 185/71 H 10/01/24 09:06 85 17 94 10/01/24 08:34 Room Air 10/01/24 08:21 85 22 95 10/01/24 07:40 36.8 C 10/01/24 07:00 180/74 H 10/01/24 07:00 180/74 H 10/01/24 07:00 180/74 H 02/04/25 07:00 92 H 19 95 10/01/24 06:01 37.1 C 86 19 162/69 H 92 Room Air 10/01/24 05:09 85 15 125/64 94 10/01/24 04:00 37 C 84 19 134/85 97 Laboratory Results 10/01/24 05:18 10/01/24 09:29 PG Care Time/CCT Total # of Minutes Spent Total Time Spent with Patient: Total time spent is greater than 50% in coordination of care (as documented) at patient's floor/unit and/or counseling patient: Coding Level of Care Code 65825 SUB INP/OBS CARE 3/50MIN Diagnoses Hyponatremia E87.1 UTI (urinary tract infection) N39.0 Metabolic encephalopathy G93.41 Hypomagnesemia E83.42 Hypertension I10 Hypertension type: unspecified (5) Hypertension Hypertension type: unspecified Qualified Code(s): I10 - Essential (primary) hypertension
[2024-10-01] MEDS: VALSARTAN 80 MG TAB PO SCH (15:37)
[2024-10-01] MEDS: cefTRIAXone SODIUM 1,000 MG/50 ML BAG IV SCH (15:38)
[2024-10-01] MEDS: amLODIPine BESYLATE 5 MG TAB PO SCH (18:31)
[2024-10-01] MEDS: SODIUM CHLORIDE 1 GM TABLET PO STA (21:13)
[2024-10-01] MEDS: METOPROLOL TARTRATE 25 MG TAB PO SCH (21:13)
[2024-10-02 01:27] LABS: BUN Creatinine Ratio 41.3 (10-20); Calcium 8.3 mg/dl (8.6-10.3); Creatinine Clr Calc Pharmacy 66.3 ml/min; Potassium 3.5 mmol/L (3.5-5.1)
[2024-10-02] MEDS: POTASSIUM CHLORIDE / WTR 10 MEQ/100 ML PLCT IV SCH (01:50)
[2024-10-02 07:10] LABS: Basophils # (auto) 0.03 K/uL (0.00-0.20); Basophils % (auto) 0.2 %; Eosinophils # (auto) 0.13 K/uL (0.00-0.50); Eosinophils % (auto) 1.1 %; Hematocrit (blood only) 31.7 % (37.0-47.0); Hemoglobin 11.2 g/dl (12.0-16.0); Immature Granulocytes # (auto) 0.25 K/uL (0.01-0.20); Lymphocytes # (auto) 1.62 K/uL (1.20-3.40); Lymphocytes % (auto) 13.1 %; Mean Corpuscular Hemoglobin 27.5 pg (25.0-34.0); Mean Corpuscular Hgb Conc 35.3 g/dL (32.0-36.0); Mean Corpuscular Volume 77.7 fL (80.0-100.0); Mean Platelet Volume 9.3 fL (9.4-12.4); Monocytes # (auto) 2.78 K/uL (0.11-0.59); Monocytes % (auto) 22.5 %; Neutrophils # (auto) 7.56 K/uL (1.40-6.50); Neutrophils % (auto) 61.1 %; Platelet Count 329 K/uL (130-400); RDW Coefficient of Variation 13.2 % (11.5-14.5); RDW Standard Deviation 37.6 fL (36.4-46.3); Red Blood Count 4.08 M/uL (4.20-5.40); White Blood Count 12.37 K/ul (4.8-10.8)
[2024-10-02 07:38] LABS: BUN Creatinine Ratio 42.9 (10-20); Calcium 8.5 mg/dl (8.6-10.3); Creatinine Clr Calc Pharmacy 72.6 ml/min; Potassium 3.8 mmol/L (3.5-5.1)
[2024-10-02] MEDS ORDERED: STAT IV/IM STA ×3 (08:09→20:51)
[2024-10-02] MEDS ORDERED: SODIUM CHLORIDE 3 % 100 ML IV ONE (08:09)
[2024-10-02] MEDS: SODIUM CHLORIDE 3 % 100 ML IV ONE (09:44)
--- NOTE | 2024-10-02 10:34 | Nephrology Progress Note ---
Date of Service October 02, 2024 Assessment & Plan (1) Hyponatremia: Plan: Sodium is improving appropriately. Rate of correction overnight acceptable. Oral NaCl 1 gram was provided last evening. An additional bolus of hypertonic saline was ordered this AM. Volume status acceptable. As sodium continues to improve, transition to oral NaCl replacement and monitor. Repeat sodium scheduled for noon. Continue to monitor closely for rapid correction. In addition to frequent labs, please document strict I/O's. (2) Hypertension: Plan: May continue amlodipine and valsartan per home Rx. (3) Hypothyroidism: Plan: Continue levothyroxine per home Rx. TSH 0.6. Admission and Anticipated Discharge Date Admission Date: September 30, 2024 Subjective No acute events overnight. Angeles feels well this AM. Appetite is good. She denies any acute complaints. She denies fluid retention or edema. Review of Systems Review of Systems: All systems reviewed & are unremarkable except as noted in HPI & below Physical Exam Constitutional: well developed; no acute distress Eyes: + anicteric sclerae; no conjunctival abn ormality ENMT: Mouth: no oral mucosal abnormality and oral mucous membranes not dry Neck: normal visual inspection and trachea midline Respiratory: normal respiratory effort Auscultation: lungs clear to auscultation bilaterally Cardiovascular: Rate/Rhythm: regular rate Heart Sounds: normal S1 and normal S2 Extremities: no edema Musculoskeletal: Extremities: no cyanosis and no clubbing Skin: normal turgor; no jaundice Neurologic: Motor/Sensory: no tremor and no asterixis Psychiatric: Orientation: alert, oriented x 3 and cooperative Results & Data Vital Signs (Past 12 Hours) Vital Signs Temp Pulse Resp BP Pulse Ox O2 Del Method 10/02/24 08:25 36.7 C 66 20 158/77 H 96 Room Air 10/02/24 03:40 37.0 C 66 18 171/80 H 95 Room Air 10/02/24 00:46 Room Air 10/02/24 00:03 37.1 C 71 18 182/80 H 92 Room Air Laboratory Results Laboratory Results - last 24 hr 10/01/24 10/01/24 10/02/24 09:29 19:23 00:35 WBC RBC Hgb Hct MCV MCH MCHC RDW Std Deviation RDW Coeff of Felicity Plt Count MPV Immature Gran % (Auto) Neut % (Auto) Lymph % (Auto) [place] % (Auto) Eos % (Auto) Baso % (Auto) Neut # (Auto) Lymph # (Auto) [place] # (Auto) Eos # (Auto) Baso # (Auto) Immature Gran # (Auto) Sodium 116 L* 118 L* 119 L* Potassium 3.9 3.5 Chloride 80 L 82 L Carbon Dioxide 30 30 Anion Gap 6 7 BUN 13 19 Creatinine 0.43 L 0.46 L Est Cr Clr Drug Dosing 70.9 66.3 eGFR 92.91 91.42 BUN/Creatinine Ratio 30.2 H 41.3 H Glucose 106 H 102 H Calcium 8.7 8.3 L 10/02/24 06:45 WBC 12.37 H RBC 4.08 L Hgb 11.2 L Hct 31.7 L MCV 77.7 L MCH 27.5 MCHC 35.3 RDW Std Deviation 37.6 RDW Coeff of Felicity 13.2 Plt Count 329 MPV 9.3 L Immature Gran % (Auto) 2.0 Neut % (Auto) 61.1 Lymph % (Auto) 13.1 [place] % (Auto) 22.5 Eos % (Auto) 1.1 Baso % (Auto) 0.2 Neut # (Auto) 7.56 H Lymph # (Auto) 1.62 [place] # (Auto) 2.78 H Eos # (Auto) 0.13 Baso # (Auto) 0.03 Immature Gran # (Auto) 0.25 H Sodium 119 L* Potassium 3.8 Chloride 83 L Carbon Dioxide 31 Anion Gap 5 BUN 18 Creatinine 0.42 L Est Cr Clr Drug Dosing 72.6 eGFR 93.44 BUN/Creatinine Ratio 42.9 H Glucose 87 Calcium 8.5 L PG Care Time/CCT Total # of Minutes Spent Total Time Spent with Patient: Total time spent is greater than 50% in coordination of care (as documented) at patient's floor/unit and/or counseling patient: Coding Level of Care Code 24395 SUB INP/OBS CARE 3/50MIN Diagnoses Hyponatremia E87.1 Hypertension I10 Hypothyroidism E03.9
--- NOTE | 2024-10-02 15:16 | Hospitalist Progress Note ---
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 Nephrology consultation appreciated. Sodium 111 on admission and has improved to 119. She has received hypertonic saline. Fluid restriction implemented. Serial labs ordered. (2) UTI (urinary tract infection): Plan: Suspected on admission. Currently on intravenous Rocephin, day 3. Urine culture reveals only pinpoint growth (3) Metabolic encephalopathy: Plan: Present on admission. Supportive care. Correct hyponatremia. Improved but she is not quite back to her baseline according to her daughter (4) Hypomagnesemia: Plan: Mild on admission. Now corrected (5) Hypertension: Plan: Amlodipine switched to metoprolol for better heart rate and blood pressure control Plan Continue fluid restriction, oral sodium chloride, occasional hypertonic saline ordered by nephrology. Serial labs. Hopefully she can return to the [facility] tomorrow, October 03 with ongoing lab testing Admission and Anticipated Discharge Date Admission Date: September 30, 2024 Subjective Awake and alert. No distress. Sodium improved to 119 this morning with repeat sodium now pending. Heart rate and blood pressure are better controlled after switch from amlodipine to metoprolol. I spoke to the daughter, Sharon, by phone. Urine culture continues to show only pinpoint growth and will not need any further treatment after intravenous Rocephin while hospitalized. Currently day 3. Hopefully she can return back to the [facility] tomorrow, October 03, and continued weekly lab testing will be requested Review of Systems 2 Review of Systems: Constitutionalno fever or chills ENTno blurred vision, no double vision, no epistaxis, no sore throat Respiratoryno cough, no wheezing, no shortness of breath Cardiacno palpitations, no chest pain, no syncope Abraham nausea, vomiting, diarrhea, melena, hematochezia GUno urinary retention, no urinary incontinence, no dysuria, no hematuria Musculoskeletalno joint pain, no muscle tenderness Skinno bruising, no rashes, no pruritus Neurono isolated weakness, no paresthesia, no weakness Psychno depression, no anxiety Physical Exam 2 Physical Exam: General-alert and oriented x3, no fever, no chills HEENT-head atraumatic and normocephalic, pupils equal and reactive to light, extraocular muscles intact Neck-no lymphadenopathy or thyromegaly, trachea midline Chest-clear to auscultation. No rales, wheezing or rhonchi Cardiac-regular rate and rhythm, normal S1 and S2 Abdomen-normal bowel sounds, no hepatosplenomegaly Extremities-no cyanosis, clubbing, or edema Neuro-cranial nerves II through XII intact, motor and sensory function within normal limits, strength symmetrical, no focal deficits Psych-normal affect, normal mood Results & Data Results & Data Vital Signs (Past 12 Hours) Vital Signs Temp Pulse Pulse Resp BP Pulse Ox O2 Del Method 10/02/24 15:02 36.7 C 70 18 160/85 H 93 Room Air 10/02/24 12:33 Room Air 10/02/24 11:32 37.2 C 68 20 163/76 H 93 Room Air 10/02/24 08:25 36.7 C 66 20 158/77 H 96 Room Air 10/02/24 08:00 66 10/02/24 03:40 37.0 C 66 18 171/80 H 95 Room Air Laboratory Results 10/02/24 06:45 PG Care Time/CCT Total # of Minutes Spent Total Time Spent with Patient: Total time spent is greater than 50% in coordination of care (as documented) at patient's floor/unit and/or counseling patient: Coding Level of Care Code 88170 SUB INP/OBS CARE 2/35MIN Diagnoses Hyponatremia E87.1 UTI (urinary tract infection) N39.0 Metabolic encephalopathy G93.41 Hypomagnesemia E83.42 Hypertension I10 Hypertension type: unspecified (5) Hypertension Hypertension type: unspecified Qualified Code(s): I10 - Essential (primary) hypertension
[2024-10-02] MEDS: SODIUM CHLORIDE 3 % 150 ML IV ONE ×2 (16:24→22:11)
[2024-10-03 08:20] LABS: Basophils # (auto) 0.03 K/uL (0.00-0.20); Basophils % (auto) 0.3 %; Eosinophils # (auto) 0.17 K/uL (0.00-0.50); Eosinophils % (auto) 1.8 %; Hematocrit (blood only) 32.5 % (37.0-47.0); Hemoglobin 11.3 g/dl (12.0-16.0); Immature Granulocytes # (auto) 0.22 K/uL (0.01-0.20); Immature Granulocytes % (auto) 2.4 %; Lymphocytes # (auto) 1.37 K/uL (1.20-3.40); Lymphocytes % (auto) 14.9 %; Mean Corpuscular Hemoglobin 27.4 pg (25.0-34.0); Mean Corpuscular Hgb Conc 34.8 g/dL (32.0-36.0); Mean Corpuscular Volume 78.7 fL (80.0-100.0); Mean Platelet Volume 8.9 fL (9.4-12.4); Monocytes # (auto) 1.26 K/uL (0.11-0.59); Monocytes % (auto) 13.7 %; Neutrophils # (auto) 6.16 K/uL (1.40-6.50); Neutrophils % (auto) 66.9 %; Platelet Count 355 K/uL (130-400); RDW Coefficient of Variation 13.4 % (11.5-14.5); RDW Standard Deviation 38.6 fL (36.4-46.3); Red Blood Count 4.13 M/uL (4.20-5.40); White Blood Count 9.21 K/ul (4.8-10.8)
[2024-10-03 08:34] LABS: BUN Creatinine Ratio 36.6 (10-20); Calcium 8.6 mg/dl (8.6-10.3); Creatinine Clr Calc Pharmacy 74.3 ml/min; Potassium 3.4 mmol/L (3.5-5.1)
[2024-10-03] MEDS: POTASSIUM CHLORIDE CRTAB 20 MEQ TABCR PO STA (10:02)
--- NOTE | 2024-10-03 10:02 | Nephrology Progress Note ---
Date of Service October 03, 2024 Assessment & Plan (1) Hyponatremia: Plan: Sodium is improving appropriately. Rate of correction acceptable. Oral NaCl 1 gram was provided on the evening of 10/01. Angeles tolerated it reasonably well. I would like to see if her sodium will continue to improve with additional PO sodium. She expressed reservations initially regarding oral sodium. It has caused reflux symptoms for her in the past. Volume status acceptable. Ideally, I would like to see serum sodium continue to improve closer to 130 mmol/L prior to discharge. The last dose of hypertonic fluid was provided yesterday afternoon. Oral KCl ordered for hyperkalemia. [place] A repeat sodium level has been ordered for this afternoon. I discussed the plan of care with Dr. Torres this AM. (2) Hypertension: Plan: Continue valsartan per home Rx. Amlodipine is listed on home medications but has not been ordered this admission. I have ordered a dose to start now. (3) Hypothyroidism: Plan: Clinically euthyroid on current dose of levothyroxine. Admission and Anticipated Discharge Date Admission Date: September 30, 2024 Subjective No acute events overnight. Angeles feels well this AM. She reports some mild sinus congestion and a cough. She denies fluid retention or edema. She told me that she feels well enough to go home. She denies urinary symptoms. No fevers or chills. BP elevated but no symptom. Appetite fair. Review of Systems Review of Systems: All systems reviewed & are unremarkable except as noted in HPI & below Physical Exam Constitutional: well developed; no acute distress Eyes: + anicteric sclerae; no conjunctival abn ormality ENMT: Mouth: no oral mucosal abnormality and oral mucous membranes not dry Neck: normal visual inspection and trachea midline Respiratory: normal respiratory effort Auscultation: lungs clear to auscultation bilaterally Cardiovascular: Rate/Rhythm: regular rate Heart Sounds: normal S1 and normal S2 Extremities: no edema Musculoskeletal: Extremities: no cyanosis and no clubbing Skin: normal turgor; no jaundice Neurologic: Motor/Sensory: no tremor and no asterixis Psychiatric: Orientation: alert, oriented x 3 and cooperative Results & Data Vital Signs (Past 12 Hours) Vital Signs Temp Pulse Pulse Resp BP BP Pulse Ox 10/03/24 08:00 54 L 10/03/24 07:37 36.3 C L 54 L 18 182/70 H 94 10/03/24 04:27 36.6 C 59 L 20 182/62 H 93 10/03/24 00:53 36.5 C 64 20 197/78 H 93 10/02/24 22:48 67 O2 Del Method 10/03/24 08:00 10/03/24 07:37 Room Air 10/03/24 04:27 Room Air 10/03/24 00:53 Room Air 10/02/24 22:48 Laboratory Results Laboratory Results - last 24 hr 10/02/24 10/02/24 10/03/24 14:33 18:45 07:51 WBC 9.21 RBC 4.13 L Hgb 11.3 L Hct 32.5 L MCV 78.7 L MCH 27.4 MCHC 34.8 RDW Std Deviation 38.6 RDW Coeff of Felicity 13.4 Plt Count 355 MPV 8.9 L Immature Gran % (Auto) 2.4 Neut % (Auto) 66.9 Lymph % (Auto) 14.9 [place] % (Auto) 13.7 Eos % (Auto) 1.8 Baso % (Auto) 0.3 Neut # (Auto) 6.16 Lymph # (Auto) 1.37 [place] # (Auto) 1.26 H Eos # (Auto) 0.17 Baso # (Auto) 0.03 Immature Gran # (Auto) 0.22 H Sodium 119 L* 122 L 126 L Potassium 3.4 L Chloride 91 L Carbon Dioxide 30 Anion Gap 5 BUN 15 Creatinine 0.41 L Est Cr Clr Drug Dosing 74.3 eGFR 93.99 BUN/Creatinine Ratio 36.6 H Glucose 88 Calcium 8.6 PG Care Time/CCT Total # of Minutes Spent Total Time Spent with Patient: Total time spent is greater than 50% in coordination of care (as documented) at patient's floor/unit and/or counseling patient: Coding Level of Care Code 58769 SUB INP/OBS CARE 3/50MIN Diagnoses Hyponatremia E87.1 Hypertension I10 Hypothyroidism E03.9
[2024-10-03] MEDS: SODIUM CHLORIDE 1 GM TABLET PO SCH ×2 (10:03→19:56)
[2024-10-03] MEDS: amLODIPine BESYLATE 5 MG TAB PO SCH (10:35)
--- NOTE | 2024-10-03 15:18 | Hospitalist Progress Note ---
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 Nephrology consultation appreciated. Sodium 111 on admission and has improved to 126. She has received hypertonic saline. Now on sodium chloride tablets. Fluid restriction continue. Serial labs ordered. (2) UTI (urinary tract infection): Plan: Suspected on admission. Currently on intravenous Rocephin, day 4. Urine culture reveals only pinpoint growth. Rocephin will be discontinued tomorrow, October 04 (3) Metabolic encephalopathy: Plan: Present on admission. Supportive care. Correct hyponatremia. Now resolved. (4) Hypomagnesemia: Plan: Mild on admission. Now corrected (5) Hypertension: Plan: Amlodipine switched to metoprolol for better heart rate and blood pressure control. Improved Plan Hopeful discharge back to the [facility] tomorrow, October 04, with ongoing lab testing Admission and Anticipated Discharge Date Admission Date: September 30, 2024 Subjective Alert and oriented. Pleasant. I spoke to her daughter by phone. Sodium is up to 126 today, October 03. She is now on oral sodium chloride. She will complete her course of Rocephin tomorrow and it will be discontinued. She is now on oral sodium chloride tablets. She probably will return to the [facility] tomorrow, October 04. Blood pressure and heart rate are improved after switch from amlodipine to metoprolol. Review of Systems 2 Review of Systems: Constitutionalno fever or chills ENTno blurred vision, no double vision, no epistaxis, no sore throat Respiratoryno cough, no wheezing, no shortness of breath Cardiacno palpitations, no chest pain, no syncope Abraham nausea, vomiting, diarrhea, melena, hematochezia GUno urinary retention, no urinary incontinence, no dysuria, no hematuria Musculoskeletalno joint pain, no muscle tenderness Skinno bruising, no rashes, no pruritus Neurono isolated weakness, no paresthesia, no weakness Psychno depression, no anxiety Physical Exam 2 Physical Exam: General-alert and oriented x3, no fever, no chills HEENT-head atraumatic and normocephalic, pupils equal and reactive to light, extraocular muscles intact Neck-no lymphadenopathy or thyromegaly, trachea midline Chest-clear to auscultation. No rales, wheezing or rhonchi Cardiac-regular rate and rhythm, normal S1 and S2 Abdomen-normal bowel sounds, no hepatosplenomegaly Extremities-no cyanosis, clubbing, or edema Neuro-cranial nerves II through XII intact, motor and sensory function within normal limits, strength symmetrical, no focal deficits Psych-normal affect, normal mood Results & Data Results & Data Vital Signs (Past 12 Hours) Vital Signs Temp Pulse Pulse Resp BP Pulse Ox O2 Del Method 10/03/24 15:00 36.9 C 60 18 164/71 H 92 Room Air 10/03/24 11:19 36.7 C 64 18 179/71 H 94 Room Air 10/03/24 08:00 54 L 10/03/24 07:37 36.3 C L 54 L 18 182/70 H 94 Room Air 10/03/24 04:27 36.6 C 59 L 20 182/62 H 93 Room Air Laboratory Results 10/03/24 07:51 10/03/24 07:51 PG Care Time/CCT Total # of Minutes Spent Total Time Spent with Patient: Total time spent is greater than 50% in coordination of care (as documented) at patient's floor/unit and/or counseling patient: Coding Level of Care Code 85293 SUB INP/OBS CARE 2/35MIN Diagnoses Hyponatremia E87.1 UTI (urinary tract infection) N39.0 Metabolic encephalopathy G93.41 Hypomagnesemia E83.42 Hypertension I10 Hypertension type: unspecified (5) Hypertension Hypertension type: unspecified Qualified Code(s): I10 - Essential (primary) hypertension
[2024-10-04 07:59] VITALS: O2SAT 94
[2024-10-04 08:43] LABS: Basophils # (auto) 0.04 K/uL (0.00-0.20); Basophils % (auto) 0.4 %; Eosinophils # (auto) 0.16 K/uL (0.00-0.50); Eosinophils % (auto) 1.7 %; Hematocrit (blood only) 34.5 % (37.0-47.0); Hemoglobin 12.1 g/dl (12.0-16.0); Immature Granulocytes # (auto) 0.19 K/uL (0.01-0.20); Lymphocytes % (auto) 15.5 %; Mean Corpuscular Hemoglobin 27.8 pg (25.0-34.0); Mean Corpuscular Hgb Conc 35.1 g/dL (32.0-36.0); Mean Corpuscular Volume 79.1 fL (80.0-100.0); Monocytes # (auto) 0.95 K/uL (0.11-0.59); Monocytes % (auto) 9.8 %; Neutrophils # (auto) 6.83 K/uL (1.40-6.50); Neutrophils % (auto) 70.6 %; Platelet Count 386 K/uL (130-400); RDW Coefficient of Variation 13.7 % (11.5-14.5); RDW Standard Deviation 39.5 fL (36.4-46.3); Red Blood Count 4.36 M/uL (4.20-5.40); White Blood Count 9.67 K/ul (4.8-10.8)
[2024-10-04 09:35] LABS: BUN Creatinine Ratio 40.5 (10-20); Creatinine Clr Calc Pharmacy 72.5 ml/min; Potassium 3.6 mmol/L (3.5-5.1)
--- NOTE | 2024-10-04 10:33 | Nephrology Progress Note ---
Date of Service October 04, 2024 Assessment & Plan (1) Hyponatremia: Plan: Sodium has improved appropriately. Clinical presentation suggestive of SAIDH complicated by decreased PO intake. Close outpatient follow up with monitoring of labs will be required. I would suggest continuing oral NaCl as tolerated for now -- 1 gm BID. Repeat labs early next week. Follow up in the nephrology clinic can be arranged with me within 2 weeks of discharge. (2) Hypertension: Plan: Continue valsartan + amlodipine per home Rx. (3) Hypothyroidism: Plan: Clinically euthyroid on current dose of levothyroxine. Admission and Anticipated Discharge Date Admission Date: September 30, 2024 Subjective No acute events overnight. Angeels was resting comfortably in bed this morning. Tolerated oral NaCl tablets reasonably well yesterday. sodium continues to improve. No fluid retention or edema. [place] would like to be discharged today. Review of Systems 2 Review of Systems: All systems reviewed & are unremarkable except as noted in HPI & below Physical Exam Constitutional: well developed; no acute distress Eyes: + anicteric sclerae; no conjunctival abn ormality ENMT: Mouth: no oral mucosal abnormality and oral mucous membranes not dry Neck: normal visual inspection and trachea midline Respiratory: normal respiratory effort Auscultation: lungs clear to auscultation bilaterally Cardiovascular: Rate/Rhythm: regular rate Heart Sounds: normal S1 and normal S2 Extremities: no edema Musculoskeletal: Extremities: no cyanosis and no clubbing Skin: normal turgor; no jaundice Neurologic: Motor/Sensory: no tremor and no asterixis Psychiatric: Orientation: alert, oriented x 3 and cooperative Results & Data Vital Signs (Past 12 Hours) Vital Signs Temp Pulse Pulse Resp BP BP Pulse Ox 10/04/24 09:20 158/56 H 10/04/24 07:58 36.6 C 66 20 185/67 H 94 10/04/24 07:50 10/04/24 07:41 65 10/04/24 03:13 36.5 C 63 18 139/54 L 92 10/04/24 00:47 75 146/77 H 10/03/24 22:53 36.5 C 70 18 188/83 H 93 O2 Del Method 10/04/24 09:20 10/04/24 07:58 Room Air 10/04/24 07:50 Room Air 10/04/24 07:41 10/04/24 03:13 Room Air 10/04/24 00:47 10/03/24 22:53 Room Air Laboratory Results Laboratory Results - last 24 hr 10/03/24 10/04/24 17:01 07:53 WBC 9.67 RBC 4.36 Hgb 12.1 Hct 34.5 L MCV 79.1 L MCH 27.8 MCHC 35.1 RDW Std Deviation 39.5 RDW Coeff of Felicity 13.7 Plt Count 386 MPV 9.0 L Immature Gran % (Auto) 2.0 Neut % (Auto) 70.6 Lymph % (Auto) 15.5 [place] % (Auto) 9.8 Eos % (Auto) 1.7 Baso % (Auto) 0.4 Neut # (Auto) 6.83 H Lymph # (Auto) 1.50 [place] # (Auto) 0.95 H Eos # (Auto) 0.16 Baso # (Auto) 0.04 Immature Gran # (Auto) 0.19 Sodium 126 L 130 L Potassium 3.6 Chloride 92 L Carbon Dioxide 27 Anion Gap 11 BUN 17 Creatinine 0.42 L Est Cr Clr Drug Dosing 72.5 eGFR 93.44 BUN/Creatinine Ratio 40.5 H Glucose 87 Calcium 9.0 PG Care Time/CCT Total # of Minutes Spent Total Time Spent with Patient: Total time spent is greater than 50% in coordination of care (as documented) at patient's floor/unit and/or counseling patient: Coding Level of Care Code 67263 SUB INP/OBS CARE 3/50MIN Diagnoses Hyponatremia E87.1 Hypertension I10 Hypothyroidism E03.9
[2024-10-04 12:20] VITALS: PULSE 59; RESP 18; TEMP 98.8
--- NOTE | 2024-10-04 12:28 | Discharge Summary ---
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 Nephrology consultation appreciated. Sodium 111 on admission and has improved to 130. She has received hypertonic saline. Now on sodium chloride tablet twice daily. Fluid restriction continues. Will monitor serial labs twice weekly as an outpatient. (2) UTI (urinary tract infection): Suspected on admission. Treated while hospitalized with Rocephin for 5 days. Antibiotics have been discontinued at discharge. (3) Metabolic encephalopathy: Present on admission. Supportive care. Correct hyponatremia. Now resolved. (4) Hypomagnesemia: Mild on admission. Now corrected (5) Hypertension: Amlodipine switched to metoprolol for better heart rate and blood pressure control. Improved Plan Discharge back to the [facility] today, October 04, with ongoing lab testing twice weekly Admission HPI Per Admitting Provider 89-year-old female of [place] descent lives in a custodial currently. History of present illness was quite vague therefore I called the patient's daughter-Mrs. Hilda Gonzalez at [phone]. Per the patient's daughter over the last 2 weeks she has had a waxing and waning of her mental status. However approximate week ago she tested positive for parainfluenza virus at the custodial. Over the last week her mental status is continued to decline Primaxin today with a trip to the emergency department for further evaluation and treatment. In the emergency department she had a negative CT of the brain. Sodium level was found to be critically low at 111. Magnesium low at 1.6. Course Emergency Department she got 1 g of magnesium sulfate. Will call admit the patient further evaluation and treatment due to altered mental status most likely secondary to severe/critical hyponatremia. Recommended critical care consultation and hypertonic saline. We have ordered a 50 cc bolus of 3% saline. We have spoken to the LA from critical care, [place], who will be seeing the patient shortly on consultation. Repeat troponin has been ordered as well as repeat BMP at 4 PM. I did confirm the patient's CODE STATUS with patient's daughter there is advanced directives on the custodial chart and she has confirmed that her mother is a DNR/DNI she is very appreciative the call and all her questions were answered to her satisfaction.. Discharge Exam General-alert and oriented x3, no fever, no chills HEENT-head atraumatic and normocephalic, pupils equal and reactive to light, extraocular muscles intact Neck-no lymphadenopathy or thyromegaly, trachea midline Chest-clear to auscultation. 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 Amlodipine has been switched to metoprolol. Lab work has been ordered twice weekly going forward. Follow-up with nephrology in the office in 2 weeks. Pending Studies at Discharge: No Stand-Alone Forms: My [facility] Skilled Items Patient informed of condition?: Yes DNR: Yes Discharge Level of Care: Skilled Communicable Disease: No Discharge Prognosis: Stable Lines: None Urinary Catheter: No Medications and DC Order Prescriptions: New metoprolol tartrate 25 mg Tablet 25 mg PO BID Qty: 60 0RF sodium chloride 1,000 mg Tablet,Soluble 1,000 mg PO BID Qty: 60 0RF Continued ferrous sulfate 325 mg (65 mg iron) tablet 325 mg PO DAILY Qty: 90 3RF pravastatin 80 mg tablet 80 mg PO QPM Qty: 90 3RF duloxetine 20 mg capsule,delayed release(DR/EC) 20 mg PO DAILY Qty: 90 1RF solifenacin [Vesicare] 5 mg tablet 5 mg PO DAILY Qty: 30 2RF timolol maleate 0.5 % drops 1 drp OPB QAM multivitamin [Daily Multi-Vitamin] Tablet 1 tab PO QAM levothyroxine [Synthroid] 25 mcg tablet 25 mcg PO DAILYBB Patient Comments: QAM valsartan [Diovan] 160 mg tablet 160 mg PO QAM Patient Comments: DAILY AT 1200 calcium carbonate 500 mg calcium (1,250 mg) tablet,chewable 500 mg PO QAM cholecalciferol (vitamin D3) [Vitamin D3] 25 mcg (1,000 unit) Tablet 25 mcg PO DAILY amoxicillin 500 mg Tablet 2,000 mg PO ONCE PRN (Reason: PRIOR TO DENTAL APPT) hydrocodone-acetaminophen 5-325 mg Tablet 1 tab PO Q6H PRN (Reason: pain) Qty: 10 0RF cyanocobalamin (vitamin B-12) 500 mcg Tablet 1,000 mcg PO QAM Qty: 60 5RF sodium chloride 1,000 mg Tablet,Soluble 1,000 mg PO DAILY Qty: 10 0RF pantoprazole 40 mg Tablet,Delayed Release (Dr/Ec) 40 mg PO BID Qty: 60 2RF aspirin 81 mg tablet,delayed release (DR/EC) 81 mg PO BID 42 Days Qty: 84 0RF acetaminophen [Tylenol Extra Strength] 500 mg tablet 500 mg PO TID Qty: 0 0RF zolpidem [Ambien] 5 mg tablet 2.5 mg PO HS PRN (Reason: Sleep) Qty: 10 0RF sennosides [Senokot] 8.6 mg tablet 17.5 mg PO DAILY PRN (Reason: Constipation) Discontinued amlodipine 2.5 mg tablet 2.5 mg PO QAM Discharge Orders: Discharge Order (Routine); Ordered 10/04/24 Ordered By: Macario Torres Admission Data Admit Date/Time: 09/30/24 14:45 Attending Provider: Macario Torres Admit Provider: Nayan Huddleston [facility]iders: [facility]; Nayan Huddleston; Matt West; Lui Love; Shara Verduzco; Vijay Ibarra; Natalya Thomas Hospital Stay Data Consultations 09/30/24 13:41 ED Decision to Admit Stat 09/30/24 14:40 Consult Office Nurse Routine 09/30/24 15:14 Consult Nephrology Stat Diagnostic Imagining Performed 09/30/24 12:32 CT head/brain wo con Stat Pending Results Patient Have Any Pending Studies at Discharge: No Discharge Instructions Given to Patient (Per Discharging Provider) Take sodium chloride tablets twice daily. Amlodipine has been switched to metoprolol. Lab work has been ordered twice weekly going forward. Follow-up with nephrology in the office in 2 weeks. Total Time Total Time Spent Total Time Spent (In Minutes): 45 minutes Coding Level of Care Code [id number] INP/OBS DISCH >30 MIN Diagnoses Hyponatremia E87.1 UTI (urinary tract infection) N39.0 Metabolic encephalopathy G93.41 Hypomagnesemia E83.42 Hypertension I10 Hypertension type: unspecified
[2024-10-04 13:11] VITALS: BP 146/77
[2024-10-04] MEDS ORDERED: SODIUM CHLORIDE 1 GM TABLET PO SCH (21:00)
== END 2024-10-04 14:57 | disposition home or self-care (01) | DRG 643 ==
LOC: ED 12:19 → SUATTDRO 14:45 → 1E 14:45 → 2N 10-01 18:19